=== PATIENT | male | born 1945 | race Caucasian/White ===

== ENCOUNTER 2016-10-04 20:13 | Inpatient (IN) | payer OTHER ==
[~2016-10-04] VITALS: Ht 180.3 cm; Wt 148.4 kg
[~2016-10-04 20:13] MED LIST: AMOX500C3 PO; ASPI325T39 PO; ATOR-24 PO; ATV/1 PO; CITA20TA9 PO; CLOP1TAB15 PO; LISI-729 PO; METO25TA3 PO; NVLGI7030 SC; PLMIN90 INH; ROPI1TAB PO; TORS20TA2 PO; VNTHFA/IN INH; [UNRECOGNIZED DRUG - CODE] PO
[2016-10-04] MEDS ORDERED: METOPROLOL TARTRATE 1 MG/ML VIAL IV STA (20:25)
[2016-10-04] MEDS ORDERED: METOPROLOL TARTRATE 1 MG/ML VIAL ONE (20:26)
[2016-10-04] MEDS ORDERED: FENTANYL CITRATE INJ 50 MCG/1 ML 2 ML VIAL ONE (20:29)
[2016-10-04] MEDS ORDERED: NiCARDipine HCL INJ 2.5 MG/ML 10 ML AMP ONE (20:29)
[2016-10-04] MEDS ORDERED: HEPARIN SOD (PORCINE) 1000 UNIT/ML 10 ML VIAL ONE (20:29)
[2016-10-04] MEDS ORDERED: MIDAZOLAM HCL 1 MG/ML 2ML VIAL ONE (20:30)
--- NOTE | 2016-10-04 20:31 | EMERGENCY ROOM VISIT NOTE ---
History Report prepared by Chema: Starr Blanton Under the Supervision of: Dr. Taimr Jacobo D.O. First contact with patient: 20:05 Chief Complaint: HEART ALERT Stated Complaint: Chest Pain, Heart Alert History of Present Illness The patient is a 71 year old male who presents to the Emergency Room with complaints of constant chest pain beginning 2 hours ago. The patient states that he has been having chest pain and tightness for the last 4 days and today his pain worsened to a 10/10 in severity. EMS state that he has had a heart attack in the past and this feels similar to his previous. They note that he took 325mg of Aspirin at lunch time and was on 6L of oxygen en route and received nitro. The patient states that he is feeling slightly better now and rates his pain as an 8/10 in severity. He notes that he has neck pain. Source of History: patient Onset: 2 hrs ago Position: chest Symptom Intensity: 8/10 Quality: other (tightness) Timing: constant Associated Symptoms: + neck pain Review of Systems See HPI for pertinent positives & negatives. A total of 10 systems reviewed and were otherwise negative. Past Medical & Surgical Medical Problems: (1) CHF exacerbation (2) Coronary artery disease (3) Diabetes (4) Diabetes mellitus (5) Kidney stones (6) Multiple rib fractures involving four or more ribs (7) Myocardial infarct Surgical Problems: (1) H/O cardiac catheterization (2) H/O percutaneous transluminal coronary angioplasty (3) Stented coronary artery Family History FH: HTN (hypertension) FH: cancer FH: diabetes mellitus FH: gallbladder disease FH: heart disease FH: kidney disease Social History Smoking Status: Never Smoker Alcohol Use: occasionally Drug Use: none Marital Status: Housing Status: lives with family Occupation Status: retired Current/Historical Medications Scheduled Aspirin (Aspirin Ec), 325 MG PO QPM Atorvastatin (Lipitor), 40 MG PO DAILY Citalopram Hydrobromide (Celexa), 20 MG PO QPM Clopidogrel (Plavix), 75 MG PO QAM Insulin Aspart 70/30 (Novolog Mix 70/30), 10-15 UNITS SC QAM Insulin Aspart 70/30 (Novolog Mix 70/30), 30 UNITS SC HS Lisinopril (Zestril), 5 MG PO DAILY Lorazepam (Ativan), 1 MG PO HS Metoprolol Succinate (Toprol Xl), 25 MG PO BID Torsemide (Demadex), 20 MG PO DAILY Scheduled PRN Albuterol Hfa (Ventolin Hfa), Unknown Dose INH Q4-6H PRN for Shortness of Breath Oxycodone Immediate Rel Tab (Roxicodone Ir), 1-2 TAB PO Q4H PRN for Pain Zolpidem Tartrate (Zolpidem), 10 MG PO HS PRN for Sleep Allergies Coded Allergies: No Known Allergies (Verified , `, 06/19/16) Physical Exam Vital Signs Date Time Temp Pulse Resp B/P Pulse Ox O2 Delivery O2 Flow Rate FiO2 10/04/16 21:11 81 20 163/91 97 Nasal Cannula 2.0 10/04/16 20:33 89 99 10/04/16 20:29 23 151/90 99 10/04/16 20:29 99 172/108 10/04/16 20:28 97 99 10/04/16 20:25 100 Nasal Cannula 2.0 10/04/16 20:21 172/108 10/04/16 20:20 100 Nasal Cannula 2.0 10/04/16 20:20 86 23 144/94 97 Nasal Cannula 2.0 10/04/16 20:14 98 Room Air 10/04/16 20:14 37.0 101 23 178/105 97 Nasal Cannula 2.0 Physical Exam GENERAL: Patient is awake, alert, and very anxious appearing. Appears to be uncomfortable. EYES: The conjunctivae are clear. The pupils are round and reactive. EARS, NOSE, MOUTH AND THROAT: The nose is without any evidence of any deformity. Mucous membranes are moist tongue is midline NECK: The neck is nontender and supple. RESPIRATORY: Lung sounds diminished at the right base, rales at the right base. Mild tachypnea appreciated. CARDIOVASCULAR: Tachycardic rate and regular rhythm noted there no definite murmur noted to auscultation. GASTROINTESTINAL: The abdomen is soft. Bowel sounds are present in all quadrants. Abdomen is nontender MUSCULOSKELETAL/EXTREMITIES: There is no evidence of gross deformity full range of motion is noted in the hips and shoulders SKIN: There is no obvious evidence of any rash. There are no petechiae, pallor or cyanosis noted. Pedal edema bilaterally. NEUROLOGIC: Patient is awake alert and oriented x3 Medical Decision & Procedures ER Provider Diagnostic Interpretation: X-ray results as stated below per interpretation by me and the radiologist. CHEST ONE VIEW PORTABLE FINDINGS: The left-sided PICC catheter has been removed. The heart remains enlarged. There is a persistent moderate right pleural effusion with associated right basilar atelectasis/consolidation. There is mild pulmonary venous congestion. IMPRESSION: 1. Cardiomegaly and radiographic evidence of mild pulmonary vascular congestion 2. Persistent moderate right pleural effusion with right lower lobe atelectasis/consolidation Electronically signed by: Chad Moulton M.D. 10/04/2016 8:36 PM Dictated Date/Time: 10/04/2016 8:34 PM Laboratory Results Test 10/04/16 20:24 10/04/16 20:26 10/04/16 21:00 Bedside Hemoglobin 15.6 g/dl (14.0-18.0) Bedside Hematocrit 46 % (42-52) Bedside Sodium 139 mEq/L (135-144) Bedside Potassium 4.1 mEq/L (3.3-5.0) Bedside Chloride 99 mEq/L (101-112) Bedside Total CO2 25 mEq/l (24-31) Bedside Blood Urea Nitrogen 15 mg/dl (7-18) Bedside Creatinine 1.0 mg/dl (0.6-1.3) Bedside Glucose (other) 239 mg/dl (70-99) Bedside Ionized Calcium (Sunny) 1.18 mmol/l (1.12-1.32) Total Bilirubin 0.7 mg/dl (0.2-1) Direct Bilirubin 0.2 mg/dl (0-0.2) Aspartate Amino Transf (AST/SGOT) 18 U/L (15-37) Alanine Aminotransferase (ALT/SGPT) 16 U/L (12-78) Alkaline Phosphatase 100 U/L (45-117) Pro-B-Type Natriuretic Peptide 1699 pg/ml (0-900) Total Protein 7.4 gm/dl (6.4-8.2) Albumin 3.4 gm/dl (3.4-5.0) Lipase 98 U/L (73-393) Bedside Troponin I 0.040 ng/ml (0-0.045) Urine Color YELLOW Urine Appearance CLEAR (CLEAR) Urine pH 5.0 (4.5-7.5) Urine Specific [place] 1.007 (1.000-1.030) Urine Protein 1+ (NEG) Urine Glucose (UA) NEG (NEG) Urine Ketones NEG (NEG) Urine Occult Blood NEG (NEG) Urine Nitrite NEG (NEG) Urine Bilirubin NEG (NEG) Urine Urobilinogen NEG (NEG) Urine Leukocyte Esterase NEG (NEG) Urine WBC (Auto) 0 /hpf (0-5) Urine RBC (Auto) 0-4 /hpf (0-4) Urine Hyaline Casts (Auto) 1-5 /lpf (0-5) Urine Epithelial Cells (Auto) 5-10 /lpf (0-5) Urine Bacteria (Auto) NEG (NEG) Laboratory results per my review. Medications Administered Medications (Trade) Dose Ordered Sig/Aditi Route Start Time Stop Time Status Last Admin Dose Admin Metoprolol Tartrate (Lopressor Iv) 15 mg NOW STAT IV 10/04/16 20:25 10/04/16 20:26 DC 10/04/16 20:29 5 MG Nitroglycerin 1 inch 1 inch STK-MED ONCE .ROUTE 10/04/16 20:44 10/04/16 20:46 DC 10/04/16 21:04 1 INCH Furosemide/ Albumin Human (Lasix Inj/ Albumin 25%) 54 ml @ 54 mls/hr NOW STAT IV 10/04/16 21:15 10/04/16 22:14 DC 10/04/16 21:58 54 MLS/HR Acetaminophen (Tylenol Tab) 650 mg Q4H PRN PO 10/04/16 21:45 11/03/16 21:44 10/05/16 04:34 650 MG Oxycodone HCl (Roxicodone Immediate Rel Tab) 5 mg Q4H PRN PO 10/04/16 21:45 10/18/16 21:44 10/05/16 10:12 5 MG Zolpidem Tartrate (Ambien Tab) 10 mg HS PRN PO 10/04/16 21:45 11/03/16 21:44 10/04/16 23:21 10 MG ECG Indication: chest pain Rate (beats per minute): 143 Rhythm: sinus tachycardia Findings: LBBB, other (widespread ST elevation noted) Comparison ECG Date: 06/13/16 Change: LBBB is unchanged from 06/13/16. EKG #[address] [facility]: Sinus Tachycardia, 116, no PVC, LBBB noted, improvement of previously noted ST segment abnormalities. ED Course 2004: The patient was evaluated in room B1. A complete history and physical examination were performed. 2009: Dr. Beckford came to evaluate the patient. 2011: I discussed the patient's case with Dr. Heredia. The patient will be evaluated for further management. 2024: Lopressor IV 15mg IV. 2029: Upon reevaluation, the patient is hemodynamically stable. I discussed results and treatment plan with the patient. He verbalizes agreement and understanding. I spoke with Dr. Heredia of the [facility]. The patient will be evaluated for further management and care. 2038: I reevaluated the patient. He is feeling better as the EKG is normalizing. Medical Decision Differential diagnosis: Etiologies such as cardiac ischemia, aortic dissection, pulmonary embolism, pneumonia, pneumothorax, musculoskeletal, infections, pericarditis, myocarditis , esophageal rupture, gastrointestinal, as well as others were entertained. Nursing notes reviewed. Additional history is obtained from the prehospital personnel. The patient is a 71-year-old male who presented to the emergency department for an evaluation of chest pain. The patient has a history of coronary artery disease. He's had cardiac catheterizations and stents in the past. He had an abnormal stress test last fall. The patient was made a heart alert after his prehospital EKGs revealed significant ST segment elevation which was widely diffuse as well as a left bundle branch block pattern. While the patient was on route we did review some of his past medical history and previous cardiac workups. It appears that he has had similar symptoms in the past. The patient was treated with nitroglycerin prior to arrival. He took aspirin prior to arrival. He was treated with beta blockers in the emergency department via IV. I discussed his case with the [employer]dl dedicated truck driver as well as the on- call [facility] hospitalist group. They evaluated the patient in the emergency department immediately after arrival. The patient was feeling much better on subsequent reevaluation. His pulse rate had improved and his ST segment abnormalities also improved. I discussed the patient's EKG findings with him. Consults Time Called: 2009 Consulting Physician: Dr. Heredia - [facility] Returned Call: 2011 I discussed the patient's case with Dr. Hereida. The patient will be evaluated for further management. Impression Primary Impression: Acute coronary syndrome Additional Impressions: Hypertensive urgency Pleural effusion, right Critical Care I have personally spent greater than 40 minutes of critical care time in the direct management of this patient. This includes bedside care, interpretation of diagnostic studies, and testing, discussion with consultants, patient, and family members, and other required patient management activities. This 40 minutes is in excess of all separately billable procedures. Scribe Attestation The scribe's documentation has been prepared under my direction and personally reviewed by me in its entirety. I confirm that the note above accurately reflects all work, treatment, procedures, and medical decision making performed by me. Departure Information Dispostion Being Evaluated By Hospitalist Referrals No Doctor, Assigned (PCP) Forms WORK / SCHOOL INSTRUCTIONS, HOME CARE DOCUMENTATION FORM, IMPORTANT VISIT INFORMATION Patient Instructions My [facility] Problem Qualifiers
[2016-10-04] MEDS ORDERED: NITROGLYCERIN/D5W 100MCG/ML 20ML SYR ONE (20:32)
[2016-10-04 20:37] LABS: BASO % 0.2 %; BASO ABS # 0.01 K/uL (0-0.2); COMPLETE YES; EOS % 1.8 %; HEMATOCRIT 45.3 % (42-52); LYMPH % 19.1 %; LYMPH ABS # 1.14 K/uL (1.2-3.4); MEAN CELL VOLUME 91.7 fL (80-100); MEAN CORPUSCULAR HEMOGLOBIN 31.4 pg (25-34); MEAN CORPUSCULAR HGB CONC 34.2 g/dl (32-36); MEAN PLATELET VOLUME 10.4 fL (7.4-10.4); NEUT % 71.9 %; PLATELET COUNT 164 K/uL (130-400); RED BLOOD COUNT 4.94 M/uL (4.7-6.1); WHITE BLOOD COUNT 5.98 K/uL (4.8-10.8)
--- NOTE | 2016-10-04 20:37 | DIAGNOSTIC IMAGING REPORT ---
CHEST ONE VIEW PORTABLE CLINICAL HISTORY: Chest pain. Possible myocardial infarction. COMPARISON STUDY: 06/17/2016 FINDINGS: The left-sided PICC catheter has been removed. The heart remains enlarged. There is a persistent moderate right pleural effusion with associated right basilar atelectasis/consolidation. There is mild pulmonary venous congestion.[ IMPRESSION: 1. Cardiomegaly and radiographic evidence of mild pulmonary vascular congestion 2. Persistent moderate right pleural effusion with right lower lobe atelectasis/consolidation Electronically signed by: Chad Moulton M.D. 10/04/2016 8:36 PM Dictated Date/Time: 10/04/2016 8:34 PM
[2016-10-04 20:40] LABS: ISTAT HEMOGLOBIN 15.6 g/dl (14.0-18.0); ISTAT IONIZED CALCIUM 1.18 mmol/l (1.12-1.32)
[2016-10-04] MEDS ORDERED: NITROGLYCERIN OINT 2% 1GM PACKET ONE (20:44)
[2016-10-04 20:51] LABS: PARTIAL THROMBOPLASTIN RATIO 1.1; PROTHROMBIN TIME (PATIENT) 10.7 SECONDS (9.0-12.0)
[2016-10-04 20:55] LABS: CREATININE 1.2 mg/dl (0.60-1.40)
[2016-10-04 20:56] LABS: BUN/CREATININE RATIO 12.1 (10-20); CALCIUM 9.2 mg/dl (8.5-10.1); MAGNESIUM 1.8 mg/dl (1.8-2.4); POTASSIUM 4.1 mmol/L (3.5-5.1)
[2016-10-04 20:59] LABS: CKMB/CK RATIO 2.3 (0-3.0)
[2016-10-04] MEDS ORDERED: ALBUMIN 25% 50 ML with FUROSEMIDE INJ 40 MG IV STA ×2 (21:15)
[2016-10-04 21:23] LABS: URINE APPEARANCE CLEAR (CLEAR); URINE BILIRUBIN NEG (NEG); URINE COLOR YELLOW; URINE NITRITE NEG (NEG); URINE SPECIFIC GRAVITY 1.007 (1.000-1.030); UROBILINOGEN NEG (NEG)
[2016-10-04 21:24] LABS: MANUAL MICROSCOPIC REQUIRED? NO; REVIEW REQ? NO
[2016-10-04] MEDS ORDERED: OXYC1TAB3 PO (21:24)
[2016-10-04] MEDS ORDERED: NITROGLYCERIN 0.4 MG SL PER TAB CHARGE SL PRN (21:45)
[2016-10-04] MEDS ORDERED: GLUCAGON FOR INJ 1 MG VIAL SQ PRN (21:45)
[2016-10-04] MEDS ORDERED: ACETAMINOPHEN 325 MG TAB PO PRN (21:45)
[2016-10-04] MEDS ORDERED: ZOLPIDEM TARTRATE 5 MG TAB PO PRN (21:45)
[2016-10-04] MEDS ORDERED: GLUCOSE 40% GEL 15 GM TUBE PO PRN (21:45)
[2016-10-04] MEDS ORDERED: GLUCOSE 10 TABS/TUBE PO PRN (21:45)
[2016-10-04] MEDS ORDERED: DEXTROSE 50% 50 ML SYR IV PRN (21:45)
[2016-10-04 22:52] VITALS: BP 165/96; PULSE 90; TEMP 36.7; O2SAT 94; Ht 180.3 cm; Wt 148.4 kg
[2016-10-04 23:17] VITALS: BP 157/97; PULSE 82; TEMP 36.6; O2SAT 94
[2016-10-04] MEDS: ZOLPIDEM TARTRATE 10 MG TAB PO PRN (23:21)
[2016-10-04] MEDS ORDERED: NURSING VERBAL MED ORDER ONE (23:45)
[2016-10-05] MEDS: LORAZEPAM 1 MG TAB PO PRN (00:42)
[2016-10-05] MEDS: ROPINIROLE HCL 1 MG TAB PO PRN (00:42)
--- NOTE | 2016-10-05 02:11 | CARDIOLOGY CONSULTATION ---
DATE OF CONSULTATION: 10/04/2016 REFERRING PHYSICIAN: Kvng Heredia MD PRIMARY PHYSICIAN: Ellis Mullen MD HISTORY OF PRESENT ILLNESS: The patient is a 71-year-old white male with a known history of coronary artery disease, status post 2.25 x 14 mm bare metal stent in the distal LAD on 12/03/2011. This was performed because of an acute coronary syndrome. He has diffuse 3-vessel coronary artery disease. Repeat cardiac catheterization on 06/14/2013 for a prolonged episode of chest pain and elevated cardiac enzymes showed patent stent site in his distal LAD. There was a subtotal occlusion of a codominant left circumflex coronary artery, diffuse [id number] disease of the LAD, 70% proximal LAD stenosis, and distal PDA stenosis. The stent site in the distal LAD was patent. In March of 2016, he sustained a non-ST elevation SD after being admitted for treatment of a left buttock abscess. He was seen at that time by Dr. Wayne Rodgers. The patient did not want to undergo cardiac catheterization procedure. Conservative management was performed. An echocardiogram was performed and revealed LV ejection fraction of 40% to 45%. Left ventricular dilatation. Moderate concentric LVH. Normal right ventricular systolic function. Moderate left atrial dilatation. Moderate mitral regurgitation. No significant tricuspid regurgitation noted. No significant aortic regurgitation noted. Severe hypokinesis of the inferior and posterior segments extending into the apex appeared a kinetic apex. Moderate hypokinesis of the anterolateral segments. Global hypokinesis of the other segments. Compared to a study of April 2015, the apex was akinetic. He thereafter underwent a nuclear pharmacologic stress test on 07/15/2016, this revealed an inferior infarction with [id number] wen-infarct ischemia. LV ejection fraction 37%. The patient states that until this evening at approximately 6:00 p.m. he had been at his baseline physical status. He normally develops a retrosternal chest pressure if he walks quickly, this is associated with dyspnea. He has chronic leg edema. This has been stable recently. He usually is able to sleep with 1 pillow. However, he does report episodes which are consistent with PND. He does not sleep of any supplemental oxygen. In the past, he states he was diagnosed with sleep apnea. He states that in the past he used CPAP. He no longer uses any CPAP. Occasional palpitations. No lightheadedness or syncope. This evening after eating dinner, he went to the bathroom to have a bowel movement. He began to develop chest pressure, this progressively worsened. He had associated diaphoresis and dyspnea. He states his heart rate is usually around 70. He has a pulse oximeter. He states his heart rate was over 100. Because of progressive worsening of his symptoms, he called 911. An electrocardiogram performed by EMS showed sinus tachycardia at a rate of 134 beats per minute. It revealed a nonspecific intraventricular conduction delay and left axis deviation. These are chronic conduction abnormalities on patient's electrocardiogram. Compared with 06/13/2016 ECG, the ventricular rate and atrial rate had increased. The anterior T waves were more prominent. The patient was given sublingual nitroglycerin by EMS. On arrival to the Emergency Department, he was still complaining of chest pressure and dyspnea. His initial blood pressure at 8:14 p.m. was 178/105. His pulse was 101. The patient was given 5 mg of intravenous metoprolol. This resulted in a decrease in his heart rate and blood pressure. His symptoms improved. His blood pressure and heart rate decreased. He was also given topical nitrates. With the decrease in his blood pressure and heart rate, his chest pressure and dyspnea resolved. Because of his symptoms and the electrocardiogram, a heart alert was called after patient had arrived in the Emergency Department. I evaluated patient in the Emergency Department. Dr. Tamir Jacobo and Dr. Kvng Heredia along with myself reviewed patient's electrocardiograms and his prior electrocardiograms. It was decided not to perform emergency cardiac catheterization. It was found that patient had 3-vessel coronary artery disease. It was felt that his symptoms were secondary to the elevated heart rate and blood pressure. As stated above with control of his blood pressure and heart rate, his anginal type symptoms resolved. His dyspnea also resolved. PAST MEDICAL HISTORY: 1. Coronary artery disease as above. 2. Hypertension. 3. Dyslipidemia. 4. Insulin-dependent diabetes mellitus. 5. Diabetic peripheral neuropathy. 6. Obstructive sleep apnea. 7. History of TIA and cerebrovascular disease. 8. Peripheral vascular disease. 9. History of depression. 10. Perirectal abscess requiring I\T\D on a 04/18/2016 [facility] admission. The patient still has a drainage tube in his left perirectal region. 11. Ischemic cardiomyopathy. 12. 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 13. Chronic combined systolic and diastolic heart failure. 14. Chronic right pleural effusion. 15. Proteinuria. 16. History of tubular adenoma of the colon. PAST SURGICAL HISTORY: 1. Status post cholecystectomy. 2. Status post tonsillectomy. 3. Status post ORIF of right humeral fracture. 4. Status post I\T\D of perirectal abscess. SOCIAL HISTORY: The patient is and lives with his . Former cigarette smoker. He stopped smoking cigarettes 54 years ago. Occasional use of alcohol. He is retired. ALLERGIES: No known drug allergies. MEDICATIONS: Based on all script records at the time of admission were torsemide 20 mg daily, lorazepam 0.5 mg b.i.d., losartan 50 mg daily, aspirin 325 mg daily, Senexon 8.6 mg 1 tablet daily, citalopram 20 mg daily, ropinirole 1 mg at bedtime, hydrocodone/acetaminophen 5/325 two tablets daily as needed for right hip pain, nitroglycerin spray as needed, atorvastatin 80 mg daily, Coenzyme Q10 200 mg daily, potassium 10 mEq daily, metoprolol succinate ER 100 mg daily, zolpidem 10 mg tablet 2 tablets p.r.n. at bedtime for sleep, magnesium oxide 400 mg daily, isosorbide mononitrate 60 mg daily, Xopenex 2 puffs q. 6 hours as needed, Advair Diskus 250/50, albuterol nebulizer as needed, ProAir 2 puffs q. 4-6 hours as needed, Nasonex 50 mcg actuation 1-2 sprays each nostril once daily, clopidogrel 75 mg daily, insulin as directed, NovoLog 70/30 20-25 units subQ q.a.m. and 30-35 units subQ q. evening, amlodipine 5 mg daily. IMMUNIZATIONS: Prevnar immunization given on 05/21/2015. Pneumovax on 05/21/2016. REVIEW OF SYSTEMS: 1. As above. 2. The patient states that for the past year he has had chronic and daily mid epigastric discomfort. He vaguely describes this. He states it is a dull pain. No change with meals. He denies any symptoms of GI bleeding. He complains of this discomfort this evening. 3. No recent focal motor weakness. 4. Poor dentition. He has 1 tooth on the bottom of his mouth. He has dentures which he does not wear. 5. No fevers or chills. 6. No cough. 7. He denies any urinary complaints. 8. Constipation. He does have a daily bowel movement with the use of medication. He denies any GI bleeding. 9. Chronic hip pain. 10. Chronic peripheral edema of his lower legs, ankles, and feet. 11. He claims that he is compliant with his medications and a low sodium diet. Medical records state that he has a history of significant noncompliance with his medications and low sodium diet. PHYSICAL EXAMINATION: GENERAL: When I first examined patient, it was early after his arrival to the Emergency Department. He still had minimal discomfort. He had mild dyspnea. VITAL SIGNS: Revealed pulse 99, blood pressure 172/105 and then 151/90, pulse oximetry 99% on 2 liters per nasal cannula oxygen. HEAD: Normal. EYES: Pupils equal and round. Anicteric. Conjunctivae normal. NECK: Thick neck. Unable to accurately assess jugular venous pressure. The jugular venous wave forms were not visible. Carotids 2/2 bilaterally. Normal upstroke. No bruits. LUNGS: Decreased breath sounds right base. No rales or wheezes. HEART: PMI not palpable. No lifts or heaves. Distant heart sounds. Regular rate and rhythm. No murmur, gallop, or rub heard. ABDOMEN: Obese. Soft. Nontender. No palpable masses or organomegaly. No bruits heard. EXTREMITIES: 1+ pretibial, ankle, and pedal edema. No cyanosis or clubbing. Pulses in the ankles and feet were not palpable. Radial pulses palpable. SKIN: Chronic venous stasis changes of the lower legs. NEUROLOGIC: Alert and oriented x3. He can move all extremities. Affect normal. DIAGNOSTIC DATA: Electrocardiogram reviewed by me. Sinus tachycardia, left axis deviation, nonspecific intraventricular conduction delay. Compared to prior electrocardiogram 06/13/2016, the atrial and ventricular rate increased. Anterior T waves more prominent. Chest x-ray reviewed by me. Right pleural effusion. Prominent pulmonary vasculature. His cardiac catheterization images from 2013 were reviewed by me this evening. Findings as reported above. LABORATORY DATA: WBC 5.98, hemoglobin 15.5, hematocrit 45.3, platelet count 164, INR 1.0, PTT 27.9. Sodium 140, potassium 4.1, chloride 102, carbon dioxide 28, BUN 15, creatinine 1.20, random glucose 235, magnesium 1.8. AST 18. ALT 16. CK total 56 with MB of 1.3. Point of care troponin I of 0.040. Serum albumin 3.4. ASSESSMENT: 1. I do not suspect an acute intracoronary process such as an acute coronary syndrome. His intraventricular conduction delay appears unchanged. The T waves are more prominent. However, the contour of ST segments is similar to previous electrocardiograms. The patient's chest pressure and dyspnea have resolved with control of his heart rate and blood pressure. Suspect that his anginal type symptoms were secondary to the elevated blood pressure and heart rate. 2. Suspect acute on chronic systolic and diastolic heart failure. This would increase his blood pressure and heart rate. With the increased blood pressure and heart rate, he would become more ischemic. This would further worsen and elevate his intracardiac pressures. 3. Evidence of congestive heart failure on chest x-ray. On exam, his left lung field x-ray was clear at the time of my exam. 4. Chronic right pleural effusion. 5. Chronic peripheral edema. 6. History of noncompliance with low sodium diet and medications. 7. No arrhythmias noted this evening. 8. Complaint of abdominal discomfort for the past year. The patient states that this has not as yet been evaluated. He states that he has not notified his primary care provider about this symptom. 9. Elevated blood pressure and heart rate at the time of admission. RECOMMENDATIONS AND PLAN: 1. Control of blood pressure with beta arlene, AVINASH inhibitor, diuretic, and topical nitrate. 2. Continue aspirin and clopidogrel. 3. DVT prophylaxis. 4. Check pro-BNP. 5. Serial cardiac enzymes. 6. Repeat echocardiogram. 7. Repeat ECG in a.m. 8. At this time, medical management of his coronary artery disease. I do not feel that patient is having an acute ST elevation myocardial infarction this evening. As stated above, his chest discomfort and dyspnea have resolved with control of his blood pressure and heart rate. 9. Evaluation of his abdominal discomfort by his primary care provider and hospital staff. ADDENDUM TO HISTORY: Family history is significant for his father having from myocardial infarction. Thank you for asking me to see this patient in cardiology consultation.
[2016-10-05 03:00] VITALS: BP 150/78; PULSE 84; TEMP 36.7; O2SAT 93
--- NOTE | 2016-10-05 04:02 | History and Physical ---
History & Physical Date & Time of Service: Oct 05, 2016 at 03:46 Chief Complaint: Chf Exacerbation Primary Care Physician: Ellis Mullen M.D. History of Present Illness Source: patient The patient is a 71-year-old male who presented to the emergency department complaint of chest pain and tightness over the past 4 days that worsened became more constant over the past 2 hours prior to arrival. He reports that this discomfort was similar to the times when he has had previous heart attack. In the emergency department, staff there were concerned about the possibility of an acute AK, and a Heart Alert was called. The patient was assessed by Dr. Beckford, from interventional cardiology, while in the emergency department, and he determined, after reviewing previous reports and assessing current information, that the patient's symptoms were more likely related to CHF, and recommended medical management. The patient was given Lopressor 5 mg IV in the emergency department, and with the addition of 1 inch of Nitropaste to the anterior chest wall, had and appropriate lowering of heart rate and blood pressure, and subsequent improvement but not normalization of symptoms. Past Medical/Surgical History Medical Problems: (1) Coronary artery disease Status: Chronic (2) Diabetes Status: Resolved (3) Diabetes mellitus Status: Chronic (4) Kidney stones Status: Resolved (5) Myocardial infarct Status: Resolved Surgical Problems: (1) H/O cardiac catheterization Status: Resolved (2) H/O percutaneous transluminal coronary angioplasty Status: Resolved (3) Stented coronary artery Status: Chronic Family History FH: HTN (hypertension) FH: cancer FH: diabetes mellitus FH: gallbladder disease FH: heart disease FH: kidney disease Social History Smoking Status: Never Smoker Smokeless Tobacco Use: No Alcohol Use: none Drug Use: none Marital Status: Housing status: lives with family Occupational Status: retired Immunizations History of Influenza Vaccine: No History of Tetanus Vaccine?: unknown History of Pneumococcal: No History of Hepatitis B Vaccine: No Multi-Drug Resistant Organisms History of MDRO: No Allergies Coded Allergies: No Known Allergies (Verified , `, 06/19/16) Home Medications Scheduled Aspirin (Aspirin Ec), 325 MG PO QPM Atorvastatin (Lipitor), 40 MG PO DAILY Citalopram Hydrobromide (Celexa), 20 MG PO QPM Clopidogrel (Plavix), 75 MG PO QAM Insulin Aspart 70/30 (Novolog Mix 70/30), 10-15 UNITS SC QAM Insulin Aspart 70/30 (Novolog Mix 70/30), 30 UNITS SC HS Lisinopril (Zestril), 5 MG PO DAILY Lorazepam (Ativan), 1 MG PO HS Metoprolol Succinate (Toprol Xl), 25 MG PO BID Torsemide (Demadex), 20 MG PO DAILY Scheduled PRN Albuterol Hfa (Ventolin Hfa), Unknown Dose INH Q4-6H PRN for Shortness of Breath Oxycodone Immediate Rel Tab (Roxicodone Ir), 1-2 TAB PO Q4H PRN for Pain Zolpidem Tartrate (Zolpidem), 10 MG PO HS PRN for Sleep Review of Systems The patient denies cough, vision change, hearing change, sore throat, fevers, chills, sweats, weight change, fatigue, nausea, vomiting, abdominal pain, pelvic pain, blood in urine or stool, dysuria, urinary frequency or urgency, lightheadedness, dizziness, headache, memory loss, rash, abnormal bruising or bleeding, imbalance, focal weakness, numbness or tingling in arms or legs, arthralgias or myalgias, back or neck pain, night sweats, or allergy symptoms. The review of systems is otherwise negative other than for that already noted above, and at least 10 systems have been reviewed. Physical Exam Vital Signs Date Time Temp Pulse Resp B/P Pulse Ox O2 Delivery O2 Flow Rate FiO2 10/05/16 00:02 Room Air 10/04/16 23:17 36.6 82 20 157/97 94 Room Air 10/04/16 22:52 36.7 90 20 165/96 94 Room Air 10/04/16 22:17 79 18 155/86 96 10/04/16 21:11 81 20 163/91 97 Nasal Cannula 2.0 10/04/16 20:33 89 99 10/04/16 20:29 23 151/90 99 10/04/16 20:29 99 172/108 10/04/16 20:28 97 99 10/04/16 20:25 100 Nasal Cannula 2.0 10/04/16 20:21 172/108 10/04/16 20:20 100 Nasal Cannula 2.0 10/04/16 20:20 86 23 144/94 97 Nasal Cannula 2.0 10/04/16 20:14 98 Room Air 10/04/16 20:14 37.0 101 23 178/105 97 Nasal Cannula 2.0 The patient is awake, well-developed and adequately nourished, alert and oriented 3, normocephalic and atraumatic, lying in bed and in moderate acute respiratory upon presentation to the emergency department. HEENT--PERRL, EOMI, mucous membranes moist, and oropharynx normal. Neck--supple, no JVD or bruits, thyroid normal, trachea midline, no adenopathy. Heart--tachycardic, periodic extra beats, no murmurs, rubs or gallops. Lungs--crackles at the bases to one third up bilaterally, initial presentation was moderate respiratory distress, no accessory muscle use. Abdomen--normal bowel sounds and soft, nontender and nondistended, no hernias or masses, no organomegaly and obese. Extremities--no cyanosis, clubbing. There is bilaterally 2+ pitting edema. There are good distal pulses b/l. Dermatologic--normal skin turgor, normal color, warm and dry, no abnormal lymph nodes, no rash. Neurologic--cranial nerves II through XII grossly intact, motor and sensory examination normal. Psychiatric--normal affect. Diagnostics Laboratory Results Results Past 24 Hours Test 10/04/16 20:24 10/04/16 20:26 10/04/16 21:00 Range/Units White Blood Count 5.98 4.8-10.8 K/uL Red Blood Count 4.94 4.7-6.1 M/uL Hemoglobin 15.5 14.0-18.0 g/dL Hematocrit 45.3 42-52 % Mean Corpuscular Volume 91.7 80-100 fL Mean Corpuscular Hemoglobin 31.4 25-34 pg Mean Corpuscular Hemoglobin Concent 34.2 32-36 g/dl Platelet Count 164 130-400 K/uL Mean Platelet Volume 10.4 7.4-10.4 fL Neutrophils (%) (Auto) 71.9 % Lymphocytes (%) (Auto) 19.1 % Monocytes (%) (Auto) 7.0 % Eosinophils (%) (Auto) 1.8 % Basophils (%) (Auto) 0.2 % Neutrophils # (Auto) 4.30 1.4-6.5 K/uL Lymphocytes # (Auto) 1.14 1.2-3.4 K/uL Monocytes # (Auto) 0.42 0.11-0.59 K/uL Eosinophils # (Auto) 0.11 0-0.5 K/uL Basophils # (Auto) 0.01 0-0.2 K/uL Bedside Hemoglobin 15.6 14.0-18.0 g/dl Bedside Hematocrit 46 42-52 % RDW Standard Deviation 46.1 36.4-46.3 fL RDW Coefficient of Variation 13.8 11.5-14.5 % Immature Granulocyte % (Auto) 0.0 % Immature Granulocyte # (Auto) 0.00 0.00-0.02 K/uL Prothrombin Time 10.7 9.0-12.0 SECONDS Prothromb Time International Ratio 1.0 0.9-1.1 Activated Partial Thromboplast Time 27.9 21.0-31.0 SECONDS Partial Thromboplastin Ratio 1.1 Bedside Sodium 139 135-144 mEq/L Sodium Level 140 136-145 mmol/L Bedside Potassium 4.1 3.3-5.0 mEq/L Potassium Level 4.1 3.5-5.1 mmol/L Bedside Chloride 99 101-112 mEq/L Chloride Level 102 98-107 mmol/L Carbon Dioxide Level 28 21-32 mmol/L Bedside Total CO2 25 24-31 mEq/l Anion Gap 20.0 16-25 mmol/L Bedside Blood Urea Nitrogen 15 7-18 mg/dl Blood Urea Nitrogen 15 7-18 mg/dl Creatinine 1.20 0.60-1.40 mg/dl Bedside Creatinine 1.0 0.6-1.3 mg/dl Est Creatinine Clear Calc Drug Dose 84.0 ml/min Estimated GFR () 69.6 Estimated GFR (Non- 60.1 BUN/Creatinine Ratio 12.1 10-20 Bedside Glucose (other) 239 70-99 mg/dl Random Glucose 235 70-99 mg/dl Calcium Level 9.2 8.5-10.1 mg/dl Bedside Ionized Calcium (Sunny) 1.18 1.12-1.32 mmol/l Magnesium Level 1.8 1.8-2.4 mg/dl Total Bilirubin 0.7 0.2-1 mg/dl Direct Bilirubin 0.2 0-0.2 mg/dl Aspartate Amino Transf (AST/SGOT) 18 15-37 U/L Alanine Aminotransferase (ALT/SGPT) 16 12-78 U/L Alkaline Phosphatase 100 45-117 U/L Total Creatine Kinase 56 39-308 U/L Creatine Kinase MB 1.3 0.5-3.6 ng/ml Creatine Kinase MB Ratio 2.3 0-3.0 Pro-B-Type Natriuretic Peptide 1699 0-900 pg/ml Total Protein 7.4 6.4-8.2 gm/dl Albumin 3.4 3.4-5.0 gm/dl Lipase 98 73-393 U/L Bedside Troponin I 0.040 0-0.045 ng/ml Urine Color YELLOW Urine Appearance CLEAR CLEAR Urine pH 5.0 4.5-7.5 Urine Specific [place] 1.007 1.000-1.030 Urine Protein 1+ NEG Urine Glucose (UA) NEG NEG Urine Ketones NEG NEG Urine Occult Blood NEG NEG Urine Nitrite NEG NEG Urine Bilirubin NEG NEG Urine Urobilinogen NEG NEG Urine Leukocyte Esterase NEG NEG Urine WBC (Auto) 0 0-5 /hpf Urine RBC (Auto) 0-4 0-4 /hpf Urine Hyaline Casts (Auto) 1-5 0-5 /lpf Urine Epithelial Cells (Auto) 5-10 0-5 /lpf Urine Bacteria (Auto) NEG NEG Diagnostic Radiology Patient Name: NUVIA YAP Unit Number: [id number] Dictated: 10/04/162033 Transcribed: 10/04/162033 ARG Printed Date/Time: [~ rep prt dt]/[~ rep prt tm] [~ rep ct labl] - [~ rep ct ivnm] [facility] Radiology [place] [address] Dictated: 10/04/162033 Transcribed: 10/04/162033 ARG Printed Date/Time: [~ rep prt dt]/[~ rep prt tm] [~ rep ct labl] - [~ rep ct ivnm] CHEST ONE VIEW PORTABLE CLINICAL HISTORY: Chest pain. Possible myocardial infarction. COMPARISON STUDY: 06/17/2016 FINDINGS: The left-sided PICC catheter has been removed. The heart remains enlarged. There is a persistent moderate right pleural effusion with associated right basilar atelectasis/consolidation. There is mild pulmonary venous congestion.[ IMPRESSION: 1. Cardiomegaly and radiographic evidence of mild pulmonary vascular congestion 2. Persistent moderate right pleural effusion with right lower lobe atelectasis/consolidation Electronically signed by: Chad Moulton M.D. 10/04/2016 8:36 PM Dictated Date/Time: 10/04/2016 8:34 PM The status of this report is Signed. Draft = Not yet reviewed or approved by Radiologist. Signed = Reviewed and approved by Radiologist. <AttendingPhy></AttendingPhy> <FamilyPhy>No Doctor, Assigned</FamilyPhy> < PrimaryPhy>No Doctor, Assigned</PrimaryPhy> <UnitNumber>[id number]</UnitNumber> <VisitNumber>[id number]</VisitNumber> <PatientName>MARELYNUVIA Nahun</ PatientName> <DateOfBirth>1945</DateOfBirth> <Location>[facility]</Location> < ServiceDate>10/04/16</ServiceDate> <MNE>ESINDI</MNE> <OrderingPhy>Tamir Jacobo D.O.</OrderingPhy> <OrderingPhyMNE>f rep ord dr cloud</OrderingPhyMNE> <DictatingPhyMNE>f rep dict dr cloud</DictatingPhyMNE> <CCListMNE>f rep ct pedro luis</ CCListMNE> <AdmittingPhyMNE>f pt admit dr cloud</AdmittingPhyMNE> <AttendingPhyMNE >f pt attend dr cloud</AttendingPhyMNE> <ConsultingPhyMNE>f pt consult dr cloud</ConsultingPhyMNE> <FamilyPhyMNE>f pt fam dr cloud</FamilyPhyMNE> <OtherPhyMNE>f pt other dr cloud</OtherPhyMNE> < PrimaryPhyMNE>f pt prim care dr cloud</PrimaryPhyMNE> <ReferringPhyMNE>f pt referring dr cloud</ReferringPhyMNE> EKG The patient had a number of EKGs performed in [facility], and while in the emergency department, along with rhythm strips will be monitored. The patient has normal sinus rhythm with varying degrees of left bundle branch block with varying conduction patterns, similar to noted at his previous hospitalization. Impression Assessment and Plan Acute CHF exacerbation/coronary artery disease/history of PTCA/stent to the coronary arteries/myocardial infarction history--the patient will be admitted to the telemetry unit for serial cardiac enzymes, cardiac rhythm monitoring, and work repeat 2-D echocardiogram with Dopplers. We'll continue with enteric aspirin 325 mg by mouth daily, clopidogrel 75 mg by mouth every morning, lisinopril 5 mg by mouth daily, and metoprolol succinate 25 mg by mouth daily. We will add Nitropaste 1 inch anterior chest wall every 6 hours. We will hold torsemide 20 mg by mouth daily. We'll place patient on albumin 25 g with Lasix 40 mg IV twice a day with first dose tonight. We'll follow serial chest x-ray. Dr. Beckford has already consulted on the patient, and will continue to follow the patient during hospital stay. We'll follow serial basic metabolic panel and magnesium levels. Diabetes mellitus--continue NovoLog mix 7030 at 50 units subcutaneous twice a day. We'll place patient on Accu-Cheks before meals and at bedtime with NovoLog coverage. Hypercholesterolemia--continue atorvastatin 40 mg by mouth daily. Restless leg syndrome--continue Requip 1 mg by mouth at bedtime. Anxiety--continue lorazepam 1 mg by mouth daily, and Celexa 20 mg by mouth every afternoon. COPD--continue Pulmicort Flexhaler 2 puffs twice a day. Level of Care Telemetry Advanced Directives Existing Advance Directive: No Existing Living Will: No Existing Power of Lead Generation Specialist: No Resuscitation Status FULL RESUSCITATION VTE Prophylaxis VTE Risk Assessment Done? Y/N: Yes Risk Level: Moderate Given or contraindicated: SCD's
[2016-10-05 06:09] LABS: BASO % 0.3 %; BASO ABS # 0.02 K/uL (0-0.2); COMPLETE YES; EOS % 1.8 %; HEMATOCRIT 41.2 % (42-52); IG% 0.3 %; LYMPH % 20.1 %; LYMPH ABS # 1.31 K/uL (1.2-3.4); MEAN CELL VOLUME 90.4 fL (80-100); MEAN CORPUSCULAR HGB CONC 33.3 g/dl (32-36); MEAN PLATELET VOLUME 10.6 fL (7.4-10.4); MONO % 9.1 %; NEUT % 68.4 %; PLATELET COUNT 174 K/uL (130-400); RED BLOOD COUNT 4.56 M/uL (4.7-6.1); WHITE BLOOD COUNT 6.51 K/uL (4.8-10.8)
[2016-10-05 06:15] LABS: PROTHROMBIN TIME (PATIENT) 10.8 SECONDS (9.0-12.0)
[2016-10-05] MEDS: OXYCODONE HCL IR 5 MG TAB (IMMEDIATE RELEASE) PO PRN ×2 (06:27→10:12)
[2016-10-05 06:38] LABS: BUN/CREATININE RATIO 13.4 (10-20); CREATININE 1.1 mg/dl (0.60-1.40); MAGNESIUM 1.8 mg/dl (1.8-2.4)
[2016-10-05 06:47] LABS: CKMB/CK RATIO 9.5 (0-3.0)
[2016-10-05] MEDS: CLOPIDOGREL BISULFATE 75 MG TAB PO SCH (07:40)
[2016-10-05] MEDS: ATORVASTATIN 20 MG TAB PO SCH (07:40)
[2016-10-05] MEDS: LISINOPRIL 5 MG TAB PO SCH (07:41)
[2016-10-05 07:52] VITALS: BP 142/78; PULSE 76; TEMP 36.7; O2SAT 92
[2016-10-05] MEDS: INSULIN 70% ASPART PROTAMINE/30% ASPART SC SCH ×2 (07:57→18:46)
[2016-10-05] MEDS: INSULIN ASPART 100 UNITS/ML 3 ML PEN SC SCH ×4 (07:57→21:11)
[2016-10-05] MEDS: HEPARIN 25,000 UNIT/500ML D5W 500 ML IV PRN ×2 (08:43→22:17)
[2016-10-05] MEDS ORDERED: METOPROLOL SUCC 25MG EXT REL TAB PO SCH (09:00)
[2016-10-05] MEDS ORDERED: PANTOprazole SOD 40 MG TAB PO ONE (09:20)
[2016-10-05] MEDS: ALBUMIN 25% 50 ML with FUROSEMIDE INJ 40 MG IV SCH ×4 (09:24→21:04)
[2016-10-05 11:32] VITALS: BP 157/91; PULSE 82; TEMP 36.5; O2SAT 94
--- NOTE | 2016-10-05 12:31 | CARDIOLOGY PROGRESS NOTE ---
DATE: 10/05/2016 SUBJECTIVE: The patient was seen by me this morning in the telemetry unit room. Since admission, he has had no further upper chest tightness. He denies any dyspnea this morning. His main complaint continues to be abdominal discomfort. He states that this is continuous. He states he has been present for almost past year. He states there is no change in the discomfort with meals or bowel movement. His appetite is decreased this morning. No fevers or chills. He denies any pulmonary complaints today. No leg pain. Chronic leg edema. No nausea or vomiting. No urinary complaints. No cerebrovascular complaints. No bleeding complaints. MEDICATIONS: This morning are aspirin 325 mg daily, citalopram 20 mg daily, pantoprazole 40 mg p.o. b.i.d., metoprolol succinate ER 25 mg b.i.d., NovoLog 70/30 insulin 30 units subQ daily with dinner, atorvastatin 40 mg daily, clopidogrel 75 mg daily, lisinopril 5 mg daily, furosemide with albumin 40 mg IV b.i.d., intravenous heparin by weight-based protocol, NovoLog sliding scale insulin, NovoLog 70/30 insulin 10 units daily with breakfast, lorazepam p.r.n., Requip 1 mg at bedtime, and several other p.r.n. medications. PHYSICAL EXAMINATION: GENERAL: This morning shows the patient to be lying in bed in no distress. VITAL SIGNS: Oral temperature is 36.7, pulse 76, blood pressure 142/78, and pulse oximetry on room air 92%. NECK: Difficult to evaluate the jugular venous pressure. There does not appear to be any significant jugular venous distention. LUNGS: Normal respiratory effort. Decreased breath sounds in the right base. No rales or wheezes. HEART: Distant heart sounds. Regular rate and rhythm. No murmur, gallop or rub. ABDOMEN: Obese. Soft. Diffuse tenderness. No palpable masses or organomegaly. EXTREMITIES: 1+ pretibial edema bilaterally. NEUROLOGIC: Alert and oriented x3. Motor grossly intact. PSYCHIATRIC: Affect is normal. DATA: Electrocardiogram this morning was sinus rhythm with first degree AV block. Left axis deviation, low voltage QRS, nonspecific IVCD, and possible lateral and inferior infarct. Compared to electrocardiogram from last night, QRS voltage has decreased. LABORATORY DATA: This morning with WBC 6.51, hemoglobin 13.7, hematocrit 41.2, and platelet count 174. Metabolic profile -- sodium 141, potassium 4.0, chloride 102, carbon dioxide 30, BUN 15, creatinine 1.10, and random glucose 131. CK total 286 with MB 27.2. Troponin I is 12.200. ASSESSMENT: 1. Status post non-ST elevation myocardial infarction. On admission, the patient had significant hypertension and tachycardia. It is difficult to determine whether the elevated heart rate and blood pressure preceded the myocardial injury or was the result of it. With this additional information and labs, cannot exclude that the patient did have an acute coronary process last evening. His anginal symptoms have resolved. He was hemodynamically stable. He is not having any arrhythmias. 2. Hypertension. Blood pressure mildly elevated today. 3. Mild first degree atrioventricular block. 4. Chronic intraventricular conduction delay. Electrocardiogram without any diagnostic changes of myocardial ischemia. 5. Improvement in dyspnea since last night. He is receiving intravenous diuretics. Intake and output today 250/1775. Yesterday's weight was 153.8 kg. Today's weight 147 kg. 6. His proBNP was mildly elevated at 1699. Suspect that he had acute on chronic systolic and diastolic heart failure yesterday. He has had significant diuresis since admission. His elevated blood pressure and heart rate may have been secondary to his congestive heart failure developing last evening. 7. Renal function and potassium normal this morning. RECOMMENDATIONS: 1. Increase metoprolol succinate ER to 50 mg b.i.d. Watch for additional prolongation of MA interval. 2. Continue intravenous heparin today. 3. Continue aspirin and clopidogrel. 4. Evaluation of abdominal discomfort. An abdominal ultrasound has been ordered. 5. Check echocardiogram to reassess ventricular function. 6. Conservative medical management of his underlying coronary artery disease at this time. The patient has diffuse CAD documented on prior cardiac catheterizations.
[2016-10-05 13:32] LABS: CKMB/CK RATIO 7.5 (0-3.0)
[2016-10-05 15:11] LABS: PARTIAL THROMBOPLASTIN RATIO 2.1
[2016-10-05 15:17] VITALS: BP 160/88; PULSE 76; TEMP 36.8; O2SAT 94
--- NOTE | 2016-10-05 16:34 | Progress Note ---
Subjective Date of Service: Oct 05, 2016. Subjective Pt evaluation today including: conversation w/ patient, physical exam, lab review, review of studies, conversation w/ clothing consultant, review of inpatient medication list Pain: epigastric pain, has been ongoing PO Intake: adequate Voiding: no voiding problems diuresed well over night, reports that breathing is much better, no chest pain or pressure today reports epigastric pain, is made worse with eating, about 30 minutes after has lost weight due to eating less and pain moving bowels well, no diarrhea, no vomiting reported Problem List Medical Problems: (1) Abscess, gluteal, left Status: Acute (2) Acute coronary syndrome Status: Acute (3) Fall Status: Acute (4) Fever Status: Acute (5) Hypertensive urgency Status: Acute (6) Multiple rib fractures Status: Acute (7) Perianal abscess Status: Acute (8) Pleural effusion Status: Acute (9) Pleural effusion Status: Acute (10) Pleural effusion, right Status: Acute (11) Pneumonia Status: Acute (12) Pulmonary edema Status: Acute (13) Shortness of breath Status: Acute Review of Systems Constitutional: + fatigue, + weakness, + weight loss Respiratory: + dyspnea on exertion Abdomen: + pain All Other Systems: Reviewed and Negative Medications Current Inpatient Medications Medications (Trade) Dose Ordered Sig/Aditi Route Start Time Stop Time Status Last Admin Dose Admin Acetaminophen (Tylenol Tab) 650 mg Q4H PRN PO 10/04/16 21:45 11/03/16 21:44 10/05/16 04:34 650 MG Nitroglycerin (Nitrostat Tab) 0.4 mg UD PRN SL 10/04/16 21:45 11/03/16 21:44 Aspirin (Ecotrin Tab) 325 mg QPM PO 10/05/16 21:00 11/04/16 20:59 Atorvastatin Calcium (Lipitor Tab) 40 mg DAILY PO 10/05/16 09:00 11/04/16 08:59 10/05/16 07:40 40 MG Citalopram Hydrobromide (celeXA TAB) 20 mg QPM PO 10/05/16 21:00 11/04/16 20:59 Clopidogrel Bisulfate (plAVix TAB) 75 mg QAM PO 10/05/16 09:00 11/04/16 08:59 10/05/16 07:40 75 MG Insulin Aspart Prota 70%/Aspart 30% (novoLOG MIX 70/ 30) 10 units QDB SC 10/05/16 07:30 11/04/16 07:59 10/05/16 07:57 10 UNITS Insulin Aspart Prota 70%/Aspart 30% (novoLOG MIX 70/ 30) 30 units QDD SC 10/05/16 16:45 11/04/16 16:44 Lisinopril (Zestril Tab) 5 mg DAILY PO 10/05/16 09:00 11/04/16 08:59 10/05/16 07:41 5 MG Oxycodone HCl (Roxicodone Immediate Rel Tab) 5 mg Q4H PRN PO 10/04/16 21:45 10/18/16 21:44 10/05/16 10:12 5 MG Zolpidem Tartrate (Ambien Tab) 10 mg HS PRN PO 10/04/16 21:45 11/03/16 21:44 10/04/16 23:21 10 MG Ondansetron HCl (Zofran Inj) 4 mg Q6H PRN IV 10/04/16 21:45 11/03/16 21:44 Insulin Aspart (novoLOG ASPART) SLIDING SCALE If C... ACHS SC 10/05/16 07:00 11/04/16 06:59 10/05/16 11:46 3 UNITS Glucose (Glucose 40% Gel) UD PRN PO 10/04/16 21:45 11/03/16 21:44 Glucose (Glucose Chew Tab) 1 tabs UD PRN PO 10/04/16 21:45 11/03/16 21:44 Dextrose (Dextrose 50% 50ML Syringe) 50 ml UD PRN IV 10/04/16 21:45 11/03/16 21:44 Glucagon 1 mg 1 mg UD PRN SQ 10/04/16 21:45 11/03/16 21:44 Furosemide/ Albumin Human (Lasix Inj/ Albumin 25%) 54 ml @ 54 mls/hr BID IV 10/05/16 09:00 10/07/16 08:59 10/05/16 09:24 54 MLS/HR Lorazepam (Ativan Tab) 1 mg HS PRN PO 10/04/16 23:45 11/03/16 23:44 10/05/16 00:42 1 MG Ropinirole HCl 1 mg 1 mg HS PRN PO 10/04/16 23:45 11/03/16 23:44 10/05/16 00:42 1 MG Heparin Sodium/ Dextrose (Heparin 25,000 Unit/500ml D5W) 500 ml @ 37 mls/hr [id number] PRN IV 10/05/16 08:15 11/04/16 08:14 10/05/16 08:43 37 MLS/HR Pantoprazole Sodium (Protonix Tab) 40 mg BID PO 10/05/16 21:00 11/04/16 20:59 Metoprolol Succinate (Toprol Xl Tab) 50 mg BID PO 10/05/16 21:00 11/04/16 20:59 Objective Vital Signs Date Time Temp Pulse Resp B/P Pulse Ox O2 Delivery O2 Flow Rate FiO2 10/05/16 15:17 36.8 76 18 160/88 94 Room Air 10/05/16 12:00 Room Air 10/05/16 11:32 36.5 82 18 157/91 94 Room Air 10/05/16 08:00 Room Air 10/05/16 07:52 36.7 76 19 142/78 92 Room Air 10/05/16 04:02 Room Air 10/05/16 03:00 36.7 84 17 150/78 93 Room Air 10/05/16 00:02 Room Air 10/04/16 23:17 36.6 82 20 157/97 94 Room Air 10/04/16 22:52 36.7 90 20 165/96 94 Room Air 10/04/16 22:17 79 18 155/86 96 10/04/16 21:11 81 20 163/91 97 Nasal Cannula 2.0 10/04/16 20:33 89 99 10/04/16 20:29 23 151/90 99 10/04/16 20:29 99 172/108 10/04/16 20:28 97 99 10/04/16 20:25 100 Nasal Cannula 2.0 10/04/16 20:21 172/108 10/04/16 20:20 100 Nasal Cannula 2.0 10/04/16 20:20 86 23 144/94 97 Nasal Cannula 2.0 10/04/16 20:14 98 Room Air 10/04/16 20:14 37.0 101 23 178/105 97 Nasal Cannula 2.0 Physical Exam General Appearance: no apparent distress, + obese Eyes: normal inspection, EOMI, sclerae normal ENT: normal ENT inspection, hearing grossly normal, pharynx normal Neck: supple, no adenopathy, no JVD, trachea midline Respiratory/Chest: chest non-tender, lungs clear, normal breath sounds, no respiratory distress, no accessory muscle use Cardiovascular: regular rate, rhythm, no edema, no gallop, no JVD, no murmur Abdomen: normal bowel sounds, non tender, soft, no organomegaly Extremities: normal range of motion, non-tender, normal inspection, no calf tenderness, pelvis stable, + pedal edema 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, no motor/sensory deficits, alert, normal mood/affect, oriented x 3 Laboratory Results Last 24 Hours Test 10/04/16 20:24 10/04/16 20:26 10/04/16 21:00 10/05/16 05:03 White Blood Count 5.98 K/uL 6.51 K/uL Red Blood Count 4.94 M/uL 4.56 M/uL Hemoglobin 15.5 g/dL 13.7 g/dL Hematocrit 45.3 % 41.2 % Mean Corpuscular Volume 91.7 fL 90.4 fL Mean Corpuscular Hemoglobin 31.4 pg 30.0 pg Mean Corpuscular Hemoglobin Concent 34.2 g/dl 33.3 g/dl Platelet Count 164 K/uL 174 K/uL Mean Platelet Volume 10.4 fL 10.6 fL Neutrophils (%) (Auto) 71.9 % 68.4 % Lymphocytes (%) (Auto) 19.1 % 20.1 % Monocytes (%) (Auto) 7.0 % 9.1 % Eosinophils (%) (Auto) 1.8 % 1.8 % Basophils (%) (Auto) 0.2 % 0.3 % Neutrophils # (Auto) 4.30 K/uL 4.45 K/uL Lymphocytes # (Auto) 1.14 K/uL 1.31 K/uL Monocytes # (Auto) 0.42 K/uL 0.59 K/uL Eosinophils # (Auto) 0.11 K/uL 0.12 K/uL Basophils # (Auto) 0.01 K/uL 0.02 K/uL Bedside Hemoglobin 15.6 g/dl Bedside Hematocrit 46 % RDW Standard Deviation 46.1 fL 45.2 fL RDW Coefficient of Variation 13.8 % 13.8 % Immature Granulocyte % (Auto) 0.0 % 0.3 % Immature Granulocyte # (Auto) 0.00 K/uL 0.02 K/uL Prothrombin Time 10.7 SECONDS 10.8 SECONDS Prothromb Time International Ratio 1.0 1.0 Activated Partial Thromboplast Time 27.9 SECONDS 26.7 SECONDS Partial Thromboplastin Ratio 1.1 1.0 Bedside Sodium 139 mEq/L Sodium Level 140 mmol/L 141 mmol/L Bedside Potassium 4.1 mEq/L Potassium Level 4.1 mmol/L 4.0 mmol/L Bedside Chloride 99 mEq/L Chloride Level 102 mmol/L 102 mmol/L Carbon Dioxide Level 28 mmol/L 30 mmol/L Bedside Total CO2 25 mEq/l Anion Gap 20.0 mmol/L 9.0 mmol/L Bedside Blood Urea Nitrogen 15 mg/dl Blood Urea Nitrogen 15 mg/dl 15 mg/dl Creatinine 1.20 mg/dl 1.10 mg/dl Bedside Creatinine 1.0 mg/dl Est Creatinine Clear Calc Drug Dose 84.0 ml/min 91.6 ml/min Estimated GFR () 69.6 77.3 Estimated GFR (Non- 60.1 66.7 BUN/Creatinine Ratio 12.1 13.4 Bedside Glucose (other) 239 mg/dl Random Glucose 235 mg/dl 131 mg/dl Calcium Level 9.2 mg/dl 9.0 mg/dl Bedside Ionized Calcium (Sunny) 1.18 mmol/l Magnesium Level 1.8 mg/dl 1.8 mg/dl Total Bilirubin 0.7 mg/dl Direct Bilirubin 0.2 mg/dl Aspartate Amino Transf (AST/SGOT) 18 U/L Alanine Aminotransferase (ALT/SGPT) 16 U/L Alkaline Phosphatase 100 U/L Total Creatine Kinase 56 U/L 286 U/L Creatine Kinase MB 1.3 ng/ml 27.2 ng/ml Creatine Kinase MB Ratio 2.3 9.5 Pro-B-Type Natriuretic Peptide 1699 pg/ml Total Protein 7.4 gm/dl Albumin 3.4 gm/dl Lipase 98 U/L Bedside Troponin I 0.040 ng/ml Urine Color YELLOW Urine Appearance CLEAR Urine pH 5.0 Urine Specific [place] 1.007 Urine Protein 1+ Urine Glucose (UA) NEG Urine Ketones NEG Urine Occult Blood NEG Urine Nitrite NEG Urine Bilirubin NEG Urine Urobilinogen NEG Urine Leukocyte Esterase NEG Urine WBC (Auto) 0 /hpf Urine RBC (Auto) 0-4 /hpf Urine Hyaline Casts (Auto) 1-5 /lpf Urine Epithelial Cells (Auto) 5-10 /lpf Urine Bacteria (Auto) NEG Troponin I 12.200 ng/ml Test 10/05/16 06:47 10/05/16 11:23 10/05/16 12:50 10/05/16 14:50 Bedside Glucose 134 mg/dl 173 mg/dl Total Creatine Kinase 219 U/L Creatine Kinase MB 16.5 ng/ml Creatine Kinase MB Ratio 7.5 Troponin I 8.590 ng/ml Activated Partial Thromboplast Time 54.0 SECONDS Partial Thromboplastin Ratio 2.1 Test 10/05/16 16:12 Bedside Glucose 151 mg/dl Assessment and Plan 71 yo male with history of triple vessel disease, stent to the LAD, has a history of non-compliance, presented with increased shortness of breath, uncontrolled hypertension, mild chest pain and epigastric pain. Heart alert called, no need for emergent catheterization. Troponin initially negative, repeat was 12 in the morning. - NSTEMI: no active CP, vitals stable, troponin trending down at 8 continue heparin gtt for 48-72 hours, Plavix, aspirin, lisinopril, Lipitor Toprol increased from 25mg to 50mg, watch for any bradycardia interventional cardiology following, no need for heart catheterization - Acute diastolic heart failure: resolving well with Lasix, continue BID, watch weight and I/O, check echo no dyspnea today, lungs clearing up - Epigastric pain and weight loss: will start on Protonix, check abdominal US no tenderness on exam, normal LFT and lipase on admission may want to consider GI consult as outpatient once recovered from NSTEMI Diabetes mellitus--continue NovoLog mix 7030 at 50 units subcutaneous twice a day. We'll place patient on Accu-Cheks before meals and at bedtime with NovoLog coverage. Hypercholesterolemia--continue atorvastatin 40 mg by mouth daily. Restless leg syndrome--continue Requip 1 mg by mouth at bedtime. Anxiety--continue lorazepam 1 mg by mouth daily, and Celexa 20 mg by mouth every afternoon. COPD--continue Pulmicort Flexhaler 2 puffs twice a day. Plan: remain on telemetry, repeat labs in AM, follow up on abdominal US results
[2016-10-05 19:07] VITALS: BP 129/66; PULSE 78; TEMP 37; O2SAT 94
[2016-10-05] MEDS: METOPROLOL SUCC 50MG EXT REL TAB PO SCH (21:06)
[2016-10-05] MEDS: ASPIRIN 325 MG ECTAB PO SCH (21:06)
[2016-10-05] MEDS: CITALOPRAM 20 MG TAB PO SCH (21:06)
[2016-10-05] MEDS: PANTOprazole SOD 40 MG TAB PO SCH (21:06)
--- NOTE | 2016-10-05 21:07 | DIAGNOSTIC IMAGING REPORT ---
ULTRASOUND ABDOMEN COMPLETE CLINICAL HISTORY: Epigastric abdominal pain. Weight loss. COMPARISON STUDY: Abdominal CT dated 12/05/2015. TECHNIQUE: Real-time, grayscale, and color flow sonography of the abdomen was performed. Images are reviewed in the transverse and longitudinal planes. The examination is degraded by large body habitus. FINDINGS: Liver: The liver is normal in size and echotexture. There is no intrahepatic biliary ductal dilatation. The main portal vein is patent. Gallbladder: The gallbladder is surgically absent. The common bile duct measures up to 0.4 cm in diameter. Pancreas: Not well visualized due to overlying bowel gas. Spleen: The spleen is normal in size and echotexture, measuring 12.0 cm in length. Kidneys: The kidneys demonstrate cortical atrophy. There is no hydronephrosis. The right kidney measures 10.3 cm in length and the left kidney measures 12.5 cm in length. No shadowing calculi are identified. Abdominal vasculature: Visualized portions of the abdominal aorta are normal in appearance. Ascites: None. Bladder: The bladder is decompressed and not well evaluated. Pleural spaces: There is a right pleural effusion. IMPRESSION: 1. No acute sonographic abnormality is identified. 2. Status post cholecystectomy. 3. Right pleural effusion. 4. The pancreas was not well visualized due to overlying bowel gas. Electronically signed by: Barrett Ovalle M.D. 10/05/2016 9:05 PM Dictated Date/Time: 10/05/2016 9:03 PM
[2016-10-05 23:42] VITALS: BP 113/74; PULSE 63; TEMP 36.8; O2SAT 94
[2016-10-06 00:47] LABS: CKMB/CK RATIO 5.1 (0-3.0)
[2016-10-06] MEDS: ZOLPIDEM TARTRATE 10 MG TAB PO PRN (00:50)
[2016-10-06] MEDS: LORAZEPAM 1 MG TAB PO PRN (00:50)
[2016-10-06] MEDS: ROPINIROLE HCL 1 MG TAB PO PRN (00:57)
[2016-10-06 03:53] VITALS: BP 108/70; PULSE 77; TEMP 36.8; O2SAT 93
[2016-10-06 05:21] LABS: BASO % 0.3 %; BASO ABS # 0.02 K/uL (0-0.2); COMPLETE YES; EOS % 1.4 %; HEMATOCRIT 42.2 % (42-52); IG% 0.1 %; LYMPH % 23.7 %; LYMPH ABS # 1.73 K/uL (1.2-3.4); MEAN CELL VOLUME 89.2 fL (80-100); MEAN CORPUSCULAR HEMOGLOBIN 29.8 pg (25-34); MEAN CORPUSCULAR HGB CONC 33.4 g/dl (32-36); MEAN PLATELET VOLUME 10.5 fL (7.4-10.4); MONO % 9.3 %; NEUT % 65.2 %; PLATELET COUNT 169 K/uL (130-400); RED BLOOD COUNT 4.73 M/uL (4.7-6.1)
[2016-10-06 05:41] LABS: INR 1.1 (0.9-1.1); PARTIAL THROMBOPLASTIN RATIO 3.3; PROTHROMBIN TIME (PATIENT) 12.2 SECONDS (9.0-12.0)
[2016-10-06 05:46] LABS: BUN/CREATININE RATIO 12.8 (10-20); CREATININE 1.2 mg/dl (0.60-1.40); MAGNESIUM 1.7 mg/dl (1.8-2.4); POTASSIUM 3.7 mmol/L (3.5-5.1)
[2016-10-06 08:00] VITALS: BP 130/78; PULSE 66; TEMP 37; O2SAT 94
[2016-10-06] MEDS: INSULIN ASPART 100 UNITS/ML 3 ML PEN SC SCH ×4 (08:04→21:00)
[2016-10-06] MEDS: ATORVASTATIN 20 MG TAB PO SCH (08:06)
[2016-10-06] MEDS: INSULIN 70% ASPART PROTAMINE/30% ASPART SC SCH ×2 (08:06→18:40)
[2016-10-06] MEDS: LISINOPRIL 5 MG TAB PO SCH (08:06)
[2016-10-06] MEDS: CLOPIDOGREL BISULFATE 75 MG TAB PO SCH (08:06)
[2016-10-06] MEDS: METOPROLOL SUCC 50MG EXT REL TAB PO SCH ×2 (08:06→20:14)
[2016-10-06] MEDS: PANTOprazole SOD 40 MG TAB PO SCH ×2 (08:06→20:14)
[2016-10-06] MEDS: OXYCODONE HCL IR 5 MG TAB (IMMEDIATE RELEASE) PO PRN ×2 (08:16→20:15)
[2016-10-06] MEDS: ALBUMIN 25% 50 ML with FUROSEMIDE INJ 40 MG IV SCH ×4 (09:28→20:19)
[2016-10-06] MEDS: ONDANSETRON INJ 2 MG/ML 2 ML VIAL IV PRN (09:28)
--- NOTE | 2016-10-06 09:55 | CARDIOLOGY PROGRESS NOTE ---
DATE: 10/06/2016 HISTORY OF PRESENT ILLNESS: Mr. Bobby is an obese 71-year-old white male with a history of multivessel CAD status post distal LAD stent on 12/03/2011, hypertension, dyslipidemia, insulin requiring type 2 diabetes mellitus, diabetic peripheral neuropathy, obstructive sleep apnea, cerebrovascular disease, peripheral arterial disease, depression, ischemic cardiomyopathy, chronic combined systolic and diastolic CHF, chronic right pleural effusion, and a perirectal abscess status post I&D with a surgical drain still in place, who was admitted on 10/04/2016 after sudden onset chest pressure with associated dyspnea and diaphoresis. At that time he was markedly hypertensive and tachycardic. His initial EKG performed by EMS showed a sinus tachycardia at a rate of 134 beats per minute with nonspecific IVCD, and anterior T waves were slightly more prominent, however, the ST contours were similar to prior tracings. His initial troponin I was elevated at 12.200 ng/mL, but has trended downward. The patient's symptoms completely resolved after his heart rate and blood pressure were lowered. The patient is currently being seen in the telemetry unit, and he complains of ongoing right-sided abdominal pain that is bothering him the most. He specifically denies any chest pain, heaviness, tightness, pressure or angina pectoris. He denies any neck, jaw, back, or arm pain. No shortness of breath, dyspnea on exertion, orthopnea or PND. No diaphoresis. No nausea or vomiting. He further denies any palpitations, syncope, or near syncope. PHYSICAL EXAMINATION: VITAL SIGNS: Temperature is 36.8 degrees Celsius, pulse is 58 and regular, respiratory rate is 14 and unlabored, blood pressure is 108/70, SpO2 is 93% on room air. GENERAL: The patient is in no acute distress. HEENT: Head is atraumatic, normocephalic. EOMs intact. Sclerae are anicteric. Facies symmetric. No perioral cyanosis. Mucous membranes moist. NECK: Without thyromegaly, adenopathy, or obvious JVD. Jugular venous pressure is difficult to assess due to his body habitus. CHEST AND LUNGS: With markedly diminished breath sounds in the right base, otherwise clear. No wheezes or rales. CARDIOVASCULAR: S1 and S2 are regular, distant, and bradycardic. No murmur, gallop or rub. PMI is nonpalpable. ABDOMEN: Bowel sounds present. No masses, organomegaly. Slightly tender to palpation along the right upper quadrant and right lower quadrant. No guarding, rigidity or rebound tenderness. EXTREMITIES: With trace to +1 pretibial edema bilaterally. Pigmentation changes are present bilaterally. Distal pulses including dorsalis pedis and posterior tibial are nonpalpable. Radial pulsations are +2 bilaterally. NEUROLOGIC: The patient is awake, alert and oriented. Pleasant and cooperative. Answers questions appropriately. Speech is clear. Normal movement in all 4 extremities. Gait pattern not assessed. LABORATORIES: White blood cell count is 7.30. Hemoglobin 14.1 g/dl, hematocrit 42.2%. Platelet count is 169,000. Activated partial thromboplastin time is 84.6 seconds. Sodium is 138 mmol/L, potassium 3.7 mmol/L. BUN is 15 mg per deciliter, creatinine 1.20 mg/dL. Random glucose 151 mg/dL. Magnesium level is slightly low at 1.7 mg/dL. Abdominal ultrasound shows no acute sonographic abnormalities, status post cholecystectomy, right pleural effusion, pancreas was not well visualized due to overlying bowel gas. EKG performed today shows normal sinus rhythm at a rate of 71 beats per minute with a marked first-degree AV block (MI interval 264 milliseconds), premature atrial contraction with aberrant conduction, IVCD, Q-waves present in leads 2 and aVF, T-wave inversions are present in leads 1 and aVL as well as V6. Corrected QT interval is 480 msec. ASSESSMENT: 1. Coronary artery disease, status post Non ST elevation myocardial infarction, likely secondary to hypertension and tachycardia. Symptoms resolved with lowering of blood pressure and heart rate. 2. Hypertension 3. First-degree AV block (MI interval 264 milliseconds). 4. Chronic IVCD. 5. Chronic right pleural effusion, asymptomatic. 6. Acute on chronic combined congestive heart failure, appears to be resolved. Body weight is down 8.6 kilograms since admission. 7. History of distal left anterior descending stent. 8. No angina pectoris at the present time. 9. No symptoms suggestive of dysrhythmia. 10. Ongoing abdominal pain, uncertain etiology. PLAN: 1. Continue long-term aspirin and Plavix therapy. 2. Continue Lipitor 40 mg daily. 3. Continue Toprol-XL 50 mg b.i.d. We will not titrate due to worsening first-degree AV block. 4. Continue Lisinopril 5 mg daily. 5. Continue IV furosemide 40 mg twice daily. 6. Continue to closely monitor daily I and O's, body weights. 7. Heparin drip continues. He will remain on this for another 24 hours. 8. Continue insulin coverage. 9. Thus far, his abdominal workup is unremarkable. Consider gastroenterology consultation as his vast majority of symptoms are abdominal / GI in nature. 10. We will continue to follow. Patient seen and examined in conjunction with Mr. Yanes. He is feeling much better after diuresis. No current C/O anginal pains or dyspnea. No evidence pulmonary vascular congestion on exam. Agree with above plan. Increase activity. Switch to oral diuretic. DC IV heparin tomorrow. No further cardiac work up at this time. continued medical management of his heart disease. Patricia Beckford MD. MILE
[2016-10-06 12:06] VITALS: BP 148/84; PULSE 68; TEMP 36.7; O2SAT 93
--- NOTE | 2016-10-06 12:17 | Hospitalist Progress Note ---
Hospitalist Progress Note Date of Service Oct 06, 2016. Subjective Pt evaluation today including: conversation w/ patient, physical exam, chart review, lab review, review of studies, review of inpatient medication list Pain: RUQ abdominal PO Intake: Minimal Voiding: no voiding problems Pt was seen and examined this morning. All his complaints today are GI related- he has RUQ abdominal pain, with associated nausea and vomiting, denies hematemesis, coffee ground emesis. He also reports abdominal pain postprandially , with the the sensation of need to have a bowel movement sometimes within 20 minutes after eating. Pt reports having some stool incontinence, and that he recently had a tube placed for a fistula in beginning of August. He denies rectal pain, BRBPR, hematochezia. He denies chest pain, shortness of breath, palpitations or flutter. Currently the heparin gtt is still running. CKMB and Trop I are trending downward. Echocardiogram is ordered for today. Cardiology is following along Constitutional: No chills, No fever, No sweats ENT: No nasal symptoms, No sore throat Respiratory: No cough, No dyspnea at rest, No shortness of breath Cardiovascular: No chest pain Abdomen: + see HPI Musculoskeletal: No calf pain, No joint pain, No muscle pain Male : No dysuria Neurologic: No numbness/tingling, No weakness Psychiatric: No anxiety Skin: No itch, No rash Objective Vital Signs Date Time Temp Pulse Resp B/P Pulse Ox O2 Delivery O2 Flow Rate FiO2 10/06/16 04:02 Room Air 10/06/16 03:53 36.8 77 15 108/70 93 Room Air 10/06/16 00:02 Room Air 10/05/16 23:42 36.8 63 17 113/74 94 Room Air 10/05/16 20:04 Room Air 10/05/16 19:07 37.0 78 19 129/66 94 Room Air 10/05/16 16:00 Room Air 10/05/16 15:17 36.8 76 18 160/88 94 Room Air 10/05/16 12:00 Room Air 10/05/16 11:32 36.5 82 18 157/91 94 Room Air Physical Exam General Appearance: WD/WN, + moderate distress, + obese Eyes: PERRL, EOMI ENT: hearing grossly normal, pharynx normal, + pertinent finding (poor dentition) Neck: no JVD Respiratory/Chest: lungs clear, normal breath sounds, no respiratory distress, no accessory muscle use Cardiovascular: regular rate, rhythm, + tachycardia Abdomen: normal bowel sounds, soft, + tenderness (more acute in the RUQ, mild tenderness generalized throughout. No rebound or guarding. Pt became nauseous after abdominal exam with dry heaves requiring zofran.) Extremities: no calf tenderness, + pedal edema (1+ pitting edema ) Neurologic/Psychiatric: alert, oriented x 3 Laboratory Results Last 24 Hours Test 10/05/16 11:23 10/05/16 12:50 10/05/16 14:50 10/05/16 16:12 Bedside Glucose 173 mg/dl 151 mg/dl Total Creatine Kinase 219 U/L Creatine Kinase MB 16.5 ng/ml Creatine Kinase MB Ratio 7.5 Troponin I 8.590 ng/ml Activated Partial Thromboplast Time 54.0 SECONDS Partial Thromboplastin Ratio 2.1 Test 10/05/16 18:10 10/05/16 19:57 10/06/16 00:13 10/06/16 04:58 Bedside Glucose 145 mg/dl 152 mg/dl Total Creatine Kinase 120 U/L Creatine Kinase MB 6.1 ng/ml Creatine Kinase MB Ratio 5.1 Troponin I 5.600 ng/ml White Blood Count 7.30 K/uL Red Blood Count 4.73 M/uL Hemoglobin 14.1 g/dL Hematocrit 42.2 % Mean Corpuscular Volume 89.2 fL Mean Corpuscular Hemoglobin 29.8 pg Mean Corpuscular Hemoglobin Concent 33.4 g/dl Platelet Count 169 K/uL Mean Platelet Volume 10.5 fL Neutrophils (%) (Auto) 65.2 % Lymphocytes (%) (Auto) 23.7 % Monocytes (%) (Auto) 9.3 % Eosinophils (%) (Auto) 1.4 % Basophils (%) (Auto) 0.3 % Neutrophils # (Auto) 4.76 K/uL Lymphocytes # (Auto) 1.73 K/uL Monocytes # (Auto) 0.68 K/uL Eosinophils # (Auto) 0.10 K/uL Basophils # (Auto) 0.02 K/uL RDW Standard Deviation 44.8 fL RDW Coefficient of Variation 13.7 % Immature Granulocyte % (Auto) 0.1 % Immature Granulocyte # (Auto) 0.01 K/uL Prothrombin Time 12.2 SECONDS Prothromb Time International Ratio 1.1 Activated Partial Thromboplast Time 84.6 SECONDS Partial Thromboplastin Ratio 3.3 Sodium Level 138 mmol/L Potassium Level 3.7 mmol/L Chloride Level 99 mmol/L Carbon Dioxide Level 30 mmol/L Anion Gap 9.0 mmol/L Blood Urea Nitrogen 15 mg/dl Creatinine 1.20 mg/dl Est Creatinine Clear Calc Drug Dose 81.8 ml/min Estimated GFR () 69.6 Estimated GFR (Non- 60.1 BUN/Creatinine Ratio 12.8 Random Glucose 167 mg/dl Calcium Level 9.0 mg/dl Magnesium Level 1.7 mg/dl Test 10/06/16 06:33 Bedside Glucose 151 mg/dl Assessment and Plan 71 yo male with history of triple vessel disease, stent to the LAD, has a history of non-compliance, presented with increased shortness of breath, uncontrolled hypertension, mild chest pain and epigastric pain. Heart alert called, no need for emergent catheterization. Troponin initially negative, repeat was 12 and now trending downward NSTEMI: - no active CP, vitals stable, troponin trending down from 12.2 to 8.59 to 5.6 - continue heparin gtt for 48-72 hours (day2) - Plavix, aspirin, lisinopril, Lipitor - Toprol increased from 25mg to 50mg, no bradycardia overnight- continue to watch - interventional cardiology following, no need for heart catheterization - appreciate recs Acute diastolic heart failure: - resolving well with Lasix BID, watch weight and I/O - Echo complete- await results - No dyspnea today, lungs clearing up Epigastric pain and weight loss: - will start on Protonix - Abdominal US without acute positives on exam - RUQ with some tenderness, mildly generalized tenderness, -causing nausea and pt then proceeded to dry heave. Zofran administered at bedside. Pt also reports 50 lbs weight loss in the past ~3 months which is unintentional. He reports poor appetite. Pt last colonoscopy was about 8 years ago, has never had an EGD to his knowledge. - normal LFT and lipase on admission - Will order GI consult as outpatient once recovered from NSTEMI Diabetes mellitus -continue NovoLog mix 7030 at 50 units subcutaneous twice a day. - Cont Accu-Cheks achs with NovoLog coverage. Hypercholesterolemia -continue atorvastatin 40 mg by mouth daily. Restless leg syndrome -continue Requip 1 mg by mouth at bedtime. Anxiety- -continue lorazepam 1 mg by mouth daily, and Celexa 20 mg by mouth every afternoon. COPD- -continue Pulmicort Flexhaler 2 puffs twice a day. Disposition: Continue on heparin gtt, remain on tele today, Abd US neg, will need follow up as outpatient in GI after discharge. CODE STATUS: FULL CODE
--- NOTE | 2016-10-06 12:17 | Progress Note ---
Progress Note pt seen and examed, d/w JAISON about eaton points of dignosis and care plan, agreed current management, for details please referral to PA's note Sitting up in chair, complaining of right lower abdominal pain, associated with nausea, and some heave Denied chest pain In physical exam shows decreased breathing sound lungs, no wheezing heart was regular rhythm S1-S2 Abdominal examination has no obvious tender, but right lower abdomen some diffuse mild tender whe I press hard, which is not new right upper quadrant ultrasounds was done yesterday was not remarkable For the acute non-STEMI we'll continue current care follow-up cardiology input For the right lower abdominal pain, I don't see any need for now for GI consultation because right upper quadrant ultrasound is not remarkable, and lipase upon admission was negative, I am ordering in abdominal CT, we'll continue Protonix and supportive care Patient requested more narcotic medications for the abdominal pain, discussed the risk and benefit, and add Colace for the prevention of constipation possible induced by narcotic
[2016-10-06 12:52] LABS: PARTIAL THROMBOPLASTIN RATIO 2.5
[2016-10-06] MEDS: HEPARIN 25,000 UNIT/500ML D5W 500 ML IV PRN (13:20)
[2016-10-06] MEDS ORDERED: OPTIRAY 320 IV PRN (14:45)
--- NOTE | 2016-10-06 15:29 | DIAGNOSTIC IMAGING REPORT ---
CT OF THE ABDOMEN AND PELVIS WITH CONTRAST CLINICAL HISTORY: Abdominal pain. Congestive heart failure exacerbation. COMPARISON STUDY: CT of the abdomen and pelvis December 05, 2015 and abdominal ultrasound October 05, 2016. TECHNIQUE: Following IV administration of 119 mL of Optiray-320, axial images of the abdomen and pelvis were obtained from the lung bases to the proximal femurs. Images were reviewed in the axial, sagittal, and coronal planes. IV contrast was administered without complication. Oral contrast was administered. Delayed imaging was also performed. CT DOSE: 3308.65 mGy.cm FINDINGS: A partially visualized right pleural effusion is likely moderate in size. This is similar to prior exam of December 05, 2015. Right middle lobe and right lower lobe opacity is present with volume loss. There is no pneumatosis, free air or portal venous gas. There is no biliary ductal dilatation status post cholecystectomy. The spleen, adrenal glands and pancreas are unremarkable. There is moderate renal cortical thinning. No hydronephrosis is present. Both nephrograms are symmetric. Healed right rib fractures are incidentally noted. The caliber and wall thickness of small and large bowel are normal. There is sigmoid diverticulosis without evidence for acute diverticulitis. A linear radiodensity is noted adjacent to the anus. This is partially imaged on this exam. This exam is compromised by the right aspect of the body wall contacting the gantry. The appendix is normal. There is no abscess. IMPRESSION: 1. No acute process within the abdomen or pelvis although evaluation is mildly compromised by the body wall contacting the gantry of the CT scanner. 2. No significant change in a partially visualized right pleural effusion that is likely moderate in size since CT of December 05, 2015. Associated right lower lobe and right middle lobe opacity favors atelectasis. Electronically signed by: Alvarado Hagan M.D. 10/06/2016 3:27 PM Dictated Date/Time: 10/06/2016 3:18 PM
--- NOTE | 2016-10-06 15:37 | ECHOCARDIOGRAM REPORT ---
*NOTICE TO RECEIVING REPUBLICAN AGENCY This information is strictly Confidential and protected under [place] law. [place] law prohibits you from making any further disclosure of this information unless further disclosure is expressly permitted by the written consent of the person to whom it pertains or is authorized by law. A general authorization for the release of medical or other information is not sufficient for this purpose. Hospital accepts no responsibility if the information is made available to any other person, INCLUDING THE PATIENT. Interpretation Summary * Name: NUVIA YAP Study Date: 10/05/2016 01:03 PM BP: 142/78 mmHg * Patient Location: C.2T\S\S230\S\1 HR: 82 * : 1945 (M/d/yyyy) Gender: Male Height: 71 in * Age: 71 yrs Ethnicity: [place] Weight: 324 lb * Ordering Physician: Kris Beckford * Referring Physician: Michele Alamo DO * Performed By: Kevin Qureshi RDCS * * Reason For Study: Ischemic cardiomyopathy * BSA: 2.6 m2 * -- Conclusions -- * 1. Severely dilated LV. Mild concentric LVH. * 2. Moderate global LV dysfunction. LVEF 35-40 %. Severe posterior wall hypokinesis. Grade 2 diastolic dysfunction. * 3. Normal RV size and function. * 4. Moderate mitral regurgitation * 5. Normal estimated RA pressure * 6. Compared with prior study on 04/19/2016: No significant change Procedure Details * A complete two-dimensional transthoracic echocardiogram was performed (2D, M-mode, Doppler and color flow Doppler). * The study was technically adequate. Left Ventricle * The left ventricle is severely dilated. * There is mild concentric left ventricular hypertrophy. * Ejection Fraction = 35-40%. * There is moderate global hypokinesis of the left ventricle. * There is severe posterior wall hypokinesis. Right Ventricle * The right ventricle is grossly normal size. * The right ventricular systolic function is normal as assessed by tricuspid annular plane systolic excursion (TAPSE) (normal >1.5 cm). Atria * Borderline left atrial enlargement. * Right atrial size is normal. * No ASD detected; PFO is not assessed. Mitral Valve * There is mild mitral annular calcification. * There is no mitral valve stenosis. * There is moderate mitral regurgitation. Tricuspid Valve * The tricuspid valve is not well visualized, but is grossly normal. * There is no tricuspid stenosis. * Significant tricuspid regurgitation is absent. Aortic Valve * The aortic valve opens well. * The aortic valve is trileaflet. * No hemodynamically significant valvular aortic stenosis. * There is no significant aortic regurgitation. Pulmonic Valve * The pulmonary valve is inadequately visualized, but the Doppler data is adequate for interpretation. * There is no pulmonic valvular stenosis. * Trace pulmonic valvular regurgitation. Great Vessels * The aortic root and proximal ascending aorta are normal sized. Pericardium/Pleural * There is no pericardial effusion. Great Vessels * Normal inferior vena cava size and collapsability with sniff indicates a normal right atrial pressure of 3 mmHg Left Ventricular Diastolic Function * Diastolic dysfunction, Grade II (pseudonormalization pattern). MMode 2D Measurements and Calculations IVSd 1.3 cm IVSs 1.5 cm LVIDd 7.5 cm LVIDs 6.4 cm LVPWd 1.2 cm LVPWs 1.3 cm IVS/LVPW 1.1 FS 15.0 % EDV(Teich) 302.4 ml ESV(Teich) 209.6 ml EF(Teich) 30.7 % EDV(cubed) 429.7 ml ESV(cubed) 263.9 ml EF(cubed) 38.6 % % IVS thick 14.3 % % LVPW thick 13.0 % LV mass(C)d 486.7 grams LV mass(C)dI 188.0 grams/m\S\2 LV mass(C)s 440.9 grams LV mass(C)sI 170.3 grams/m\S\2 SV(Teich) 92.9 ml SI(Teich) 35.9 ml/m\S\2 SV(cubed) 165.8 ml SI(cubed) 64.1 ml/m\S\2 EPSS 1.5 cm Ao root diam 3.6 cm Ao root area 9.9 cm\S\2 ACS 1.7 cm LA dimension 5.1 cm asc Aorta Diam 3.6 cm LA/Ao 1.4 LVOT diam 2.0 cm LVOT area 3.3 cm\S\2 LVAd ap4 47.4 cm\S\2 LVLd ap4 8.8 cm EDV(MOD-sp4) 208.0 ml LVAs ap4 35.1 cm\S\2 LVLs ap4 7.9 cm ESV(MOD-sp4) 129.0 ml EF(MOD-sp4) 38.0 % LVAd ap2 44.5 cm\S\2 LVLd ap2 8.3 cm EDV(MOD-sp2) 200.0 ml LVAs ap2 35.2 cm\S\2 LVLs ap2 8.2 cm ESV(MOD-sp2) 129.0 ml EF(MOD-sp2) 35.5 % SV(MOD-sp4) 79.0 ml SI(MOD-sp4) 30.5 ml/m\S\2 SV(MOD-sp2) 71.0 ml SI(MOD-sp2) 27.4 ml/m\S\2 Doppler Measurements and Calculations MV E max missy 104.1 cm/sec MV A max missy 84.5 cm/sec MV E/A 1.2 MV dec time 0.13 sec Ao V2 max 139.6 cm/sec Ao max PG 7.8 mmHg Ao max PG (full) 4.0 mmHg DANA(V,A) 2.3 cm\S\2 DANA(V,D) 2.3 cm\S\2 LV V1 max PG 3.8 mmHg LV V1 max 97.9 cm/sec PA V2 max 132.5 cm/sec PA max PG 7.0 mmHg
[2016-10-06 15:50] VITALS: BP 119/69; PULSE 89; TEMP 37.3; O2SAT 94
[2016-10-06 19:45] VITALS: BP 133/70; PULSE 69; TEMP 37.3; O2SAT 93
[2016-10-06] MEDS: MAGNESIUM OXIDE 400 MG TAB PO SCH (20:11)
[2016-10-06] MEDS: DOCUSATE SODIUM 100 MG CAP PO SCH (20:12)
[2016-10-06] MEDS: CITALOPRAM 20 MG TAB PO SCH (20:13)
[2016-10-06] MEDS: ASPIRIN 325 MG ECTAB PO SCH (20:13)
[2016-10-06 23:38] VITALS: BP 104/66; PULSE 61; TEMP 36.5; O2SAT 93
[2016-10-07] MEDS: ROPINIROLE HCL 1 MG TAB PO PRN (00:40)
[2016-10-07] MEDS: LORAZEPAM 1 MG TAB PO PRN (00:41)
[2016-10-07] MEDS: ZOLPIDEM TARTRATE 10 MG TAB PO PRN (00:41)
[2016-10-07 03:34] VITALS: BP 96/61; PULSE 66; TEMP 36.6; O2SAT 95
[2016-10-07 06:12] LABS: BASO % 0.3 %; BASO ABS # 0.02 K/uL (0-0.2); COMPLETE YES; EOS % 2.2 %; HEMATOCRIT 41.9 % (42-52); IG% 0.3 %; LYMPH % 23.4 %; LYMPH ABS # 1.68 K/uL (1.2-3.4); MEAN CELL VOLUME 91.5 fL (80-100); MEAN CORPUSCULAR HEMOGLOBIN 30.6 pg (25-34); MEAN CORPUSCULAR HGB CONC 33.4 g/dl (32-36); MEAN PLATELET VOLUME 10.5 fL (7.4-10.4); MONO % 9.6 %; NEUT % 64.2 %; PLATELET COUNT 167 K/uL (130-400); RED BLOOD COUNT 4.58 M/uL (4.7-6.1); WHITE BLOOD COUNT 7.18 K/uL (4.8-10.8)
[2016-10-07 06:31] LABS: INR 1.1 (0.9-1.1)
[2016-10-07 06:54] LABS: BUN/CREATININE RATIO 12.6 (10-20); CALCIUM 8.9 mg/dl (8.5-10.1); CREATININE 1.5 mg/dl (0.60-1.40); MAGNESIUM 1.6 mg/dl (1.8-2.4); POTASSIUM 3.6 mmol/L (3.5-5.1)
[2016-10-07 08:01] VITALS: BP 133/79; PULSE 61; TEMP 37; O2SAT 92
[2016-10-07] MEDS: MAGNESIUM OXIDE 400 MG TAB PO SCH ×2 (08:42→20:30)
[2016-10-07] MEDS: ATORVASTATIN 20 MG TAB PO SCH (08:42)
[2016-10-07] MEDS: PANTOprazole SOD 40 MG TAB PO SCH ×2 (08:42→20:29)
[2016-10-07] MEDS: METOPROLOL SUCC 50MG EXT REL TAB PO SCH ×2 (08:42→20:29)
[2016-10-07] MEDS: CLOPIDOGREL BISULFATE 75 MG TAB PO SCH (08:42)
[2016-10-07] MEDS: LISINOPRIL 5 MG TAB PO SCH (08:43)
[2016-10-07] MEDS: DOCUSATE SODIUM 100 MG CAP PO SCH ×2 (08:44→20:29)
[2016-10-07] MEDS: TORSEMIDE 20 MG TAB PO SCH (08:44)
[2016-10-07] MEDS: INSULIN ASPART 100 UNITS/ML 3 ML PEN SC SCH ×4 (08:51→20:33)
[2016-10-07] MEDS: ONDANSETRON INJ 2 MG/ML 2 ML VIAL IV PRN (08:54)
[2016-10-07] MEDS: OXYCODONE HCL IR 5 MG TAB (IMMEDIATE RELEASE) PO PRN ×2 (10:57→20:28)
[2016-10-07] MEDS ORDERED: MAGNESIUM SULFATE 1GM / D5W 1 GM in PREMIXED IN D5W 100 ML IV SCH (11:30)
[2016-10-07 11:42] VITALS: BP 127/75; PULSE 61; TEMP 36.8; O2SAT 94
[2016-10-07] MEDS: INSULIN 70% ASPART PROTAMINE/30% ASPART SC SCH ×2 (11:53→20:32)
--- NOTE | 2016-10-07 13:03 | Hospitalist Progress Note ---
Hospitalist Progress Note Date of Service Oct 07, 2016. Subjective Pt evaluation today including: conversation w/ patient, physical exam, chart review, lab review, review of studies, review of inpatient medication list Pain: Abdominal pain PO Intake: Poor Voiding: no voiding problems The patient was seen and examined this morning. Pt reports abdominal pain as his main complaint. He denies shortness of breath, chest pain, palpitations, flutter, or chest tightness. He denies headache but is complaining of some sinus congestion between his eyes. Pt becomes nauseous at bedside with dry heaves and was administered zofran. Constitutional: No chills, No fever, No sweats Eyes: No diplopia ENT: No nasal symptoms, No sore throat, No tinnitus Respiratory: No cough, No dyspnea on exertion, No shortness of breath, No sputum Cardiovascular: No chest pain, No orthopnea, No palpitations Abdomen: + problem reported (loose stools due to contrast for abd CT), + see HPI Musculoskeletal: No joint pain Male : No dysuria Objective Vital Signs Date Time Temp Pulse Resp B/P Pulse Ox O2 Delivery O2 Flow Rate FiO2 10/07/16 04:00 Room Air 10/07/16 03:34 36.6 66 17 96/61 95 Room Air 10/06/16 23:59 Room Air 10/06/16 23:38 36.5 61 17 104/66 93 Room Air 10/06/16 20:00 Room Air 10/06/16 19:45 37.3 69 20 133/70 93 Room Air 10/06/16 16:00 Room Air 10/06/16 15:50 37.3 89 18 119/69 94 Room Air 10/06/16 12:06 36.7 68 20 148/84 93 Room Air 10/06/16 12:00 Room Air 10/06/16 08:00 Room Air 10/06/16 08:00 37.0 66 20 130/78 94 Room Air Physical Exam General Appearance: WD/WN, + mild distress, + obese Eyes: PERRL, EOMI ENT: hearing grossly normal, pharynx normal, + pertinent finding (poor dentition) Respiratory/Chest: lungs clear, no respiratory distress, no accessory muscle use, + pertinent finding (breath sounds are diminished at bases.) Cardiovascular: regular rate, rhythm, no murmur Abdomen: normal bowel sounds, non tender, soft Extremities: non-tender, no pedal edema, no calf tenderness Neurologic/Psychiatric: alert, oriented x 3 Skin: normal color, warm/dry Laboratory Results Last 24 Hours Test 10/06/16 11:34 10/06/16 12:08 10/06/16 16:33 10/06/16 20:31 Bedside Glucose 168 mg/dl 190 mg/dl 171 mg/dl Activated Partial Thromboplast Time 64.9 SECONDS Partial Thromboplastin Ratio 2.5 Test 10/07/16 05:10 White Blood Count 7.18 K/uL Red Blood Count 4.58 M/uL Hemoglobin 14.0 g/dL Hematocrit 41.9 % Mean Corpuscular Volume 91.5 fL Mean Corpuscular Hemoglobin 30.6 pg Mean Corpuscular Hemoglobin Concent 33.4 g/dl Platelet Count 167 K/uL Mean Platelet Volume 10.5 fL Neutrophils (%) (Auto) 64.2 % Lymphocytes (%) (Auto) 23.4 % Monocytes (%) (Auto) 9.6 % Eosinophils (%) (Auto) 2.2 % Basophils (%) (Auto) 0.3 % Neutrophils # (Auto) 4.61 K/uL Lymphocytes # (Auto) 1.68 K/uL Monocytes # (Auto) 0.69 K/uL Eosinophils # (Auto) 0.16 K/uL Basophils # (Auto) 0.02 K/uL RDW Standard Deviation 47.0 fL RDW Coefficient of Variation 14.0 % Immature Granulocyte % (Auto) 0.3 % Immature Granulocyte # (Auto) 0.02 K/uL Prothrombin Time 12.0 SECONDS Prothromb Time International Ratio 1.1 Activated Partial Thromboplast Time 105.2 SECONDS Partial Thromboplastin Ratio 4.0 Sodium Level 138 mmol/L Potassium Level 3.6 mmol/L Chloride Level 97 mmol/L Carbon Dioxide Level 30 mmol/L Anion Gap 11.0 mmol/L Blood Urea Nitrogen 19 mg/dl Creatinine 1.50 mg/dl Est Creatinine Clear Calc Drug Dose 65.0 ml/min Estimated GFR () 53.1 Estimated GFR (Non- 45.9 BUN/Creatinine Ratio 12.6 Random Glucose 119 mg/dl Calcium Level 8.9 mg/dl Magnesium Level 1.6 mg/dl Assessment and Plan 71 yo male with history of triple vessel disease, stent to the LAD, has a history of non-compliance, presented with increased shortness of breath, uncontrolled hypertension, mild chest pain and epigastric pain. Heart alert called, no need for emergent catheterization. Troponin initially negative, repeat was 12 and now trending downward NSTEMI: - no active CP, vitals stable, troponin trending down from 12.2 to 8.59 to 5.6 - heparin gtt turned off last night - Plavix, aspirin, lisinopril, Lipitor - Toprol increased from 25mg to 50mg, tolerating this dose well, will continue upon discharge - interventional cardiology following, no need for heart catheterization - appreciate recs Acute diastolic heart failure: - resolving well with Lasix BID, watch weight and I/O - Echo complete 1. Severely dilated LV. Mild concentric LVH. 2. Moderate global LV dysfunction. LVEF 35-40 %. Severe posterior wall hypokinesis. Grade 2 diastolic dysfunction. 3. Normal RV size and function. Moderate mitral regurgitation Normal estimated RA pressure Compared with prior study on 04/19/2016: No significant change - No dyspnea today, lungs clearing up Epigastric pain and weight loss: - will start on Protonix - Abdominal US without acute positives on exam - RUQ with some tenderness, mildly generalized tenderness, -causing nausea and pt then proceeded to dry heave. Zofran administered at bedside. Pt also reports 50 lbs weight loss in the past ~3 months which is unintentional. He reports poor appetite. Pt last colonoscopy was about 8 years ago, has never had an EGD to his knowledge. - normal LFT and lipase on admission - Will order GI consult as outpatient once recovered from NSTEMI - CT abdomen completed IMPRESSION: 1. No acute process within the abdomen or pelvis although evaluation is mildly compromised by the body wall contacting the gantry of the CT scanner. 2. No significant change in a partially visualized right pleural effusion that is likely moderate in size since CT of December 05, 2015. Associated right lower lobe and right middle lobe opacity favors atelectasis. - Pain relieved with oxycodone 5 mg once last evening. Pt was able to sleep throughout the night. Diabetes mellitus -continue NovoLog mix 7030 at 50 units subcutaneous with lunch and evening meals. - Cont Accu-Cheks achs with NovoLog coverage. Hypercholesterolemia -continue atorvastatin 40 mg by mouth daily. Restless leg syndrome -continue Requip 1 mg by mouth at bedtime. Anxiety- -continue lorazepam 1 mg by mouth daily, and Celexa 20 mg by mouth every afternoon. COPD- -continue Pulmicort Flexhaler 2 puffs twice a day. Disposition: Off heparin gtt, OOB, scds, will need follow up as outpatient in GI after discharge. CODE STATUS: FULL CODE
[2016-10-07 15:05] VITALS: BP 118/67; PULSE 54; TEMP 36.9; O2SAT 94
[2016-10-07] MEDS ORDERED: SENNA 8.6 MG TAB PO ONE (17:00)
[2016-10-07 18:52] VITALS: BP 118/66; PULSE 59; TEMP 36.7; O2SAT 91
[2016-10-07] MEDS: CITALOPRAM 20 MG TAB PO SCH (20:29)
[2016-10-07] MEDS: ASPIRIN 325 MG ECTAB PO SCH (20:29)
[2016-10-07] MEDS ORDERED: MAGNESIUM OXIDE 400 MG TAB PO SCH (21:00)
--- NOTE | 2016-10-07 22:22 | PROGRESS NOTE ---
DATE: 10/07/2016 HISTORY OF PRESENT ILLNESS: The patient was seen by me in his room today in the telemetry unit. He is feeling much better compared to admission. He states he has walked in the [place] a few times today. No chest pain or other anginal type pains. He denies any dyspnea walking in the [place]. No dyspnea sitting or lying in bed. No orthopnea or PND. Mild postural lightheadedness when he first arises. No palpitations. His abdominal discomfort has decreased today. His appetite is good. His peripheral edema has decreased since admission. CURRENT MEDICATIONS: NovoLog 70/30, 10 units subQ daily with lunch; senna 17.2 mg daily a.m.; torsemide 20 mg daily; magnesium oxide 400 mg p.o. b.i.d.; docusate sodium 100 mg b.i.d.; aspirin 325 mg daily; citalopram 20 mg daily; pantoprazole 40 mg b.i.d.; metoprolol succinate ER 50 mg b.i.d.; NovoLog 70/30 units subQ daily at dinner; atorvastatin 40 mg daily; clopidogrel 75 mg daily; lisinopril 5 mg daily; NovoLog sliding scale insulin; ropinirole 1 mg p.o. at bedtime and several p.r.n. medications. PHYSICAL EXAMINATION: VITAL SIGNS: Today with oral temperature is 36.7, pulse 59, blood pressure 118/65, pulse oximetry on room air today 91-94%. Weight today is 145.6 kg. The admission weight was 153.8 kg. NECK: No obvious jugular venous distention. LUNGS: Decreased breath sounds, right base. No rales or wheezes. HEART: Distant heart sounds. Regular rate and rhythm. No murmur, gallop or rub. ABDOMEN: Obese. Soft. Nontender this evening. No palpable masses or organomegaly. EXTREMITIES: Trace pretibial edema. NEUROLOGIC: Alert and oriented x3. Motor grossly intact. PSYCHIATRIC: Affect is normal. DATA: Echocardiogram revealed LV ejection fraction 35-40%, global hypokinesis of the left ventricle with severe posterior wall hypokinesis. Borderline left atrial enlargement. Moderate mitral regurgitation, no significant tricuspid regurgitation, trace pulmonic regurgitation, normal appearance of the inferior vena cava. Type II LV diastolic dysfunction. Normal estimated central venous pressure. Compared to the study of 04/19/2016, there is no significant interval change. LABORATORY DATA: Today with hemoglobin 14.0, hematocrit 41.9, WBC 7.18, platelet count 167. PTT this morning was 105.2. Intravenous heparin has since been discontinued. Metabolic profile today was; sodium 138, potassium 3.6, chloride 97, carbon dioxide 30, BUN 19, creatinine 1.50 and magnesium 1.6. ASSESSMENT: 1. Status post non-ST elevation myocardial infarction. No further chest pain since admission. He is hemodynamically stable. He has had no arrhythmias. 2. Ischemic cardiomyopathy. No significant change in left ventricular systolic function and wall motion compared to prior echo. His dyspnea has improved since admission. He had a good diuresis with IV diuretics. Adequate room air oxygen saturation today. 3. Blood pressure is well controlled today. At the time of admission, he was hypertensive. 4. Normal potassium. Creatinine has increased with diuresis. He has been switched to oral diuretics from the IV diuretics. 5. Hypomagnesemia. This was supplemented this morning with 1 gram of IV magnesium. RECOMMENDATIONS: 1. Continue medical management of his coronary artery disease and left ventricular dysfunction. 2. Continue oral diuretics. 3. Continue dual antiplatelet therapy. 4. If he has recurrent anginal type symptoms, we will consider the use of long-acting nitrate therapy. Also, could consider use of ranolazine if necessary in the future if he continues to have anginal symptoms. 5. Increase activity. I will be away until 10/14/2016. If the patient remains stable throughout tonight and tomorrow morning, would recommend discharge home from a cardiac standpoint. If there are any cardiology questions or problems, please ask one of the covering [facility] cardiac nurse practitioner.
[2016-10-08 00:06] VITALS: BP 98/60; PULSE 58; TEMP 36.6; O2SAT 92
[2016-10-08] MEDS: ROPINIROLE HCL 1 MG TAB PO PRN (00:37)
[2016-10-08] MEDS: ZOLPIDEM TARTRATE 10 MG TAB PO PRN (00:37)
[2016-10-08] MEDS: LORAZEPAM 1 MG TAB PO PRN (00:37)
[2016-10-08 03:37] VITALS: BP 91/50; PULSE 54; TEMP 36.5; O2SAT 91
[2016-10-08] MEDS: OXYCODONE HCL IR 5 MG TAB (IMMEDIATE RELEASE) PO PRN ×4 (06:36→23:39)
[2016-10-08] MEDS: INSULIN ASPART 100 UNITS/ML 3 ML PEN SC SCH ×4 (07:00→20:32)
[2016-10-08 07:12] LABS: BUN/CREATININE RATIO 17.3 (10-20); CALCIUM 8.9 mg/dl (8.5-10.1); CREATININE 1.7 mg/dl (0.60-1.40); POTASSIUM 3.7 mmol/L (3.5-5.1)
[2016-10-08 07:32] VITALS: BP 93/56; PULSE 57; TEMP 36.6; O2SAT 88
[2016-10-08] MEDS: DOCUSATE SODIUM 100 MG CAP PO SCH ×2 (09:00→20:33)
[2016-10-08] MEDS: SODIUM CHLORIDE 0.9% 1000ML 1,000 ML IV SCH (09:20)
[2016-10-08] MEDS: MAGNESIUM OXIDE 400 MG TAB PO SCH ×2 (09:22→20:32)
[2016-10-08] MEDS: CLOPIDOGREL BISULFATE 75 MG TAB PO SCH (09:22)
[2016-10-08] MEDS: ATORVASTATIN 20 MG TAB PO SCH (09:22)
[2016-10-08] MEDS: LISINOPRIL 5 MG TAB PO SCH (09:22)
[2016-10-08] MEDS: PANTOprazole SOD 40 MG TAB PO SCH ×2 (09:23→20:32)
[2016-10-08] MEDS: SENNA 8.6 MG TAB PO SCH (09:23)
[2016-10-08] MEDS: METOPROLOL SUCC 25MG EXT REL TAB PO SCH ×2 (09:28→20:31)
[2016-10-08] MEDS: ONDANSETRON INJ 2 MG/ML 2 ML VIAL IV PRN (09:31)
--- NOTE | 2016-10-08 11:09 | Hospitalist Progress Note ---
Hospitalist Progress Note Date of Service Oct 08, 2016. Subjective Pt evaluation today including: conversation w/ patient, physical exam, chart review, lab review, review of studies, review of inpatient medication list Pain: Abdominal pain PO Intake: Poor Voiding: no voiding problems The patient was seen and examined this morning. Pt reports still having abdominal pain. He denies nausea, vomiting, diarrhea or constipation overnight. He was able to tolerate all 3 meals yesterday. Today he has not eaten breakfast due to mild nausea. Pt has been using oxycodone for abd pain with relief. Pt denies lightheadedness, dizziness, headache, chest pain or sob. Overnight the pt became hypotensive with SBP in the low 90s, he was also bradycardic with HR= 54-58 on three separate checks. Constitutional: No chills, No fever, No sweats Eyes: No diplopia ENT: No nasal symptoms, No sore throat, No tinnitus Respiratory: No cough, No dyspnea at rest, No shortness of breath, No wheezing Cardiovascular: No chest pain, No palpitations Abdomen: + see HPI Musculoskeletal: No joint pain, No muscle pain, No swelling Male : No dysuria Skin: No itch, No rash Objective Vital Signs Date Time Temp Pulse Resp B/P Pulse Ox O2 Delivery O2 Flow Rate FiO2 10/08/16 09:15 Room Air 10/08/16 07:32 36.6 57 16 93/56 88 Room Air 10/08/16 04:00 Room Air 10/08/16 03:37 36.5 54 15 91/50 91 Room Air 10/08/16 00:06 36.6 58 17 98/60 92 Room Air 10/08/16 00:00 Room Air 10/07/16 21:00 Room Air 10/07/16 18:52 36.7 59 18 118/66 91 Room Air 10/07/16 16:00 Room Air 10/07/16 15:05 36.9 54 18 118/67 94 Room Air 10/07/16 12:00 Room Air 10/07/16 11:42 36.8 61 20 127/75 94 Room Air Physical Exam General Appearance: WD/WN, + obese, + pertinent finding (appears to have depressed mood today.) Eyes: PERRL, EOMI ENT: hearing grossly normal, pharynx normal Neck: no JVD Respiratory/Chest: lungs clear, normal breath sounds, no respiratory distress, no accessory muscle use Cardiovascular: regular rate, rhythm, no murmur Abdomen: normal bowel sounds, soft, + pertinent finding (+Obese, tender to palpation in the midepigastric, LLQ and RUQ. Pt report nausea with palpation. No rebound tenderness or guarding. ) Extremities: non-tender, no pedal edema, no calf tenderness Neurologic/Psychiatric: alert, oriented x 3 Skin: normal color, warm/dry Laboratory Results Last 24 Hours Test 10/07/16 20:31 10/07/16 22:28 10/08/16 00:47 10/08/16 05:44 Bedside Glucose 129 mg/dl 129 mg/dl 168 mg/dl Sodium Level 136 mmol/L Potassium Level 3.7 mmol/L Chloride Level 97 mmol/L Carbon Dioxide Level 30 mmol/L Anion Gap 9.0 mmol/L Blood Urea Nitrogen 29 mg/dl Creatinine 1.70 mg/dl Est Creatinine Clear Calc Drug Dose 57.6 ml/min Estimated GFR () 45.7 Estimated GFR (Non- 39.4 BUN/Creatinine Ratio 17.3 Random Glucose 138 mg/dl Calcium Level 8.9 mg/dl Magnesium Level 2.0 mg/dl Test 10/08/16 07:42 Bedside Glucose 154 mg/dl Assessment and Plan 71 yo male with history of triple vessel disease, stent to the LAD, has a history of non-compliance, presented with increased shortness of breath, uncontrolled hypertension, mild chest pain and epigastric pain. Heart alert called, no need for emergent catheterization. Troponin initially negative, repeat was 12 and now trending downward NSTEMI: - no active CP, vitals stable, troponin trending down from 12.2 to 8.59 to 5.6 - heparin gtt turned off last night - Plavix, aspirin, lisinopril, Lipitor - Toprol increased from 25mg to 50mg, ---overnight the pt became hypotensive with BPs 90s/50s and bradycardic with HR from 54-58. I have reduced the dose of metoprolol back to 25 mg BID for now. - Will add on maintenance fluids at 50 mL/hr due to poor EF. - interventional cardiology following, no need for heart catheterization - appreciate recs Acute diastolic heart failure: - resolved with torsemide BID, watch weight and I/O - Echo complete 1. Severely dilated LV. Mild concentric LVH. 2. Moderate global LV dysfunction. LVEF 35-40 %. Severe posterior wall hypokinesis. Grade 2 diastolic dysfunction. 3. Normal RV size and function. Moderate mitral regurgitation Normal estimated RA pressure Compared with prior study on 04/19/2016: No significant change - No dyspnea today, lungs clearing up DAPHNE - Cr. increase to 1.7 today, baseline ~1.1-1.2 - Will hold lisinopril with hypotension and daphne - Slow maintenance fluids added this morning - Monitor strict I/Os - Hold torsemide today - monitor ability to restart diuretic willy. Epigastric pain and weight loss: - will start on Protonix - Abdominal US without acute positives on exam - RUQ with some tenderness, mildly generalized tenderness, -causing nausea and pt then proceeded to dry heave. Zofran administered at bedside. Pt also reports 50 lbs weight loss in the past ~3 months which is unintentional. He reports poor appetite. Pt last colonoscopy was about 8 years ago, has never had an EGD to his knowledge. - normal LFT and lipase on admission - Will order GI consult as outpatient once recovered from NSTEMI - CT abdomen completed IMPRESSION: 1. No acute process within the abdomen or pelvis although evaluation is mildly compromised by the body wall contacting the gantry of the CT scanner. 2. No significant change in a partially visualized right pleural effusion that is likely moderate in size since CT of December 05, 2015. Associated right lower lobe and right middle lobe opacity favors atelectasis. - Pain relieved with oxycodone 5 mg once last evening. Pt was able to sleep throughout the night. Diabetes mellitus -continue NovoLog mix 7030 at 50 units subcutaneous with lunch and evening meals. - Cont Accu-Cheks achs with NovoLog coverage. Hypercholesterolemia -continue atorvastatin 40 mg by mouth daily. Restless leg syndrome -continue Requip 1 mg by mouth at bedtime. Anxiety- -continue lorazepam 1 mg by mouth daily, and Celexa 20 mg by mouth every afternoon. COPD- -continue Pulmicort Flexhaler 2 puffs twice a day. Disposition: Off heparin gtt, OOB, scds, dc likely in 1-2 days CODE STATUS: FULL CODE
[2016-10-08 11:25] VITALS: BP 136/70; PULSE 63; TEMP 36.5; O2SAT 92
[2016-10-08] MEDS: INSULIN 70% ASPART PROTAMINE/30% ASPART SC SCH ×2 (12:04→16:51)
[2016-10-08 15:20] VITALS: BP 139/77; PULSE 60; TEMP 36.6; O2SAT 95
--- NOTE | 2016-10-08 15:37 | Gastrointestinal Consultation ---
Gastrointestinal Consultation Date of Consultation: Oct 08, 2016 Attending Physician: Dr. Holman Consulting Physician: Dr. Landeros/MICHELLE Haskins Reason for Consultation: Epigastric pain History of Present Illness Patient is a 71 year old male with a history of COPD, CAD, diabetes, and CHF admitted with chest pain and shortness of breath with acute CHF exacerbation as well as elevated troponin consistent with NSTEMI. His chest pain has resolved but he has been reporting symptoms of significant epigastric abdominal pain that has been ongoing chronically since the summer of 2015. Patient reports that symptoms were initially intermittent in nature but now have become very constant. Pain is rated as 7/10 in intensity and can radiate into his bilateral lower quadrants. The associated symptoms are of nausea without vomiting and decreased appetite which has resulted in a 50 pound unintentional weight loss since the summer. He denies any bowel habit irregularities, melena or hematochezia. Patient consumes 1 cup of coffee per day but denies any NSAIDs, alcohol or tobacco. He does take a daily aspirin. No specific exacerbating factors but pain is reduced with opioid analgesics. He did undergo a CT a/p and abdominal ultrasound which were unremarkable. He remains hemodynamically stable. Patient was started on Protonix 40 mg po BID. He has never undergone a prior EGD. Last colonoscopy was in 2009. He did have 2 polyps removed and was recommended for consideration of 5 year follow up colonoscopy pending medical comorbidities. Past Medical/Surgical History Medical Problems: (1) Abscess, gluteal, left Status: Acute (2) Acute coronary syndrome Status: Acute (3) Fall Status: Acute (4) Fever Status: Acute (5) Hypertensive urgency Status: Acute (6) Multiple rib fractures Status: Acute (7) Perianal abscess Status: Acute (8) Pleural effusion Status: Acute (9) Pleural effusion Status: Acute (10) Pleural effusion, right Status: Acute (11) Pneumonia Status: Acute (12) Pulmonary edema Status: Acute (13) Shortness of breath Status: Acute Past Surgical History: 1. Cholecystectomy 2. Tonsillectomy 3. ORIF right humeral fracture 4. I&D perirectal abscess Family History FH: HTN (hypertension) FH: cancer FH: diabetes mellitus FH: gallbladder disease FH: heart disease FH: kidney disease Negative for GI malignancy and IBD Social History Smoking Status: Former Smoker Alcohol Use: none Drug Use: none Marital Status: Housing Status: lives with family Occupation Status: retired Allergies Coded Allergies: No Known Allergies (Verified , `, 06/19/16) Current Medications Home Meds and Scripts Medications Dose Route/Sig Max Daily Dose Days Date Category Dose Instructions Roxicodone Ir (Oxycodone HCl) 5 Mg Tab 1-2 Tab PO Q4H PRN 10/04/16 Reported Ventolin Hfa (Albuterol) Unknown Strength Aers Unknown Dose INH Q4-6H PRN 06/13/16 Reported 2 PUFFS EVERY 4-6 HOURS NEEDED Zestril (Lisinopril) 5 Mg Tab 5 Mg PO DAILY 06/13/16 Reported Toprol Xl (Metoprolol Succinate) 25 Mg Tabcr 25 Mg PO BID 06/13/16 Reported Ativan (Lorazepam) 1 Mg Tab 1 Mg PO HS 06/13/16 Reported Lipitor (Atorvastatin Calcium) 40 Mg Tab 40 Mg PO DAILY 06/13/16 Reported Demadex (Torsemide) 20 Mg Tab 20 Mg PO DAILY 11/24/15 Reported Novolog Mix 70/30 (Insulin Aspart Prota 70%/Aspart 30%) Susp 30 Units SC HS 09/02/15 Reported Plavix (Clopidogrel Bisulfate) 75 Mg Tab 75 Mg PO QAM 06/22/13 Reported Celexa (Citalopram Hydrobromide) 20 Mg Tab 20 Mg PO QPM 06/22/13 Reported Novolog Mix 70/30 (Insulin Aspart Prota 70%/Aspart 30%) Susp 10-15 Units SC QAM 06/13/13 Reported Aspirin Ec (Aspirin) 325 Mg Tab 325 Mg PO QPM 06/13/13 Reported Zolpidem (Zolpidem Tartrate) 10 Mg Tab 10 Mg PO HS PRN 01/02/10 Reported SLEEP Review of Systems Constitutional: + fatigue, No chills, No fever Eyes: No problem reported ENT: No problem reported Respiratory: + see HPI Cardiac: + see HPI Abdomen: + see HPI Musculoskeletal: + swelling Male : No problem reported Neuro: No problem reported Psych: No problem reported Skin: No problem reported Physical Exam Date Time Temp Pulse Resp B/P Pulse Ox O2 Delivery O2 Flow Rate FiO2 10/08/16 12:00 Room Air 10/08/16 11:25 36.5 63 16 136/70 92 Room Air 10/08/16 09:15 Room Air 10/08/16 08:00 Room Air 10/08/16 07:32 36.6 57 16 93/56 88 Room Air 10/08/16 04:00 Room Air 10/08/16 03:37 36.5 54 15 91/50 91 Room Air 10/08/16 00:06 36.6 58 17 98/60 92 Room Air 10/08/16 00:00 Room Air 10/07/16 21:00 Room Air 10/07/16 18:52 36.7 59 18 118/66 91 Room Air 10/07/16 16:00 Room Air General Appearance: no apparent distress Eyes: normal inspection ENT: hearing grossly normal Neck: supple Respiratory/Chest: lungs clear, normal breath sounds, no respiratory distress Cardiovascular: regular rate, rhythm, no gallop, no murmur Abdomen: normal bowel sounds, soft, no organomegaly, + tenderness (moderate epigastric) Extremities: + swelling Neurologic/Psych: alert, normal mood/affect, oriented x 3 Skin: warm/dry Laboratory Results Last 24 Hours Test 10/07/16 20:31 10/07/16 22:28 10/08/16 00:47 10/08/16 05:44 Bedside Glucose 129 mg/dl 129 mg/dl 168 mg/dl Sodium Level 136 mmol/L Potassium Level 3.7 mmol/L Chloride Level 97 mmol/L Carbon Dioxide Level 30 mmol/L Anion Gap 9.0 mmol/L Blood Urea Nitrogen 29 mg/dl Creatinine 1.70 mg/dl Est Creatinine Clear Calc Drug Dose 57.6 ml/min Estimated GFR () 45.7 Estimated GFR (Non- 39.4 BUN/Creatinine Ratio 17.3 Random Glucose 138 mg/dl Calcium Level 8.9 mg/dl Magnesium Level 2.0 mg/dl Test 10/08/16 07:42 10/08/16 11:15 Bedside Glucose 154 mg/dl 146 mg/dl Impression Patient is a 71 year old male with a history of CHF admitted with exacerbation as well as NSTEMI with chronic epigastric pain, nausea, anorexia and unintentional weight loss. Diff dx: PUD vs ischemia vs gastritis vs GERD vs malignancy vs other. Plan 1. Continue Protonix 40 mg po BID. 2. Add Carafate 1 g ACHS. 3. Diabetic, AHA diet as tolerated. 4. No plan for urgent endoscopy. Recommend outpatient GI work up once acute cardiac issues are resolved with both EGD/colonoscopy. Thank you for allowing us to participate in the care of this patient. If you have any questions or concerns, please do not hesitate to contact us. Agree with MICHELLE Haskins as above Abd: Soft, tender B/L UQ, ND, +BS Continue Protonix and Carafate today No plans for endoscopic workup at this time due to underlying medical conditions.
[2016-10-08] MEDS ORDERED: SUCRALFATE 1 GM/10 ML UDC PO SCH (17:00)
[2016-10-08 18:44] VITALS: BP 130/80; PULSE 66; TEMP 36.3; O2SAT 91
[2016-10-08] MEDS: SUCRALFATE 1 GM TAB PO SCH (20:31)
[2016-10-08] MEDS: CITALOPRAM 20 MG TAB PO SCH (20:33)
[2016-10-08] MEDS: ASPIRIN 325 MG ECTAB PO SCH (20:33)
[2016-10-09 00:14] VITALS: BP 132/74; PULSE 60; TEMP 37.4; O2SAT 92
[2016-10-09] MEDS: ROPINIROLE HCL 1 MG TAB PO PRN (01:06)
[2016-10-09] MEDS: LORAZEPAM 1 MG TAB PO PRN (01:06)
[2016-10-09] MEDS: ZOLPIDEM TARTRATE 10 MG TAB PO PRN (01:06)
[2016-10-09] MEDS: SODIUM CHLORIDE 0.9% 1000ML 1,000 ML IV SCH (04:17)
[2016-10-09 04:22] VITALS: BP 123/73; PULSE 58; TEMP 37.2; O2SAT 91
[2016-10-09 07:38] VITALS: BP 143/77; PULSE 62; TEMP 36.6; O2SAT 91
[2016-10-09 07:42] LABS: HEMATOCRIT 39.2 % (42-52); MEAN CORPUSCULAR HEMOGLOBIN 30.9 pg (25-34); MEAN CORPUSCULAR HGB CONC 33.9 g/dl (32-36); MEAN PLATELET VOLUME 10.7 fL (7.4-10.4); PLATELET COUNT 146 K/uL (130-400); RED BLOOD COUNT 4.31 M/uL (4.7-6.1); WHITE BLOOD COUNT 6.34 K/uL (4.8-10.8)
[2016-10-09] MEDS: SENNA 8.6 MG TAB PO SCH (07:51)
[2016-10-09] MEDS: PANTOprazole SOD 40 MG TAB PO SCH (07:52)
[2016-10-09] MEDS: MAGNESIUM OXIDE 400 MG TAB PO SCH (07:52)
[2016-10-09] MEDS: DOCUSATE SODIUM 100 MG CAP PO SCH (07:53)
[2016-10-09] MEDS: CLOPIDOGREL BISULFATE 75 MG TAB PO SCH (07:53)
[2016-10-09] MEDS: METOPROLOL SUCC 25MG EXT REL TAB PO SCH (07:54)
[2016-10-09] MEDS: ATORVASTATIN 20 MG TAB PO SCH (07:54)
[2016-10-09] MEDS: SUCRALFATE 1 GM TAB PO SCH (07:55)
[2016-10-09] MEDS: INSULIN ASPART 100 UNITS/ML 3 ML PEN SC SCH ×2 (07:59→12:00)
[2016-10-09 08:42] LABS: CALCIUM 8.8 mg/dl (8.5-10.1); CREATININE 1.3 mg/dl (0.60-1.40); POTASSIUM 3.9 mmol/L (3.5-5.1)
[2016-10-09] MEDS ORDERED: POLYETHYLENE (MIRALAX) 17 GM PACK PO SCH (09:00)
--- NOTE | 2016-10-09 09:46 | Gastroenterology Progress Note ---
Progress Note Date of Service: Oct 09, 2016 Subjective Pt evaluation today including: conversation w/ patient, physical exam, lab review, review of inpatient medication list Patient reports improved abdominal pain from yesterday. Currently, he is rating his pain as a 4/10 in intensity. No nausea or vomiting. He is tolerating his diet. Continues Protonix 40 mg BID and Carafate 1 g ACHS. Patient remains hemodynamically stable. Review of Systems Constitutional: No chills, No fever Respiratory: No problem reported Cardiac: No problem reported Abdomen: + see HPI Medications Current Inpatient Medications Medications (Trade) Dose Ordered Sig/Aditi Route Start Time Stop Time Status Last Admin Dose Admin Acetaminophen (Tylenol Tab) 650 mg Q4H PRN PO 10/04/16 21:45 11/03/16 21:44 10/05/16 04:34 650 MG Nitroglycerin (Nitrostat Tab) 0.4 mg UD PRN SL 10/04/16 21:45 11/03/16 21:44 Aspirin (Ecotrin Tab) 325 mg QPM PO 10/05/16 21:00 11/04/16 20:59 10/08/16 20:33 325 MG Atorvastatin Calcium (Lipitor Tab) 40 mg DAILY PO 10/05/16 09:00 11/04/16 08:59 10/09/16 07:54 40 MG Citalopram Hydrobromide (celeXA TAB) 20 mg QPM PO 10/05/16 21:00 11/04/16 20:59 10/08/16 20:33 20 MG Clopidogrel Bisulfate (plAVix TAB) 75 mg QAM PO 10/05/16 09:00 11/04/16 08:59 10/09/16 07:53 75 MG Insulin Aspart Prota 70%/Aspart 30% (novoLOG MIX 70/ 30) 30 units QDD SC 10/05/16 16:45 11/04/16 16:44 10/08/16 16:51 30 UNITS Lisinopril (Zestril Tab) 5 mg DAILY PO 10/05/16 09:00 11/04/16 08:59 Future Hold 10/08/16 09:22 5 MG Oxycodone HCl (Roxicodone Immediate Rel Tab) 5 mg Q4H PRN PO 10/04/16 21:45 10/18/16 21:44 10/08/16 23:39 5 MG Zolpidem Tartrate (Ambien Tab) 10 mg HS PRN PO 10/04/16 21:45 11/03/16 21:44 10/09/16 01:06 10 MG Ondansetron HCl (Zofran Inj) 4 mg Q6H PRN IV 10/04/16 21:45 11/03/16 21:44 10/08/16 09:31 4 MG Insulin Aspart (novoLOG ASPART) SLIDING SCALE If C... ACHS SC 10/05/16 07:00 11/04/16 06:59 10/09/16 07:59 5 UNITS Glucose (Glucose 40% Gel) UD PRN PO 10/04/16 21:45 11/03/16 21:44 Glucose (Glucose Chew Tab) 1 tabs UD PRN PO 10/04/16 21:45 11/03/16 21:44 Dextrose (Dextrose 50% 50ML Syringe) 50 ml UD PRN IV 10/04/16 21:45 11/03/16 21:44 Glucagon (Glucagon Inj) 1 mg UD PRN SQ 10/04/16 21:45 11/03/16 21:44 Lorazepam (Ativan Tab) 1 mg HS PRN PO 10/04/16 23:45 11/03/16 23:44 10/09/16 01:06 1 MG Ropinirole HCl (Requip Tab) 1 mg HS PRN PO 10/04/16 23:45 11/03/16 23:44 10/09/16 01:06 1 MG Pantoprazole Sodium (Protonix Tab) 40 mg BID PO 10/05/16 21:00 11/04/16 20:59 10/09/16 07:52 40 MG Magnesium Oxide (Mag-Ox Tab) 400 mg BID PO 10/06/16 21:00 11/05/16 20:59 10/09/16 07:52 400 MG Docusate Sodium (coLACE CAP) 100 mg BID PO 10/06/16 21:00 11/05/16 20:59 10/09/16 07:53 100 MG Ioversol (Optiray 320) 125 ml UD PRN IV 10/06/16 14:45 10/10/16 14:44 Torsemide (Demadex Tab) 20 mg DAILY PO 10/07/16 09:00 2/16/17 08:59 Future hold 10/07/16 08:44 20 MG Insulin Aspart Prota 70%/Aspart 30% (novoLOG MIX 70/ 30) 10 units QDL SC 10/08/16 11:30 11/04/16 07:29 10/08/16 12:04 10 UNITS Senna (Senokot Tab) 17.2 mg QAM PO 10/08/16 09:00 11/07/16 08:59 10/09/16 07:51 17.2 MG Metoprolol Succinate (Toprol Xl Tab) 25 mg Q12 PO 10/08/16 09:00 11/07/16 08:59 10/09/16 07:54 25 MG Sucralfate (Carafate Tab) 1 gm QID PO 10/08/16 21:00 11/07/16 20:59 10/09/16 07:55 1 GM Polyethylene (Miralax Powder Packet) 17 gm BID PO 10/09/16 09:00 11/08/16 08:59 Objective Vital Signs Date Time Temp Pulse Resp B/P Pulse Ox O2 Delivery O2 Flow Rate FiO2 10/09/16 08:00 Room Air 10/09/16 07:38 36.6 62 18 143/77 91 Room Air 10/09/16 04:22 37.2 58 18 123/73 91 Room Air 10/09/16 04:17 Room Air 10/09/16 00:14 37.4 60 18 132/74 92 Room Air 10/09/16 00:00 Room Air 10/08/16 20:00 Room Air 10/08/16 18:44 36.3 66 22 130/80 91 Room Air 10/08/16 16:00 Room Air 10/08/16 15:20 36.6 60 18 139/77 95 Room Air 10/08/16 12:00 Room Air 10/08/16 11:25 36.5 63 16 136/70 92 Room Air Physical Exam General Appearance: no apparent distress Eyes: EOMI Respiratory/Chest: lungs clear, normal breath sounds, no respiratory distress Cardiovascular: regular rate, rhythm, no gallop, no murmur Abdomen: normal bowel sounds, non tender, soft Neurologic/Psych: alert, normal mood/affect, oriented x 3 Skin: warm/dry Laboratory Results Last 24 Hours Test 10/08/16 11:15 1/19/17 07:10 Bedside Glucose 146 mg/dl White Blood Count 6.34 K/uL Red Blood Count 4.31 M/uL Hemoglobin 13.3 g/dL Hematocrit 39.2 % Mean Corpuscular Volume 91.0 fL Mean Corpuscular Hemoglobin 30.9 pg Mean Corpuscular Hemoglobin Concent 33.9 g/dl RDW Standard Deviation 46.7 fL RDW Coefficient of Variation 13.9 % Platelet Count 146 K/uL Mean Platelet Volume 10.7 fL Sodium Level 137 mmol/L Potassium Level 3.9 mmol/L Chloride Level 99 mmol/L Carbon Dioxide Level 28 mmol/L Anion Gap 10.0 mmol/L Blood Urea Nitrogen 29 mg/dl Creatinine 1.30 mg/dl Est Creatinine Clear Calc Drug Dose 75.9 ml/min Estimated GFR () 63.2 Estimated GFR (Non- 54.5 BUN/Creatinine Ratio 22.0 Random Glucose 104 mg/dl Calcium Level 8.8 mg/dl Assessment and Plan Patient is a 71 year old male with a history of CHF admitted with exacerbation as well as NSTEMI with chronic epigastric pain, nausea, anorexia and unintentional weight loss. Abdominal pain has improved with addition of Protonix and Carafate. 1. Continue Protonix 40 mg po BID. 2. Continue Carafate 1 g ACHS. 3. Diabetic, AHA diet as tolerated. 4. Outpatient GI work up once overall medical status improves. Will sign off at this time. If you have any questions or concerns, please do not hesitate to contact us. Agree with MICHELLE Haskins as above Abdominal pain much improved today Abd: Soft, NT, ND, +BS Continue current therapy Patient told to contact our office for further workup.
[2016-10-09] MEDS: TORSEMIDE 20 MG TAB PO SCH (09:51)
[2016-10-09] MEDS ORDERED: MRLP17 PO (09:58)
[2016-10-09] MEDS ORDERED: SUCR1TAB PO (09:58)
[2016-10-09] MEDS ORDERED: PRT40 PO (09:58)
[2016-10-09] MEDS ORDERED: SNK PO (09:58)
--- NOTE | 2016-10-09 10:08 | Discharge Instructions ---
Discharge Instructions Admission Reason for Admission: Chf Exacerbation Discharge Discharge Diagnosis / Problem: NSTEMI Discharge Goals Goal(s): Decrease discomfort, Improve function Activity Recommendations Activity Limitations: resume your previous activity Lifting Limitations: gradually increase as tolerated Exercise/Sports Limitations: gradually increase as tolerated Shower/Bathe: no limitations . Instructions / Follow-Up Instructions / Follow-Up You were admitted to [facility] with chest pain and weakness and diagnosed with NSTEMI (heart attack). During your stay here you were treated with intravenous diuretics, blood pressure medications, aspirin, and rate controlling medications. Your cardiac enzymes trended downward while you were here. You were seen by cardiology and will need to follow with them as an outpatient. An appointment has been requested for you. Imaging studies which were completed include: Echocardiogram; this showed an ejection fraction of 25-30 %. CT abdomen/pelvis: normal Abdominal Ultrasound: normal During your stay here you were seen by GI for worsening abdominal pain. Your CT above was considered negative, and so was the abdominal ultrasound. You tolerated a diet, and were having bowel movements. Oxycodone was used for analgesia and you were placed on a bowel regimen prophylactically. You have been scheduled to see an corporate strategy intern as an outpatient for scopes. Follow up with your Primary Care Provider within 1 week. Follow up with Cardiology within 1-2 week. Follow up with GI within 1-2 weeks for outpatient endoscopy and colonoscopy. Current Hospital Diet Patient's current hospital diet: AHA Diet (Heart Healthy), Diabetes Type 2 Diet Discharge Diet Recommended Diet: AHA Diet (Heart Healthy), Diabetes Type 2 Diet Procedures Procedures Performed: Echocardiogram Abdominal Ultrasound CT abdomen and pelvis Pending Studies Studies pending at discharge: no Laboratory Results Last Resulted 10/09/16 07:10 Last Resulted 10/09/16 07:10 Last Resulted 10/09/16 07:10 Medical Emergencies . Who to Call and When: Medical Emergencies: If at any time you feel your situation is an emergency, please call 911 immediately. . Non-Emergent Contact Non-Emergency issues call your: Primary Care Provider Call Non-Emergent contact if: you have a fever, temperature is above 100.5, your pain is not controlled, your pain is worsening, your pain is unusual for you, your pain is concerning you . . "Provider Documentation" section prepared by Dolores Huerta. VTE Core Measure Inpt VTE Proph given/why not?: SCD's
[2016-10-09] MEDS: OXYCODONE HCL IR 5 MG TAB (IMMEDIATE RELEASE) PO PRN (11:36)
[2016-10-09] MEDS: INSULIN 70% ASPART PROTAMINE/30% ASPART SC SCH (12:00)
[2016-10-09 12:04] VITALS: BP 107/69; PULSE 62; TEMP 36.4; O2SAT 91
[2016-10-09 12:39] VITALS: BP 107/69; PULSE 62; TEMP 36.4; O2SAT 91
--- NOTE | 2016-10-09 12:42 | Discharge Summary ---
Discharge Summary Admission Date: Oct 04, 2016 at 21:48 Discharge Date: Oct 09, 2016 Discharge Disposition: Home Principal Diagnosis: NSTEMI Problems/Secondary Diagnoses: Diastolic congestive heart failure, abdominal pain, DM II, DAPHNE now resolved, Hyperlipidemia, restless leg syndrome Immunizations: Have You Had Influenza Vaccine: No History of Tetanus Vaccine?: unknown History of Pneumococcal: No History of Hepatitis B Vaccine: No Procedures: None Consultations: ECHO 10/08/18 Interpretation Summary * Name: NUVIA YAP Study Date: 10/05/2016 01:03 PM BP: 142/78 mmHg * Patient Location: C.2T\S\S230\S\1 HR: 82 * : 1945 (M/d/yyyy) Gender: Male Height: 71 in * Age: 71 yrs Ethnicity: [place] Weight: 324 lb * Ordering Physician: Kris Beckford * Referring Physician: Michele Alamo DO * Performed By: Kevin Qureshi RDCS * * Reason For Study: Ischemic cardiomyopathy * BSA: 2.6 m2 * -- Conclusions -- * 1. Severely dilated LV. Mild concentric LVH. * 2. Moderate global LV dysfunction. LVEF 35-40 %. Severe posterior wall hypokinesis. Grade 2 diastolic dysfunction. * 3. Normal RV size and function. * 4. Moderate mitral regurgitation * 5. Normal estimated RA pressure * 6. Compared with prior study on 04/19/2016: No significant changeCHEST ONE VIEW PORTABLE CXR CLINICAL HISTORY: Chest pain. Possible myocardial infarction. COMPARISON STUDY: 06/17/2016 FINDINGS: The left-sided PICC catheter has been removed. The heart remains enlarged. There is a persistent moderate right pleural effusion with associated right basilar atelectasis/consolidation. There is mild pulmonary venous congestion.[ IMPRESSION: 1. Cardiomegaly and radiographic evidence of mild pulmonary vascular congestion 2. Persistent moderate right pleural effusion with right lower lobe atelectasis/consolidation Electronically signed by: Chad Moulton M.D. 10/04/2016 8:36 PM Dictated Date/Time: 10/04/2016 8:34 PM ULTRASOUND ABDOMEN COMPLETE CLINICAL HISTORY: Epigastric abdominal pain. Weight loss. COMPARISON STUDY: Abdominal CT dated 12/05/2015. TECHNIQUE: Real-time, grayscale, and color flow sonography of the abdomen was performed. Images are reviewed in the transverse and longitudinal planes. The examination is degraded by large body habitus. FINDINGS: Liver: The liver is normal in size and echotexture. There is no intrahepatic biliary ductal dilatation. The main portal vein is patent. Gallbladder: The gallbladder is surgically absent. The common bile duct measures up to 0.4 cm in diameter. Pancreas: Not well visualized due to overlying bowel gas. Spleen: The spleen is normal in size and echotexture, measuring 12.0 cm in length. Kidneys: The kidneys demonstrate cortical atrophy. There is no hydronephrosis. The right kidney measures 10.3 cm in length and the left kidney measures 12.5 cm in length. No shadowing calculi are identified. Abdominal vasculature: Visualized portions of the abdominal aorta are normal in appearance. Ascites: None. Bladder: The bladder is decompressed and not well evaluated. Pleural spaces: There is a right pleural effusion. IMPRESSION: 1. No acute sonographic abnormality is identified. 2. Status post cholecystectomy. 3. Right pleural effusion. 4. The pancreas was not well visualized due to overlying bowel gas. Electronically signed by: Barrett Ovalle M.D. 10/05/2016 9:[address] OF THE ABDOMEN AND PELVIS WITH CONTRAST CLINICAL HISTORY: Abdominal pain. Congestive heart failure exacerbation. COMPARISON STUDY: CT of the abdomen and pelvis December 05, 2015 and abdominal ultrasound October 05, 2016. TECHNIQUE: Following IV administration of 119 mL of Optiray-320, axial images of the abdomen and pelvis were obtained from the lung bases to the proximal femurs. Images were reviewed in the axial, sagittal, and coronal planes. IV contrast was administered without complication. Oral contrast was administered. Delayed imaging was also performed. CT DOSE: 3308.65 mGy.cm FINDINGS: A partially visualized right pleural effusion is likely moderate in size. This is similar to prior exam of December 05, 2015. Right middle lobe and right lower lobe opacity is present with volume loss. There is no pneumatosis, free air or portal venous gas. There is no biliary ductal dilatation status post cholecystectomy. The spleen, adrenal glands and pancreas are unremarkable. There is moderate renal cortical thinning. No hydronephrosis is present. Both nephrograms are symmetric. Healed right rib fractures are incidentally noted. The caliber and wall thickness of small and large bowel are normal. There is sigmoid diverticulosis without evidence for acute diverticulitis. A linear radiodensity is noted adjacent to the anus. This is partially imaged on this exam. This exam is compromised by the right aspect of the body wall contacting the gantry. The appendix is normal. There is no abscess. IMPRESSION: 1. No acute process within the abdomen or pelvis although evaluation is mildly compromised by the body wall contacting the gantry of the CT scanner. 2. No significant change in a partially visualized right pleural effusion that is likely moderate in size since CT of December 05, 2015. Associated right lower lobe and right middle lobe opacity favors atelectasis. Electronically signed by: Alvarado Hagan M.D. 10/06/2016 3:27 PM Dictated Date/Time: 10/06/2016 3:18 PM Medication Reconciliation New Medications: Pantoprazole (Pantoprazole Sodium) 40 Mg Tab 40 MG PO BID for 30 Days, #60 TAB Polyethylene (Miralax) 17 Gm Pow 17 GM PO BID for 30 Days, #60 PKT Senna (Senna Lax) 8.6 Mg Tab 8.6 MG PO QAM for 30 Days, #30 TAB Sucralfate (Sucralfate) 1 Gm Tab 1 GM PO QID for 30 Days, #120 TAB Continued Medications: Albuterol Hfa (Ventolin Hfa) Unknown Strength Aers Unknown Dose INH Q4-6H PRN for Shortness of Breath 2 PUFFS EVERY 4-6 HOURS NEEDED Aspirin (Aspirin Ec) 325 Mg Tab 325 MG PO QPM Atorvastatin (Lipitor) 40 Mg Tab 40 MG PO DAILY Citalopram Hydrobromide (Celexa) 20 Mg Tab 20 MG PO QPM, TAB Clopidogrel (Plavix) 75 Mg Tab 75 MG PO QAM, TAB Insulin Aspart 70/30 (Novolog Mix 70/30) Susp 10-15 UNITS SC QAM Insulin Aspart 70/30 (Novolog Mix 70/30) Susp 30 UNITS SC HS, BTL Lisinopril (Zestril) 5 Mg Tab 5 MG PO DAILY Lorazepam (Ativan) 1 Mg Tab 1 MG PO HS Metoprolol Succinate (Toprol Xl) 25 Mg Tabcr 25 MG PO BID Oxycodone Immediate Rel Tab (Roxicodone Ir) 5 Mg Tab 1-2 TAB PO Q4H PRN for Pain, #24 TAB Torsemide (Demadex) 20 Mg Tab 20 MG PO DAILY, TAB Zolpidem Tartrate (Zolpidem) 10 Mg Tab 10 MG PO HS PRN for Sleep SLEEP Referrals At Discharge Follow up Referrals: Drop Tester Referral - Within 1-2 Weeks with Kris Beckford M.D. [facility] Referral - Within 1-2 Weeks with Radhika Escoto C.R.N.P. Physician Referral - Within 1 Week with Ellis Mullen M.D. Discharge Exam The patient was seen and examined this morning. Pt reports improvement overall today. Abdominal pain is controlled today and he is tolerating a diet and fluids. Bowel movements have been soft and regular, last BM was 2 days ago and he is requesting mirilax. Pt has seen GI who is recommending an outpt colonoscopy and EGD. He denies chest pain, sob, headache, flutter and palpitations. Review of Systems: Constitutional: No chills, No fever, No sweats Eyes: No diplopia ENT: No nasal symptoms, No sore throat Respiratory: No dyspnea on exertion, No shortness of breath, No sputum, No wheezing Cardiovascular: No chest pain, No palpitations Abdomen: + pain (improved, RUQ and minimal. ), No GI bleeding, No constipation, No diarrhea, No nausea, No vomiting Musculoskeletal: No joint pain, No swelling Genitourinary - Male: No dysuria Neurologic: No balance problems, No numbness/tingling Physical Exam: General Appearance: WD/WN, no apparent distress, + obese Eyes: PERRL, EOMI ENT: hearing grossly normal, pharynx normal Neck: supple, no JVD Respiratory/Chest: lungs clear, normal breath sounds, no respiratory distress, no accessory muscle use Cardiovascular: regular rate, rhythm, no murmur, normal peripheral pulses Abdomen / GI: normal bowel sounds, non tender, soft Extremities: no calf tenderness, + pedal edema (1+ pitting) Neurologic/Psychiatric: normal mood/affect, oriented x 3 Skin: normal color, warm/dry Hospital Course H&P per Dr. Gould Source: patient The patient is a 71-year-old male who presented to the emergency department complaint of chest pain and tightness over the past 4 days that worsened became more constant over the past 2 hours prior to arrival. He reports that this discomfort was similar to the times when he has had previous heart attack. In the emergency department, staff there were concerned about the possibility of an acute AR, and a Heart Alert was called. The patient was assessed by Dr. Beckford, from interventional cardiology, while in the emergency department, and he determined, after reviewing previous reports and assessing current information, that the patient's symptoms were more likely related to CHF, and recommended medical management. The patient was given Lopressor 5 mg IV in the emergency department, and with the addition of 1 inch of Nitropaste to the anterior chest wall, had and appropriate lowering of heart rate and blood pressure, and subsequent improvement but not normalization of symptoms. 71 yo male with history of triple vessel disease, stent to the LAD, has a history of non-compliance, presented with increased shortness of breath, uncontrolled hypertension, mild chest pain and epigastric pain. Heart alert called, no need for emergent catheterization. Troponin initially negative, repeat was 12 and now trending downward PE: Date Time Temp Pulse Resp B/P Pulse Ox O2 Delivery O2 Flow Rate FiO2 10/05/16 00:02 Room Air 10/04/16 23:17 36.6 82 20 157/97 94 Room Air 10/04/16 22:52 36.7 90 20 165/96 94 Room Air 10/04/16 22:17 79 18 155/86 96 10/04/16 21:11 81 20 163/91 97 Nasal Cannula 2.0 10/04/16 20:33 89 99 10/04/16 20:29 23 151/90 99 10/04/16 20:29 99 172/108 10/04/16 20:28 97 99 10/04/16 20:25 100 Nasal Cannula 2.0 10/04/16 20:21 172/108 10/04/16 20:20 100 Nasal Cannula 2.0 10/04/16 20:20 86 23 144/94 97 Nasal Cannula 2.0 10/04/16 20:14 98 Room Air 10/04/16 20:14 37.0 101 23 178/105 97 Nasal Cannula 2.0 The patient is awake, well-developed and adequately nourished, alert and oriented 3, normocephalic and atraumatic, lying in bed and in moderate acute respiratory upon presentation to the emergency department. HEENT--PERRL, EOMI, mucous membranes moist, and oropharynx normal. Neck--supple, no JVD or bruits, thyroid normal, trachea midline, no adenopathy. Heart--tachycardic, periodic extra beats, no murmurs, rubs or gallops. Lungs--crackles at the bases to one third up bilaterally, initial presentation was moderate respiratory distress, no accessory muscle use. Abdomen--normal bowel sounds and soft, nontender and nondistended, no hernias or masses, no organomegaly and obese. Extremities--no cyanosis, clubbing. There is bilaterally 2+ pitting edema. There are good distal pulses b/l. Dermatologic--normal skin turgor, normal color, warm and dry, no abnormal lymph nodes, no rash. Neurologic--cranial nerves II through XII grossly intact, motor and sensory examination normal. Psychiatric--normal affect. Hospital Course: NSTEMI: - no active CP, vitals stable, troponin trending down from 12.2 to 8.59 to 5.6 - heparin gtt turned off 10/07 - Plavix, aspirin, lisinopril, Lipitor - Toprol increased from 25mg to 50mg, ---overnight on 10/07 the pt became hypotensive with BPs 90s/50s and bradycardic with HR from 54-58. I reduced the dose of metoprolol back to 25 mg BID yesterday which he seems to be working well. BP has remained stable in the 120s and HR in the 60s. Will continue on this dosing - Will add on maintenance fluids at 50 mL/hr due to poor EF - interventional cardiology following, no need for heart catheterization - appreciate recs Acute diastolic heart failure: - Will restart torsemide tomorrow upon discharge - daily weight and I/O - Echo complete 1. Severely dilated LV. Mild concentric LVH. 2. Moderate global LV dysfunction. LVEF 35-40 %. Severe posterior wall hypokinesis. Grade 2 diastolic dysfunction. 3. Normal RV size and function. Moderate mitral regurgitation Normal estimated RA pressure Compared with prior study on 04/19/2016: No significant change - No dyspnea today, lungs clearing up DAPHNE - Cr. increased to 1.7 today, now resolved with Cr. =1.3, baseline ~1.1-1.3 - Will restart lisinopril tomorrow - D/c fluids with improved PO intake - Monitor strict I/Os - Hold torsemide today, restart tomorrow- Epigastric pain and weight loss: - GI consulted due to worsening abdominal pain and symptoms including nausea/ vomiting although has negative imaging studies. - Pt reports 50 lbs weight loss in the past ~3 months which is unintentional. He reports poor appetite. Pt last colonoscopy was about 8 years ago, has never had an EGD to his knowledge. - Plan for GI to see the pt outpatient for EGD and colonoscopy - cont Protonix - Analgesia with oxycodone - Bowel regimen in place - Abdominal US without acute positives - normal LFT and lipase on admission - CT abdomen completed IMPRESSION: 1. No acute process within the abdomen or pelvis although evaluation is mildly compromised by the body wall contacting the gantry of the CT scanner. 2. No significant change in a partially visualized right pleural effusion that is likely moderate in size since CT of December 05, 2015. Associated right lower lobe and right middle lobe opacity favors atelectasis. Diabetes mellitus -continue NovoLog mix 7030 at 50 units subcutaneous with lunch and evening meals. - Cont Accu-Checks achs with NovoLog coverage. Hypercholesterolemia -continue atorvastatin 40 mg by mouth daily. Restless leg syndrome -continue Requip 1 mg by mouth at bedtime. Anxiety- -continue lorazepam 1 mg by mouth daily, and Celexa 20 mg by mouth every afternoon. COPD- -continue Pulmicort Flexhaler 2 puffs twice a day. Disposition: Off heparin gtt, OOB, scds, dc to home today. CODE STATUS: FULL CODE Total Time Spent: Greater than 30 minutes This includes examination of the patient, discharge planning, medication reconciliation, and communication with other providers. Discharge Instructions Please refer to the electronic Patient Visit Report (Discharge Instructions) for additional information. Follow-Up Follow up with your Primary Care Provider within 1 week. Follow up with your GI within 1-2 week. Follow up with your Cardiology within 1-2 week. Additional Copies To Ellis Mullen M.D.
--- NOTE | 2016-10-09 13:55 | Medical Student: [facility] ---
Med Student Progress Note Date of Service Oct 09, 2016. Subjective Pt evaluation today including: conversation w/ patient, physical exam, chart review, lab review, review of studies 71 yo male with history of triple vessel disease and stent to the LAD who presented with increased shortness of breath, uncontrolled hypertension, mild chest pain and epigastric pain. His chest pain and dyspnea have continued to improve. He has been ambulatory without worsening symptoms. He has been eating well with no nausea or vomiting. He has had continued epigastric pain, but improved compared to yesterday. Review of Systems Constitutional: No fever Respiratory: + see HPI Cardiac: + see HPI Abdomen: + see HPI Male : No dysuria All Other Systems: Reviewed and Negative Objective Vital Signs Date Time Temp Pulse Resp B/P Pulse Ox O2 Delivery O2 Flow Rate FiO2 10/09/16 07:38 36.6 62 18 143/77 91 Room Air 10/09/16 04:22 37.2 58 18 123/73 91 Room Air 10/09/16 04:17 Room Air 10/09/16 00:14 37.4 60 18 132/74 92 Room Air 10/09/16 00:00 Room Air 10/08/16 20:00 Room Air 10/08/16 18:44 36.3 66 22 130/80 91 Room Air 10/08/16 16:00 Room Air 10/08/16 15:20 36.6 60 18 139/77 95 Room Air 10/08/16 12:00 Room Air 10/08/16 11:25 36.5 63 16 136/70 92 Room Air Physical Exam General Appearance: WD/WN, no apparent distress, + obese, + pertinent finding ( Pt lying comfortably in bed. ) Eyes: bilateral eyes EOMI, bilateral eyes normal inspection ENT: hearing grossly normal, pharynx normal Neck: supple, no carotid bruits, trachea midline Respiratory/Chest: chest non-tender, lungs clear, normal breath sounds, no respiratory distress, no accessory muscle use Cardiovascular: regular rate, rhythm, no edema, no gallop, no JVD, no murmur, + pertinent finding (Distant heart sounds. ) Abdomen: normal bowel sounds, soft, + pertinent finding (Tenderness to palpation in the epigastrium, RUQ, and RLQ, worst in the epigastrium. ) Extremities: no pedal edema Neurologic/Psychiatric: ribbon hand II-XII nml as tested, no motor/sensory deficits, alert, normal mood/affect, oriented x 3 Skin: warm/dry Laboratory Results Last 24 Hours Test 10/08/16 11:15 10/09/16 07:10 Bedside Glucose 146 mg/dl White Blood Count 6.34 K/uL Red Blood Count 4.31 M/uL Hemoglobin 13.3 g/dL Hematocrit 39.2 % Mean Corpuscular Volume 91.0 fL Mean Corpuscular Hemoglobin 30.9 pg Mean Corpuscular Hemoglobin Concent 33.9 g/dl RDW Standard Deviation 46.7 fL RDW Coefficient of Variation 13.9 % Platelet Count 146 K/uL Mean Platelet Volume 10.7 fL Sodium Level 137 mmol/L Potassium Level 3.9 mmol/L Chloride Level 99 mmol/L Carbon Dioxide Level 28 mmol/L Anion Gap 10.0 mmol/L Blood Urea Nitrogen 29 mg/dl Creatinine 1.30 mg/dl Est Creatinine Clear Calc Drug Dose 75.9 ml/min Estimated GFR () 63.2 Estimated GFR (Non- 54.5 BUN/Creatinine Ratio 22.0 Random Glucose 104 mg/dl Calcium Level 8.8 mg/dl Medications Medications Administered Medications (Trade) Dose Ordered Sig/Aditi Route Start Time Stop Time Status Last Admin Dose Admin Metoprolol Tartrate (Lopressor Iv) 15 mg NOW STAT IV 10/04/16 20:25 10/04/16 20:26 DC 10/04/16 20:29 5 MG Nitroglycerin 1 inch 1 inch STK-MED ONCE .ROUTE 10/04/16 20:44 10/04/16 20:46 DC 10/04/16 21:04 1 INCH Furosemide/ Albumin Human (Lasix Inj/ Albumin 25%) 54 ml @ 54 mls/hr NOW STAT IV 10/04/16 21:15 10/04/16 22:14 DC 10/04/16 21:58 54 MLS/HR Acetaminophen (Tylenol Tab) 650 mg Q4H PRN PO 10/04/16 21:45 11/03/16 21:44 10/05/16 04:34 650 MG Aspirin (Ecotrin Tab) 325 mg QPM PO 10/05/16 21:00 11/04/16 20:59 10/08/16 20:33 325 MG Atorvastatin Calcium (Lipitor Tab) 40 mg DAILY PO 10/05/16 09:00 11/04/16 08:59 10/09/16 07:54 40 MG Citalopram Hydrobromide (celeXA TAB) 20 mg QPM PO 10/05/16 21:00 11/04/16 20:59 10/08/16 20:33 20 MG Clopidogrel Bisulfate (plAVix TAB) 75 mg QAM PO 10/05/16 09:00 11/04/16 08:59 10/09/16 07:53 75 MG Insulin Aspart Prota 70%/Aspart 30% (novoLOG MIX 70/ 30) 10 units QDB SC 10/05/16 07:30 10/07/16 13:25 DC 10/07/16 11:53 10 UNITS Insulin Aspart Prota 70%/Aspart 30% (novoLOG MIX 70/ 30) 30 units QDD SC 10/05/16 16:45 11/04/16 16:44 10/08/16 16:51 30 UNITS Lisinopril (Zestril Tab) 5 mg DAILY PO 10/05/16 09:00 11/04/16 08:59 Future Hold 10/08/16 09:22 5 MG Metoprolol Succinate (Toprol Xl Tab) 25 mg BID PO 10/05/16 09:00 10/05/16 10:56 DC 10/05/16 07:40 25 MG Oxycodone HCl (Roxicodone Immediate Rel Tab) 5 mg Q4H PRN PO 10/04/16 21:45 10/18/16 21:44 10/08/16 23:39 5 MG Zolpidem Tartrate (Ambien Tab) 10 mg HS PRN PO 10/04/16 21:45 11/03/16 21:44 10/09/16 01:06 10 MG Ondansetron HCl (Zofran Inj) 4 mg Q6H PRN IV 10/04/16 21:45 11/03/16 21:44 10/08/16 09:31 4 MG Insulin Aspart SLIDING SCALE If C... ACHS SC 10/05/16 07:00 11/04/16 06:59 10/09/16 07:59 5 UNITS Furosemide/ Albumin Human (Lasix Inj/ Albumin 25%) 54 ml @ 54 mls/hr BID IV 10/05/16 09:00 10/07/16 07:20 DC 10/06/16 20:19 54 MLS/HR Lorazepam (Ativan Tab) 1 mg HS PRN PO 10/04/16 23:45 11/03/16 23:44 10/09/16 01:06 1 MG Ropinirole HCl (Requip Tab) 1 mg HS PRN PO 10/04/16 23:45 11/03/16 23:44 10/09/16 01:06 1 MG Heparin Sodium/ Dextrose 1 ea 1 ea Q30M N/A 10/05/16 07:38 10/05/16 08:09 DC 10/05/16 07:38 1 EA Heparin Sodium/ Dextrose (Heparin 25,000 Unit/500ml D5W) 500 ml @ 29 mls/hr [id number] PRN IV 10/05/16 08:15 10/07/16 07:14 DC 10/06/16 13:20 33 MLS/HR Pantoprazole Sodium (Protonix Tab) 40 mg BID PO 10/05/16 21:00 11/04/16 20:59 10/09/16 07:52 40 MG Pantoprazole Sodium (Protonix Tab) 40 mg 0920 ONCE PO 10/05/16 09:20 10/05/16 09:38 DC 10/05/16 10:07 40 MG Metoprolol Succinate (Toprol Xl Tab) 50 mg BID PO 10/05/16 21:00 10/08/16 08:50 DC 10/07/16 20:29 50 MG Magnesium Oxide (Mag-Ox Tab) 400 mg BID PO 10/06/16 21:00 11/05/16 20:59 10/09/16 07:52 400 MG Docusate Sodium (coLACE CAP) 100 mg BID PO 10/06/16 21:00 11/05/16 20:59 10/09/16 07:53 100 MG Miscellaneous (Stop Order) 1 ea ONE ONCE N/A 10/07/16 07:30 10/07/16 07:31 DC 10/07/16 07:30 1 EA Torsemide 20 mg 20 mg DAILY PO 10/07/16 09:00 11/06/16 08:59 Future hold 10/07/16 08:44 20 MG Magnesium Sulfate/ Prmx (Magnesium Sulfate/Premixed D5W) 100 ml @ 100 mls/hr TODAY@1130 IV 10/07/16 11:30 10/07/16 12:29 DC 10/07/16 12:11 100 MLS/HR Insulin Aspart Prota 70%/Aspart 30% (novoLOG MIX 70/ 30) 10 units QDL SC 10/08/16 11:30 11/04/16 07:29 10/08/16 12:04 10 UNITS Senna (Senokot Tab) 17.2 mg QAM PO 10/08/16 09:00 11/07/16 08:59 10/09/16 07:51 17.2 MG Senna (Senokot Tab) 17.2 mg TODAY@1700 ONCE PO 10/07/16 17:00 10/07/16 17:01 DC 10/07/16 17:00 17.2 MG Metoprolol Succinate 25 mg 25 mg Q12 PO 10/08/16 09:00 11/07/16 08:59 10/09/16 07:54 25 MG Sodium Chloride (Nss 1000ml) 1,000 ml @ 50 mls/hr Q20H IV 10/08/16 08:47 10/09/16 07:43 DC 10/09/16 04:17 50 MLS/HR Sucralfate (Carafate Susp) 1 gm QID PO 10/08/16 17:00 10/08/16 17:33 DC 10/08/16 16:48 1 GM Sucralfate (Carafate Tab) 1 gm QID PO 10/08/16 21:00 11/07/16 20:59 10/09/16 07:55 1 GM Assessment and Plan Assessment and Plan: 71 yo male with history of triple vessel disease and stent to the LAD admitted for NSTEMI and CHF exacerbation. No need for emergent catheterization. Troponin initially negative, repeat was 12 and now trending downward NSTEMI: Pt has had no further chest pain. VS have been stable - no active CP, vitals stable, troponin trending down from 12.2 to 8.59 to 5.6 - heparin discontinued 10/07 - Continue Plavix, aspirin, Lipitor. Will hold lisinopril at this time due to increased creatinine as well as previous hypotension (as below). - Continue Toprol 25 mg BID. BP has remained stable in the 120s-150s/70s and HR in the 60s. - Will discontinue IV fluids and encourage PO fluids. - interventional cardiology following, no need for heart catheterization - appreciate recs Acute diastolic heart failure: Pt has diuresed well with a net fluid balance of -2500 mL since admission, including -405 mL yesterday. - resolved with torsemide BID. Continue on his home dose of 20 mg daily. - Echo complete 1. Severely dilated LV. Mild concentric LVH. 2. Moderate global LV dysfunction. LVEF 35-40 %. Severe posterior wall hypokinesis. Grade 2 diastolic dysfunction. 3. Normal RV size and function. Moderate mitral regurgitation Normal estimated RA pressure Compared with prior study on 04/19/2016: No significant change - No dyspnea today, lungs clear on exam. DAPHNE - Creatinine improved to 1.3 today, baseline ~1.1-1.2 - Will hold lisinopril with hypotension and daphne - Monitor strict I/Os today as well as upon d/c. - Continue home dose of torsemide. Epigastric pain and weight loss: - GI was consulted and per recommendations: -Continue Protonix 40 mg po BID. - Add Carafate 1 g ACHS. - Diabetic, AHA diet as tolerated. - No plan for urgent endoscopy. Recommend outpatient GI work up once acute cardiac issues are resolved with both EGD/colonoscopy. - Analgesia with oxycodone - Bowel regimen in place - Abdominal US without acute positives - normal LFT and lipase on admission - CT abdomen completed IMPRESSION: 1. No acute process within the abdomen or pelvis although evaluation is mildly compromised by the body wall contacting the gantry of the CT scanner. 2. No significant change in a partially visualized right pleural effusion that is likely moderate in size since CT of December 05, 2015. Associated right lower lobe and right middle lobe opacity favors atelectasis. Continue Protonix 40 mg po BID. 2. Add Carafate 1 g ACHS. 3. Diabetic, AHA diet as tolerated. 4. No plan for urgent endoscopy. Recommend outpatient GI work up once acute cardiac issues are resolved with both EGD/colonoscopy. Diabetes mellitus -continue NovoLog mix 7030 at 50 units subcutaneous with lunch and evening meals. - Cont Accu-Checks achs with NovoLog coverage. Hypercholesterolemia -continue atorvastatin 40 mg by mouth daily. Restless leg syndrome -continue Requip 1 mg by mouth at bedtime. Anxiety- -continue lorazepam 1 mg by mouth daily, and Celexa 20 mg by mouth every afternoon. COPD- -continue Pulmicort Flexhaler 2 puffs twice a day. Pt is stable for discharge today. Plan for outpatient GI f/u as well as cardiology f/u.
[2017-03-13] MEDS ORDERED: METO1TAB69 PO (14:11)
== END 2016-10-09 16:31 | disposition home or self-care (01) | DRG 280 ==
LOC: ENRESERVDT → ENRESERVTM → C.EDB 20:13 → C.2T 21:48 → EDBEDREQ 22:01
PROVIDERS: ADMIT Hospitalist; ATTEND Hospitalist
DX: I21.4 Non-ST elevation (NSTEMI) myocardial infarction (principal); I50.33 Acute on chronic diastolic (congestive) heart failure; I50.22 Chronic systolic (congestive) heart failure; Z68.42 Body mass index [BMI] 45.0-49.9, adult; R10.13 Epigastric pain; R63.4 Abnormal weight loss; R10.11 Right upper quadrant pain; E83.42 Hypomagnesemia; I11.0 Hypertensive heart disease with heart failure; I25.2 Old myocardial infarction; I25.10 Atherosclerotic heart disease of native coronary artery without angina pectoris; I25.5 Ischemic cardiomyopathy; E78.5 Hyperlipidemia, unspecified; E11.42 Type 2 diabetes mellitus with diabetic polyneuropathy; E11.59 Type 2 diabetes mellitus with other circulatory complications; I73.9 Peripheral vascular disease, unspecified; F32.9 Major depressive disorder, single episode, unspecified; F41.9 Anxiety disorder, unspecified; J44.9 Chronic obstructive pulmonary disease, unspecified; E66.9 Obesity, unspecified; G25.81 Restless legs syndrome; E78.00 Pure hypercholesterolemia, unspecified; Z91.11 Patient's noncompliance with dietary regimen; Z79.899 Other long term (current) drug therapy; Z79.82 Long term (current) use of aspirin; Z79.4 Long term (current) use of insulin; Z79.02 Long term (current) use of antithrombotics/antiplatelets; Z95.5 Presence of coronary angioplasty implant and graft; Z87.19 Personal history of other diseases of the digestive system; Z86.73 Personal history of transient ischemic attack (TIA), and cerebral infarction without residual deficits; Z82.49 Family history of ischemic heart disease and other diseases of the circulatory system; Z83.3 Family history of diabetes mellitus

== ENCOUNTER 2016-10-20 14:30 | Emergency (ER) | payer OTHER ==
[~2016-10-20] VITALS: Ht 177.8 cm; Wt 143.0 kg
[~2016-10-20 14:30] MED LIST changes: -AMOX500C3 PO; +MRLP17 PO; +OXYC1TAB3 PO; -PLMIN90 INH; +PRT40 PO; -ROPI1TAB PO; +SNK PO; +SUCR1TAB PO
[2016-10-20 14:35] VITALS: TEMP 36.4; Ht 177.8 cm; Wt 143.0 kg
[2016-10-20] MEDS ORDERED: ONDANSETRON INJ 2 MG/ML 2 ML VIAL IV STA (16:49)
[2016-10-20] MEDS ORDERED: SODIUM CHLORIDE 0.9% 250ML 250 ML IV STA (16:49)
[2016-10-20] MEDS ORDERED: ZOLP10TA PO (16:53)
[2016-10-20 17:19] LABS: BASO % 0.3 %; BASO ABS # 0.02 K/uL (0-0.2); COMPLETE YES; EOS % 1.2 %; HEMATOCRIT 45.5 % (42-52); IG% 0.3 %; LYMPH % 11.5 %; LYMPH ABS # 0.89 K/uL (1.2-3.4); MEAN CELL VOLUME 91.5 fL (80-100); MEAN CORPUSCULAR HEMOGLOBIN 30.4 pg (25-34); MEAN CORPUSCULAR HGB CONC 33.2 g/dl (32-36); MEAN PLATELET VOLUME 10.2 fL (7.4-10.4); MONO % 7.4 %; NEUT % 79.3 %; PLATELET COUNT 191 K/uL (130-400); RED BLOOD COUNT 4.97 M/uL (4.7-6.1); WHITE BLOOD COUNT 7.75 K/uL (4.8-10.8)
[2016-10-20 17:41] LABS: BUN/CREATININE RATIO 14.8 (10-20); CREATININE 1.4 mg/dl (0.60-1.40); POTASSIUM 3.7 mmol/L (3.5-5.1)
--- NOTE | 2016-10-20 18:03 | DIAGNOSTIC IMAGING REPORT ---
ABDOMEN 2VIEW W/PA CHEST RTN CLINICAL HISTORY: Abdominal pain and weight loss. Possible bowel obstruction. COMPARISON STUDY: CT scan dated 10/06/2016 FINDINGS: The erect chest reveals cardiac enlargement. There is a moderate right pleural effusion. There is right hilar enlargement. There are right basilar airspace opacities likely atelectatic. Erect and supine views the abdomen reveal surgical clips the right upper quadrant consistent with a prior cholecystectomy. No free air is visualized. There are no transition zones indicate bowel obstruction. IMPRESSION: 1. No evidence of bowel obstruction. No evidence of free air 2. Cardiomegaly, right pleural effusion, and right hilar prominence. There are associated right basilar airspace opacities. Electronically signed by: Chad Moulton M.D. 10/20/2016 6:02 PM Dictated Date/Time: 10/20/2016 6:01 PM
[2016-10-20 19:04] VITALS: BP 126/63; PULSE 77; O2SAT 93
--- NOTE | 2016-10-20 21:42 | EMERGENCY ROOM VISIT NOTE ---
History Report prepared by Chema: Naya Zelaya Under the Supervision of: Dr. Jasmeet Perez M.D. First contact with patient: 16:34 Chief Complaint: ILLNESS Stated Complaint: NOT EATING/LOOSING WEIGHT, ABD. PAIN, DARK URINE History of Present Illness The patient is a 71 year old male who presents to the Emergency Room with complaints of constant, right sided and epigastric abdominal pain that began last summer. Per patient's family, the patient has a lump in the area he is experiencing pain on the right side. He has some relief with Oxycodone which he takes on occasion. He notes that he does not have an appetite. His pain occasionally worsens after eating, but he does not notice it increasing after certain types of foods. The patient also complains of hot flashes, nausea, and dark urine. He has not been urinating as much as usual. The patient was admitted to the hospital on October 04 for a non-STEMI and congestive heart failure. While he was hospitalized, he complained of abdominal pain and had an abdomen/pelvis CT scan on the which showed no acute process. The plan was for an outpatient EGD and colonoscopy, but he has not been scheduled yet. Since his hospital admission, he has lost about 20 pounds unintentionally. He notes that he has been trying to drink a lot of water. Denies chest pain, shortness of breath, vomiting, or other complaints. The patient takes aspirin and Plavix. The patient had 2 bowel movements today. He does have his appendix but does not have his gallbladder. The patient is on Lasix but has not taken it today. The patient had an appointment with Dr. Mullen today but he called regarding his symptoms and was referred to the ER instead for possible dehydration. Source of History: patient, family Onset: last summer Position: abdomen (right side and epigastrium) Timing: constant Modifying Factors (Worsening): eating (on occasion) Modifying Factors (Relieving): narcotics Associated Symptoms: + nausea, + urinary symptoms (dark urine, decreased output), No SOB, No chest pain, No vomiting Note: Other symptoms: hot flashes, decreased appetite Review of Systems See HPI for pertinent positives & negatives. A total of 10 systems reviewed and were otherwise negative. Past Medical & Surgical Medical Problems: (1) CHF exacerbation (2) Coronary artery disease (3) Diabetes (4) Diabetes mellitus (5) Kidney stones (6) Multiple rib fractures involving four or more ribs (7) Myocardial infarct Surgical Problems: (1) H/O cardiac catheterization (2) H/O percutaneous transluminal coronary angioplasty (3) Stented coronary artery Family History FH: HTN (hypertension) FH: cancer FH: diabetes mellitus FH: gallbladder disease FH: heart disease FH: kidney disease Social History Smoking Status: Never Smoker Alcohol Use: none Drug Use: none Marital Status: Housing Status: lives with family Occupation Status: retired Current/Historical Medications Scheduled Aspirin (Aspirin Ec), 325 MG PO QPM Atorvastatin (Lipitor), 40 MG PO DAILY Citalopram Hydrobromide (Celexa), 20 MG PO QPM Clopidogrel (Plavix), 75 MG PO QAM Insulin Aspart 70/30 (Novolog Mix 70/30), 10-15 UNITS SC QAM Insulin Aspart 70/30 (Novolog Mix 70/30), 30 UNITS SC HS Lisinopril (Zestril), 5 MG PO DAILY Lorazepam (Ativan), 1 MG PO HS Metoprolol Succinate (Toprol Xl), 25 MG PO BID Pantoprazole (Pantoprazole Sodium), 40 MG PO BID Polyethylene (Miralax), 17 GM PO BID Senna (Senna Lax), 8.6 MG PO QAM Sucralfate (Sucralfate), 1 GM PO QID Torsemide (Demadex), 20 MG PO DAILY Zolpidem Tartrate (Ambien), 10 MG PO HS Scheduled PRN Albuterol Hfa (Ventolin Hfa), Unknown Dose INH Q4-6H PRN for Shortness of Breath Allergies Coded Allergies: No Known Allergies (Verified , `, 06/19/16) Physical Exam Vital Signs Date Time Temp Pulse Resp B/P Pulse Ox O2 Delivery O2 Flow Rate FiO2 10/20/16 19:04 77 18 126/63 93 10/20/16 18:55 77 18 126/63 93 Room Air 10/20/16 17:08 65 16 158/86 93 Room Air 10/20/16 14:35 36.4 73 18 155/85 95 Room Air Physical Exam Constitutional: Vital signs reviewed. Eyes: Pupils are equal round reactive to light. Conjunctiva are noninjected. ENT: Pharynx is clear without erythema or exudate. Mucous membranes are moist. Neck supple without meningeal signs. Respiratory: Clear to auscultation bilaterally. Breath sounds are equal bilaterally. Cardiovascular: Regular rate and rhythm. No rubs or gallops. GI: Soft, nondistended and nontender. Bowel sounds are present. Musculoskeletal: Mild pedal edema. No lower extremity tenderness. No CVA tenderness. Integumentary: No cyanosis. Neurological: The patient is awake and alert. No focal deficits. Psychiatric: Normal affect. Medical Decision & Procedures ER Provider Diagnostic Interpretation: X-ray results as stated below per interpretation by me and the radiologist: ABDOMEN 2VIEW W/PA CHEST RTN CLINICAL HISTORY: Abdominal pain and weight loss. Possible bowel obstruction. COMPARISON STUDY: CT scan dated 10/06/2016 FINDINGS: The erect chest reveals cardiac enlargement. There is a moderate right pleural effusion. There is right hilar enlargement. There are right basilar airspace opacities likely atelectatic. Erect and supine views the abdomen reveal surgical clips the right upper quadrant consistent with a prior cholecystectomy. No free air is visualized. There are no transition zones indicate bowel obstruction. IMPRESSION: 1. No evidence of bowel obstruction. No evidence of free air 2. Cardiomegaly, right pleural effusion, and right hilar prominence. There are associated right basilar airspace opacities. Electronically signed by: Chad Moulton M.D. 10/20/2016 6:02 PM Dictated Date/Time: 10/20/2016 6:01 PM Laboratory Results 10/20/16 17:10 Red Blood Count 4.97, Mean Corpuscular Volume 91.5, Mean Corpuscular Hemoglobin 30.4, Mean Corpuscular Hemoglobin Concent 33.2, Mean Platelet Volume 10.2, Neutrophils (%) (Auto) 79.3, Lymphocytes (%) (Auto) 11.5, Monocytes (%) (Auto) 7.4, Eosinophils (%) (Auto) 1.2, Basophils (%) (Auto) 0.3, Neutrophils # (Auto) 6.16, Lymphocytes # (Auto) 0.89, Monocytes # (Auto) 0.57, Eosinophils # (Auto) 0.09, Basophils # (Auto) 0.02 10/20/16 17:10 Test 10/20/16 17:10 White Blood Count 7.75 K/uL (4.8-10.8) Red Blood Count 4.97 M/uL (4.7-6.1) Hemoglobin 15.1 g/dL (14.0-18.0) Hematocrit 45.5 % (42-52) Mean Corpuscular Volume 91.5 fL (80-100) Mean Corpuscular Hemoglobin 30.4 pg (25-34) Mean Corpuscular Hemoglobin Concent 33.2 g/dl (32-36) Platelet Count 191 K/uL (130-400) Mean Platelet Volume 10.2 fL (7.4-10.4) Neutrophils (%) (Auto) 79.3 % Lymphocytes (%) (Auto) 11.5 % Monocytes (%) (Auto) 7.4 % Eosinophils (%) (Auto) 1.2 % Basophils (%) (Auto) 0.3 % Neutrophils # (Auto) 6.16 K/uL (1.4-6.5) Lymphocytes # (Auto) 0.89 K/uL (1.2-3.4) Monocytes # (Auto) 0.57 K/uL (0.11-0.59) Eosinophils # (Auto) 0.09 K/uL (0-0.5) Basophils # (Auto) 0.02 K/uL (0-0.2) RDW Standard Deviation 46.1 fL (36.4-46.3) RDW Coefficient of Variation 13.9 % (11.5-14.5) Immature Granulocyte % (Auto) 0.3 % Immature Granulocyte # (Auto) 0.02 K/uL (0.00-0.02) Anion Gap 11.0 mmol/L (3-11) Est Creatinine Clear Calc Drug Dose 68.1 ml/min Estimated GFR () 57.8 Estimated GFR (Non- 49.8 BUN/Creatinine Ratio 14.8 (10-20) Calcium Level 9.0 mg/dl (8.5-10.1) Total Bilirubin 0.6 mg/dl (0.2-1) Direct Bilirubin 0.2 mg/dl (0-0.2) Aspartate Amino Transf (AST/SGOT) 16 U/L (15-37) Alanine Aminotransferase (ALT/SGPT) 17 U/L (12-78) Alkaline Phosphatase 94 U/L (45-117) Troponin I 0.017 ng/ml (0-0.045) Total Protein 7.6 gm/dl (6.4-8.2) Albumin 3.5 gm/dl (3.4-5.0) Lipase 122 U/L (73-393) Laboratory results as reviewed by me. Medications Administered Medications (Trade) Dose Ordered Sig/Aditi Route Start Time Stop Time Status Last Admin Dose Admin Ondansetron HCl 4 mg 4 mg NOW STAT IV 10/20/16 16:49 10/20/16 16:51 DC 10/20/16 17:06 4 MG Sodium Chloride (Nss 250ml) 250 ml @ 999 mls/hr Q16M STAT IV 10/20/16 16:49 10/20/16 17:04 DC 10/20/16 17:06 999 MLS/HR ECG Indication: abdominal pain Rate (beats per minute): 62 Rhythm: sinus rhythm Findings: 1st degree AV block, LBBB, Q waves (Inferior) Comparison ECG Date: 10/06/16 Change: no significant change ED Course 1638: The patient was evaluated in room A3. A complete history and physical exam was performed. 164: Ordered NSS 250 ml @ 999 mls/hr IV, Zofran Inj 4 mg IV. 185: I reassessed the patient and talked to him about test results. He will follow up with GI. The patient will be discharged home. Medical Decision This is a 71-year-old male who presents with abdominal pain. Differential diagnosis includes food intolerance, irritable bowel syndrome, pancreatitis, mass, peptic ulcer disease. I did perform a limited focused review of portions of the patient's old chart on the electronic medical record. He was admitted October 04 for a non-STEMI. Also has congestive heart failure. He had abdominal pain during his hospitalization and had an abdomen/pelvis CT scan on the which showed no acute process. The plan was for an outpatient EGD and colonoscopy. I did evaluate the patient as noted above. The patient is presenting with abdominal pain which is predominantly on the right side since last summer. He had the pain when he was admitted to the hospital recently and was evaluated by gastroenterology. He had a CT scan of his abdomen and pelvis which was unremarkable. The plan was for outpatient EGD and colonoscopy. He is here today because he was referred by his doctor's office as he was concerned he may have dehydration. IV access was established. The patient was given normal saline IV. I did give him a judicious amount fluids as the patient has a history of CHF. I did order and personally review the patient's 12-lead EKG and abdominal/chest x-ray as described above. I did order and review the patient's blood work as noted in the electronic medical record. His white blood cell count is not elevated. His LFTs and electrolytes are unremarkable. I did discuss the test results with the patient. At this time the cause of his symptoms is unclear. I did not feel a second CT scan was indicated as he just recently had one. He was in agreement with this. I did recommend he follow closely with his doctors as well as gastroenterology for further evaluation. Impression Primary Impression: Right sided abdominal pain Additional Impression: Mild dehydration Scribe Attestation The scribe's documentation has been prepared under my direct and personally reviewed by me in its entirety. I confirm that the note above accurately reflects all work, treatment, procedures, and medical decision making performed by me. Departure Information Dispostion Home / Self-Care Referrals Ellis Mullen M.D. (PCP) Patient Instructions ED Abd Pain Unkn Cause Male, My [facility] Additional Instructions You have been examined and treated today on an emergency basis only. This is not a substitute for, or an effort to provide, complete comprehensive medical care. It is impossible to recognize and treat all injuries or illnesses in a single emergency department visit. It is therefore important that you follow up closely with your physician and law enforcement director. Call as soon as possible for an appointment. Return for worsening symptoms or if you develop fever, vomiting, or any other concerning symptoms. Problem Qualifiers
[2017-03-13] MEDS ORDERED: METO1TAB69 PO (14:11)
[2017-05-23] MEDS ORDERED: NPR250 PO (11:34)
[2017-05-23] MEDS ORDERED: NYSTCRE11 EXT (11:34)
== END 2016-10-20 19:04 | disposition home or self-care (01) ==
LOC: C.EDB 14:32 → C.EDA 19:04
DX: E86.0 Dehydration (principal); R10.13 Epigastric pain; I44.0 Atrioventricular block, first degree; I44.7 Left bundle-branch block, unspecified; I50.9 Heart failure, unspecified; I25.10 Atherosclerotic heart disease of native coronary artery without angina pectoris; E11.9 Type 2 diabetes mellitus without complications; I25.2 Old myocardial infarction; Z87.81 Personal history of (healed) traumatic fracture; Z87.442 Personal history of urinary calculi; Z98.61 Coronary angioplasty status; Z79.82 Long term (current) use of aspirin; Z79.4 Long term (current) use of insulin; Z79.899 Other long term (current) drug therapy; Z82.49 Family history of ischemic heart disease and other diseases of the circulatory system; Z80.9 Family history of malignant neoplasm, unspecified; Z83.3 Family history of diabetes mellitus; Z83.79 Family history of other diseases of the digestive system; Z84.1 Family history of disorders of kidney and ureter

== ENCOUNTER → 2016-11-11 | Outpatient (CLI) | payer OTHER ==
[~2016-11-11] MED LIST changes: +ASPI81TA28 PO; +ATOR-26 PO; +CITA20TA4 PO; +CYCL10TA6 PO; +HYDR-5688 PO; +IMDSR60 PO; +ISOS30TA3 PO; +LEVA45AE INH; +LOSA50TA6 PO; +LPT40 PO; +LSN5 PO; +LSX40 PO; +MAGN400T6 PO; +METO-217 PO; +METO1TAB69 PO; +NPR250 PO; +NYSTCRE11 EXT; -OXYC1TAB3 PO; +PLV75 PO; +POTA10CA28 PO; +ROPI1TAB PO; +SENN-61 PO; +TRAM-10 PO; +ZOLP10TA PO; -[UNRECOGNIZED DRUG - CODE] PO
[2016-11-11 18:03] LABS: THYROID STIMULATING HORMONE 1.27 uIu/ml (0.300-4.500)
[2016-11-14 22:34] LABS: ALBUMIN 3.4 G/DL (3.8-4.8); GAMMA GLOBULIN 0.9 G/DL (0.8-1.7); GLIADIN DEAMIDATED IgA AB 9 UNITS (<20); GLIADIN DEAMIDATED IgG AB 11 UNITS (<20); RETICULIN IgA AB Negative (Negative); TOTAL PROTEIN 6.4 G/DL (6.2-8.3)
== END | disposition home or self-care (01) ==
LOC: C.LABBFT 11:49
PROVIDERS: ATTEND Internal Medicine
DX: R63.4 Abnormal weight loss (principal); R10.9 Unspecified abdominal pain

== ENCOUNTER → 2016-12-30 | Outpatient (CLI) | payer OTHER ==
[~2016-12-30] MED LIST changes: +METO100T44 PO; -METO1TAB69 PO
[2017-01-01 10:10] LABS: ALBUMIN % 70.92 %; CREATININE UR 289 MG/DL (20-370); GAMMA GLOBULIN % 7.59 %
== END | disposition home or self-care (01) ==
LOC: C.LABSPEC 12:40
PROVIDERS: ATTEND Internal Medicine
DX: R63.4 Abnormal weight loss (principal)

== ENCOUNTER 2017-03-13 10:52 | Inpatient (IN) | payer OTHER ==
[~2017-03-13] VITALS: Ht 180.3 cm; Wt 134.8 kg
[~2017-03-13 10:52] MED LIST changes: -ASPI81TA28 PO; -ATOR-26 PO; -CITA20TA4 PO; -CYCL10TA6 PO; -HYDR-5688 PO; -IMDSR60 PO; -ISOS30TA3 PO; -LEVA45AE INH; -LOSA50TA6 PO; -LPT40 PO; -LSN5 PO; -LSX40 PO; -MAGN400T6 PO; -METO-217 PO; -METO100T44 PO; -NPR250 PO; -NYSTCRE11 EXT; -PLV75 PO; -POTA10CA28 PO; -ROPI1TAB PO; -SENN-61 PO; -TRAM-10 PO
--- NOTE | 2017-03-13 11:19 | EMERGENCY ROOM VISIT NOTE ---
History Report prepared by Chema: Starr Blanton Under the Supervision of: Dr. Zan Miller M.D. First contact with patient: 11:07 Chief Complaint: CHEST PAIN Stated Complaint: HEART TROUBLE,PRESSURE IN CHEST History of Present Illness The patient is a 71 year old male who presents to the Emergency Room with complaints of constant chest pressure beginning 1 week ago. The patient states that he had a fistula in his right buttock and has a small drain tube. He reports that he has had blood infections and recently had a heart attack. He notes that he did not get a catheterization due to the stress of the test on his heart. He complains of dizziness and shortness of breath. He denies any new leg swelling, cough, and fever. The patient reports that when he moves around his chest pain is worse. He notes that he has a history of kidney stones about 45 years ago. Source of History: patient, family Onset: 1 week ago Position: chest Quality: pressure Timing: constant Modifying Factors (Worsening): movement Associated Symptoms: + SOB, No fevers, No cough Note: He complains of intermittent dizziness. He denies any new leg swelling. Review of Systems See HPI for pertinent positives & negatives. A total of 10 systems reviewed and were otherwise negative. Past Medical & Surgical Medical Problems: (1) CHF exacerbation (2) Coronary artery disease (3) Diabetes (4) Diabetes mellitus (5) Kidney stones (6) Multiple rib fractures involving four or more ribs (7) Myocardial infarct Surgical Problems: (1) H/O cardiac catheterization (2) H/O percutaneous transluminal coronary angioplasty (3) Stented coronary artery Old medical records were reviewed. Nurse's notes were reviewed and I agree with. Family History FH: HTN (hypertension) FH: cancer FH: diabetes mellitus FH: gallbladder disease FH: heart disease FH: kidney disease Social History Smoking Status: Former Smoker Alcohol Use: none Drug Use: none Marital Status: Housing Status: lives with family Occupation Status: retired Current/Historical Medications Scheduled Aspirin (Aspirin Ec), 325 MG PO QPM Insulin Aspart 70/30 (Novolog Mix 70/30), 10-15 UNITS SC ACHS Isosorbide Mononitrate (Isosorbide Mononitrate ER), 1 TAB PO DAILY Lorazepam (Ativan), 1 MG PO HS Metoprolol Succ (Toprol Xl) (Toprol-Xl ), 100 MG PO DAILY Potassium Chloride (Micro-K Ext Rel), 10 MEQ PO DAILY Ropinirole (Requip), 1 MG PO HS Torsemide (Demadex), 20 MG PO DAILY Zolpidem Tartrate (Ambien), 2 TAB PO HS Scheduled PRN Albuterol Hfa (Ventolin Hfa), Unknown Dose INH Q4-6H PRN for Shortness of Breath Hydrocodone/Acetaminophen 5MG/325MG (Ball 5MG/325MG), 1-2 TABLET PO Q6H PRN for Pain Allergies Coded Allergies: No Known Allergies (Verified , `, 03/13/17) Physical Exam Vital Signs Date Time Temp Pulse Resp B/P (MAP) Pulse Ox O2 Delivery O2 Flow Rate FiO2 03/13/17 13:08 89 18 158/116 98 Nasal Cannula 2.0 03/13/17 12:09 84 03/13/17 11:57 99 Nasal Cannula 2.0 03/13/17 11:54 87 18 144/85 98 Nasal Cannula 2.0 03/13/17 11:45 82 18 98 Nasal Cannula 2.0 03/13/17 11:30 78 18 89 Room Air 03/13/17 11:01 36.6 90 18 165/95 93 Room Air Physical Exam General: Well developed well nourished in no acute distress, breathing comfortably on room air. Normal speech. Non-ill appearing older male HEENT: Normal cephalic atraumatic. Pupils are equal round and reactive to light. Sclerae anicteric. Extraocular movements are intact. Oropharynx is pink with moist mucous membranes. No swelling of the mouth lips or tongue. Neck: Supple with a midline trachea. No meningeal signs or stiffness, no JVD or bruits. No Stridor. Chest: Clear to auscultation bilaterally. No wheezes or rhonchi. No increased work of breathing. Heart: regular rate and rhythm. Abdomen: Soft nontender, nondistended without rebound guarding or rigidity. Extremities: No cyanosis clubbing. No calf tenderness or assymetry. Trace pedal edema. Spine/Back. Non tender to palpation. No CVA tenderness Skin: Good turgor without rashes. Neurologic exam: Cranial nerves two through 12 are intact. Motor and sensation are intact and symmetrical throughout. Medical Decision & Procedures ER Provider Diagnostic Interpretation: X-ray results as stated below per interpretation by me and the radiologist: MRI LUMBAR SPINE W/O CONTRAST OBSERVATIONS: The vertebral bodies and posterior elements appear intact. There is no abnormal bony signal present to suggest a marrow replacement process. L1-2: No disc protrusions or extrusions. No evidence of spinal canal or neural foraminal compromise. L2-3: No disc protrusions or extrusions. No evidence of spinal canal or neural foraminal compromise. L3-4: There is a mild circumferential disc bulge. There is minimal spinal canal narrowing. L4-5: There is a small left foraminal disc protrusion. There is mild triangular spinal stenosis. There is mild left-sided foraminal narrowing. L5-S1: There is a moderate left-sided disc protrusion. Disc material extends into the left lateral recess. There is deformity of thecal sac. There is probable impingement on the left S1 nerve root. The conus medullaris and cauda equina appear normal. IMPRESSION: 1. Moderate left-sided disc protrusion at the L5-S1 level. Disc material extends to the left lateral recess. There is mild secondary thecal sac deformity and probable impingement of the left S1 nerve root 2. Small left foraminal disc protrusion at the L4-5 level with mild triangular spinal stenosis. There is secondary mild left-sided foraminal narrowing. Electronically signed by: Chad Moulton M.D. 03/13/2017 12:15 PM Dictated Date/Time: 03/13/2017 12:10 PM Laboratory Results 03/13/17 11:12 Red Blood Count 4.64, Mean Corpuscular Volume 97.4, Mean Corpuscular Hemoglobin 32.5, Mean Corpuscular Hemoglobin Concent 33.4, Mean Platelet Volume 10.8, Neutrophils (%) (Auto) 76.9, Lymphocytes (%) (Auto) 13.2, Monocytes (%) (Auto) 6.8, Eosinophils (%) (Auto) 2.5, Basophils (%) (Auto) 0.3, Neutrophils # (Auto) 5.47, Lymphocytes # (Auto) 0.94, Monocytes # (Auto) 0.48, Eosinophils # (Auto) 0.18, Basophils # (Auto) 0.02 03/13/17 11:12 03/13/17 11:45 Test 03/13/17 11:12 03/13/17 11:29 03/13/17 11:45 White Blood Count 7.11 K/uL (4.8-10.8) Red Blood Count 4.64 M/uL (4.7-6.1) Hemoglobin 15.1 g/dL (14.0-18.0) Hematocrit 45.2 % (42-52) Mean Corpuscular Volume 97.4 fL (80-100) Mean Corpuscular Hemoglobin 32.5 pg (25-34) Mean Corpuscular Hemoglobin Concent 33.4 g/dl (32-36) Platelet Count 185 K/uL (130-400) Mean Platelet Volume 10.8 fL (7.4-10.4) Neutrophils (%) (Auto) 76.9 % Lymphocytes (%) (Auto) 13.2 % Monocytes (%) (Auto) 6.8 % Eosinophils (%) (Auto) 2.5 % Basophils (%) (Auto) 0.3 % Neutrophils # (Auto) 5.47 K/uL (1.4-6.5) Lymphocytes # (Auto) 0.94 K/uL (1.2-3.4) Monocytes # (Auto) 0.48 K/uL (0.11-0.59) Eosinophils # (Auto) 0.18 K/uL (0-0.5) Basophils # (Auto) 0.02 K/uL (0-0.2) RDW Standard Deviation 49.9 fL (36.4-46.3) RDW Coefficient of Variation 14.0 % (11.5-14.5) Immature Granulocyte % (Auto) 0.3 % Immature Granulocyte # (Auto) 0.02 K/uL (0.00-0.02) Anion Gap 11.0 mmol/L (3-11) Est Creatinine Clear Calc Drug Dose 76.5 ml/min Estimated GFR () 77.3 Estimated GFR (Non- 66.7 BUN/Creatinine Ratio 11.6 (10-20) Calcium Level 9.2 mg/dl (8.5-10.1) Total Bilirubin 0.9 mg/dl (0.2-1) Alanine Aminotransferase (ALT/SGPT) 18 U/L (12-78) Alkaline Phosphatase 88 U/L (45-117) Creatine Kinase MB 0.8 ng/ml (0.5-3.6) Creatine Kinase MB Ratio (0-3.0) Total Protein 7.6 gm/dl (6.4-8.2) Albumin 3.5 gm/dl (3.4-5.0) Lipase 50 U/L (73-393) Thyroid Stimulating Hormone (TSH) 1.400 uIu/ml (0.300-4.500) Bedside Troponin I 0.240 ng/ml (0-0.045) XT-Bon-G-Type Natriuretic Peptide 1643 pg/ml (0-900) Prothrombin Time 11.4 SECONDS (9.0-12.0) Prothromb Time International Ratio 1.1 (0.9-1.1) Activated Partial Thromboplast Time 30.5 SECONDS (21.0-31.0) Partial Thromboplastin Ratio 1.2 Direct Bilirubin 0.2 mg/dl (0-0.2) Aspartate Amino Transf (AST/SGOT) 17 U/L (15-37) Total Creatine Kinase 49 U/L (39-308) Laboratory studies as stated above per my review. Medications Administered Medications (Trade) Dose Ordered Sig/Aditi Route Start Time Stop Time Status Last Admin Dose Admin Furosemide (Lasix Inj) 40 mg NOW STAT IV 03/13/17 13:03 03/13/17 13:05 DC 03/13/17 13:14 40 MG ECG Indication: chest pain Rate (beats per minute): 97 Rhythm: normal sinus Findings: 1st degree AV block, other (nonspecific intraventricular conduction delay) ED Course 1109: Past medical records reviewed. The patient was evaluated in room C11B, and a complete history and physical examination were performed. 1303: Lasix Inj 40mg IV. 1312: I spoke to Dr. Leger. He will evaluate the patient for further management. 1322: Upon reevaluation, the patient is doing well. I discussed the results and treatment plan with the patient. He verbalized agreement of the treatment plan. The patient will be evaluated for further management. Medical Decision Differential diagnosis includes CHF, acute coronary syndrome, arrhythmia, electrolyte or metabolic abnormality. Blood pressure Screening: Patient was found to have an elevated blood pressure and was referred to their primary doctor for recheck and further treatment. This will be addressed inpatient. Medication Reconciliation: I attest that I have personally reviewed the patient' s current medication list. This patient comes in as described above. He has shortness of breath and some chest discomfort. He looks well on exam is mildly hypoxemic with O2 sat of 89% was placed on oxygen. He was placed on a cardiac monitor technician. IV access established and multiple blood tests was obtained. EKG shows a baseline left bundle-branch block but no definite ischemic changes. Both his bnp and troponin were both elevated which goes along with congestive heart failure changes seen on his chest x-ray. He was given Lasix IV. He has no significant electrolyte or metabolic abnormalities. He needs to be admitted for diuresis and rule out further cardiac disease. I did consult the [facility] hospitalist and the patient will be admitted for these measures. Consults Time Called: 1311 Consulting Physician: Dr. Leger Returned Call: [address] Leger. He will evaluate the patient for further management. Impression Primary Impression: CHF (congestive heart failure) Additional Impressions: Elevated troponin Precordial chest pain Scribe Attestation The scribe's documentation has been prepared under my direction and personally reviewed by me in its entirety. I confirm that the note above accurately reflects all work, treatment, procedures, and medical decision making performed by me. Departure Information Dispostion Being Evaluated By Hospitalist Referrals Ellis Mullen M.D. (PCP) Patient Instructions My [facility] Problem Qualifiers
[2017-03-13 11:27] LABS: BASO % 0.3 %; BASO ABS # 0.02 K/uL (0-0.2); COMPLETE YES; EOS % 2.5 %; HEMATOCRIT 45.2 % (42-52); IG% 0.3 %; LYMPH % 13.2 %; LYMPH ABS # 0.94 K/uL (1.2-3.4); MEAN CELL VOLUME 97.4 fL (80-100); MEAN CORPUSCULAR HEMOGLOBIN 32.5 pg (25-34); MEAN CORPUSCULAR HGB CONC 33.4 g/dl (32-36); MEAN PLATELET VOLUME 10.8 fL (7.4-10.4); MONO % 6.8 %; NEUT % 76.9 %; PLATELET COUNT 185 K/uL (130-400); RED BLOOD COUNT 4.64 M/uL (4.7-6.1); WHITE BLOOD COUNT 7.11 K/uL (4.8-10.8)
[2017-03-13 11:47] LABS: POINT OF CARE TROPONIN I 0.24 ng/ml (0-0.045)
[2017-03-13 11:49] LABS: ALT/SGPT 18 U/L (12-78); BLOOD UREA NITROGEN 13 mg/dl (7-18); BUN/CREATININE RATIO 11.6 (10-20); CALCIUM 9.2 mg/dl (8.5-10.1); CARBON DIOXIDE 23 mmol/L (21-32); CHLORIDE 105 mmol/L (98-107); GLUCOSE 133 mg/dl (70-99); SODIUM 139 mmol/L (136-145)
--- NOTE | 2017-03-13 11:52 | DIAGNOSTIC IMAGING REPORT ---
SINGLE VIEW CHEST CLINICAL HISTORY: Atypical chest pain. FINDINGS: An AP, portable, upright chest radiograph is compared to study dated 10/20/2016. Correlation is made with chest CT dated 09/02/2015. The examination is degraded by portable technique and patient rotation. The heart is enlarged and there is atherosclerotic calcification of the thoracic aorta. There is pulmonary vascular congestion. There are moderate right and small left pleural effusions with bibasilar consolidation. No pneumothorax is seen. The skeletal structures are osteopenic. There are healed right-sided rib fractures. IMPRESSION: 1. Cardiomegaly with evidence of congestive failure. 2. Moderate right and small left pleural effusions with bibasilar consolidation. This likely represents atelectasis. Clinical correlation will be required. Electronically signed by: Barrett Ovalle M.D. 03/13/2017 11:51 AM Dictated Date/Time: 03/13/2017 11:49 AM
[2017-03-13 11:54] LABS: ALKALINE PHOSPHATASE 88 U/L (45-117)
[2017-03-13 12:08] LABS: INR 1.1 (0.9-1.1); PARTIAL THROMBOPLASTIN RATIO 1.2; PROTHROMBIN TIME (PATIENT) 11.4 SECONDS (9.0-12.0)
[2017-03-13 12:10] LABS: POTASSIUM 4.3 mmol/L (3.5-5.1)
[2017-03-13] MEDS ORDERED: FUROSEMIDE 40 MG/4 ML VIAL IV STA (13:03)
[2017-03-13] MEDS ORDERED: ROPI1TAB PO (14:11)
[2017-03-13] MEDS ORDERED: IMDSR60 PO (14:11)
[2017-03-13] MEDS ORDERED: HYDR-5688 PO (14:11)
[2017-03-13] MEDS ORDERED: POTA10CA28 PO (14:11)
[2017-03-13] MEDS ORDERED: METO100T44 PO (14:11)
[2017-03-13] MEDS ORDERED: ALUMINUM/MAGNESIUM/SIMETH (MAALOX MAX) 30 ML UDC PO PRN (14:15)
[2017-03-13] MEDS ORDERED: MAGNESIUM HYDROXIDE SUSP 30 ML UDC PO PRN (14:15)
[2017-03-13] MEDS ORDERED: NITROGLYCERIN 0.4 MG SL PER TAB CHARGE SL PRN (14:15)
[2017-03-13] MEDS ORDERED: MoRPHine SULFATE 2 MG/ML CARP IV PRN (14:15)
[2017-03-13] MEDS ORDERED: ACETAMINOPHEN 325 MG TAB PO PRN (14:15)
[2017-03-13] MEDS ORDERED: POLYETHYLENE (MIRALAX) 17 GM PACK PO PRN (14:15)
[2017-03-13] MEDS ORDERED: ONDANSETRON INJ 2 MG/ML 2 ML VIAL IV PRN (14:15)
[2017-03-13] MEDS ORDERED: PHARMACY GLYCEMIC MGMT CONSULT PRN (14:37)
--- NOTE | 2017-03-13 14:55 | Pharmacy Progress Note ---
Glycemic Control Intl Consult Date of Service Mar 13, 2017. Scope Glycemic Pharmacist consulted by Dr Kearney on 03/13/17 for glycemic control and to write orders per [facility] inpatient glycemic control protocol Objective Weight (Kilograms): 110.000 Accuchecks BSG (last 24hrs): Test 03/13/17 11:12 Random Glucose 133 mg/dl (70-99) Laboratory Data (last 24hrs) HbA1c 7% on 05/19/16 Updated A1c pending Recent Pertinent Medications Outpatient Anti-diabetic Regimen: * NovoLog 70/30 premixed insulin 10-15 units in AM with breakfast & 30 units in PM with dinner Assessment & Plan ASSESSMENT: * 71yo T2DM male with unknown degree of outpatient control. Updated A1c pending. Previous A1c is at goal but outdated. * Outpatient regimen is premixed basal/prandial insulin of NovoLog 70/30 mix insulin. * Pre-mixed insulin is difficult to titrate since it is already in a fixed distribution of basal:prandial insulin. Continuing pre-mixed insulin for admission typically lead to hypoglycemia d/t changing PO status but rapid acting insulin is unable to be held. * Home regimen will be held for admission per pharmacy consult. Will utilize recommended regimen of SQ basal bolus insulin regimen with Lantus + NovoLog (CF+ CR) * Will utilize dosing based on outpatient dosing of 40-45units/day but distribute regimen 50:50% between basal:prandial insulin to prevent hypo when PO intake changes * ADA & AACE recommend a goal blood sugar range 140-180 mg/dl for the majority of critically ill & non-critically ill patients. However, more stringent targets may be selected in individual cases. Will utilize more stringent goal of 110-140mg/dl based on patient age & comorbidities. PLAN FOR INPATIENT GLYCEMIC CONTROL: * Hold outpatient premixed insulin regimen * Basal insulin * Lantus 10 units SQ BID * Bolus insulin * NovoLog per scale ACHS or Q6hrs while NPO * Goal Range: Low 110 mg/dL - High 140 mg/dL * Correction Factor: 30 mg/dL/unit * Nutritional / Prandial insulin per carb ratio of 1 unit per 10 grams CHO consumed * Add A1c to discharge instructions to be communicated to PCP for outpatient antidiabetic regimen adjustments * Please note that the plan above was derived based on current level of insulin resistance and hospital stress. These recommendations are appropriate for inpatient admission only. Plan of care upon discharge will need to be reassessed to avoid potential outpatient hypo/hyperglycemia. Thank you.
[2017-03-13] MEDS ORDERED: DEXTROSE 50% 50 ML SYR IV PRN (15:00)
[2017-03-13] MEDS ORDERED: GLUCAGON FOR INJ 1 MG VIAL SQ PRN (15:00)
[2017-03-13] MEDS ORDERED: GLUCOSE 40% GEL 15 GM TUBE PO PRN (15:00)
[2017-03-13] MEDS ORDERED: GLUCOSE 10 TABS/TUBE PO PRN (15:00)
--- NOTE | 2017-03-13 15:03 | History and Physical ---
History & Physical Date & Time of Service: Mar 13, 2017 at 14:20 Chief Complaint: Heart Trouble,Pressure In Chest Primary Care Physician: Ellis Mullen M.D. History of Present Illness Source: patient 71M with a PMHx of CAD, NE in Sep 2016, rectal fistula w drain, DM2 on insulin p /w a several week history of chest tightness and dyspnea on exertion. Pt had an NE in September, it was in 4th or 5th NE. She states that his chest tightness is distinctly different than his symptoms in September and with his previous MIs. Pt is mostly sedentary and when he gets up he gets dyspneic. He tried to ride it out but his convinced him to go to the hospital. When the pt had his NE he said he felt like he swallowed an apple and it was stuck in his esophagus - he does not feel like that today. Pt states he feels much better after getting Lasix several hours ago. Pt takes his medications which includes a water pill (Torsemide). Pt has DM2 and reports his blood sugars are usually under 200. Echo in Sep 2016 showed several dilated LV and an LVEF of 35-40% and severe posterior wall hypokinesis. Update: Pt told Dr. Leger he doesn't take his water pill and was diagnosed with Sleep Apnea but doesn't use his CPAP machine. ROS: +headache, +dizziness, no nausea, no vomiting, no diarrhea, no chest pain, no cough, no wheezing, no dysuria, no fevers, no chills. Meds: As documented, med rec does not contain cyclobenzaprine, also the Zolpidem and Ativan should be PRN at night, not scheduled. Pt is also on Toprol 100mg XL not 25mg XL. SHx: Lives w who recently had shoulder surgery, stays in bed most of the day, slight smoking history 50+ years ago. Past Medical/Surgical History Medical Problems: (1) Coronary artery disease Status: Chronic (2) Diabetes Status: Resolved (3) Diabetes mellitus Status: Chronic (4) Kidney stones Status: Resolved (5) Myocardial infarct Status: Resolved Surgical Problems: (1) H/O cardiac catheterization Status: Resolved (2) H/O percutaneous transluminal coronary angioplasty Status: Resolved (3) Stented coronary artery Status: Chronic Family History FH: HTN (hypertension) FH: cancer FH: diabetes mellitus FH: gallbladder disease FH: heart disease FH: kidney disease Social History Smoking Status: Former Smoker Drug Use: none Marital Status: Housing status: lives with family Occupational Status: retired Immunizations History of Influenza Vaccine: No History of Tetanus Vaccine?: unknown History of Pneumococcal: No History of Hepatitis B Vaccine: No Multi-Drug Resistant Organisms History of MDRO: No Allergies Coded Allergies: No Known Allergies (Verified , `, 03/13/17) Home Medications Scheduled Aspirin (Aspirin Ec), 325 MG PO QPM Insulin Aspart 70/30 (Novolog Mix 70/30), 10-15 UNITS SC ACHS Isosorbide Mononitrate (Isosorbide Mononitrate ER), 1 TAB PO DAILY Lorazepam (Ativan), 1 MG PO HS Metoprolol Succ (Toprol Xl) (Toprol-Xl ), 100 MG PO DAILY Potassium Chloride (Micro-K Ext Rel), 10 MEQ PO DAILY Ropinirole (Requip), 1 MG PO HS Torsemide (Demadex), 20 MG PO DAILY Zolpidem Tartrate (Ambien), 2 TAB PO HS Scheduled PRN Albuterol Hfa (Ventolin Hfa), Unknown Dose INH Q4-6H PRN for Shortness of Breath Hydrocodone/Acetaminophen 5MG/325MG ([place] 5MG/325MG), 1-2 TABLET PO Q6H PRN for Pain Physical Exam Vital Signs Date Time Temp Pulse Resp B/P (MAP) Pulse Ox O2 Delivery O2 Flow Rate FiO2 03/13/17 13:08 89 18 158/116 98 Nasal Cannula 2.0 03/13/17 12:09 84 03/13/17 11:57 99 Nasal Cannula 2.0 03/13/17 11:54 87 18 144/85 98 Nasal Cannula 2.0 03/13/17 11:45 82 18 98 Nasal Cannula 2.0 03/13/17 11:30 78 18 89 Room Air 03/13/17 11:01 36.6 90 18 165/95 93 Room Air General Appearance: WD/WN, + obese Eyes: PERRL, EOMI Neck: no JVD Respiratory/Chest: chest non-tender, lungs clear, normal breath sounds, no respiratory distress, no accessory muscle use, + pertinent finding (could not appreciate crackles on exam) Cardiovascular: no gallop, no JVD, no murmur, normal peripheral pulses Abdomen/GI: soft, no organomegaly, no pulsatile mass, + pertinent finding (pt has a rectal drain for ab abscess) Extremities/Musculoskelatal: + pertinent finding (2+ pitting edema in the LE bilaterally.) 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, no motor/sensory deficits, alert, normal mood/affect, normal reflexes, oriented x 3 Skin: + pertinent finding (statis dermatitis on the anterior shins bilaterally , hyperpigmentation on both LE) Diagnostics Laboratory Results Results Past 24 Hours Test 03/13/17 11:12 03/13/17 11:29 03/13/17 11:45 Range/Units White Blood Count 7.11 4.8-10.8 K/uL Red Blood Count 4.64 4.7-6.1 M/uL Hemoglobin 15.1 14.0-18.0 g/dL Hematocrit 45.2 42-52 % Mean Corpuscular Volume 97.4 80-100 fL Mean Corpuscular Hemoglobin 32.5 25-34 pg Mean Corpuscular Hemoglobin Concent 33.4 32-36 g/dl Platelet Count 185 130-400 K/uL Mean Platelet Volume 10.8 7.4-10.4 fL Neutrophils (%) (Auto) 76.9 % Lymphocytes (%) (Auto) 13.2 % Monocytes (%) (Auto) 6.8 % Eosinophils (%) (Auto) 2.5 % Basophils (%) (Auto) 0.3 % Neutrophils # (Auto) 5.47 1.4-6.5 K/uL Lymphocytes # (Auto) 0.94 1.2-3.4 K/uL Monocytes # (Auto) 0.48 0.11-0.59 K/uL Eosinophils # (Auto) 0.18 0-0.5 K/uL Basophils # (Auto) 0.02 0-0.2 K/uL RDW Standard Deviation 49.9 36.4-46.3 fL RDW Coefficient of Variation 14.0 11.5-14.5 % Immature Granulocyte % (Auto) 0.3 % Immature Granulocyte # (Auto) 0.02 0.00-0.02 K/uL Sodium Level 139 136-145 mmol/L Potassium Level 4.3 3.5-5.1 mmol/L Chloride Level 105 98-107 mmol/L Carbon Dioxide Level 23 21-32 mmol/L Anion Gap 11.0 3-11 mmol/L Blood Urea Nitrogen 13 7-18 mg/dl Creatinine 1.10 0.60-1.40 mg/dl Est Creatinine Clear Calc Drug Dose 76.5 ml/min Estimated GFR () 77.3 Estimated GFR (Non- 66.7 BUN/Creatinine Ratio 11.6 10-20 Random Glucose 133 70-99 mg/dl Calcium Level 9.2 8.5-10.1 mg/dl Total Bilirubin 0.9 0.2-1 mg/dl Direct Bilirubin 0.2 0-0.2 mg/dl Aspartate Amino Transf (AST/SGOT) 17 15-37 U/L Alanine Aminotransferase (ALT/SGPT) 18 12-78 U/L Alkaline Phosphatase 88 45-117 U/L Total Creatine Kinase 49 39-308 U/L Creatine Kinase MB 0.8 0.5-3.6 ng/ml Creatine Kinase MB Ratio 0-3.0 Total Protein 7.6 6.4-8.2 gm/dl Albumin 3.5 3.4-5.0 gm/dl Lipase 50 73-393 U/L Thyroid Stimulating Hormone (TSH) 1.400 0.300-4.500 uIu/ml Bedside Troponin I 0.240 0-0.045 ng/ml [id number] Natriuretic Peptide 1643 0-900 pg/ml Prothrombin Time 11.4 9.0-12.0 SECONDS Prothromb Time International Ratio 1.1 0.9-1.1 Activated Partial Thromboplast Time 30.5 21.0-31.0 SECONDS Partial Thromboplastin Ratio 1.2 Diagnostic Radiology SINGLE VIEW CHEST CLINICAL HISTORY: Atypical chest pain. FINDINGS: An AP, portable, upright chest radiograph is compared to study dated 10/20/2016. Correlation is made with chest CT dated 09/02/2015. The examination is degraded by portable technique and patient rotation. The heart is enlarged and there is atherosclerotic calcification of the thoracic aorta. There is pulmonary vascular congestion. There are moderate right and small left pleural effusions with bibasilar consolidation. No pneumothorax is seen. The skeletal structures are osteopenic. There are healed right-sided rib fractures. IMPRESSION: 1. Cardiomegaly with evidence of congestive failure. 2. Moderate right and small left pleural effusions with bibasilar consolidation. This likely represents atelectasis. Clinical correlation will be required. EKG Wide QRS rhythm Left axis deviation Non-specific intra-ventricular conduction block Inferior infarct , age undetermined Abnormal ECG When compared with ECG of 20-OCT-2016 17:25, Wide QRS rhythm has replaced Sinus rhythm Vent. rate has increased BY 35 BPM Impression Assessment and Plan 71M with a PMHx of CAD, NE in Sep 2016, rectal fistula w drain, DM2 on insulin p /w a several week history of chest tightness and dyspnea on exertion. Pt received 40mg IV of Lasix in the ER and reported to be feeling much better. Trops were slightly elevated at 0.24 and BNP was >1600. Pt was admitted to tele , cards consulted, echo ordered, will trend trops and give 20mg Lasix IV BID. ECHO Oct 06, 2016 * 1. Severely dilated LV. Mild concentric LVH. * 2. Moderate global LV dysfunction. LVEF 35-40 %. Severe posterior wall hypokinesis. Grade 2 diastolic dysfunction. * 3. Normal RV size and function. * 4. Moderate mitral regurgitation * 5. Normal estimated RA pressure * 6. Compared with prior study on 04/19/2016: No significant change Acute on Chronic CHF - Echo in Sep showed several dilated LV and an LVEF of 35-40% and severe posterior wall hypokinesis. - Lasix 20mg IV BID +20meq KCL tomorrow AM. - Monitor Is and Os. - c/w Metoprolol 100mg XL daily (taken from Cardiology notes from [facility], last DC summer in Sep has pt on 25mg XL daily) - Echo ordered - Will trend trops. - Cardiology consulted. - X-ray schedule tomorrow at 6am. DM2 - Glycemic Control Consult - f/u HBA1C CAD s/p Stent - c/w Atorvastatin 40mg daily - c/w Aspirin 325mg daily. - c/w Plavix 75mg QAM - c/w Isosorbide mononitrate 60mg QAM. HTN - c/w Lisinopril 5mg daily Muscle Aches - c/w Cyclobenzaprine 10mg TID (taken from [employer]) Sleep - c/w Ativan 0.5mg PRN QHS for sleep/anxiety, (taken from [employer], med rec has this scheduled which is incorrect) c/w Zolpidem 10mg PRN QHS (taken from [employer], med rec has this scheduled which is incorrect) - c/w Ropiranole 1mg QHS GERD - c/w Pantoprazole 40mg qam Mood - c/w Celexa 20mg daily Sleep Apnea - CPAP set up. Dispo: Tele, Admit, DM2 diet w sodium restriction, NPO after midnight, Cardiac Rehab consult place, PT & OT DVT Proph: HepSQ BID Code: Full I personally and independently interviewed and examined the patient I reviewed labs and imaging I agree with above mentioned physical exam, History and ROS I discussed and formulated the assessment and plan with Mrs. Dobbins 71 / M with a PMHx of CAD / NE / DM2 on insulin p/w CP and SIMPSON PE obese, in mild distress chest, decrease air entry B/L, basal rales, heart S1/S2 normal abd soft non tender ext B/L no edema assessment: Acute on chronic systolic CHF Chest pain SOFIA non compliant with BIPAP HTN slightly positive troponin, possible demand ischemia Plan: consult wide area network administrator serial enz gentle diuresis start home meds , Statin, ASA, plavix Martha Leger [facility] [place] Hospitalist VTE Prophylaxis VTE Risk Assessment Done? Y/N: Yes Risk Level: Moderate Resident Involvement: Resident Care Provided Care Provided: Adult Hospital Medicine
[2017-03-13 15:50] VITALS: BP 151/94; PULSE 93; TEMP 37.1; O2SAT 94; Ht 180.3 cm; Wt 134.8 kg
[2017-03-13] MEDS: FUROSEMIDE INJ 20 MG in SYRINGE 0 ML IV SCH (18:12)
[2017-03-13] MEDS: NITROGLYCERIN OINT 2% 1GM PACKET EXT SCH (18:13)
[2017-03-13] MEDS: INSULIN ASPART 100 UNITS/ML 3 ML PEN SC SCH ×2 (18:18→21:00)
[2017-03-13] MEDS: METOPROLOL SUCC 50MG EXT REL TAB PO SCH (18:20)
[2017-03-13] MEDS: ISOSORBIDE MONONITRATE 60 MG TABCR PO SCH (18:20)
[2017-03-13 19:36] VITALS: BP 148/79; PULSE 80; TEMP 37; O2SAT 88
[2017-03-13 20:02] VITALS: O2SAT 88
[2017-03-13] MEDS ORDERED: LORAZEPAM 1 MG TAB PO SCH (21:00)
[2017-03-13] MEDS: CYCLOBENZAPRINE HCL 10 MG TAB PO SCH (21:00)
[2017-03-13] MEDS: CITALOPRAM 20 MG TAB PO SCH (21:00)
[2017-03-13] MEDS ORDERED: LORAZEPAM 0.5 MG TAB PO PRN (21:00)
[2017-03-13] MEDS ORDERED: ZOLPIDEM TARTRATE 10 MG TAB PO SCH (21:00)
[2017-03-13] MEDS ORDERED: ZOLPIDEM TARTRATE 10 MG TAB PO PRN (21:00)
[2017-03-13] MEDS: ASPIRIN 325 MG ECTAB PO SCH (21:04)
[2017-03-13 21:16] LABS: CKMB/CK RATIO 1.9 (0-3.0)
[2017-03-13] MEDS: INSULIN GLARGINE SOLOSTAR 100 UNITS/ML 3 ML PEN SC SCH (21:18)
[2017-03-13] MEDS: HEPARIN SOD 5000 UNIT/0.5 ML CARP SQ SCH (21:19)
[2017-03-13 23:29] VITALS: BP 116/75; PULSE 70; TEMP 36.9; O2SAT 94
[2017-03-14] VITALS (8 sets, daily range): BP systolic 110–148; BP diastolic 65–72; PULSE 58–70; TEMP 36.5–37; O2SAT 88–97
[2017-03-14] MEDS: ROPINIROLE HCL 1 MG TAB PO SCH ×2 (00:15→20:20)
[2017-03-14] MEDS: ZOLPIDEM TARTRATE 10 MG TAB PO PRN (00:15)
[2017-03-14] MEDS: NITROGLYCERIN OINT 2% 1GM PACKET EXT SCH ×4 (00:16→18:23)
[2017-03-14] MEDS: HYDROCODONE/ACETAMOPHEN 5/325MG TAB PO PRN ×3 (00:18→20:21)
[2017-03-14 05:13] LABS: BUN/CREATININE RATIO 12.8 (10-20); CREATININE 1.1 mg/dl (0.60-1.40); MAGNESIUM 1.7 mg/dl (1.8-2.4); POTASSIUM 3.8 mmol/L (3.5-5.1)
[2017-03-14 05:24] LABS: ALB/GLOB RATIO 0.9 (0.9-2); BASO % 0.5 %; BASO ABS # 0.03 K/uL (0-0.2); CKMB/CK RATIO 2.6 (0-3.0); COMPLETE YES; EOS % 2.7 %; HEMATOCRIT 36.9 % (42-52); IG% 0.2 %; LYMPH % 22.9 %; LYMPH ABS # 1.36 K/uL (1.2-3.4); MEAN CELL VOLUME 96.9 fL (80-100); MEAN CORPUSCULAR HEMOGLOBIN 31.2 pg (25-34); MEAN CORPUSCULAR HGB CONC 32.2 g/dl (32-36); MEAN PLATELET VOLUME 10.2 fL (7.4-10.4); MONO % 10.3 %; NEUT % 63.4 %; PLATELET COUNT 168 K/uL (130-400); RED BLOOD COUNT 3.81 M/uL (4.7-6.1); WHITE BLOOD COUNT 5.93 K/uL (4.8-10.8)
[2017-03-14 05:43] LABS: CALCIUM 8.6 mg/dl (8.5-10.1)
[2017-03-14 06:16] LABS: ESTIMATED AVERAGE GLUCOSE 148 mg/dl; HA1C FLAG Normal (Normal)
--- NOTE | 2017-03-14 06:58 | DIAGNOSTIC IMAGING REPORT ---
SINGLE VIEW CHEST CLINICAL HISTORY: CHF. FINDINGS: An AP, portable, upright chest radiograph is compared to study dated 03/13/2017. Correlation is made with chest CT dated 09/02/2015. The examination is degraded by portable technique and patient rotation. The heart is enlarged and there is atherosclerotic calcification of the thoracic aorta. Pulmonary vascular congestion persists. There are moderate right and small left pleural effusions with bibasilar consolidation. No pneumothorax is seen. The skeletal structures are osteopenic. There are healed right-sided rib fractures. IMPRESSION: 1. Cardiomegaly with evidence of congestive failure. This is unchanged from yesterday. 2. Moderate right and small left pleural effusions with bibasilar consolidation. This likely represents atelectasis. Clinical correlation will be required. Electronically signed by: Barrett Ovalle M.D. 03/14/2017 6:56 AM Dictated Date/Time: 03/14/2017 6:55 AM
--- NOTE | 2017-03-14 07:29 | Family Medicine Progress Note ---
Progress Note Date of Service Mar 14, 2017. Subjective Pt evaluation today including: conversation w/ patient The patient was seen and examined at bedside. States his chest tightness is getting better. Pt is wearing oxygen. Didn't want to wear the CPAP machine at night. Tele shows sinus w PVC's, rate dropped into the 40s. Patient is resting comfortably in bed. Eating and urinating well. Plan of care was described to the patient and all questions were answered. Constitutional: No fever, No chills, No sweats, No weight loss Respiratory: No cough, No sputum, No wheezing, No shortness of breath Musculoskeletal: No joint pain Neurologic: No memory loss Objective Laboratory Results General Appearance: WD/WN, + obese Eyes: PERRL, EOMI Neck: no JVD Respiratory/Chest: chest non-tender, lungs clear, normal breath sounds, no respiratory distress, no accessory muscle use, + pertinent finding (could not appreciate crackles on exam) Cardiovascular: no gallop, no JVD, no murmur, normal peripheral pulses Abdomen/GI: soft, no organomegaly, no pulsatile mass, + pertinent finding (pt has a rectal drain for ab abscess) Extremities/Musculoskelatal: + pertinent finding (2+ pitting edema in the LE bilaterally - slight improvement from previous day) 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 Pt received 40mg IV of Lasix in the ER and reported to be feeling much better. Trops were slightly elevated at 0.24 and BNP was >1600. Pt was admitted to tele , cards consulted, echo ordered, will trend trops and give 20mg Lasix IV BID. Pt reports to be clinically improving. Echo showed no significant change to echo in September. Trops are downtrending. Will continue diuresis. Acute on Chronic CHF - Echo in Sep showed several dilated LV and an LVEF of 35-40% and severe posterior wall hypokinesis. Today's echo unchanged. - Lasix 20mg IV BID +20meq KCL qAM. - Monitor Is and Os - pt is diuresing well, continue to monitor. - c/w Metoprolol 100mg XL daily (taken from Card[facility] notes from [facility], last DC summery in Sep has pt on 25mg XL daily) - Cardiology consulted, no cath indicated at this time, since echo is unchanged and trops are downtrending, likely outpatient stress test indicated. DM2 - Glycemic Control Consult - HBA1C = 6.8% CAD s/p Stent - c/w Atorvastatin 40mg daily - c/w Aspirin 325mg daily. - c/w Plavix 75mg QAM - c/w Isosorbide mononitrate 60mg QAM. HTN - c/w Lisinopril 5mg daily Muscle Aches - c/[facility] Sleep - c/w Ativan 0.5mg PRN QHS for sleep/anxiety, [facility] med rec has this scheduled which is incorrect) c/w Zolpidem 10mg PRN QHS ([facility] med rec has this scheduled which is incorrect) - c/w Ropiranole 1mg QHS GERD - c/w Pantoprazole 40mg qam Mood - c/w Celexa 20mg daily Sleep Apnea - CPAP set up. Pt doesn't like using it. Dispo: Tele, Admit, DM2 diet w sodium restriction, NPO after midnight, Cardiac Rehab consult place, PT & OT DVT Proph: HepSQ BID Code: Full Resident Physician Supervision Note: I was present with Dr. Kearney during the history and exam. I discussed the case with the resident and agree with the findings and plan as documented in the note. Any exceptions or clarifications are listed here: None Documented By: Luis Davis Resident Involvement: Resident Care Provided Care Provided: Adult Hospital Medicine
--- NOTE | 2017-03-14 08:34 | Cardiology Consultation ---
Cardiology Consultation Date of Consultation: Mar 14, 2017. Requesting Physician: Dr. Salas Reason for Consultation: Chest pain, shortness of breath Pt evaluation today including: conversation w/ patient, physical exam, lab review, review of studies, review of inpatient medication list History of Present Illness This is a 71-year-old male with a history of intervention to the LAD on 2011, repeat catheterization 06/14/2013 showed this site to be patent but subtotal circumflex stenosis and additional disease in the LAD. He then had a non-ST elevation myocardial infarctions March 2016 but did not want to undergo catheterization therefore he was treated medically. Echocardiography showed an ejection fraction of 40%. He did have a nuclear stress test on 07/15/2016 showing no significant ischemia and ejection fraction of 37%. He presented in September 2016 with chest discomfort, he was hypertensive and tachycardic and his troponin trended downward after an initial elevation. He was therefore treated medically. Echocardiography 10/06/2016 showed a dilated left ventricle with mild left ventricular hypertrophy and an ejection fraction of 35-40% with wall motion abnormalities. He also has chronic left bundle branch block pattern. He presents now with one week of constant chest discomfort and dyspnea on exertion. He denies orthopnea or PND, he has chronic peripheral edema which he feels is if anything better. His initial troponin in the evening of 03/13/2017 was slightly elevated at 0.349, however increased on the next measurement this morning to 0.665. This is significant lower than on prior admissions. He also has pulmonary vascular congestion on chest x-ray as well as an elevated troponin. He is also still suffering with a buttock abscess which has been present since September 2016. He is also complaining of right-sided abdominal pain, which apparently has been extensively evaluated in the past and is not different. Past Medical/Surgical History (1) Coronary artery disease (2) Diabetes mellitus (3) Systolic heart failure (4) Myocardial infarct (5) Kidney stones (6) H/O cardiac catheterization (7) H/O percutaneous transluminal coronary angioplasty (8) Abscess, gluteal, left (9) Multiple rib fractures (10) Pneumonia Family History FH: HTN (hypertension) FH: cancer FH: diabetes mellitus FH: gallbladder disease FH: heart disease FH: kidney disease Social History Smoking Status: Former Smoker History of Alcohol Use: No Review of Systems Constitutional: No fever, No weight loss, No weakness Respiratory: + see HPI, + shortness of breath, + dyspnea on exertion, No cough Cardiac: + chest pain, No orthopnea, No PND, No edema, No palpitations Abdomen: + pain, No nausea, No vomiting, No diarrhea, No GI bleeding Male : No urinary frequency, No nocturia more than once/night, No slowing stream, No sexual dysfunction Neurologic: No paralysis, No weakness, No numbness/tingling, No balance problems Heme: No abnormal bleeding/bruising, No clotting problems Endo: No fatigue Skin: No problem reported All Other Systems: Reviewed and Negative Allergies Coded Allergies: No Known Allergies (Verified , `, 03/13/17) Medications Current Inpatient Medications Medications (Trade) Dose Ordered Sig/Aditi Route Start Time Stop Time Status Last Admin Dose Admin Heparin Sodium (Porcine) (Heparin Sq 5000 Unit/0.5ml) 5,000 unit Q12 SQ 03/13/17 21:00 04/12/17 20:59 03/13/17 21:19 5,000 UNIT Acetaminophen (Tylenol Tab) 650 mg Q4H PRN PO 03/13/17 14:15 04/12/17 14:14 Al Hydrox/Mg Hydrox/Simethicone (Maalox Max Susp) 15 ml Q4H PRN PO 03/13/17 14:15 04/12/17 14:14 Magnesium Hydroxide (Milk Of Magnesia Susp) 30 ml Q12H PRN PO 03/13/17 14:15 04/12/17 14:14 Ondansetron HCl (Zofran Inj) 4 mg Q6H PRN IV 03/13/17 14:15 04/12/17 14:14 Nitroglycerin (Nitrostat Tab) 0.4 mg UD PRN SL 03/13/17 14:15 04/12/17 14:14 Nitroglycerin (Nitroglycerin 2% Oint) 1 inch Q6 EXT 03/13/17 18:00 04/12/17 17:59 03/14/17 05:57 1 INCH Morphine Sulfate (MoRPHine SULFATE INJ) 2 mg Q30M PRN IV 03/13/17 14:15 03/27/17 14:14 Polyethylene (Miralax Powder Packet) 17 gm DAILY PRN PO 03/13/17 14:15 7/23/17 14:14 03/13/17 20:59 17 GM Potassium Chloride (Klor-Con Tab) 20 meq QAM PO 03/14/17 09:00 04/13/17 08:59 Furosemide 20 mg/ Syringe 2 ml @ 4 mls/min BID17 IV 03/13/17 17:00 04/12/17 16:59 03/13/17 18:12 4 MLS/MIN Aspirin (Ecotrin Tab) 325 mg QPM PO 03/13/17 21:00 04/12/17 20:59 03/13/17 21:04 325 MG Acetaminophen/ Hydrocodone Bitart ([place] 5/325 Tab) 1 tab Q6H PRN PO 03/13/17 14:30 03/27/17 14:29 03/14/17 00:18 1 TAB Isosorbide Mononitrate (Imdur Ext Rel Tab) 60 mg DAILY PO 03/14/17 09:00 04/13/17 08:59 03/13/17 18:20 60 MG Metoprolol Succinate (Toprol Xl Tab) 100 mg DAILY PO 03/14/17 09:00 04/13/17 08:59 03/13/17 18:20 100 MG Ropinirole HCl (Requip Tab) 1 mg HS PO 03/13/17 21:00 04/12/17 20:59 03/14/17 00:15 1 MG Miscellaneous Information (Consult Glycemic Management Pharmacy) 1 ea UD PRN N/A 03/13/17 14:37 04/12/17 14:36 Pantoprazole Sodium (Protonix Tab) 40 mg QAM PO 03/14/17 09:00 04/13/17 08:59 Insulin Aspart (novoLOG ASPART) SLIDING SCALE ACHS SC 03/13/17 16:00 04/12/17 15:59 03/13/17 18:18 4 UNITS Glucose (Glucose 40% Gel) 15-30 GRAMS 15 GRAMS... UD PRN PO 03/13/17 15:00 04/12/17 14:59 Glucose (Glucose Chew Tab) 4-8 Tablets 4 Tabl... UD PRN PO 03/13/17 15:00 04/12/17 14:59 Dextrose (Dextrose 50% 50ML Syringe) 25-50ML OF 50% DW IV FOR... UD PRN IV 03/13/17 15:00 04/12/17 14:59 Glucagon (Glucagon Inj) 1 mg UD PRN SQ 03/13/17 15:00 04/12/17 14:59 Insulin Glargine (Lantus Solostar Pen) 10 unit BID SC 03/13/17 21:00 04/12/17 20:59 03/13/17 21:18 10 UNIT Atorvastatin Calcium (Lipitor Tab) 40 mg QAM PO 03/14/17 09:00 04/13/17 08:59 Clopidogrel Bisulfate (plAVix TAB) 75 mg QAM PO 03/14/17 09:00 04/13/17 08:59 Citalopram Hydrobromide (celeXA TAB) 20 mg QPM PO 03/13/17 21:00 04/12/17 20:59 Polyethylene (Miralax Powder Packet) 17 gm DAILY PO 03/14/17 09:00 04/13/17 08:59 Lisinopril (Zestril Tab) 5 mg QAM PO 03/14/17 09:00 04/13/17 08:59 Lorazepam (Ativan Tab) 0.5 mg BID PRN PO 03/13/17 21:00 04/12/17 20:59 03/14/17 00:15 0.5 MG Zolpidem Tartrate (Ambien Tab) 10 mg HS PRN PO 03/13/17 21:00 04/12/17 20:59 03/14/17 00:15 10 MG Cyclobenzaprine HCl (Flexeril Tab) 10 mg TID PO 03/13/17 21:00 04/12/17 20:59 Physical Exam Vital Signs Past 12 Hours Date Time Temp Pulse Resp B/P (MAP) Pulse Ox O2 Delivery O2 Flow Rate FiO2 03/14/17 04:40 88 Room Air 03/14/17 03:56 36.8 58 16 118/65 (82) 97 Nasal Cannula 2.0 03/14/17 00:57 88 Room Air 03/13/17 23:29 36.9 70 20 116/75 (89) 94 Nasal Cannula 2.0 03/13/17 20:02 88 Room Air Constitutional: General Apperance: heathly-appearing Level of Distress: NAD Psychiatric: Mental Status: active & alert Head: normocephalic Eyes: EOM: EOMI ENMT: normal ENT inspection, hearing grossly normal Neck: supple, no masses Lungs: Respiratory effort: no dyspnea, good air movement Auscultation: breath sounds normal, no wheezing Cardiovascular: Heart Auscultation: RRR, no murmurs, no rubs, no gallops Peripheral Pulses: Bruits: none appreciated Abdomen: Bowel Sounds: normal Inspection & Palpation: soft, no tenderness, guarding & rebound, no masses Musculoskeletal: normal strength (5/5 throughout) Extremities: edema (+2 bilateral) Neurologic: Cranial Nerves: grossly intact Sensation: grossly intact Data Laboratory Results: Last 24 Hours Test 03/13/17 11:12 03/13/17 11:29 03/13/17 11:45 03/13/17 16:15 White Blood Count 7.11 K/uL Red Blood Count 4.64 M/uL Hemoglobin 15.1 g/dL Hematocrit 45.2 % Mean Corpuscular Volume 97.4 fL Mean Corpuscular Hemoglobin 32.5 pg Mean Corpuscular Hemoglobin Concent 33.4 g/dl Platelet Count 185 K/uL Mean Platelet Volume 10.8 fL Neutrophils (%) (Auto) 76.9 % Lymphocytes (%) (Auto) 13.2 % Monocytes (%) (Auto) 6.8 % Eosinophils (%) (Auto) 2.5 % Basophils (%) (Auto) 0.3 % Neutrophils # (Auto) 5.47 K/uL Lymphocytes # (Auto) 0.94 K/uL Monocytes # (Auto) 0.48 K/uL Eosinophils # (Auto) 0.18 K/uL Basophils # (Auto) 0.02 K/uL RDW Standard Deviation 49.9 fL RDW Coefficient of Variation 14.0 % Immature Granulocyte % (Auto) 0.3 % Immature Granulocyte # (Auto) 0.02 K/uL Sodium Level 139 mmol/L Potassium Level mmol/L 4.3 mmol/L Chloride Level 105 mmol/L Carbon Dioxide Level 23 mmol/L Anion Gap 11.0 mmol/L Blood Urea Nitrogen 13 mg/dl Creatinine 1.10 mg/dl Est Creatinine Clear Calc Drug Dose 76.5 ml/min Estimated GFR () 77.3 Estimated GFR (Non- 66.7 BUN/Creatinine Ratio 11.6 Random Glucose 133 mg/dl Calcium Level 9.2 mg/dl Total Bilirubin 0.9 mg/dl Direct Bilirubin mg/dl 0.2 mg/dl Aspartate Amino Transf (AST/SGOT) U/L 17 U/L Alanine Aminotransferase (ALT/SGPT) 18 U/L Alkaline Phosphatase 88 U/L Total Creatine Kinase U/L 49 U/L Creatine Kinase MB 0.8 ng/ml Creatine Kinase MB Ratio Total Protein 7.6 gm/dl Albumin 3.5 gm/dl Lipase 50 U/L Thyroid Stimulating Hormone (TSH) 1.400 uIu/ml Bedside Troponin I 0.240 ng/ml [id number] Natriuretic Peptide 1643 pg/ml Prothrombin Time 11.4 SECONDS Prothromb Time International Ratio 1.1 Activated Partial Thromboplast Time 30.5 SECONDS Partial Thromboplastin Ratio 1.2 Bedside Glucose 195 mg/dl Test 03/13/17 20:08 03/13/17 20:15 03/14/17 04:37 03/14/17 06:59 Bedside Glucose 165 mg/dl 112 mg/dl Estimated Average Glucose 148 mg/dl Hemoglobin A1c 6.8 % Total Creatine Kinase 53 U/L 43 U/L Creatine Kinase MB 1.0 ng/ml 1.1 ng/ml Creatine Kinase MB Ratio 1.9 2.6 Troponin I 0.349 ng/ml 0.665 ng/ml White Blood Count 5.93 K/uL Red Blood Count 3.81 M/uL Hemoglobin 11.9 g/dL Hematocrit 36.9 % Mean Corpuscular Volume 96.9 fL Mean Corpuscular Hemoglobin 31.2 pg Mean Corpuscular Hemoglobin Concent 32.2 g/dl Platelet Count 168 K/uL Mean Platelet Volume 10.2 fL Neutrophils (%) (Auto) 63.4 % Lymphocytes (%) (Auto) 22.9 % Monocytes (%) (Auto) 10.3 % Eosinophils (%) (Auto) 2.7 % Basophils (%) (Auto) 0.5 % Neutrophils # (Auto) 3.76 K/uL Lymphocytes # (Auto) 1.36 K/uL Monocytes # (Auto) 0.61 K/uL Eosinophils # (Auto) 0.16 K/uL Basophils # (Auto) 0.03 K/uL RDW Standard Deviation 49.1 fL RDW Coefficient of Variation 13.8 % Immature Granulocyte % (Auto) 0.2 % Immature Granulocyte # (Auto) 0.01 K/uL Sodium Level 141 mmol/L Potassium Level 3.8 mmol/L Chloride Level 104 mmol/L Carbon Dioxide Level 31 mmol/L Anion Gap 6.0 mmol/L Blood Urea Nitrogen 14 mg/dl Creatinine 1.10 mg/dl Est Creatinine Clear Calc Drug Dose 85.9 ml/min Estimated GFR () 77.3 Estimated GFR (Non- 66.7 BUN/Creatinine Ratio 12.8 Random Glucose 125 mg/dl Calcium Level 8.6 mg/dl Phosphorus Level 3.0 mg/dl Magnesium Level 1.7 mg/dl Total Bilirubin 0.8 mg/dl Aspartate Amino Transf (AST/SGOT) 14 U/L Alanine Aminotransferase (ALT/SGPT) 13 U/L Alkaline Phosphatase 68 U/L Total Protein 5.6 gm/dl Albumin 2.7 gm/dl Globulin 2.9 gm/dl Albumin/Globulin Ratio 0.9 Imaging: Chest x-ray shows at least mild congestive heart failure EKG: Sinus rhythm with left bundle branch block pattern, similar to prior Telemetry reviewed: Sinus rhythm, no significant arrhythmia Assessment & Plan #1. Positive cardiac enzymes: He does have low-grade positive cardiac enzymes, however he has chest discomfort lasting for about one week and it is not consistent with an acute infarction. I suspected his demand ischemia, the pattern is little bit unusual but not terribly worrisome. We can't evaluate his electrocardiogram to the left bundle branch block. At this point I would not pursue invasive evaluation, depending on how the trend continues or his symptoms continue. #2. Congestive heart failure: He presented with what appears to relatively new onset congestive heart failure, I suspect this is part of his positive cardiac enzymes as well. He feels that he has lost weight, he tells me he has chronic edema and he has not been drinking excessive fluid. The cause is therefore uncertain. He does have a history of left ventricular dysfunction and he has a very wide complex and may have dyssynchrony. We will need to evaluate his ejection fraction to see whether it has worsened, if so he may be a candidate for biventricular pacing. If not it evidently is just due to fluid overload. I doubt ischemia as a cause of his heart failure. #3. Left bundle-branch block: He has had this for some time, it may be at least a partial cause for his left ventricular dysfunction. If his ejection fraction has not changed and he is probably not a biventricular pacing candidate, if his ejection fraction is 35% or less it may be worthwhile to consider resynchronization therapy. #4. Left ventricular dysfunction: He has had left ventricular dysfunction (an ischemic cardiomyopathy), however his ejection fraction has not been in the range where we normally consider ICD implantation for primary prevention. If it has fallen to 35% or less we should consider this. He is on metoprolol succinate and lisinopril, although we may want to increase the doses in the future or consider changing to carvedilol or Entresto if his left ventricular ejection fraction has fallen. I would not do that at this moment. #5. Chest discomfort: He describes a chest discomfort lasting about a week, it is not exertional and does not come and go. This is different than his prior angina and suggest that this is not cardiac in etiology. Perhaps it is part of his congestive heart failure, I would treat his heart failure and see if this resolves as well as trending his enzymes. Thank you for allowing me to participate in his care.
[2017-03-14] MEDS ORDERED: ATORVASTATIN 20 MG TAB PO SCH (09:00)
[2017-03-14] MEDS: CYCLOBENZAPRINE HCL 10 MG TAB PO SCH ×4 (09:00→21:00)
[2017-03-14] MEDS: FUROSEMIDE INJ 20 MG in SYRINGE 0 ML IV SCH ×2 (09:01→17:33)
[2017-03-14] MEDS: POTASSIUM CHLORIDE 20 MEQ TABCR PO SCH (09:02)
[2017-03-14] MEDS: ATORVASTATIN 40 MG TAB PO SCH (09:02)
[2017-03-14] MEDS: PANTOprazole SOD 40 MG TAB PO SCH (09:02)
[2017-03-14] MEDS: LISINOPRIL 5 MG TAB PO SCH (09:02)
[2017-03-14] MEDS: CLOPIDOGREL BISULFATE 75 MG TAB PO SCH (09:03)
[2017-03-14] MEDS: INSULIN ASPART 100 UNITS/ML 3 ML PEN SC SCH ×3 (09:07→17:32)
[2017-03-14] MEDS: HEPARIN SOD 5000 UNIT/0.5 ML CARP SQ SCH ×2 (09:08→20:23)
[2017-03-14] MEDS: INSULIN GLARGINE SOLOSTAR 100 UNITS/ML 3 ML PEN SC SCH ×2 (09:08→20:23)
[2017-03-14] MEDS: METOPROLOL SUCC 50MG EXT REL TAB PO SCH (10:17)
[2017-03-14] MEDS: ISOSORBIDE MONONITRATE 60 MG TABCR PO SCH (10:17)
[2017-03-14] MEDS: POLYETHYLENE (MIRALAX) 17 GM PACK PO SCH (10:17)
--- NOTE | 2017-03-14 10:49 | Pharmacy Progress Note ---
Glycemic Control Progress Note Date of Service Mar 14, 2017. Scope Glycemic Pharmacist consulted for glycemic control to write orders per [facility] inpatient glycemic control protocol. Objective Accuchecks BSG (last 24hrs): Test 03/13/17 11:12 03/13/17 16:15 03/13/17 20:08 03/14/17 04:37 Random Glucose 133 mg/dl (70-99) 125 mg/dl (70-99) Bedside Glucose 195 mg/dl (70-99) 165 mg/dl (70-99) Test 03/14/17 06:59 Bedside Glucose 112 mg/dl (70-99) HbA1c: Test 03/13/17 20:15 Hemoglobin A1c 6.8 % (4.5-5.6) H Recent Pertinent Medications Outpatient Anti-diabetic Regimen: * NovoLog 70/30 premixed insulin 10-15 units in AM with breakfast & 30 units in PM with dinner Outpatient Anti-Diabetic Meds Basal Insulin & Bolus Insulin --> PREMIXED INSULIN Assessment & Plan ASSESSMENT: * 71yo T2DM male with well controlled diabetes per A1c 6.8% on 03/13/17 * Outpatient regimen is premixed basal/prandial insulin of NovoLog 70/30 mix insulin. * Pre-mixed insulin is difficult to titrate since it is already in a fixed distribution of basal:prandial insulin. Continuing pre-mixed insulin for admission typically lead to hypoglycemia d/t changing PO status but rapid acting insulin is unable to be held. * Home regimen will be held for admission per pharmacy consult. Will utilize recommended regimen of SQ basal bolus insulin regimen with Lantus + NovoLog (CF+ CR) * Will utilize dosing based on outpatient dosing of 40-45units/day but distribute regimen 50:50% between basal:prandial insulin to prevent hypo when PO intake changes * Patient is currently receiving ~27 units of insulin per day * 20 units of basal insulin * 7 units of prandial/correctional insulin * BSGs ranging 112 - 195 over the past 24hrs * Changes needed to insulin regimen : * AM Fasting BSG = 112mg/dl. This is in range. No changes needed. May need to lower basal insulin dosing if this trends downwards over the next few days * Post-prandial BSGs are in range, no change needed to CF/CR. However, pt is refusing HS coverage of NovoLog, will D/C HS check and only cont AC coverage PLAN FOR INPATIENT GLYCEMIC CONTROL: * Hold outpatient premixed insulin regimen * Basal insulin * Lantus 10 units SQ BID * Bolus insulin * NovoLog per scale AC only or Q6hrs while NPO * Goal Range: Low 110 mg/dL - High 140 mg/dL * Correction Factor: 30 mg/dL/unit * Nutritional / Prandial insulin per carb ratio of 1 unit per 10 grams CHO consumed * Added A1c to discharge instructions to be communicated to PCP for outpatient antidiabetic regimen adjustments * Please note that the plan above was derived based on current level of insulin resistance and hospital stress. These recommendations are appropriate for inpatient admission only. Plan of care upon discharge will need to be reassessed to avoid potential outpatient hypo/hyperglycemia. Thank you.
--- NOTE | 2017-03-14 14:06 | ECHOCARDIOGRAM REPORT ---
*NOTICE TO RECEIVING [employer] This information is strictly Confidential and protected under [place] law. [place] law prohibits you from making any further disclosure of this information unless further disclosure is expressly permitted by the written consent of the person to whom it pertains or is authorized by law. A general authorization for the release of medical or other information is not sufficient for this purpose. Hospital accepts no responsibility if the information is made available to any other person, INCLUDING THE PATIENT. Interpretation Summary * Name: NUVIA YAP Study Date: 03/14/2017 09:11 AM BP: 148/72 mmHg * Patient Location: C.2T\S\S241\S\2 HR: 73 * : 1945 (M/d/yyyy) Gender: Male Height: 71 in * Age: 71 yrs Ethnicity: [place] Weight: 242 lb * Ordering Physician: Asad Kearney * Referring Physician: Self, Referred * Performed By: Diya Douglas [facility] * * Reason For Study: CHF * BSA: 2.3 m2 * -- Conclusions -- * 1. Severely dilated LV, mild concentric LVH. * 2. LVEF 40-45%. Mild global LV dysfunction with akinetic posterior wall. * 3. Midly dilated RV with normal RV function. * 4. Moderate eccentric MR. * 5. Severe pulmonary hypertension. Est PASP 65-70 mmHg. Est RA pressure 8 mmHg. * 6. Compared with prior study on 10/05/2016: No significant change. Procedure Details * A complete two-dimensional transthoracic echocardiogram was performed (2D, M-mode, Doppler and color flow Doppler). Left Ventricle * The left ventricle is severely dilated. * There is mild concentric left ventricular hypertrophy. * There is severe posterior wall hypokinesis. * There is mild global hypokinesis of the left ventricle. Right Ventricle * The right ventricle is mildly dilated. * The right ventricular systolic function is normal as assessed by tricuspid annular plane systolic excursion (TAPSE) (normal >1.5 cm). Atria * The left atrium is severely dilated. * The right atrium is mildly dilated. * No ASD detected; PFO is not assessed. Mitral Valve * The mitral valve is grossly normal. * There is no mitral valve stenosis. * There is moderate mitral regurgitation. * The mitral regurgitant jet is eccentrically directed. * Tethered posterior leaflet with posterior directed MR. Tricuspid Valve * The tricuspid valve is not well visualized, but is grossly normal. * There is no tricuspid stenosis. * There is trace tricuspid regurgitation. * Right ventricular systolic pressure is elevated at >60mmHg. Aortic Valve * The aortic valve opens well. * No hemodynamically significant valvular aortic stenosis. * Trace aortic regurgitation. Pulmonic Valve * The pulmonary valve is inadequately visualized, but the Doppler data is adequate for interpretation. * Pulmonic stenosis is absent. * Trace pulmonic valvular regurgitation. Great Vessels * The aortic root and proximal ascending aorta are normal sized. Pericardium/Pleural * There is no pericardial effusion. * Pleural effusion Great Vessels * IVC < 2.1, < 50% change with respiration. Est RA 8 mmHg Left Ventricular Diastolic Function * Diastolic dysfunction, Grade II (pseudonormalization pattern). MMode 2D Measurements and Calculations IVSd 1.6 cm IVSs 2.4 cm LVIDd 7.2 cm LVIDs 5.9 cm LVPWd 1.5 cm LVPWs 1.3 cm IVS/LVPW 1.1 FS 18.2 % EDV(Teich) 271.2 ml ESV(Teich) 172.1 ml EF(Teich) 36.6 % EDV(cubed) 371.5 ml ESV(cubed) 203.6 ml EF(cubed) 45.2 % % IVS thick 46.2 % % LVPW thick -10.59 % LV mass(C)d 599.9 grams LV mass(C)dI 262.3 grams/m\S\2 LV mass(C)s 562.4 grams LV mass(C)sI 245.9 grams/m\S\2 SV(Teich) 99.1 ml SI(Teich) 43.4 ml/m\S\2 SV(cubed) 167.9 ml SI(cubed) 73.4 ml/m\S\2 Ao root diam 2.8 cm Ao root area 6.3 cm\S\2 ACS 2.0 cm LA dimension 5.7 cm LA/Ao 2.0 LVOT diam 2.0 cm LVOT area 3.3 cm\S\2 LVAd ap4 43.2 cm\S\2 LVLd ap4 7.8 cm EDV(MOD-sp4) 193.2 ml EDV(sp4-el) 203.1 ml LVAs ap4 29.5 cm\S\2 LVLs ap4 6.9 cm ESV(MOD-sp4) 111.9 ml ESV(sp4-el) 107.6 ml EF(MOD-sp4) 42.1 % EF(sp4-el) 47.0 % LVAd ap2 49.2 cm\S\2 LVLd ap2 8.8 cm EDV(MOD-sp2) 228.9 ml EDV(sp2-el) 234.5 ml LVAs ap2 34.3 cm\S\2 LVLs ap2 7.4 cm ESV(MOD-sp2) 130.6 ml ESV(sp2-el) 134.3 ml EF(MOD-sp2) 43.0 % EF(sp2-el) 42.7 % LVLd %diff 10.9 % EDV(MOD-bp) 215.7 ml LVLs %diff 7.4 % ESV(MOD-bp) 124.7 ml EF(MOD-bp) 42.2 % SV(MOD-sp4) 81.3 ml SI(MOD-sp4) 35.6 ml/m\S\2 SV(MOD-sp2) 98.3 ml SI(MOD-sp2) 43.0 ml/m\S\2 SV(MOD-bp) 91.0 ml SI(MOD-bp) 39.8 ml/m\S\2 SV(sp4-el) 95.5 ml SI(sp4-el) 41.8 ml/m\S\2 SV(sp2-el) 100.2 ml SI(sp2-el) 43.8 ml/m\S\2 Doppler Measurements and Calculations MV E max missy 143.4 cm/sec MV A max missy 87.4 cm/sec MV E/A 1.6 MV P1/2t max missy 125.9 cm/sec MV P1/2t 80.1 msec MVA(P1/2t) 2.7 cm\S\2 MV dec slope 460.3 cm/sec\S\2 MV dec time 0.20 sec Ao V2 max 157.4 cm/sec Ao max PG 9.9 mmHg Ao max PG (full) 6.8 mmHg DANA(V,A) 1.8 cm\S\2 DANA(V,D) 1.8 cm\S\2 AI max missy 326.1 cm/sec AI max PG 42.6 mmHg AI dec slope 164.2 cm/sec\S\2 AI P1/2t 581.8 msec LV V1 max PG 3.1 mmHg LV V1 max 87.5 cm/sec MR max missy 522.8 cm/sec MR max PG 109.4 mmHg PA V2 max 107.1 cm/sec PA max PG 4.6 mmHg TR max missy 364.1 cm/sec
[2017-03-14] MEDS: ASPIRIN 325 MG ECTAB PO SCH (20:20)
[2017-03-14] MEDS: CITALOPRAM 20 MG TAB PO SCH ×2 (20:20→21:00)
[2017-03-14] MEDS ORDERED: LORAZEPAM 1 MG TAB PO PRN (21:00)
[2017-03-15] MEDS: ZOLPIDEM TARTRATE 10 MG TAB PO PRN (00:59)
[2017-03-15] MEDS: NITROGLYCERIN OINT 2% 1GM PACKET EXT SCH ×4 (00:59→16:10)
[2017-03-15] MEDS: ROPINIROLE HCL 1 MG TAB PO SCH (00:59)
[2017-03-15 04:15] VITALS: BP 111/70; PULSE 55; TEMP 36.8; O2SAT 100
[2017-03-15 07:05] LABS: HEMATOCRIT 39.9 % (42-52); MEAN CELL VOLUME 97.6 fL (80-100); MEAN CORPUSCULAR HEMOGLOBIN 31.1 pg (25-34); MEAN CORPUSCULAR HGB CONC 31.8 g/dl (32-36); MEAN PLATELET VOLUME 10.5 fL (7.4-10.4); PLATELET COUNT 169 K/uL (130-400); RED BLOOD COUNT 4.09 M/uL (4.7-6.1)
[2017-03-15 07:37] LABS: BUN/CREATININE RATIO 12.8 (10-20); CREATININE 1.1 mg/dl (0.60-1.40); POTASSIUM 3.5 mmol/L (3.5-5.1)
[2017-03-15 07:53] LABS: CALCIUM 8.7 mg/dl (8.5-10.1)
--- NOTE | 2017-03-15 07:59 | Family Medicine Progress Note ---
Progress Note Date of Service Mar 15, 2017. Subjective Pt evaluation today including: conversation w/ patient The patient was seen and examined at bedside. No acute overnight events. Diuresed approx 1.5L yesterday. Telemetry reviewed: Sinus rhythm with PVCs, wide-complex remains. Pt states he is doing better. Pt would like discharge to home. Patient is resting comfortably in bed. Denies having any pain. Eating and urinating well. Plan of care was described to the patient and all questions were answered. Constitutional: No fever, No chills, No sweats, No weight loss Respiratory: No cough, No sputum, No wheezing, No shortness of breath Abdomen: No pain, No nausea, No vomiting, No diarrhea Male : No dysuria Objective Physical Exam General Appearance: WD/WN, no apparent distress, + obese Respiratory/Chest: chest non-tender, lungs clear, normal breath sounds, no respiratory distress, no accessory muscle use Cardiovascular: regular rate, rhythm, no edema, no gallop, no JVD, no murmur Abdomen: normal bowel sounds, non tender, soft Extremities: normal range of motion, non-tender, normal inspection, + pertinent finding (1+ pitting edema in LE bilaterally. ) Neurologic/Psychiatric: alert, normal mood/affect, oriented x 3 Skin: + pertinent finding (Pt has rectal drain for abscess. ) Assessment and Plan 71M with a PMHx of [place] in Sep 2016, rectal fistula w drain, DM2 on insulin p /w a several week history of chest tightness and dyspnea on exertion. Pt received 40mg IV of Lasix in the ER and reported to be feeling much better. Trops were slightly elevated at 0.24 and BNP was >1600. Pt was admitted to [facility] , cards consulted, echo ordered, will trend trops and give 20mg Lasix IV BID. Pt reports to be clinically improving. Echo showed severe left ventricular dilatation with an ejection fraction of 40-45%, with an akinetic posterior wall. The right ventricle is mildly dilated with normal function and he has severe pulmonary hypertension.. Trops are downtrending. Lasix was transitioned to PO Lasix. Will two step the pt to see if he is stable for discharge. Acute on Chronic CHF - Echo in Sep 2016 showed several dilated LV and an LVEF of 35-40% and severe posterior wall hypokinesis. Echo this admission as above. - Lasix 40mg PO BID. - Monitor Is and Os - pt is diuresing well, continue to monitor. - c/w Metoprolol 100mg XL daily (taken from Cardiology notes from [facility], last DC summery in Sep has pt on 25mg XL daily) - Cardiology consulted, no cath indicated at this time, since echo is unchanged and trops are downtrending, likely outpatient stress test indicated. DM2 - Glycemic Control Consult - HBA1C = 6.8% CAD s/p Stent - c/w Atorvastatin 40mg daily - c/w Aspirin 325mg daily. - c/w Plavix 75mg QAM - c/w Isosorbide mononitrate 60mg QAM. HTN - c/w Lisinopril 5mg daily Muscle Aches - c/w [facility] Sleep - c/w Ativan 1mg PRN QHS for sleep/anxiety. c/w Zolpidem 10mg PRN QHS (taken from [facility], med rec has this scheduled which is incorrect) - c/w Ropiranole 1mg QHS GERD - c/w Pantoprazole 40mg qam Mood - c/w Celexa 20mg daily Sleep Apnea - CPAP set up. Pt doesn't like using it. Dispo: Tele, Admit, DM2 diet w sodium restriction, NPO after midnight, Cardiac Rehab consult place, PT & OT DVT Proph: HepSQ BID Code: Full Resident Physician Supervision Note: I was present with the resident physician during the history and exam. I discussed the case with the resident and agree with the findings and plan as documented in the note. Any exceptions or clarifications are listed here: Please see discharge summary the same date for additional documentation. Documented By: Luis Davis Resident Involvement: Resident Care Provided Care Provided: Adult Hospital Medicine
[2017-03-15 08:00] VITALS: BP 95/59; PULSE 62; TEMP 36.4; O2SAT 93
[2017-03-15] MEDS: PANTOprazole SOD 40 MG TAB PO SCH (08:02)
[2017-03-15] MEDS: CYCLOBENZAPRINE HCL 10 MG TAB PO SCH ×2 (08:02→13:42)
[2017-03-15] MEDS: FUROSEMIDE 40 MG TAB PO SCH ×2 (08:02→16:09)
[2017-03-15] MEDS: ATORVASTATIN 40 MG TAB PO SCH (08:03)
[2017-03-15] MEDS: POTASSIUM CHLORIDE 20 MEQ TABCR PO SCH (08:03)
[2017-03-15] MEDS: METOPROLOL SUCC 50MG EXT REL TAB PO SCH (08:04)
[2017-03-15] MEDS: LISINOPRIL 5 MG TAB PO SCH (08:06)
[2017-03-15] MEDS: ISOSORBIDE MONONITRATE 60 MG TABCR PO SCH (08:07)
[2017-03-15] MEDS: CLOPIDOGREL BISULFATE 75 MG TAB PO SCH (08:08)
[2017-03-15] MEDS: INSULIN ASPART 100 UNITS/ML 3 ML PEN SC SCH ×3 (08:12→17:12)
[2017-03-15] MEDS: HEPARIN SOD 5000 UNIT/0.5 ML CARP SQ SCH (08:13)
[2017-03-15 08:17] VITALS: BP 129/69
[2017-03-15] MEDS: POLYETHYLENE (MIRALAX) 17 GM PACK PO SCH (08:31)
[2017-03-15] MEDS: INSULIN GLARGINE SOLOSTAR 100 UNITS/ML 3 ML PEN SC SCH (08:56)
[2017-03-15] MEDS ORDERED: INSULIN GLARGINE SOLOSTAR 100 UNITS/ML 3 ML PEN SC SCH ×3 (09:00→21:00)
--- NOTE | 2017-03-15 09:40 | Cardiology Follow-Up ---
Subjective Date of Service: Mar 15, 2017. Pt evaluation today including: conversation w/ patient, physical exam, lab review, review of studies, review of inpatient medication list History of Present Illness This is a 71-year-old male with a history of intervention to the LAD on 2011, repeat catheterization 06/14/2013 showed this site to be patent but subtotal circumflex stenosis and additional disease in the LAD. He then had a non-ST elevation myocardial infarctions March 2016 but did not want to undergo catheterization therefore he was treated medically. Echocardiography showed an ejection fraction of 40%. He did have a nuclear stress test on 07/15/2016 showing no significant ischemia and ejection fraction of 37%. He presented in September 2016 with chest discomfort, he was hypertensive and tachycardic and his troponin trended downward after an initial elevation. He was therefore treated medically. Echocardiography 10/06/2016 showed a dilated left ventricle with mild left ventricular hypertrophy and an ejection fraction of 35-40% with wall motion abnormalities. He also has chronic left bundle branch block pattern. He presents now with one week of constant chest discomfort and dyspnea on exertion. He denies orthopnea or PND, he has chronic peripheral edema which he feels is if anything better. His initial troponin in the evening of 03/13/2017 was slightly elevated at 0.349, however increased on the next measurement this morning to 0.665. This is significant lower than on prior admissions. He also has pulmonary vascular congestion on chest x-ray as well as an elevated troponin. He is also still suffering with a buttock abscess which has been present since September 2016. He is also complaining of right-sided abdominal pain, which apparently has been extensively evaluated in the past and is not different. He feels better today, he has no significant shortness of breath and has been ambulating in the hallway. He does continue to have some abdominal discomfort but that is chronic. Social History Smoking Status: Former Smoker History of Alcohol Use: No Review of Systems Respiratory: No cough, No sputum, No wheezing, No shortness of breath Cardiac: No chest pain, No orthopnea, No PND, No edema, No palpitations Medications Cardiovascular: Item Value Date Time Furosemide 40 mg 03/15/17 0900 (Lasix Tab) BID17/PO 03/15/17 0802 Potassium Chloride 20 meq 03/14/17 0900 (Klor-Con Tab) QAM/PO 03/15/17 0803 Isosorbide 60 mg 03/14/17 0900 Mononitrate DAILY/PO 03/15/17 0807 (Imdur Ext Rel Tab) Metoprolol 100 mg 03/14/17 0900 Succinate DAILY/PO 03/15/17 0804 (Toprol Xl Tab) Atorvastatin 40 mg 03/14/17 0900 Calcium QAM/PO (Lipitor Tab) Clopidogrel 75 mg 03/14/17 0900 Bisulfate QAM/PO (plAVix TAB) Lisinopril 5 mg 03/14/17 0900 (Zestril Tab) QAM/PO 03/15/17 0806 Heparin Sodium 5,000 unit 03/13/17 2100 (Porcine) Q12/SQ 03/15/17 0813 (Heparin Sq 5000 Unit/0.5ml) Aspirin 325 mg 03/13/17 2100 (Ecotrin Tab) QPM/PO 03/14/17 2020 Objective Vital Signs Past 12 Hours Date Time Temp Pulse Resp B/P (MAP) Pulse Ox O2 Delivery O2 Flow Rate FiO2 03/15/17 08:17 129/69 (89) 03/15/17 08:00 36.4 62 16 95/59 (71) 93 Room Air 03/15/17 04:15 36.8 55 20 111/70 (84) 100 Room Air 03/15/17 04:15 Room Air 03/15/17 00:00 Nasal Cannula 2.0 03/14/17 23:38 36.6 64 18 110/67 (81) 96 Nasal Cannula 2.0 Last Recorded Weight-Kilograms: 134.800 Physical Exam Constitutional: General Apperance: heathly-appearing Level of Distress: NAD Lungs: Respiratory effort: no dyspnea, good air movement Auscultation: breath sounds normal, no wheezing Cardiovascular: Heart Auscultation: RRR, no murmurs, no rubs, no gallops Peripheral Pulses: Bruits: none appreciated Extremities: edema (+2 bilateral) Data Laboratory Results: Last 24 Hours Test 03/14/17 11:15 03/14/17 13:15 03/14/17 16:11 03/14/17 20:12 Bedside Glucose 132 mg/dl 123 mg/dl Troponin I 0.455 ng/ml 0.425 ng/ml Test 03/14/17 20:20 03/15/17 06:23 03/15/17 06:55 Bedside Glucose 114 mg/dl 92 mg/dl White Blood Count 5.50 K/uL Red Blood Count 4.09 M/uL Hemoglobin 12.7 g/dL Hematocrit 39.9 % Mean Corpuscular Volume 97.6 fL Mean Corpuscular Hemoglobin 31.1 pg Mean Corpuscular Hemoglobin Concent 31.8 g/dl RDW Standard Deviation 49.5 fL RDW Coefficient of Variation 13.9 % Platelet Count 169 K/uL Mean Platelet Volume 10.5 fL Sodium Level 141 mmol/L Potassium Level 3.5 mmol/L Chloride Level 103 mmol/L Carbon Dioxide Level 30 mmol/L Anion Gap 8.0 mmol/L Blood Urea Nitrogen 14 mg/dl Creatinine 1.10 mg/dl Est Creatinine Clear Calc Drug Dose 85.1 ml/min Estimated GFR () 77.3 Estimated GFR (Non- 66.7 BUN/Creatinine Ratio 12.8 Random Glucose 96 mg/dl Calcium Level 8.7 mg/dl Imaging: echo: Echocardiography shows severe left ventricular dilatation with an ejection fraction of 40-45%, with an akinetic posterior wall. The right ventricle is mildly dilated with normal function and he has severe pulmonary hypertension. Telemetry reviewed: Sinus rhythm with PVCs, wide-complex remains Assessment and Plan #1. Positive cardiac enzymes: He does have low-grade positive cardiac enzymes, however he has chest discomfort lasting for about one week and it is not consistent with an acute infarction. I suspected this is demand ischemia, the pattern is little bit unusual but not terribly worrisome. We can't evaluate his electrocardiogram due to the left bundle branch block. At this point I would not pursue invasive evaluation. #2. Congestive heart failure: He presented with what appears to relatively new onset congestive heart failure, I suspect this is part of the cause of his positive cardiac enzymes as well. He feels that he has lost weight, he tells me he has chronic edema and he has not been drinking excessive fluid. The cause is therefore uncertain. He does have a history of left ventricular dysfunction but his ejection fraction is not worse now. His CHF is evidently due to fluid overload. I doubt ischemia as a cause of his heart failure. His pulmonary hypertension may be contributory, although his right ventricular function is normal. #3. Left bundle-branch block: He has had this for some time, it may be at least a partial cause for his left ventricular dysfunction. His ejection fraction has not changed and he is not a biventricular pacing candidate. #4. Left ventricular dysfunction: He has had left ventricular dysfunction (an ischemic cardiomyopathy), however his ejection fraction has not been in the range where we normally consider ICD implantation for primary prevention and it has not changed. He is on metoprolol succinate and lisinopril, although we may want to increase the doses in the future or consider changing to carvedilol or Entresto. Since his ejection fraction has not worsened it is not essential, however it may be worthwhile to optimize his medical therapy for the future. #5. Chest discomfort: He describes a chest discomfort lasting about a week, it is not exertional and does not come and go. This is different than his prior angina and suggest that this is not cardiac in etiology. Perhaps it is part of his congestive heart failure, I would not evaluate further as it has resolved with correction of his congestive heart failure. Thank you for allowing me to participate in his care.
--- NOTE | 2017-03-15 09:56 | Pharmacy Progress Note ---
Glycemic Control Progress Note Date of Service Mar 15, 2017. Scope Glycemic Pharmacist consulted for glycemic control to write orders per [facility] inpatient glycemic control protocol. Objective Accuchecks BSG (last 24hrs): Test 03/14/17 11:15 03/14/17 16:11 03/14/17 20:20 03/15/17 06:23 Bedside Glucose 132 mg/dl (70-99) 123 mg/dl (70-99) 114 mg/dl (70-99) Random Glucose 96 mg/dl (70-99) Test 03/15/17 06:55 Bedside Glucose 92 mg/dl (70-99) HbA1c: Test 03/13/17 20:15 Hemoglobin A1c 6.8 % (4.5-5.6) H Recent Pertinent Medications Outpatient Anti-diabetic Regimen: * NovoLog 70/30 premixed insulin 10-15 units in AM with breakfast & 30 units in PM with dinner Assessment & Plan ASSESSMENT: * 71yo T2DM male with well controlled diabetes per A1c 6.8% on 03/13/17 * Outpatient regimen is premixed basal/prandial insulin of NovoLog 70/30 mix insulin. * Pre-mixed insulin is difficult to titrate since it is already in a fixed distribution of basal:prandial insulin. Continuing pre-mixed insulin for admission typically lead to hypoglycemia d/t changing PO status but rapid acting insulin is unable to be held. * Home regimen will be held for admission per pharmacy consult. Will utilize recommended regimen of SQ basal bolus insulin regimen with Lantus + NovoLog (CF+ CR) * 03/13-03/14: Initiated dosing based on outpatient dosing of 40-45units/day but distribute regimen 50:50% between basal:prandial insulin to prevent hypo when PO intake changes 03/15: * Patient is currently receiving ~29 units of insulin per day * 20 units of basal insulin * 9 units of prandial/correctional insulin * BSGs ranging 92 - 132 over the past 24hrs * Changes needed to insulin regimen : * AM Fasting BSG = 92mg/dl. This is slightly below goal range based on inpatient targets. AM fasting BSG trending downwards 112 --> 92mg/dl. Will lower basal insulin slightly. * Post-prandial BSGs are in range, no change needed to CF/CR. However, pt is refusing HS coverage of NovoLog, will D/C HS check and only cont AC coverage PLAN FOR INPATIENT GLYCEMIC CONTROL: * Hold outpatient premixed insulin regimen * Basal insulin: decrease dosing * Lantus 8 units SQ BID * This dosing will start 6/25 PM as pt was already given 10 units this AM * Bolus insulin: no changes * NovoLog per scale AC only or Q6hrs while NPO * Goal Range: Low 110 mg/dL - High 140 mg/dL * Correction Factor: 30 mg/dL/unit * Nutritional / Prandial insulin per carb ratio of 1 unit per 10 grams CHO consumed * Added A1c to discharge instructions to be communicated to PCP for outpatient antidiabetic regimen adjustments * Please note that the plan above was derived based on current level of insulin resistance and hospital stress. These recommendations are appropriate for inpatient admission only. Plan of care upon discharge will need to be reassessed to avoid potential outpatient hypo/hyperglycemia. Thank you.
[2017-03-15] MEDS: HYDROCODONE/ACETAMOPHEN 5/325MG TAB PO PRN (11:45)
[2017-03-15 12:00] VITALS: BP 122/74; PULSE 66; TEMP 37; O2SAT 92
[2017-03-15 15:30] VITALS: BP 124/74; PULSE 63; TEMP 36.9; O2SAT 95
[2017-03-15] MEDS ORDERED: ASPI81TA28 PO (15:39)
[2017-03-15] MEDS ORDERED: PLV75 PO (15:39)
[2017-03-15] MEDS ORDERED: LSN5 PO (15:39)
[2017-03-15] MEDS ORDERED: LSX40 PO (15:39)
[2017-03-15] MEDS ORDERED: LPT40 PO (15:39)
--- NOTE | 2017-03-15 15:49 | Discharge Instructions ---
Discharge Instructions Date of Service Mar 15, 2017. Admission Reason for Admission: Chf (Congestive Heart Failure) Discharge Discharge Diagnosis / Problem: Acute CHF / Chest Pain Rule Out Discharge Goals Goal(s): Decrease discomfort Activity Recommendations Activity Limitations: resume your previous activity . Instructions / Follow-Up Instructions / Follow-Up You have been prescribed a new water pill, Lasix, to take to keep water out of your lungs and lower extremities. You are to take 1pill of 40mg of Lasix twice a day. While you take Lasix it is important to periodically check your potassium levels. Your primary care doctor can do this for you. Also, if possible, eat foods high in potassium including bananas. We have also changed your 325mg Aspirin to 81mg of Aspirin. This dose of Aspirin poses less of a risk to your stomach while maintaining the anti platelet benefits of Aspirin. We have also given you a renewal of your Plavix medication. You are to take one 75mg tab every morning. We have also given you a new renewal for a cholesterol medication Atorvastatin. You are to take one pill of 40mg of Atorvastatin every day. We have also given you a medication to protect your kidneys. This medication is called Lisinopril and you are to take this medication once a day. Please continue taking your Metoprolol as scheduled. Current Hospital Diet Patient's current hospital diet: Diabetes Type 2 Diet, AHA Diet (Heart Healthy) Discharge Diet Recommended Diet: AHA Diet (Heart Healthy), Diabetes Type 2 Diet Pending Studies Studies pending at discharge: no Laboratory Results Hemoglobin A1c Test 03/13/17 20:15 Range/Units Estimated Average Glucose 148 mg/dl Hemoglobin A1c 6.8 H 4.5-5.6 % Medical Emergencies . Who to Call and When: Medical Emergencies: If at any time you feel your situation is an emergency, please call 911 immediately. . Non-Emergent Contact Non-Emergency issues call your: Primary Care Provider, Paragliding Instructor . . "Provider Documentation" section prepared by Asad Kearney. . VTE Core Measure Inpt VTE Proph given/why not?: Unfractionated heparin SQ Resident Involvement: Resident Care Provided Care Provided: Adult Hospital Medicine
--- NOTE | 2017-03-15 15:53 | Discharge Summary ---
Discharge Summary Date of Service Mar 15, 2017. (Asad Kearney M.D.) Discharge Summary Admission Date: Mar 13, 2017 at 14:17 Discharge Date: Mar 15, 2017 Discharge Disposition: Home Principal Diagnosis: Acute CHF and chest pain rule out Problems/Secondary Diagnoses: (1) Abscess, gluteal, left Status: Chronic (2) Multiple rib fractures Status: Chronic (3) Pneumonia Status: Chronic Immunizations: Have You Had Influenza Vaccine: No History of Tetanus Vaccine?: unknown History of Pneumococcal: No History of Hepatitis B Vaccine: No (Asad Kearney M.D.) Medication Reconciliation New Medications: Aspirin (Aspirin Ec) 81 Mg Tab 81 MG PO DAILY for 30 Days, #30 TAB Atorvastatin (Atorvastatin Calcium) 40 Mg Tab 40 MG PO QAM for 30 Days, #30 TAB Clopidogrel Bisulfate (Clopidogrel) 75 Mg Tab 75 MG PO QAM for 30 Days, #30 TAB Furosemide (Furosemide) 40 Mg Tab 40 MG PO BID17 for 30 Days, #60 TAB Lisinopril (Lisinopril) 5 Mg Tab 5 MG PO QAM for 30 Days, #30 TAB Continued Medications: Albuterol Hfa (Ventolin Hfa) Unknown Strength Aers Unknown Dose INH Q4-6H PRN for Shortness of Breath 2 PUFFS EVERY 4-6 HOURS NEEDED Hydrocodone/Acetaminophen 5MG/325MG (Loda 5MG/325MG) Tab 1-2 TABLET PO Q6H PRN for Pain, TAB PRN PAIN Insulin Aspart 70/30 (Novolog Mix 70/30) Susp 10-15 UNITS SC ACHS Isosorbide Mononitrate (Isosorbide Mononitrate ER) 60 Mg Tab 1 TAB PO DAILY Lorazepam (Ativan) 1 Mg Tab 1 MG PO HS 0200 Metoprolol Succ (Toprol Xl) (Toprol-Xl ) 100 Mg Tabcr 100 MG PO DAILY, TAB Potassium Chloride (Micro-K Ext Rel) 10 Meq Capcr 10 MEQ PO DAILY, CAP Ropinirole (Requip) 1 Mg Tab 1 MG PO HS, TAB 0200 Zolpidem Tartrate (Ambien) 10 Mg Tab 2 TAB PO HS, TAB 0200 Discontinued Medications: Aspirin (Aspirin Ec) 325 Mg Tab 325 MG PO QPM Torsemide (Demadex) 20 Mg Tab 20 MG PO DAILY, TAB Discharge Exam The patient was seen and examined at bedside. No acute overnight events. Diuresed approx 1.5L yesterday. Telemetry reviewed: Sinus rhythm with PVCs, wide-complex remains. Pt states he is doing better. Pt would like discharge to home. Patient is resting comfortably in bed. Denies having any pain. Eating and urinating well. Plan of care was described to the patient and all questions were answered. Constitutional: No fever, No chills, No sweats, No weight loss Respiratory: No cough, No sputum, No wheezing, No shortness of breath Cardiac: Pt denies chest pain Abdomen: No pain, No nausea, No vomiting, No diarrhea Male : No dysuria Physical Exam General Appearance: WD/WN, no apparent distress, + obese Respiratory/Chest: chest non-tender, lungs clear, normal breath sounds, no respiratory distress, no accessory muscle use Cardiovascular: regular rate, rhythm, no edema, no gallop, no JVD, no murmur Abdomen: normal bowel sounds, non tender, soft Extremities: normal range of motion, non-tender, normal inspection, + pertinent finding (1+ pitting edema in LE bilaterally. ) Neurologic/Psychiatric: alert, normal mood/affect, oriented x 3 Skin: + pertinent finding (Pt has rectal drain for abscess. ) (Asad Kearney M.D.) Hospital Course 71M with a PMHx of CAD, CT in Sep 2016, rectal fistula w drain, DM2 on insulin p /w a several week history of chest tightness and dyspnea on exertion. Pt received 40mg IV of Lasix in the ER and reported to be feeling much better. Trops were slightly elevated at 0.24 and BNP was >1600. Pt was admitted to [facility] , cards consulted, echo ordered, will trend trops and give 20mg Lasix IV BID. Pt reports to be clinically improving. Echo showed severe left ventricular dilatation with an ejection fraction of 40-45%, with an akinetic posterior wall. The right ventricle is mildly dilated with normal function and he has severe pulmonary hypertension. Trops are downtrending. Lasix was transitioned to PO Lasix. Will two step the pt to see if he is stable for discharge. Our cardiology department recommended an outpatient stress test. No cath indicated at this time. Pt discharged on 40mg Lasix BID (he said he just filled his Rx for his Torsemide ), pt advised to use one diuretic or the other and not to do both at the same time. Pt also discharged on 5mg Lisinopril, 40mg Lipitor, 75mg Plavix and 81mg Aspirin (pt was taking 325mg daily at home). Total Time Spent: Greater than 30 minutes This includes examination of the patient, discharge planning, medication reconciliation, and communication with other providers. (Asad Kearney M.D.) Resident Physician Supervision Note: I was present with the resident physician during the history and exam. I discussed the case with the resident and agree with the findings and plan as documented in the note. Documented By: Luis Davis Total Time Spent: Less than 30 minutes (Luis Davis,D.O.) Discharge Instructions Please refer to the electronic Patient Visit Report (Discharge Instructions) for additional information. (Asad Kearney M.D.) Follow-Up Follow up with Dr. Mullen in the next 7 days. Pt states he has an appointment on ThursdayMarch 20. Our MANUSCRIPTS CURATOR will confirm this appointment on Thursday. We will also see if we can arrange some home services that can be provided to the patient once he goes home. (Asad Kearney M.D.) Additional Copies To Ellis Mullen M.D. Resident Involvement: Resident Care Provided Care Provided: Adult [facility] (Asad Kearney M.D.)
[2017-03-15 16:31] VITALS: BP 124/74; PULSE 63; TEMP 36.9; O2SAT 95
[2017-05-23] MEDS ORDERED: NYSTCRE11 EXT (11:34)
[2017-05-23] MEDS ORDERED: NPR250 PO (11:34)
== END 2017-03-15 17:50 | disposition home or self-care (01) | DRG 292 ==
LOC: C.EDB 10:54 → C.2T 14:17 → ENRESERV 15:07
PROVIDERS: ADMIT Internal Medicine; ATTEND Family Medicine
DX: I11.0 Hypertensive heart disease with heart failure (principal); L02.31 Cutaneous abscess of buttock; Z68.41 Body mass index [BMI] 40.0-44.9, adult; I24.8 Other forms of acute ischemic heart disease; I50.23 Acute on chronic systolic (congestive) heart failure; I44.7 Left bundle-branch block, unspecified; I25.5 Ischemic cardiomyopathy; I27.2 Other secondary pulmonary hypertension; R07.9 Chest pain, unspecified; G89.29 Other chronic pain; R10.9 Unspecified abdominal pain; I25.10 Atherosclerotic heart disease of native coronary artery without angina pectoris; E11.9 Type 2 diabetes mellitus without complications; F39 Unspecified mood [affective] disorder; K21.9 Gastro-esophageal reflux disease without esophagitis; M79.1 Myalgia; G47.33 Obstructive sleep apnea (adult) (pediatric); E66.9 Obesity, unspecified; F41.9 Anxiety disorder, unspecified; I25.2 Old myocardial infarction; Z91.19 Patient's noncompliance with other medical treatment and regimen; Z95.5 Presence of coronary angioplasty implant and graft; Z87.891 Personal history of nicotine dependence; Z79.82 Long term (current) use of aspirin; Z79.4 Long term (current) use of insulin; Z79.891 Long term (current) use of opiate analgesic; Z79.899 Other long term (current) drug therapy

== ENCOUNTER 2017-05-18 14:00 | Inpatient (IN) | payer OTHER ==
[~2017-05-18] VITALS: Ht 180.3 cm; Wt 126.2 kg
[~2017-05-18 14:00] MED LIST changes: -ASPI325T39 PO; -ATOR-24 PO; -CITA20TA9 PO; -CLOP1TAB15 PO; +HYDR-5688 PO; +IMDSR60 PO; -LISI-729 PO; +LPT40 PO; +LSN5 PO; +LSX40 PO; +METO1TAB69 PO; -METO25TA3 PO; -MRLP17 PO; +PLV75 PO; +POTA10CA28 PO; -PRT40 PO; +ROPI1TAB PO; -SNK PO; -SUCR1TAB PO; -TORS20TA2 PO
[2017-05-18] MEDS ORDERED: NITROGLYCERIN OINT 2% 1GM PACKET EXT STA (14:24)
--- NOTE | 2017-05-18 14:36 | EMERGENCY ROOM VISIT NOTE ---
History Report prepared by Chema: Janusz Kimbrough Under the Supervision of: Dr. Barrett Bowser M.D. First contact with patient: 14:17 Chief Complaint: CARDIAC ASSESSMENT Stated Complaint: RT LEG PAIN/CELLULITIS, CHEST PRESSURE Nursing Triage Summary: pt c/o bilat lower leg swollen and seeping feels so bad. had heart attack #4 in february. pt reports chest pain started a couple days ago feels sob. History of Present Illness The patient is a 71 year old male who presents to the Emergency Room with complaints of worsening intermittent chest pain and pressure for the past few days. He rates his discomfort as a 7-8/10 in severity. The patient additionally states that he was having some shoulder pain yesterday and he has had leg swelling and pain for the past week. He states that he is having some fevers, chills, shortness of breath which is worsened with walking around, and chronic abdominal pain. The patient states that he is coughing up phlegm. The patient states that he has had leg swelling before, though never this bad, and he denies any recent traumas. The patient states that he has had 4 heart attacks in the past, and he does not have a history of blood clots. The patient states that he is not on any oxygen at home. He additionally states that he has a history of fluid on his lungs, and he states that he feels like he might have some fluid on his lungs right now. Source of History: patient Onset: few days ago Position: chest Symptom Intensity: 7-8/10 Quality: pressure Timing: intermittent, worsening Associated Symptoms: + fevers, + chills, + SOB, + abdominal pain Note: Associated symptoms: leg swelling and shoulder pain. Review of Systems See HPI for pertinent positives & negatives. A total of 10 systems reviewed and were otherwise negative. Past Medical & Surgical Medical Problems: (1) Abscess, gluteal, left (2) CHF exacerbation (3) Coronary artery disease (4) Diabetes (5) Diabetes mellitus (6) Kidney stones (7) Multiple rib fractures (8) Multiple rib fractures involving four or more ribs (9) Myocardial infarct (10) NSTEMI, initial episode of care (11) Pneumonia (12) Systolic heart failure Surgical Problems: (1) H/O cardiac catheterization (2) H/O percutaneous transluminal coronary angioplasty (3) Stented coronary artery Family History FH: HTN (hypertension) FH: cancer FH: diabetes mellitus FH: gallbladder disease FH: heart disease FH: kidney disease Social History Smoking Status: Never Smoker Alcohol Use: none Drug Use: none Marital Status: Housing Status: lives with family Occupation Status: retired Current/Historical Medications Scheduled Aspirin (Aspirin Ec), 325 MG PO DAILY Atorvastatin (Lipitor), 80 MG PO DAILY Citalopram Hydrobromide (Citalopram Hydrobromide), 20 MG PO DAILY Clopidogrel Bisulfate (Clopidogrel), 75 MG PO QAM Cyclobenzaprine Hcl (Flexeril), 10 MG PO TID Insulin Aspart 70/30 (Novolog Mix 70/30), 20 UNITS SC QAM Insulin Aspart Protamine & Asp (Novolog Mix 70/30), 30-35 UNITS SC QPM Isosorbide Mononitrate Ext Rel (Imdur Ext Rel), 30 MG PO QAM Lorazepam (Ativan), 1 MG PO BID Losartan Potassium (Cozaar), 50 MG PO DAILY Magnesium Oxide (Mag-Ox), 400 MG PO DAILY Metoprolol Succinate (Toprol Xl), 75 MG PO DAILY Potassium Chloride (Micro-K Ext Rel), 10 MEQ PO DAILY Ropinirole (Requip), 1 MG PO HS Senna (Senokot), 1 TAB PO DIRECTED Zolpidem Tartrate (Ambien), 2 TAB PO HS Scheduled PRN Hydrocodone/Acetaminophen 5MG/325MG (Como 5MG/325MG), 1-2 TABLET PO Q6H PRN for Pain Levalbuterol Tartrate (Levalbuterol Tartrate Hfa), 2 PUFF INH Q6H PRN for Shortness of Breath Torsemide (Demadex), 20 MG PO DAILY PRN for FLUID Tramadol (Ultram), 50 MG PO Q6H PRN for Pain Allergies Coded Allergies: Morphine (Unverified Adverse Reaction, Intermediate, "DOESN'T WORK & MAKES ME FEEL BLAH", 05/18/17) Physical Exam Vital Signs Date Time Temp Pulse Resp B/P (MAP) Pulse Ox O2 Delivery O2 Flow Rate FiO2 05/18/17 15:46 91 22 147/91 97 Nasal Cannula 3.0 05/18/17 15:44 97 Nasal Cannula 3.0 05/18/17 15:44 97 Nasal Cannula 3.0 05/18/17 14:54 87 Room Air 05/18/17 14:33 91 05/18/17 14:20 92 Room Air 05/18/17 14:09 37.3 97 18 158/91 93 Room Air Physical Exam GENERAL: Patient is in no acute distress. HEENT: No acute trauma, normocephalic atraumatic, mucous membranes moist, no nasal congestion, no scleral icterus. NECK: No stridor, no adenopathy, no meningismus, trachea is midline. LUNGS: Diminished breath sounds bilaterally but equal. No wheezing or rhonchi. HEART: Somewhat irregular and mildly tachycardic. No murmurs. CHEST: Mild tenderness to the lower sternum. ABDOMEN: Soft, nontender, bowel sounds positive, no hernias, no peritonitis. EXTREMITIES: Right more so than left lower extremity edema with some mild erythema to the right anterior, distal leg. Some warmth present in the right distal leg. No cyanosis, full range of motion of all the joints without pain or difficulty, no signs for acute trauma. NEUROLOGIC: Oriented x 3, no acute motor or sensory deficits, no focal weakness. SKIN: No rash, no jaundice, no diaphoresis. Medical Decision & Procedures ER Provider Diagnostic Interpretation: Radiology results as stated below per my review and radiologist interpretation: CHEST ONE VIEW PORTABLE CLINICAL HISTORY: Atypical chest pain COMPARISON STUDY: 03/14/2017 FINDINGS: The heart remains enlarged. There is radiographic evidence of pulmonary vascular congestion. There is a persistent moderate right pleural effusion with associated right basilar atelectasis/consolidation. Left basal airspace opacities, likely represent a combination of atelectasis and focal edema. A small subhepatic left pleural effusion is suspected.[ IMPRESSION: Persistent cardiomegaly and radiographic evidence of congestive failure with bilateral pleural effusions right greater than left. There are associated bibasal airspace opacities Electronically signed by: Chad Moulton M.D. 05/18/2017 2:51 PM Dictated Date/Time: 05/18/2017 2:50 PM Laboratory Results 05/18/17 14:30 Red Blood Count 4.25, Mean Corpuscular Volume 95.5, Mean Corpuscular Hemoglobin 32.2, Mean Corpuscular Hemoglobin Concent 33.7, Mean Platelet Volume 10.4, Neutrophils (%) (Auto) 77.3, Lymphocytes (%) (Auto) 13.6, Monocytes (%) (Auto) 7.0, Eosinophils (%) (Auto) 1.4, Basophils (%) (Auto) 0.3, Neutrophils # (Auto) 6.15, Lymphocytes # (Auto) 1.08, Monocytes # (Auto) 0.56, Eosinophils # (Auto) 0.11, Basophils # (Auto) 0.02 05/18/17 14:30 Test 05/18/17 14:30 05/18/17 14:40 White Blood Count 7.95 K/uL (4.8-10.8) Red Blood Count 4.25 M/uL (4.7-6.1) Hemoglobin 13.7 g/dL (14.0-18.0) Hematocrit 40.6 % (42-52) Mean Corpuscular Volume 95.5 fL (80-100) Mean Corpuscular Hemoglobin 32.2 pg (25-34) Mean Corpuscular Hemoglobin Concent 33.7 g/dl (32-36) Platelet Count 215 K/uL (130-400) Mean Platelet Volume 10.4 fL (7.4-10.4) Neutrophils (%) (Auto) 77.3 % Lymphocytes (%) (Auto) 13.6 % Monocytes (%) (Auto) 7.0 % Eosinophils (%) (Auto) 1.4 % Basophils (%) (Auto) 0.3 % Neutrophils # (Auto) 6.15 K/uL (1.4-6.5) Lymphocytes # (Auto) 1.08 K/uL (1.2-3.4) Monocytes # (Auto) 0.56 K/uL (0.11-0.59) Eosinophils # (Auto) 0.11 K/uL (0-0.5) Basophils # (Auto) 0.02 K/uL (0-0.2) RDW Standard Deviation 47.0 fL (36.4-46.3) RDW Coefficient of Variation 13.5 % (11.5-14.5) Immature Granulocyte % (Auto) 0.4 % Immature Granulocyte # (Auto) 0.03 K/uL (0.00-0.02) Prothrombin Time 10.8 SECONDS (9.0-12.0) Prothromb Time International Ratio 1.0 (0.9-1.1) Activated Partial Thromboplast Time 29.4 SECONDS (21.0-31.0) Partial Thromboplastin Ratio 1.1 Anion Gap 6.0 mmol/L (3-11) Est Creatinine Clear Calc Drug Dose 82.4 ml/min Estimated GFR () 77.3 Estimated GFR (Non- 66.7 BUN/Creatinine Ratio 14.8 (10-20) Lactic Acid Level 1.7 mmol/L (0.4-2.0) Calcium Level 9.0 mg/dl (8.5-10.1) Magnesium Level 2.0 mg/dl (1.8-2.4) Total Bilirubin 1.1 mg/dl (0.2-1) Aspartate Amino Transf (AST/SGOT) 18 U/L (15-37) Alanine Aminotransferase (ALT/SGPT) 19 U/L (12-78) Alkaline Phosphatase 129 U/L (45-117) Pro-B-Type Natriuretic Peptide 3413 pg/ml (0-900) Total Protein 7.3 gm/dl (6.4-8.2) Albumin 2.9 gm/dl (3.4-5.0) Globulin 4.4 gm/dl (2.5-4.0) Albumin/Globulin Ratio 0.7 (0.9-2) Lipase 71 U/L (73-393) Bedside Troponin I 0.190 ng/ml (0-0.045) Laboratory results reviewed by me. Medications Administered Medications (Trade) Dose Ordered Sig/Aditi Route Start Time Stop Time Status Last Admin Dose Admin Nitroglycerin (Nitroglycerin 2% Oint) 1 inch NOW STAT EXT 05/18/17 14:24 05/18/17 14:31 DC 05/18/17 15:46 1 INCH Furosemide (Lasix Inj) 40 mg NOW STAT IV 05/18/17 14:56 05/18/17 14:57 DC 05/18/17 15:46 40 MG ECG Indication: chest pain Rate (beats per minute): 101 Rhythm: sinus tachycardia Findings: LBBB, PAC, no acute ischemic change Comparison ECG Date: 03/13/17 Change: no significant change ED Course 1417: The patient was evaluated in room A11. A complete history and physical exam was performed. 1424: Nitroglycerin 2% Oint 1 inch EXT 1456: Lasix Inj 40mg IV 1537: I reevaluated the patient, and I discussed the treatment plan, and he was agreeable. 1539: Discussed the patient's case with Dr. Heredia. The patient will be evaluated for further management. Medical Decision Differential Diagnoses include: CHF, musculoskeletal pain, pneumonia, PE, DC, angina, anemia, DVT, cellulitis. There is leukocytosis or concerning anemia. No significant electrolyte abnormality, kidney failure or hepatitis. There is no coagulopathy. Blood cultures are pending. Chest film shows CHF. BNP is elevated consistent with fluid overload. EKG shows a sinus tachycardia with some chronic change. Cardiac enzyme testing times one is slightly elevated-of note, he has had mild troponin elevations with past hospitalizations. Right lower extremity ultrasound does not show DVT. The patient presents with chest pain and dyspnea. He had some hypoxia here and was placed on supplemental O2. The patient appears to be in heart failure by workup. The patient is given nitro paste, IV Lasix. A spoke to the patient and the caseworker intake. The on-call hospitalist was consulted. Medication Reconcilliation Current Medication List: was personally reviewed by me Blood Pressure Screening Patient's blood pressure: Elevated blood pressure Blood pressure disposition: Elevated BP felt to be situational Consults Time Called: 153 Consulting Physician: Dr. Heredia Returned Call: [phone] Discussed the patient's case with Dr. Heredia. The patient will be evaluated for further management. Impression Primary Impression: Precordial chest pain Additional Impressions: Elevated troponin CHF (congestive heart failure) Scribe Attestation The scribe's documentation has been prepared under my direction and personally reviewed by me in its entirety. I confirm that the note above accurately reflects all work, treatment, procedures, and medical decision making performed by me. Departure Information Dispostion Being Evaluated By Hospitalist Referrals Ellis Mullen M.D. (PCP) Patient Instructions My [facility] Problem Qualifiers
[2017-05-18] MEDS ORDERED: ISOS30TA3 PO (14:45)
[2017-05-18] MEDS ORDERED: CITA20TA4 PO (14:45)
[2017-05-18] MEDS ORDERED: TORS20TA2 PO (14:45)
[2017-05-18] MEDS ORDERED: METO-217 PO (14:45)
[2017-05-18] MEDS ORDERED: ATOR-26 PO (14:45)
[2017-05-18] MEDS ORDERED: ASPI325T39 PO (14:45)
[2017-05-18] MEDS ORDERED: NVLGI7030 SC (14:45)
[2017-05-18] MEDS ORDERED: CYCL10TA6 PO (14:45)
[2017-05-18] MEDS ORDERED: TRAM-10 PO (14:45)
[2017-05-18] MEDS ORDERED: MAGN400T6 PO (14:45)
[2017-05-18] MEDS ORDERED: LOSA50TA6 PO (14:45)
[2017-05-18] MEDS ORDERED: LEVA45AE INH (14:45)
[2017-05-18] MEDS ORDERED: SENN-61 PO (14:45)
--- NOTE | 2017-05-18 14:52 | DIAGNOSTIC IMAGING REPORT ---
CHEST ONE VIEW PORTABLE CLINICAL HISTORY: Atypical chest pain COMPARISON STUDY: 03/14/2017 FINDINGS: The heart remains enlarged. There is radiographic evidence of pulmonary vascular congestion. There is a persistent moderate right pleural effusion with associated right basilar atelectasis/consolidation. Left basal airspace opacities, likely represent a combination of atelectasis and focal edema. A small subhepatic left pleural effusion is suspected.[ IMPRESSION: Persistent cardiomegaly and radiographic evidence of congestive failure with bilateral pleural effusions right greater than left. There are associated bibasal airspace opacities Electronically signed by: Chad Moulton M.D. 05/18/2017 2:51 PM Dictated Date/Time: 05/18/2017 2:50 PM
[2017-05-18 14:54] LABS: BASO % 0.3 %; BASO ABS # 0.02 K/uL (0-0.2); COMPLETE YES; EOS % 1.4 %; HEMATOCRIT 40.6 % (42-52); IG% 0.4 %; LYMPH % 13.6 %; LYMPH ABS # 1.08 K/uL (1.2-3.4); MEAN CELL VOLUME 95.5 fL (80-100); MEAN CORPUSCULAR HEMOGLOBIN 32.2 pg (25-34); MEAN CORPUSCULAR HGB CONC 33.7 g/dl (32-36); MEAN PLATELET VOLUME 10.4 fL (7.4-10.4); NEUT % 77.3 %; PLATELET COUNT 215 K/uL (130-400); RED BLOOD COUNT 4.25 M/uL (4.7-6.1); WHITE BLOOD COUNT 7.95 K/uL (4.8-10.8)
[2017-05-18] MEDS ORDERED: FUROSEMIDE 40 MG/4 ML VIAL IV STA (14:56)
[2017-05-18 15:04] LABS: PARTIAL THROMBOPLASTIN RATIO 1.1; PROTHROMBIN TIME (PATIENT) 10.8 SECONDS (9.0-12.0)
[2017-05-18 15:13] LABS: BUN/CREATININE RATIO 14.8 (10-20); CREATININE 1.1 mg/dl (0.60-1.40); POTASSIUM 3.5 mmol/L (3.5-5.1)
[2017-05-18 15:33] LABS: ALB/GLOB RATIO 0.7 (0.9-2)
[2017-05-18] MEDS ORDERED: LEValbuterol HFA 15GM INHALER INH PRN (16:15)
[2017-05-18] MEDS ORDERED: GLUCOSE 40% GEL 15 GM TUBE PO PRN (16:15)
[2017-05-18] MEDS ORDERED: DEXTROSE 50% 50 ML SYR IV PRN (16:15)
[2017-05-18] MEDS ORDERED: NITROGLYCERIN 0.4 MG SL PER TAB CHARGE SL PRN (16:15)
[2017-05-18] MEDS ORDERED: ONDANSETRON INJ 2 MG/ML 2 ML VIAL IV PRN (16:15)
[2017-05-18] MEDS ORDERED: TRAMADOL HCL 50 MG TAB PO PRN (16:15)
[2017-05-18] MEDS ORDERED: GLUCAGON FOR INJ 1 MG VIAL SQ PRN (16:15)
[2017-05-18] MEDS ORDERED: GLUCOSE 10 TABS/TUBE PO PRN (16:15)
[2017-05-18] MEDS ORDERED: HYDROCODONE/ACETAMOPHEN 5/325MG TAB PO PRN (16:15)
[2017-05-18] MEDS ORDERED: ACETAMINOPHEN 325 MG TAB PO PRN (16:15)
[2017-05-18 16:57] VITALS: O2SAT 97; BMI 41.2
[2017-05-18 17:13] LABS: CKMB/CK RATIO 1.8 (0-3.0)
--- NOTE | 2017-05-18 17:30 | DIAGNOSTIC IMAGING REPORT ---
BILATERAL LOWER EXTREMITY VENOUS DOPPLER HISTORY: SWELLING, PAIN Right COMPARISON STUDY: None. FINDINGS: There is normal compressibility, flow, and augmentation within the right lower extremity deep venous system. The calf veins are not well seen. IMPRESSION: No sonographic evidence of deep venous thrombosis within the right lower extremity. Electronically signed by: Dario Florian M.D. 05/18/2017 5:28 PM Dictated Date/Time: 05/18/2017 5:27 PM
[2017-05-18 17:55] VITALS: BP 159/81; PULSE 81; TEMP 36.6; O2SAT 98
[2017-05-18] MEDS: FUROSEMIDE INJ 40 MG in SYRINGE 0 ML IV SCH (19:34)
[2017-05-18 19:37] VITALS: BP 145/82; PULSE 73; TEMP 37.1; O2SAT 96
[2017-05-18 20:00] VITALS: O2SAT 93
--- NOTE | 2017-05-18 20:18 | History and Physical ---
History & Physical Date & Time of Service: May 18, 2017 at 20:02 Chief Complaint: Nstemi, Initial Episode Of Care, Systolic Heart Primary Care Physician: Ellis Mullen M.D. History of Present Illness Source: patient, spouse The patient is a 71-year-old male who presents emergency department with worsening chest discomfort and shortness of breath over the past week. He stopped taking his furosemide four days ago because of having to run to the bathroom too much. He's had worsening lower extremity edema. Has also been coughing up phlegm but does not look to see what color it is. He also complains of right lower tibial and foot pain. He's had some intermittent fevers and chills as well. Past Medical/Surgical History Medical Problems: (1) Abscess, gluteal, left Status: Chronic (2) Coronary artery disease Status: Chronic (3) Diabetes Status: Resolved (4) Diabetes mellitus Status: Chronic (5) Kidney stones Status: Resolved (6) Multiple rib fractures Status: Chronic (7) Myocardial infarct Status: Resolved (8) Pneumonia Status: Chronic (9) Systolic heart failure Status: Chronic Surgical Problems: (1) H/O cardiac catheterization Status: Resolved (2) H/O percutaneous transluminal coronary angioplasty Status: Resolved (3) Stented coronary artery Status: Chronic Family History FH: HTN (hypertension) FH: cancer FH: diabetes mellitus FH: gallbladder disease FH: heart disease FH: kidney disease Social History Smoking Status: Former Smoker Smokeless Tobacco Use: No Alcohol Use: none Drug Use: none Marital Status: Housing status: lives with family Occupational Status: retired Immunizations History of Influenza Vaccine: No History of Tetanus Vaccine?: unknown History of Pneumococcal: No History of Hepatitis B Vaccine: No Multi-Drug Resistant Organisms History of MDRO: No Allergies Coded Allergies: Morphine (Unverified Adverse Reaction, Intermediate, "DOESN'T WORK & MAKES ME FEEL BLAH", 05/18/17) Home Medications Scheduled Aspirin (Aspirin Ec), 325 MG PO DAILY Atorvastatin (Lipitor), 80 MG PO DAILY Citalopram Hydrobromide (Citalopram Hydrobromide), 20 MG PO DAILY Clopidogrel Bisulfate (Clopidogrel), 75 MG PO QAM Cyclobenzaprine Hcl (Flexeril), 10 MG PO TID Insulin Aspart 70/30 (Novolog Mix 70/30), 20 UNITS SC QAM Insulin Aspart Protamine & Asp (Novolog Mix 70/30), 30-35 UNITS SC QPM Isosorbide Mononitrate Ext Rel (Imdur Ext Rel), 30 MG PO QAM Lorazepam (Ativan), 1 MG PO BID Losartan Potassium (Cozaar), 50 MG PO DAILY Magnesium Oxide (Mag-Ox), 400 MG PO DAILY Metoprolol Succinate (Toprol Xl), 75 MG PO DAILY Potassium Chloride (Micro-K Ext Rel), 10 MEQ PO DAILY Ropinirole (Requip), 1 MG PO HS Senna (Senokot), 1 TAB PO DIRECTED Zolpidem Tartrate (Ambien), 2 TAB PO HS Scheduled PRN Hydrocodone/Acetaminophen 5MG/325MG ([place] 5MG/325MG), 1-2 TABLET PO Q6H PRN for Pain Levalbuterol Tartrate (Levalbuterol Tartrate Hfa), 2 PUFF INH Q6H PRN for Shortness of Breath Torsemide (Demadex), 20 MG PO DAILY PRN for FLUID Tramadol (Ultram), 50 MG PO Q6H PRN for Pain Review of Systems The patient denies vision change, hearing change, sore throat, vomiting, diarrhea or constipation, abdominal pain, pelvic pain, blood in urine or stool, dysuria, urinary frequency or urgency, lightheadedness, dizziness, headache, memory loss, rash, abnormal bruising or bleeding, imbalance, focal or generalized weakness, numbness or tingling in arms or legs, generalized arthralgias or myalgias, back or neck pain, night sweats, or allergy symptoms. The review of systems is otherwise negative other than for that already noted above, and at least 10 systems have been reviewed. Physical Exam Vital Signs Date Time Temp Pulse Resp B/P (MAP) Pulse Ox O2 Delivery O2 Flow Rate FiO2 05/18/17 19:37 37.1 73 20 145/82 (103) 96 Nasal Cannula 2.0 05/18/17 17:55 36.6 81 16 159/81 (107) 98 Nasal Cannula 3.0 05/18/17 16:57 97 Nasal Cannula 3.0 05/18/17 15:46 91 22 147/91 97 Nasal Cannula 3.0 05/18/17 15:44 97 Nasal Cannula 3.0 05/18/17 15:44 97 Nasal Cannula 3.0 05/18/17 14:54 87 Room Air 05/18/17 14:33 91 05/18/17 14:20 92 Room Air 05/18/17 14:09 37.3 97 18 158/91 93 Room Air The patient is awake, well-developed and adequately nourished, alert and oriented 3, normocephalic and atraumatic, lying in bed and in no acute distress. HEENT--PERRL, EOMI, mucous membranes and oropharynx dry. Neck--supple, no JVD or bruits, thyroid normal, trachea midline, no adenopathy. Heart--normal S1 and S2, no extra beats, no murmurs, rubs or gallops. Lungs-- crackles at the bases bilaterally , no respiratory distress, no accessory muscle use. Abdomen--normal bowel sounds and soft, nontender and nondistended, no hernias or masses, no organomegaly. Extremities--no cyanosis, clubbing. There is bilaterally pretibial 1+ pitting edema. There are good distal pulses b/l. Dermatologic--chronic venous stasis changes bilaterally Neurologic--cranial nerves II through XII grossly intact, motor and sensory examination normal. Rheumatologic--normal range of motion, nontender, muscles and joints. Psychiatric--normal affect. Diagnostics Laboratory Results Results Past 24 Hours Test 05/18/17 14:30 05/18/17 14:40 05/18/17 16:36 05/18/17 18:09 Range/Units White Blood Count 7.95 4.8-10.8 K/uL Red Blood Count 4.25 4.7-6.1 M/uL Hemoglobin 13.7 14.0-18.0 g/dL Hematocrit 40.6 42-52 % Mean Corpuscular Volume 95.5 80-100 fL Mean Corpuscular Hemoglobin 32.2 25-34 pg Mean Corpuscular Hemoglobin Concent 33.7 32-36 g/dl Platelet Count 215 130-400 K/uL Mean Platelet Volume 10.4 7.4-10.4 fL Neutrophils (%) (Auto) 77.3 % Lymphocytes (%) (Auto) 13.6 % Monocytes (%) (Auto) 7.0 % Eosinophils (%) (Auto) 1.4 % Basophils (%) (Auto) 0.3 % Neutrophils # (Auto) 6.15 1.4-6.5 K/uL Lymphocytes # (Auto) 1.08 1.2-3.4 K/uL Monocytes # (Auto) 0.56 0.11-0.59 K/uL Eosinophils # (Auto) 0.11 0-0.5 K/uL Basophils # (Auto) 0.02 0-0.2 K/uL RDW Standard Deviation 47.0 36.4-46.3 fL RDW Coefficient of Variation 13.5 11.5-14.5 % Immature Granulocyte % (Auto) 0.4 % Immature Granulocyte # (Auto) 0.03 0.00-0.02 K/uL Prothrombin Time 10.8 9.0-12.0 SECONDS Prothromb Time International Ratio 1.0 0.9-1.1 Activated Partial Thromboplast Time 29.4 21.0-31.0 SECONDS Partial Thromboplastin Ratio 1.1 Sodium Level 137 136-145 mmol/L Potassium Level 3.5 3.5-5.1 mmol/L Chloride Level 103 98-107 mmol/L Carbon Dioxide Level 28 21-32 mmol/L Anion Gap 6.0 3-11 mmol/L Blood Urea Nitrogen 16 7-18 mg/dl Creatinine 1.10 0.60-1.40 mg/dl Est Creatinine Clear Calc Drug Dose 82.4 ml/min Estimated GFR () 77.3 Estimated GFR (Non- 66.7 BUN/Creatinine Ratio 14.8 10-20 Random Glucose 183 70-99 mg/dl Lactic Acid Level 1.7 0.4-2.0 mmol/L Calcium Level 9.0 8.5-10.1 mg/dl Magnesium Level 2.0 1.8-2.4 mg/dl Total Bilirubin 1.1 0.2-1 mg/dl Aspartate Amino Transf (AST/SGOT) 18 15-37 U/L Alanine Aminotransferase (ALT/SGPT) 19 12-78 U/L Alkaline Phosphatase 129 45-117 U/L Total Creatine Kinase 35 33 39-308 U/L Creatine Kinase MB 0.7 0.6 0.5-3.6 ng/ml Creatine Kinase MB Ratio 2.0 1.8 0-3.0 Troponin I 0.192 0.199 0-0.045 ng/ml Pro-B-Type Natriuretic Peptide 3413 0-900 pg/ml Total Protein 7.3 6.4-8.2 gm/dl Albumin 2.9 3.4-5.0 gm/dl Globulin 4.4 2.5-4.0 gm/dl Albumin/Globulin Ratio 0.7 0.9-2 Lipase 71 73-393 U/L Bedside Troponin I 0.190 0-0.045 ng/ml Uric Acid 5.8 2.6-7.2 mg/dl Bedside Glucose 153 70-99 mg/dl Microbiology Results 05/18/17 Blood Culture, Received Pending 05/18/17 Blood Culture, Received Pending Diagnostic Radiology Patient Name: NUVIA YAP Unit Number: [id number] Dictated: 05/18/171726 Transcribed: 05/18/171726 JRB Printed Date/Time: [~ rep prt dt]/[~ rep prt tm] [~ rep ct labl] - [~ rep ct ivnm] [facility] Radiology Department [place] [id number] Dictated: 05/18/171726 Transcribed: 05/18/171726 JRB Printed Date/Time: [~ rep prt dt]/[~ rep prt tm] [~ rep ct labl] - [~ rep ct ivnm] [~ rep ct add3]] BILATERAL LOWER EXTREMITY VENOUS DOPPLER HISTORY: SWELLING, PAIN Right COMPARISON STUDY: None. FINDINGS: There is normal compressibility, flow, and augmentation within the right lower extremity deep venous system. The calf veins are not well seen. IMPRESSION: No sonographic evidence of deep venous thrombosis within the right lower extremity. Electronically signed by: Dario Florian M.D. 05/18/2017 5:28 PM Dictated Date/Time: 05/18/2017 5:27 PM The status of this report is Signed. Draft = Not yet reviewed or approved by Radiologist. Signed = Reviewed and approved by Radiologist. <AttendingPhy></AttendingPhy> <FamilyPhy>Ellis Mullen M.D.</FamilyPhy > <PrimaryPhy>Ellis Mullen M.D.</PrimaryPhy> <UnitNumber>[id number]</ UnitNumber> <VisitNumber>[id number]</VisitNumber> <PatientName>NUVIA YAP</PatientName> <DateOfBirth>1945</DateOfBirth> <Location>[facility]</Location > <ServiceDate>05/18/17</ServiceDate> <MNE>ESINDI</MNE> <OrderingPhy>Barrett Bowser M.D.</OrderingPhy> <OrderingPhyMNE>f rep ord dr cloud</OrderingPhyMNE> < DictatingPhyMNE>f rep dict dr cloud</DictatingPhyMNE> <CCListMNE>f rep ct mne</ CCListMNE> <AdmittingPhyMNE>f pt admit dr cloud</AdmittingPhyMNE> <AttendingPhyMNE >f pt attend dr cloud</AttendingPhyMNE> <ConsultingPhyMNE>f pt consult dr cloud</ConsultingPhyMNE> <FamilyPhyMNE>f pt fam dr cloud</FamilyPhyMNE> <OtherPhyMNE>f pt other dr cloud</OtherPhyMNE> < PrimaryPhyMNE>f pt prim care dr cloud</PrimaryPhyMNE> <ReferringPhyMNE>f pt referring dr cloud</ReferringPhyMNE> Patient Name: NUVIA YAP Unit Number: [id number] Dictated: 05/18/[id number] Transcribed: 05/18/171449 ARG Printed Date/Time: [~ rep prt dt]/[~ rep prt tm] [~ rep ct labl] - [~ rep ct ivnm] [facility] Radiology Department [place], [place] [id number] Dictated: 05/18/[id number] Transcribed: 05/18/171449 ARG Printed Date/Time: [~ rep prt dt]/[~ rep prt tm] [~ rep ct labl] - [~ rep ct ivnm] CHEST ONE VIEW PORTABLE CLINICAL HISTORY: Atypical chest pain COMPARISON STUDY: 03/14/2017 FINDINGS: The heart remains enlarged. There is radiographic evidence of pulmonary vascular congestion. There is a persistent moderate right pleural effusion with associated right basilar atelectasis/consolidation. Left basal airspace opacities, likely represent a combination of atelectasis and focal edema. A small subhepatic left pleural effusion is suspected.[ IMPRESSION: Persistent cardiomegaly and radiographic evidence of congestive failure with bilateral pleural effusions right greater than left. There are associated bibasal airspace opacities Electronically signed by: Chad Moulton M.D. 05/18/2017 2:51 PM Dictated Date/Time: 05/18/2017 2:50 PM The status of this report is Signed. Draft = Not yet reviewed or approved by Radiologist. Signed = Reviewed and approved by Radiologist. <AttendingPhy></AttendingPhy> <FamilyPhy>Ellis Mullen M.D.</FamilyPhy > <PrimaryPhy>Ellis Mullen M.D.</PrimaryPhy> <UnitNumber>[id number]</ UnitNumber> <VisitNumber>[id number]</VisitNumber> <PatientName>MARELYNUVIA Cr Nahun</PatientName> <DateOfBirth>1945</DateOfBirth> <Location>[facility]</Location > <ServiceDate>05/18/17</ServiceDate> <MNE>ESINDI</MNE> <OrderingPhy>Barrett Bowser M.D.</OrderingPhy> <OrderingPhyMNE>f rep ord dr cloud</OrderingPhyMNE> < DictatingPhyMNE>f rep dict dr cloud</DictatingPhyMNE> <CCListMNE>f rep ct pedro luis</ CCListMNE> <AdmittingPhyMNE>f pt admit dr cloud</AdmittingPhyMNE> <AttendingPhyMNE >f pt attend dr cloud</AttendingPhyMNE> <ConsultingPhyMNE>f pt consult dr cloud</ConsultingPhyMNE> <FamilyPhyMNE>f pt fam dr cloud</FamilyPhyMNE> <OtherPhyMNE>f pt other dr cloud</OtherPhyMNE> < PrimaryPhyMNE>f pt prim care dr cloud</PrimaryPhyMNE> <ReferringPhyMNE>f pt referring dr cloud</ReferringPhyMNE> EKG EKG shows sinus tachycardia at 101 bpm, PACs, left axis deviation, left bundle branch block Impression Assessment and Plan Precordial chest pain/acute CHF--The patient will be admitted to telemetry for serial cardiac enzymes, cardiac rhythm monitoring and a 2-D echocardiogram with Dopplers. Place on Lasix 40 mg IV twice a day and potassium chloride 40 mEq by mouth twice a day. Continue clopidogrel 75 mg by mouth every morning Continue isosorbide mononitrate ER daily Continue lisinopril 5 mg by mouth every morning Continue metoprolol succinate 100 mg by mouth daily. Diabetes mellitus--continue NovoLog Mix 70/30, 20 units subcutaneous every morning and 30 minutes subcutaneous every evening. Place on Accu-Cheks before meals and at bedtime with NovoLog coverage per scale Restless leg syndrome--continue ropinirole 1 mg by mouth at bedtime. Insomnia--lorazepam 1 mg by mouth at bedtime and zolpidem tartrate 2 tablets by mouth at bedtime Hyperlipidemia--continue atorvastatin 40 mg by mouth every morning. Level of Care Telemetry Advanced Directives Existing Advance Directive: No Existing Living Will: No Existing Power of Machine Ceramic Coater: No Resuscitation Status FULL RESUSCITATION VTE Prophylaxis VTE Risk Assessment Done? Y/N: Yes Risk Level: Moderate Given or contraindicated: SCD's
[2017-05-18] MEDS ORDERED: INSULIN 70% ASPART PROTAMINE/30% ASPART SC SCH (21:00)
[2017-05-18] MEDS ORDERED: ZOLPIDEM TARTRATE 10 MG TAB PO ONE (21:30)
[2017-05-18] MEDS: INSULIN ASPART 100 UNITS/ML 3 ML PEN SC SCH (22:16)
[2017-05-18] MEDS: POTASSIUM CHLORIDE 20 MEQ TABCR PO SCH (22:17)
[2017-05-18] MEDS: NITROGLYCERIN OINT 2% 1GM PACKET EXT SCH (22:17)
[2017-05-18 23:59] VITALS: O2SAT 93
[2017-05-19] VITALS (16 sets, daily range): BP systolic 103–148; BP diastolic 60–91; PULSE 63–127; TEMP 36.3–37.3; O2SAT 90–98; Ht 180.3 cm; Wt 126.2 kg
[2017-05-19] MEDS: ROPINIROLE HCL 1 MG TAB PO SCH ×2 (00:11→20:33)
[2017-05-19] MEDS: CYCLOBENZAPRINE HCL 10 MG TAB PO SCH ×4 (00:11→20:33)
[2017-05-19] MEDS: LORAZEPAM 1 MG TAB PO SCH ×3 (00:11→23:36)
[2017-05-19] MEDS ORDERED: ZOLPIDEM TARTRATE 10 MG TAB PO ONE (00:15)
[2017-05-19 01:15] LABS: CKMB/CK RATIO 2.1 (0-3.0)
[2017-05-19] MEDS: NITROGLYCERIN OINT 2% 1GM PACKET EXT SCH ×4 (05:47→23:35)
[2017-05-19 06:20] LABS: BASO % 0.3 %; BASO ABS # 0.02 K/uL (0-0.2); COMPLETE YES; EOS % 2.7 %; HEMATOCRIT 36.9 % (42-52); IG% 0.2 %; LYMPH % 21.6 %; LYMPH ABS # 1.36 K/uL (1.2-3.4); MEAN CELL VOLUME 95.3 fL (80-100); MEAN CORPUSCULAR HGB CONC 31.4 g/dl (32-36); MEAN PLATELET VOLUME 10.1 fL (7.4-10.4); MONO % 9.5 %; NEUT % 65.7 %; PLATELET COUNT 194 K/uL (130-400); RED BLOOD COUNT 3.87 M/uL (4.7-6.1)
[2017-05-19 06:43] LABS: BUN/CREATININE RATIO 17.2 (10-20); CALCIUM 8.9 mg/dl (8.5-10.1); CREATININE 0.95 mg/dl (0.60-1.40); MAGNESIUM 1.5 mg/dl (1.8-2.4); POTASSIUM 3.7 mmol/L (3.5-5.1)
[2017-05-19] MEDS ORDERED: INSULIN 70% ASPART PROTAMINE/30% ASPART SC SCH (07:30)
[2017-05-19] MEDS: INSULIN ASPART 100 UNITS/ML 3 ML PEN SC SCH ×4 (08:18→20:20)
[2017-05-19] MEDS: METOPROLOL SUCC 25MG EXT REL TAB PO SCH (08:20)
[2017-05-19] MEDS: POTASSIUM CHLORIDE 20 MEQ TABCR PO SCH ×2 (08:20→17:22)
[2017-05-19] MEDS: LOSARTAN POTASSIUM 50 MG TAB PO SCH (08:21)
[2017-05-19] MEDS: SENNA 8.6 MG TAB PO SCH (08:21)
[2017-05-19] MEDS: MAGNESIUM OXIDE 400 MG TAB PO SCH (08:21)
[2017-05-19] MEDS: CLOPIDOGREL BISULFATE 75 MG TAB PO SCH (08:22)
[2017-05-19] MEDS: CITALOPRAM 20 MG TAB PO SCH (08:22)
[2017-05-19] MEDS: ASPIRIN 325 MG ECTAB PO SCH (08:22)
[2017-05-19] MEDS: ATORVASTATIN 40 MG TAB PO SCH (08:22)
[2017-05-19] MEDS: ISOSORBIDE MONONITRATE 30 MG TABCR PO SCH (08:23)
[2017-05-19] MEDS: FUROSEMIDE INJ 40 MG in SYRINGE 0 ML IV SCH ×2 (08:23→17:22)
[2017-05-19 08:49] LABS: CKMB/CK RATIO 1.8 (0-3.0)
[2017-05-19] MEDS ORDERED: POTASSIUM CHLORIDE 10 MEQ TABCR PO SCH (09:00)
[2017-05-19] MEDS ORDERED: NURSING VERBAL MED ORDER ONE (09:15)
[2017-05-19] MEDS ORDERED: PHARMACY GLYCEMIC MGMT CONSULT PRN (09:45)
--- NOTE | 2017-05-19 10:14 | Pharmacy Progress Note ---
Glycemic Control Intl Consult Date of Service May 19, 2017. Scope Glycemic Pharmacist consulted by Dr Holman on 05/19/17 for glycemic control and to write orders per [facility] inpatient glycemic control protocol Objective Weight (Kilograms): 131.700 Accuchecks BSG (last 24hrs): Test 05/18/17 14:30 05/18/17 18:09 05/18/17 20:17 05/19/17 05:49 Random Glucose 183 mg/dl (70-99) 109 mg/dl (70-99) Bedside Glucose 153 mg/dl (70-99) 176 mg/dl (70-99) Test 05/19/17 06:26 Bedside Glucose 114 mg/dl (70-99) Laboratory Data (last 24hrs) Test 05/18/17 14:30 05/19/17 05:49 Anion Gap 6.0 mmol/L 7.0 mmol/L BUN/Creatinine Ratio 14.8 17.2 Blood Urea Nitrogen 16 mg/dl 16 mg/dl Creatinine 1.10 mg/dl 0.95 mg/dl Potassium Level 3.5 mmol/L 3.7 mmol/L Sodium Level 137 mmol/L 139 mmol/L White Blood Count 7.95 K/uL 6.30 K/uL Red Blood Count 4.25 M/uL 3.87 M/uL Hemoglobin 13.7 g/dL 11.6 g/dL Hematocrit 40.6 % 36.9 % Mean Corpuscular Volume 95.5 fL 95.3 fL Mean Corpuscular Hemoglobin 32.2 pg 30.0 pg Mean Corpuscular Hemoglobin Concent 33.7 g/dl 31.4 g/dl Platelet Count 215 K/uL 194 K/uL Mean Platelet Volume 10.4 fL 10.1 fL Neutrophils (%) (Auto) 77.3 % 65.7 % Lymphocytes (%) (Auto) 13.6 % 21.6 % Monocytes (%) (Auto) 7.0 % 9.5 % Eosinophils (%) (Auto) 1.4 % 2.7 % Basophils (%) (Auto) 0.3 % 0.3 % Neutrophils # (Auto) 6.15 K/uL 4.14 K/uL Lymphocytes # (Auto) 1.08 K/uL 1.36 K/uL Monocytes # (Auto) 0.56 K/uL 0.60 K/uL Eosinophils # (Auto) 0.11 K/uL 0.17 K/uL Basophils # (Auto) 0.02 K/uL 0.02 K/uL Recent Pertinent Medications Outpatient Anti-diabetic Regimen: * Novolog 70/30 20 units qAM, 30-35 units qPM * A1c = 6.8 % 03/13/17 The patient is currently receiving: * Basal insulin: None - 70/30 has been ordered * Correctional Insulin: Novolog Correction per scale ACHS Goal Range: Low 100 mg/dL - High 150 mg/dL Correction Factor: 30 mg/dL/unit * Prandial insulin: Per carb ratio of 1 unit per 10 grams CHO consumed Risk Factors for Insulin Resistance: * Stress Assessment & Plan ASSESSMENT: * 71 y/o male admitted last evening with chest pain/acute CHF * Patient is well known to the pharmacy glycemic service from previous admissions * Outpatient regimen is premixed basal/prandial insulin of Novolog 70/30 mix insulin. * Pre-mixed insulin is difficult to titrate since it is already in a fixed distribution of basal:prandial insulin. Continuing pre-mixed insulin for admission typically lead to hypoglycemia d/t changing PO status but rapid acting insulin is unable to be held. * Home regimen will be held for admission per pharmacy consult. Will utilize recommended regimen of SQ basal bolus insulin regimen with Lantus + NovoLog (CF+ CR). From previous admission, patient was only on Lantus 10 units BID and BSGs were on the lower side so will start a slightly reduced regimen this admission, especially because BSGs are currently on the lower side. * ADA & AACE recommend a goal blood sugar range 140-180 mg/dl for the majority of critically ill & non-critically ill patients. However, more stringent targets may be selected in individual cases. Will utilize more stringent goal of 100-150 mg/dl based on patient age & comorbidities. PLAN FOR INPATIENT GLYCEMIC CONTROL: * D/C 70/30 mixed insulin * Start Lantus 9 units BID * Continue correction factor of 30 mg/dl/unit * Continue carb ratio of 1 unit per 10 grams CHO consumed * Continue goal range of Low 100 mg/dL - High 150 mg/dL DISCHARGE RECOMMENDATIONS: * Most recent A1c indicates excellent outpatient control * May resume outpatient regimen upon discharge - inpatient Lantus being dosed BID so this will provide an easy transition to outpatient 70/30 insulin Thank you.
[2017-05-19] MEDS: INSULIN GLARGINE SOLOSTAR 100 UNITS/ML 3 ML PEN SC SCH ×2 (11:53→20:37)
--- NOTE | 2017-05-19 12:54 | Clinical Documentation Query ---
CLINICAL DOCUMENTATION QUERY QUERY 1 OF 3 71-year-old male who presents emergency department with worsening chest discomfort and shortness of breath over the past week. In your clinical opinion is this patient being managed for: (x ) NSTEMI type II ( ) ischemic myocardial necrosis ( ) Not Agree ( ) Other explanation of clinical findings (Please Explain) ( ) Unable to determine (Please Define) ( ) Need to Discuss The medical record reflects the following clinical findings, treatment, and risk factors. Clinical Indicators: Elevated troponins, ECG changes, SOB, chest pain, CHF Treatment:O2, telemetry, plavix, lasix, nitro ointment, serial cardiac levels, echo, serial ECGs Risk Factors:Previous MIs, age, chronic CHF QUERY 2 OF 3 In your clinical opinion is this patient being managed for: (x ) Acute systolic CHF, ( ) Not Agree ( ) Other explanation of clinical findings (Please Explain) ( ) Unable to determine (Please Define) ( ) Need to Discuss The medical record reflects the following clinical findings, treatment, and risk factors. Clinical Indicators: Echo 03/14/17, Chest XR, lower leg edema SOB Treatment: Lasix, O2, I&O, Echo, serial labs Risk Factors:Age, Hx NM, Systolic/Diastolic CHF, HTN, QUERY 3 OF 3 In your clinical opinion is this patient being managed for: ( x) Morbid obesity BMI 40.5, ( ) Not Agree ( ) Other explanation of clinical findings (Please Explain) ( ) Unable to determine (Please Define) ( ) Need to Discuss The medical record reflects the following clinical findings, treatment, and risk factors. Clinical Indicators:As above Treatment:Diabetic diet, journeyman electrician consult Risk Factors: Caloric intake > caloric expenditure Please clarify and document your clinical opinion in the progress notes and discharge summary. Terms such as "probable", "suspected", "likely", "questionable", "possible", or "still to be ruled out" are acceptable. IF IN AGREEMENT, YOU MUST DOCUMENT ABOVE DIAGNOSTIC STATEMENT IN DAILY PROGRESS NOTES AND DISCHARGE SUMMARY. This document is not part of the patient's record. Thank You, Serena Conteh RN [phone]
[2017-05-19] MEDS ORDERED: MAGNESIUM SULFATE 1GM / D5W 1 GM in PREMIXED IN D5W 100 ML IV STA (13:26)
[2017-05-19] MEDS ORDERED: PERFLUTREN LIPID MICROSPHERE (DEFINITY) IV ONE (14:31)
[2017-05-19] MEDS: HEPARIN 25,000 UNIT/500ML D5W 500 ML IV PRN ×2 (14:50→19:12)
[2017-05-19 14:51] LABS: INR 1.1 (0.9-1.1); PARTIAL THROMBOPLASTIN RATIO 1.1; PROTHROMBIN TIME (PATIENT) 11.6 SECONDS (9.0-12.0)
[2017-05-19 15:01] LABS: C-REACTIVE PROTEIN 5.95 mg/dl (0-0.29); PHOSPHORUS 3.7 mg/dl (2.5-4.9); URIC ACID 6.7 mg/dl (2.6-7.2)
[2017-05-19] MEDS ORDERED: OPTIRAY 320 IV PRN (16:15)
--- NOTE | 2017-05-19 16:36 | ECHOCARDIOGRAM REPORT ---
*NOTICE TO RECEIVING CONSTITUTION PARTY AGENCY This information is strictly Confidential and protected under [place] law. [place] law prohibits you from making any further disclosure of this information unless further disclosure is expressly permitted by the written consent of the person to whom it pertains or is authorized by law. A general authorization for the release of medical or other information is not sufficient for this purpose. Hospital accepts no responsibility if the information is made available to any other person, INCLUDING THE PATIENT. Interpretation Summary * Name: NUVIA YAP Study Date: 05/19/2017 01:53 PM BP: 127/89 mmHg * Patient Location: 221 HR: 74 * : 1945 (M/d/yyyy) Gender: Male Height: 70 in * Age: 71 yrs Ethnicity: CA Weight: 279 lb * Ordering Physician: Kvng Heredia * Referring Physician: Self, Referred * Performed By: Stacey Clemente RDCS * * Reason For Study: NSTEMI * BSA: 2.4 m2 * Moderate left ventricular systolic dysfunction. * Severe left ventricular dilatation. * Type II left ventricular diastolic dysfunction. * Moderate left atrial dilatation. * Moderate mitral regurgitation. * Trace tricuspid regurgitation. * Estimated right ventricular systolic pressure is normal. * Compared to an echo of 03/14/17, there is no significant change in the LV function. The TR velocity has decreased. * -- Conclusions -- * Aortic valve sclerosis mild, without significant aortic valvular stenosis. Procedure Details * A contrast injection of Definity was performed to improve assessment of LV function. * Contrast was injected into an intravenous site in the left arm. * One vial of Definity ultrasound contrast was diluted in normal saline to a total volume of 10 ml. A total of '2' ml of solution was administered during imaging. * Lot # [id number] of Definity utilized for procedure. * Expiration date JUL 08. * The attending nurse who injected the contrast agent was DELORIS TEJEDA RN. Left Ventricle * The left ventricle is severely dilated. * There is no thrombus. * There is normal left ventricular wall thickness. * Ejection Fraction = 40-45%. * Left ventricular systolic function is moderately reduced. * A full diastolic examination was done with clinical findings of Class II diastolic dysfunction. * Posterior severe hypokinesis to akinesis,severe inferior hypokinesis, hypokinesis in other LV segments. * Septal motion is consistent with conduction abnormality. Right Ventricle * The right ventricle is normal size. * The right ventricular systolic function is normal as assessed by tricuspid annular plane systolic excursion (TAPSE) (normal >1.5 cm). Atria * The left atrium is moderately dilated. * Right atrial size is normal. * No ASD detected; PFO is not assessed. Mitral Valve * There is moderate mitral annular calcification. * There is no mitral valve stenosis. * There is moderate mitral regurgitation. Tricuspid Valve * The tricuspid valve is not well visualized, but is grossly normal. * There is no tricuspid stenosis. * There is trace tricuspid regurgitation. * Right ventricular systolic pressure is normal. Aortic Valve * The aortic valve is trileaflet. * The aortic valve opens well. * Aortic valve sclerosis mild, without significant aortic valvular stenosis. * Aortic stenosis is absent. * No aortic regurgitation is present. Pulmonic Valve * The pulmonic valve is not well visualized. * The pulmonary valve is inadequately visualized, but the Doppler data is adequate for interpretation. * There is no pulmonic valvular stenosis. * There is no pulmonic valvular regurgitation. Great Vessels * The aortic root is normal size. Pericardium/Pleural * There is no pericardial effusion. Great Vessels * Normal inferior vena cava diameter and respiratory variation suggests normal central venous pressure. MMode 2D Measurements and Calculations IVSd 1.1 cm LVIDd 7.3 cm LVIDs 6.2 cm LVPWd 1.1 cm IVS/LVPW 0.98 FS 14.7 % EDV(Teich) 281.7 ml ESV(Teich) 196.5 ml EF(Teich) 30.2 % EDV(cubed) 390.8 ml ESV(cubed) 242.5 ml EF(cubed) 38.0 % LV mass(C)d 384.0 grams LV mass(C)dI 159.7 grams/m\S\2 SV(Teich) 85.1 ml SI(Teich) 35.4 ml/m\S\2 SV(cubed) 148.3 ml SI(cubed) 61.7 ml/m\S\2 Ao root diam 3.1 cm Ao root area 7.4 cm\S\2 LA dimension 5.1 cm LA/Ao 1.7 LVAd ap4 57.2 cm\S\2 LVLd ap4 9.7 cm EDV(MOD-sp4) 273.0 ml LVAs ap4 41.8 cm\S\2 LVLs ap4 9.5 cm ESV(MOD-sp4) 151.0 ml EF(MOD-sp4) 44.7 % LVAd ap2 57.0 cm\S\2 LVLd ap2 10.0 cm EDV(MOD-sp2) 275.0 ml LVAs ap2 40.8 cm\S\2 LVLs ap2 9.2 cm ESV(MOD-sp2) 153.0 ml EF(MOD-sp2) 44.4 % SV(MOD-sp4) 122.0 ml SI(MOD-sp4) 50.7 ml/m\S\2 SV(MOD-sp2) 122.0 ml SI(MOD-sp2) 50.7 ml/m\S\2 Doppler Measurements and Calculations MV E max missy 77.5 cm/sec MV A max missy 61.2 cm/sec MV E/A 1.3 MV dec time 0.23 sec Ao V2 max 154.2 cm/sec Ao max PG 9.5 mmHg Ao max PG (full) 6.6 mmHg Ao V2 mean 104.3 cm/sec Ao mean PG 4.9 mmHg Ao mean PG (full) 3.4 mmHg Ao V2 VTI 28.3 cm LV V1 max PG 2.9 mmHg LV V1 mean PG 1.4 mmHg LV V1 max 85.4 cm/sec LV V1 mean 55.4 cm/sec LV V1 VTI 16.4 cm MR max missy 504.5 cm/sec MR max PG 101.8 mmHg MR mean missy 338.9 cm/sec MR mean PG 53.3 mmHg MR VTI 164.7 cm SV(Ao) 208.7 ml SI(Ao) 86.8 ml/m\S\2 TR max missy 170.5 cm/sec
--- NOTE | 2017-05-19 16:40 | Cardiology Consultation ---
Cardiology Consultation Date of Consultation: May 19, 2017. Requesting Physician: Manda Reason for Consultation: Chest Pain History of Present Illness Patient is a 71-year-old gentleman with a history of extensive cardiac disease to include coronary artery disease and congestive heart failure who has been experiencing progressive dyspnea. This has occurred over the past several days and become markedly worse over the past 24 hours. This was associated with some lower extremity edema worsening in the right leg as well as a sense of chest pressure. Patient states the chest pressure feels as if he swallowed an apple and was stuck in his chest. This been present now for several days. He also admits to poor compliance with his diuretic dosing. He has reduced his diuretic dosing over this period of time. He does tend to monitor his weights but has not weighed himself in the past weekend. He denies any dietary indiscretion. He has not had worsening orthopnea but generally sleeps on 1-2 pillows. He has some discomfort in the right lower extremity. He denies any recent palpitations. He has not experienced any new lightheadedness but does have some symptoms when arising from bed or chair quickly. He has not experienced any syncopal episodes. In general the patient is fairly sedentary. He states that he does little activity due to lassitude and lack of interest. He does not generally have dyspnea and is not limited by dyspnea. He has not had any recent exertional chest discomfort. He denies any pain in his lower extremities prior to his recent admission. Past Medical/Surgical History Acute coronary syndrome November 2011 resulting in stenting of the distal LAD. Repeat catheterization 2012 demonstrated subtotal occlusion of a codominant left circumflex. Seventy ascend proximal LAD and distal PDA stenosis. Nuclear stress test performed in 06/2016 revealed completed inferior infarction without wen-infarct ischemia. Non ST-elevation myocardial infarction 09/2016. Ischemic cardiomyopathy with last ejection fraction estimated at 40-45 percent Left bundle branch block Diabetes mellitus Hyperlipidemia Perirectal abscess and fistula Hypertension Past surgical history I and D of perirectal abscess Tonsillectomy Upper repair of leg fracture Family History FH: HTN (hypertension) FH: cancer FH: diabetes mellitus FH: gallbladder disease FH: heart disease FH: kidney disease Noncontributory Social History Smoking Status: Former Smoker History of Alcohol Use: No Currently lives with his locally Review of Systems Constitutional: + see HPI Respiratory: + see HPI Cardiac: + see HPI Abdomen: + see HPI Male : + see HPI Neurologic: + see HPI Heme: + see HPI Endo: + see HPI Skin: + see HPI He states that he has reduced his overall food intake. He has affected a significant weight loss over the past year. All Other Systems: Reviewed and Negative Allergies Coded Allergies: Morphine (Unverified Adverse Reaction, Intermediate, "DOESN'T WORK & MAKES ME FEEL BLAH", 05/18/17) Medications Current Inpatient Medications Medications (Trade) Dose Ordered Sig/Aditi Route Start Time Stop Time Status Last Admin Dose Admin Acetaminophen (Tylenol Tab) 650 mg Q4H PRN PO 05/18/17 16:15 06/17/17 16:14 Nitroglycerin (Nitrostat Tab) 0.4 mg UD PRN SL 05/18/17 16:15 06/17/17 16:14 Aspirin (Ecotrin Tab) 325 mg DAILY PO 05/19/17 09:00 06/18/17 08:59 05/19/17 08:22 325 MG Atorvastatin Calcium (Lipitor Tab) 80 mg DAILY PO 05/19/17 09:00 06/18/17 08:59 05/19/17 08:22 80 MG Citalopram Hydrobromide (celeXA TAB) 20 mg DAILY PO 05/19/17 09:00 06/18/17 08:59 05/19/17 08:22 20 MG Clopidogrel Bisulfate (plAVix TAB) 75 mg QAM PO 05/19/17 09:00 06/18/17 08:59 05/19/17 08:22 75 MG Cyclobenzaprine HCl (Flexeril Tab) 10 mg TID PO 05/18/17 21:00 06/17/17 20:59 05/19/17 14:48 10 MG Acetaminophen/ Hydrocodone Bitart ([place] 5/325 Tab) 1 tab Q6H PRN PO 05/18/17 16:15 06/01/17 16:14 05/19/17 10:39 1 TAB Isosorbide Mononitrate (Imdur Ext Rel Tab) 30 mg QAM PO 05/19/17 09:00 06/18/17 08:59 05/19/17 08:23 30 MG Levalbuterol (Xopenex Hfa Inhaler) 2 puffs Q6H PRN INH 05/18/17 16:15 06/17/17 16:14 Losartan Potassium (coZAAR TAB) 50 mg DAILY PO 05/19/17 09:00 06/18/17 08:59 05/19/17 08:21 50 MG Magnesium Oxide (Mag-Ox Tab) 400 mg DAILY PO 05/19/17 09:00 06/18/17 08:59 05/19/17 08:21 400 MG Metoprolol Succinate (Toprol Xl Tab) 75 mg DAILY PO 05/19/17 09:00 06/18/17 08:59 05/19/17 08:20 75 MG Ropinirole HCl (Requip Tab) 1 mg HS PO 05/18/17 21:00 06/17/17 20:59 05/19/17 00:11 1 MG Senna (Senokot Tab) 8.6 mg DAILY PO 05/19/17 09:00 06/18/17 08:59 05/19/17 08:21 8.6 MG Tramadol HCl (Ultram Tab) 50 mg Q6H PRN PO 05/18/17 16:15 06/17/17 16:14 05/18/17 22:24 50 MG Zolpidem Tartrate (Ambien Tab) 10 mg HS PRN PO 05/18/17 21:00 06/17/17 20:59 Ondansetron HCl (Zofran Inj) 4 mg Q6H PRN IV 05/18/17 16:15 06/17/17 16:14 Insulin Aspart (novoLOG ASPART) SLIDING SCALE If C... ACHS SC 05/18/17 21:30 06/17/17 21:29 05/19/17 11:53 2 UNITS Glucose (Glucose 40% Gel) UD PRN PO 05/18/17 16:15 06/17/17 16:14 Glucose (Glucose Chew Tab) 1 tabs UD PRN PO 05/18/17 16:15 06/17/17 16:14 Dextrose (Dextrose 50% 50ML Syringe) 50 ml UD PRN IV 05/18/17 16:15 06/17/17 16:14 Glucagon (Glucagon Inj) 1 mg UD PRN SQ 05/18/17 16:15 06/17/17 16:14 Nitroglycerin (Nitroglycerin 2% Oint) 1 inch Q6 EXT 05/18/17 22:00 06/17/17 21:59 05/19/17 11:55 1 INCH Furosemide 40 mg/ Syringe 4 ml @ 4 mls/min BID17 IV 05/18/17 21:00 06/17/17 20:59 05/19/17 08:23 4 MLS/MIN Potassium Chloride (Klor-Con Tab) 40 meq BID17 PO 05/18/17 21:30 06/17/17 21:29 05/19/17 08:20 40 MEQ Lorazepam (Ativan Tab) 1 mg PM PO 05/19/17 21:00 06/18/17 20:59 Miscellaneous Information (Consult Glycemic Management Pharmacy) 1 ea UD PRN N/A 05/19/17 09:45 06/18/17 09:44 Insulin Glargine (Lantus Solostar Pen) 9 units BID SC 05/19/17 11:00 06/18/17 10:59 05/19/17 11:53 9 UNITS Heparin Sodium/ Dextrose 500 ml @ 35 mls/hr [id number] PRN IV 05/19/17 14:00 06/18/17 13:59 05/19/17 14:50 35 MLS/HR Ioversol (Optiray 320) 111 ml UD PRN IV 05/19/17 16:15 05/23/17 16:14 Physical Exam Vital Signs Past 12 Hours Date Time Temp Pulse Resp B/P (MAP) Pulse Ox O2 Delivery O2 Flow Rate FiO2 05/19/17 15:18 37.1 69 18 110/67 (81) 92 Room Air 05/19/17 14:34 125 16 127/89 (102) 90 05/19/17 14:21 90 16 127/89 (102) 94 05/19/17 14:04 127 20 132/83 (99) 96 05/19/17 13:49 124 16 148/91 (110) 96 05/19/17 13:31 86 16 92 05/19/17 13:21 82 16 132/82 (99) 96 05/19/17 12:00 Room Air 05/19/17 11:50 36.8 86 18 132/69 (90) 97 05/19/17 08:00 Nasal Cannula 2.0 05/19/17 07:44 36.8 79 18 126/63 (84) 95 05/19/17 06:44 123/70 (87) 05/19/17 05:46 67 123/70 (87) The patient is alert and oriented. Mood and affect appeared normal. He answered all questions appropriately. HEENT: Pupils are equal and reactive to light and accommodation. Extraocular movements are intact. The sclerae are anicteric. Neuro: Cranial nerves intact Neck: Patient's neck is supple. He has palpable carotid pulses bilaterally without bruits on auscultation. There is no evidence of jugular venous distention. The thyroid is not enlarged. Lungs: Bibasilar rales. He has good air movement without use of accessory muscles. No wheezes or rhonchi. Cardiac: Heart demonstrates a regular rate and rhythm. Normal S1 and S2. No murmurs on examination. Pulses: The patient has palpable radial pulses bilaterally that are equal in intensity Extremities: There was no evidence of hypoperfusion. There is no cyanosis or clubbing. There is mild peripheral edema on the left lower extremity with moderate peripheral edema noted on the right lower extremity. There is also a brawny erythematous rash noted on the right lower extremity.. Skin: I did not appreciate any other rashes on examination today. Data Laboratory Results: Last 24 Hours Test 05/18/17 16:36 05/18/17 18:09 05/18/17 20:17 05/19/17 00:13 Uric Acid 5.8 mg/dl Total Creatine Kinase 33 U/L 38 U/L Creatine Kinase MB 0.6 ng/ml 0.8 ng/ml Creatine Kinase MB Ratio 1.8 2.1 Troponin I 0.199 ng/ml 0.228 ng/ml Bedside Glucose 153 mg/dl 176 mg/dl Test 05/19/17 05:49 05/19/17 06:26 05/19/17 08:07 05/19/17 11:14 White Blood Count 6.30 K/uL Red Blood Count 3.87 M/uL Hemoglobin 11.6 g/dL Hematocrit 36.9 % Mean Corpuscular Volume 95.3 fL Mean Corpuscular Hemoglobin 30.0 pg Mean Corpuscular Hemoglobin Concent 31.4 g/dl Platelet Count 194 K/uL Mean Platelet Volume 10.1 fL Neutrophils (%) (Auto) 65.7 % Lymphocytes (%) (Auto) 21.6 % Monocytes (%) (Auto) 9.5 % Eosinophils (%) (Auto) 2.7 % Basophils (%) (Auto) 0.3 % Neutrophils # (Auto) 4.14 K/uL Lymphocytes # (Auto) 1.36 K/uL Monocytes # (Auto) 0.60 K/uL Eosinophils # (Auto) 0.17 K/uL Basophils # (Auto) 0.02 K/uL RDW Standard Deviation 45.9 fL RDW Coefficient of Variation 13.1 % Immature Granulocyte % (Auto) 0.2 % Immature Granulocyte # (Auto) 0.01 K/uL Sodium Level 139 mmol/L Potassium Level 3.7 mmol/L Chloride Level 101 mmol/L Carbon Dioxide Level 31 mmol/L Anion Gap 7.0 mmol/L Blood Urea Nitrogen 16 mg/dl Creatinine 0.95 mg/dl Est Creatinine Clear Calc Drug Dose 97.3 ml/min Estimated GFR () 92.3 Estimated GFR (Non- 79.7 BUN/Creatinine Ratio 17.2 Random Glucose 109 mg/dl Calcium Level 8.9 mg/dl Magnesium Level 1.5 mg/dl Bedside Glucose 114 mg/dl 129 mg/dl Total Creatine Kinase 34 U/L Creatine Kinase MB 0.6 ng/ml Creatine Kinase MB Ratio 1.8 Troponin I 0.223 ng/ml Test 05/19/17 14:34 05/19/17 16:06 Erythrocyte Sedimentation Rate 39 mm/hr Prothrombin Time 11.6 SECONDS Prothromb Time International Ratio 1.1 Activated Partial Thromboplast Time 28.7 SECONDS Partial Thromboplastin Ratio 1.1 D-Dimer 2080 ug/L FEU Uric Acid 6.7 mg/dl Phosphorus Level 3.7 mg/dl C-Reactive Protein 5.95 mg/dl Bedside Glucose 153 mg/dl Imaging: Chest x-ray demonstrated an element of pulmonary vascular congestion Lower extremity venous duplex study did not demonstrate DVT in the right lower extremity EKG: Left bundle branch block Telemetry reviewed: No significant arrhythmia Assessment & Plan 1. Chest pain: Patient's chest pain is likely related to his pulmonary vascular congestion. He does have significant coronary artery disease and would be likely to have angina under some circumstances, but the prolonged nature of his discomfort as well as the associated weight gain and pulmonary vascular congestion unlikely the etiology. While his cardiac biomarkers are elevated the trajectory is relatively flattened actually they are lower than troponins measured several months ago during a prior hospitalization. At this point I do not think is necessary to treat him for an acute coronary syndrome. Hopefully with effective diuresis he will have some resolution in his discomfort. 2. Acute decompensated systolic heart failure: Patient does have an element of pulmonary vascular congestion is noted to have reduced LV systolic function. He has been noncompliant with his diuretic therapy and likely has both pulmonary and peripheral edema as result. Reinstitution of diuretic therapy should resolve his symptoms and pulmonary vascular congestion. This artery been initiated by the primary service. Patient is on a good medical regimen to consist of an AVINASH-inhibitor and beta-arlene as well as diuretic as an outpatient. 3. Coronary artery disease: The patient is known to have severe coronary artery disease that in the past was not felt to be ideal for percutaneous intervention. He has several chronic occlusions and did not have any ischemia on perfusion imaging performed recently. I do not feel that his current chest pain is anginal in nature. He generally does not appear to be limited by angina or chest pain. Given his known anatomy and the absence of worsening symptoms would seem reasonable to continue with conservative therapy. 4. Ischemic cardiomyopathy: Patient does have reduced LV systolic function appears to be stable based on echocardiogram obtained today. It is possible that with successful revascularization he would have improvement in his LV function and reduce risk of recurrent heart failure. However, adequate revascularization may be difficult to percutaneously and at this point repeat evaluation has been deferred. He will be continued on his current beta-arlene and AVINASH-inhibitor. The degree of LV dysfunction is not severe enough to warrant prophylactic ICD. 5. Left bundle-branch block: Chronic.
--- NOTE | 2017-05-19 16:49 | DIAGNOSTIC IMAGING REPORT ---
CT ANGIOGRAM OF THE CHEST CLINICAL HISTORY: Atypical chest pain. Elevated d-dimer. COMPARISON STUDY: 09/02/2015 , chest x-ray dated 05/18/2017 TECHNIQUE: Following the IV administration of 111 mL of Optiray-320, CT angiogram of the thorax was performed from the thoracic inlet to the lung bases utilizing the pulmonary embolus protocol. Images are reviewed in the axial, sagittal, and coronal planes. IV contrast was administered without complication. MIP imaging was performed. A dose lowering technique was utilized adhering to the principles of ALARA. CT DOSE: 555.28 mGycm FINDINGS: No pathologically enlarged axillary mediastinal or hilar lymph nodes were visualized. There was no evidence of thoracic aortic dilatation. There are no pulmonary artery filling defects on the left. There is diminished enhancement within the right lower lobe pulmonary artery centrally. This likely represents flow artifact. This finding was reviewed with a fellow radiologist to concurs. Correlation with serial leg ultrasonography could be obtained in follow-up if there is a strong clinical suspicion over the presence of acute pulmonary embolism. There is a moderate to large right pleural effusion, and small left pleural effusion. Right lower lobe airspace opacities, likely represent round atelectasis. Compressive atelectatic changes are also present within the right middle lobe. There is ankylosis the dorsal spine. IMPRESSION: 1. Moderate to large right pleural effusion and small left pleural effusion 2. Right lung airspace opacities likely atelectatic 3. Diminished enhancement within the right lower lobe pulmonary artery centrally. This likely represents flow artifact. Correlation with serial leg ultrasonography could be obtained in follow-up. Electronically signed by: Chad Moulton M.D. 05/19/2017 4:47 PM Dictated Date/Time: 05/19/2017 4:40 PM
--- NOTE | 2017-05-19 17:32 | Progress Note ---
Subjective Date of Service: May 19, 2017. Subjective Pt evaluation today including: conversation w/ patient, conversation w/ family , physical exam, chart review, lab review, review of studies, conversation w/ store consultant, review of inpatient medication list Feeling tired, however no chest pain, no shortness of breath, lower ankle areas has some pain and mild swollen Problem List Medical Problems: (1) Abscess, gluteal, left Status: Chronic (2) Acute coronary syndrome Status: Acute (3) CHF (congestive heart failure) Status: Acute (4) CHF (congestive heart failure) Status: Acute (5) Elevated troponin Status: Acute (6) Elevated troponin Status: Acute (7) Fall Status: Acute (8) Fever Status: Acute (9) Hypertensive urgency Status: Acute (10) Multiple rib fractures Status: Chronic (11) Perianal abscess Status: Acute (12) Pleural effusion Status: Acute (13) Pleural effusion Status: Acute (14) Pleural effusion, right Status: Acute (15) Pneumonia Status: Chronic (16) Precordial chest pain Status: Acute (17) Precordial chest pain Status: Acute (18) Pulmonary edema Status: Acute (19) Shortness of breath Status: Acute Review of Systems Constitutional: + weakness, + fatigue, No fever, No chills, No sweats, No weight loss, No problem reported Eyes: No worsening of vision, No eye pain, No redness, No discharge, No diplopia ENT: No hearing loss, No unusual epistaxis, No nasal symptoms, No sore throat, No tinnitus, No dental problems, No trouble swallowing Respiratory: No cough, No sputum, No wheezing, No shortness of breath, No dyspnea on exertion, No dyspnea at rest, No hemoptysis Cardiac: No chest pain, No orthopnea, No PND, No edema, No claudication, No palpitations Abdomen: No pain, No nausea, No vomiting, No diarrhea, No constipation Musculoskeletal: + joint pain, + swelling, No muscle pain, No calf pain Male : No dysuria, No urinary frequency, No incontinence, No nocturia more than once/night, No slowing stream, No hematuria Neurologic: No memory loss, No paralysis, No weakness, No numbness/tingling, No vertigo, No balance problems Psychiatric: No depression symptoms, No anhedonism, No anxiety, No insomnia, No substance abuse Heme: No abnormal bleeding/bruising, No clotting problems, No swollen lymph nodes, No night sweats Endo: No fatigue, No excessive thirst, No excessive urination Skin: No rash, No itch, No new/changing skin lesions, No color change, No bleeding Objective Vital Signs Date Time Temp Pulse Resp B/P (MAP) Pulse Ox O2 Delivery O2 Flow Rate FiO2 05/19/17 16:00 Room Air 05/19/17 15:18 37.1 69 18 110/67 (81) 92 Room Air 05/19/17 14:34 125 16 127/89 (102) 90 05/19/17 14:21 90 16 127/89 (102) 94 05/19/17 14:04 127 20 132/83 (99) 96 05/19/17 13:49 124 16 148/91 (110) 96 05/19/17 13:31 86 16 92 05/19/17 13:21 82 16 132/82 (99) 96 05/19/17 12:00 Room Air 05/19/17 11:50 36.8 86 18 132/69 (90) 97 05/19/17 08:00 Nasal Cannula 2.0 05/19/17 07:44 36.8 79 18 126/63 (84) 95 05/19/17 06:44 123/70 (87) 05/19/17 05:46 67 123/70 (87) 05/19/17 04:00 98 Nasal Cannula 3.0 05/19/17 03:26 36.4 70 22 116/60 (78) 98 Nasal Cannula 3.0 05/19/17 00:00 37.3 73 20 148/82 (104) 98 Nasal Cannula 3.0 05/18/17 23:59 93 Room Air 05/18/17 20:00 93 Room Air 05/18/17 19:37 37.1 73 20 145/82 (103) 96 Nasal Cannula 2.0 05/18/17 17:55 36.6 81 16 159/81 (107) 98 Nasal Cannula 3.0 Physical Exam General Appearance: WD/WN, no apparent distress, + obese Eyes: normal inspection, PERRL, EOMI, sclerae normal ENT: normal ENT inspection, hearing grossly normal, pharynx normal Neck: supple, no adenopathy, thyroid normal, no JVD, no carotid bruits, trachea midline Respiratory/Chest: chest non-tender, normal breath sounds, no respiratory distress, no accessory muscle use, + decreased breath sounds Cardiovascular: regular rate, rhythm, no edema, no gallop, no JVD, no murmur Abdomen: normal bowel sounds, non tender, soft, no organomegaly, no pulsatile mass Extremities: normal range of motion, non-tender, normal inspection, no pedal edema, no calf tenderness, normal capillary refill, pelvis stable Neurologic/Psychiatric: mobile product manager II-XII nml as tested, no motor/sensory deficits, alert, normal mood/affect, oriented x 3 Skin: normal color, warm/dry, + pertinent finding (right ankle area, minimal red mild swollen) Lymphatic: no adenopathy Laboratory Results Last 24 Hours Test 05/18/17 18:09 05/18/17 20:17 05/19/17 00:13 05/19/17 05:49 Bedside Glucose 153 mg/dl 176 mg/dl Total Creatine Kinase 38 U/L Creatine Kinase MB 0.8 ng/ml Creatine Kinase MB Ratio 2.1 Troponin I 0.228 ng/ml White Blood Count 6.30 K/uL Red Blood Count 3.87 M/uL Hemoglobin 11.6 g/dL Hematocrit 36.9 % Mean Corpuscular Volume 95.3 fL Mean Corpuscular Hemoglobin 30.0 pg Mean Corpuscular Hemoglobin Concent 31.4 g/dl Platelet Count 194 K/uL Mean Platelet Volume 10.1 fL Neutrophils (%) (Auto) 65.7 % Lymphocytes (%) (Auto) 21.6 % Monocytes (%) (Auto) 9.5 % Eosinophils (%) (Auto) 2.7 % Basophils (%) (Auto) 0.3 % Neutrophils # (Auto) 4.14 K/uL Lymphocytes # (Auto) 1.36 K/uL Monocytes # (Auto) 0.60 K/uL Eosinophils # (Auto) 0.17 K/uL Basophils # (Auto) 0.02 K/uL RDW Standard Deviation 45.9 fL RDW Coefficient of Variation 13.1 % Immature Granulocyte % (Auto) 0.2 % Immature Granulocyte # (Auto) 0.01 K/uL Sodium Level 139 mmol/L Potassium Level 3.7 mmol/L Chloride Level 101 mmol/L Carbon Dioxide Level 31 mmol/L Anion Gap 7.0 mmol/L Blood Urea Nitrogen 16 mg/dl Creatinine 0.95 mg/dl Est Creatinine Clear Calc Drug Dose 97.3 ml/min Estimated GFR () 92.3 Estimated GFR (Non- 79.7 BUN/Creatinine Ratio 17.2 Random Glucose 109 mg/dl Calcium Level 8.9 mg/dl Magnesium Level 1.5 mg/dl Test 05/19/17 06:26 05/19/17 08:07 05/19/17 11:14 05/19/17 14:34 Bedside Glucose 114 mg/dl 129 mg/dl Total Creatine Kinase 34 U/L Creatine Kinase MB 0.6 ng/ml Creatine Kinase MB Ratio 1.8 Troponin I 0.223 ng/ml Erythrocyte Sedimentation Rate 39 mm/hr Prothrombin Time 11.6 SECONDS Prothromb Time International Ratio 1.1 Activated Partial Thromboplast Time 28.7 SECONDS Partial Thromboplastin Ratio 1.1 D-Dimer 2080 ug/L FEU Uric Acid 6.7 mg/dl Phosphorus Level 3.7 mg/dl C-Reactive Protein 5.95 mg/dl Test 05/19/17 16:06 Bedside Glucose 153 mg/dl Assessment and Plan 71-year-old was admitted on 05/18/2017 cause of Precordial chest pain/and difficult breathing with acute CHF , was phoned has an elevated troponin and pleural effusion Chest pain was difficult breathing, and elevated troponin and pleural effusion Was found in the right d-dimer as well more than 2000 Differential diagnosis include acute PE, chest CT and right lower extremity ultrasound was done, no us no obvious DVT or PE However chest CT with contrast seems not straightforward, with the pleural effusion Because of elevated troponin, with normal renal function, with history of acute [place] and chest pain I start heparin drip, request cardiology consult, I will request optometry teacher consulted as well because of unsure about PE are not, and pleural effusion Continue telemetry Chest CT with contrast was done, report in below: 1. Moderate to large right pleural effusion and small left pleural effusion 2. Right lung airspace opacities likely atelectatic 3. Diminished enhancement within the right lower lobe pulmonary artery centrally. This likely represents flow artifact. Correlation with serial leg ultrasonography could be obtained in follow-up. 2-D echocardiogram with Dopplers. was done: reported in below: tolic dysfunction. * Severe left ventricular dilatation. * Type II left ventricular diastolic dysfunction. * Moderate left atrial dilatation. * Moderate mitral regurgitation. * Trace tricuspid regurgitation. * Estimated right ventricular systolic pressure is normal. * Compared to an echo of 03/14/17, there is no significant change in the LV function. The TR velocity has decreased. Continue mg IV twice a day and potassium chloride 40 mEq by mouth twice a day. Continue clopidogrel 75 mg by mouth every morning Continue isosorbide mononitrate ER daily Continue lisinopril 5 mg by mouth every morning Continue metoprolol succinate 100 mg by mouth daily. Diabetes mellitus--continue NovoLog Mix 70/30, 20 units subcutaneous every morning and 30 minutes subcutaneous every evening. Place on Accu-Cheks before meals and at bedtime with NovoLog coverage per scale Right ankle pain and swollen, mild, uric acid was normal will watch, and Tylenol as needed Restless leg syndrome--continue ropinirole 1 mg by mouth at bedtime. Insomnia--lorazepam 1 mg by mouth at bedtime and zolpidem tartrate 2 tablets by mouth at bedtime Hyperlipidemia--continue atorvastatin 40 mg by mouth every morning. GI, DVT prophylaxis is covered Discussed with patient and about the care, answered all the questions Continued [facility] stay due to: multiple IV medications needed Discharge planning: home
[2017-05-19 22:32] LABS: PARTIAL THROMBOPLASTIN RATIO 2.2
[2017-05-19] MEDS: ZOLPIDEM TARTRATE 10 MG TAB PO PRN (23:36)
[2017-05-20] VITALS (8 sets, daily range): BP systolic 114–148; BP diastolic 63–80; PULSE 64–79; TEMP 36.4–37.1; O2SAT 91–96
[2017-05-20] MEDS: HEPARIN 25,000 UNIT/500ML D5W 500 ML IV PRN ×2 (04:54→09:10)
[2017-05-20] MEDS: NITROGLYCERIN OINT 2% 1GM PACKET EXT SCH ×4 (05:47→23:54)
[2017-05-20 07:21] LABS: BASO % 0.2 %; BASO ABS # 0.01 K/uL (0-0.2); COMPLETE YES; EOS % 3.6 %; HEMATOCRIT 37.1 % (42-52); IG% 0.2 %; LYMPH % 25.5 %; LYMPH ABS # 1.56 K/uL (1.2-3.4); MEAN CELL VOLUME 95.6 fL (80-100); MEAN CORPUSCULAR HEMOGLOBIN 31.7 pg (25-34); MEAN CORPUSCULAR HGB CONC 33.2 g/dl (32-36); MONO % 8.3 %; NEUT % 62.2 %; PLATELET COUNT 192 K/uL (130-400); RED BLOOD COUNT 3.88 M/uL (4.7-6.1); WHITE BLOOD COUNT 6.11 K/uL (4.8-10.8)
[2017-05-20 07:43] LABS: PARTIAL THROMBOPLASTIN RATIO 2.8
[2017-05-20] MEDS: CITALOPRAM 20 MG TAB PO SCH (07:45)
[2017-05-20] MEDS: CYCLOBENZAPRINE HCL 10 MG TAB PO SCH ×3 (07:46→20:03)
[2017-05-20] MEDS: ASPIRIN 325 MG ECTAB PO SCH (07:46)
[2017-05-20] MEDS: ISOSORBIDE MONONITRATE 30 MG TABCR PO SCH (07:46)
[2017-05-20] MEDS: LOSARTAN POTASSIUM 50 MG TAB PO SCH (07:46)
[2017-05-20] MEDS: CLOPIDOGREL BISULFATE 75 MG TAB PO SCH (07:47)
[2017-05-20] MEDS: SENNA 8.6 MG TAB PO SCH (07:47)
[2017-05-20] MEDS: ATORVASTATIN 40 MG TAB PO SCH (07:47)
[2017-05-20] MEDS: METOPROLOL SUCC 25MG EXT REL TAB PO SCH (07:47)
[2017-05-20] MEDS: POTASSIUM CHLORIDE 20 MEQ TABCR PO SCH ×2 (07:47→16:51)
[2017-05-20] MEDS: MAGNESIUM OXIDE 400 MG TAB PO SCH (07:47)
[2017-05-20] MEDS: INSULIN GLARGINE SOLOSTAR 100 UNITS/ML 3 ML PEN SC SCH ×2 (07:51→20:18)
[2017-05-20] MEDS: INSULIN ASPART 100 UNITS/ML 3 ML PEN SC SCH ×4 (07:52→20:13)
[2017-05-20] MEDS: FUROSEMIDE INJ 40 MG in SYRINGE 0 ML IV SCH ×2 (07:53→16:51)
[2017-05-20 08:02] LABS: BUN/CREATININE RATIO 19.1 (10-20); CALCIUM 8.9 mg/dl (8.5-10.1); MAGNESIUM 1.7 mg/dl (1.8-2.4); PHOSPHORUS 3.4 mg/dl (2.5-4.9); POTASSIUM 3.8 mmol/L (3.5-5.1)
--- NOTE | 2017-05-20 09:50 | Procedure Note ---
Procedure Note Date of Service May 20, 2017. Procedure Note Procedures: Right sided Thoracentesis Consent: obtained via the patient and placed into the chart Pre-Procedural Dx: Right-sided pleural effusion Post-Procedural Dx: Right-sided loculated pleural effusion Analgesia: 8cc of 1% Liquid Lidocaine Procedure: The patient was placed in an upright position and thoracic US was used to select a spot for the procedure. A spot along the posterior axillary line was marked in the 7th intercostal space. The patient was then draped and prepped in a sterile fashion. A modified Seldinger technique was then used for catheter placement. 1250 ml of yellow colored fluid was obtained. The patient was then cleaned and placed at a 60 degree angle in the bed were the US was used to evaluate for possible pneumothorax. The US showed good lung sliding and [place] signs. Post procedure chest x-ray was ordered. EBL: none Complications: none
--- NOTE | 2017-05-20 09:58 | DIAGNOSTIC IMAGING REPORT ---
CHEST ONE VIEW PORTABLE HISTORY: 71 years-old Male s/p thoracentesis COMPARISON: Portable chest radiograph 05/18/2017, CTA chest 05/19/2017 TECHNIQUE: Portable upright AP view of the chest. FINDINGS: Moderate to markedly enlarged cardiac silhouette is again seen. There is mildly decreased size of the previously noted right pleural effusion, now moderate in size. No evidence of postprocedural pneumothorax. Trace left pleural effusion is noted with right greater than left somewhat linear bibasilar opacities suggesting atelectasis. The bones are grossly intact. Patient obesity noted. IMPRESSION: 1. Slightly decreased size of the right pleural effusion, now moderate in size without postprocedural pneumothorax identified. 2. Cardiomegaly with trace pleural effusion and bibasilar opacities, right greater than left again suggesting atelectasis. The above report was generated using voice recognition software. It may contain grammatical, syntax or spelling errors. Electronically signed by: Dario Florian M.D. 05/20/2017 9:57 AM Dictated Date/Time: 05/20/2017 9:54 AM
[2017-05-20 10:59] LABS: PLEURAL FLUID TOTAL PROTEIN 2.5 g/dl
--- NOTE | 2017-05-20 11:12 | Pharmacy Progress Note ---
Glycemic: Assessment & Plan Date of Service May 20, 2017. Assessment & Plan The patient is currently receiving ~30 units of insulin per day. BSGs ranging 106 - 153 mg/dl over the past 24hrs. * Basal insulin: Lantus 9 units every 12 hours * Correctional Insulin: Novolog Correction per scale ACHS Goal Range: Low 100 mg/dL - High 150 mg/dL Correction Factor: 30 mg/dL/unit * Prandial insulin: Per carb ratio of 1 unit per 10 grams CHO consumed BSGs continue to improve, no changes needed to inpatient regimen at this time. Pharmacy will continue to monitor patient daily and write orders per [facility] inpatient glycemic control protocol. Thanks. * Please note that the plan above was derived based on current level of insulin resistance and hospital stress. These recommendations are appropriate for inpatient admission only. Plan of care upon discharge will need to be reassessed to avoid potential outpatient hypo/hyperglycemia.
--- NOTE | 2017-05-20 11:33 | Pulmonary Consultation ---
History General Date of Service: May 20, 2017. Stated Complaint: Nstemi, Initial Episode Of Care, Systolic Heart HPI The patient is a 71 year old male who presents to [facility] with complaints of Nstemi, Initial Episode Of Care, Systolic Heart. The patient' s primary care provider is Ellis Mullen M.D.. Mr. Bobby is 71 year old male with history of CHF who presented with progressive dyspnea on exertion several days prior to admission associated with worsening of edema of bilateral lower extremities in the right leg greater than the left. Patient also had chest pain that he described as something "stuck in his chest." He admits to not taking his lasix as he should. He states that he usually has unlimited tolerance up until this admission. He has occasional dry cough, but denies any fever, chills or shortness of breath at rest. He usually sleeps with one pill at night and denies awakening from sleep with dyspnea. He has history of SOFIA in the past, but patient states he has lost about 80 lbs in the last year and feels this may have improved.On review of patient's history he has had persistent right sided pleural effusion. He states that it has never been examined in the past. In the ER, his VS Tm 36.6, P81, RR16, BP 159/81, SaO2 98% on 3L. His Labs were significant for Co2, 31, BUN 16, Cr 0.95, troponin 0.192, 0.223 , BNP 3413, ESR 39, Albumin 2.9 He was admitted for acute CHF, NSTEMI and pleural effusion. CT chest was done to rule out PE which was negative, but showed large right pleural effusion. Bilateral LE Doppler was also negative. Today, on examination patient states that he is feeling much better. He denies any respiratory symptoms at the current time. Historian: patient Onset: last week Severity: moderate Complaint Status: improved Review of Systems Constitutional: reports: malaise, weakness ENT: reports: as stated in HPI Cardiovascular: reports: as stated in HPI Respiratory: reports: as stated in HPI Gastrointestinal: reports: as stated in HPI Genitourinary - Male: reports: as stated in HPI Musculoskeletal: reports: as stated in HPI Integumentary: reports: as stated in HPI Neurologic: reports: as stated in HPI Endocrine: as stated in HPI Hematologic / Lymphatic: as stated in HPI Allergic / Immunologic: as stated in HPI All Other Symptoms All Other Systems: Reviewed and Negative Past Medical History Past Medical History: Acute coronary syndrome November 2011 resulting in stenting of the distal LAD. Repeat catheterization 2012 demonstrated subtotal occlusion of a codominant left circumflex. Seventy ascend proximal LAD and distal PDA stenosis. Nuclear stress test performed in 06/2016 revealed completed inferior infarction without wen-infarct ischemia. Non ST-elevation myocardial infarction 09/2016. Ischemic cardiomyopathy with last ejection fraction estimated at 40-45 percent Left bundle branch block Diabetes mellitus Hyperlipidemia Perirectal abscess and fistula Hypertension Past Surgical History: I and D of perirectal abscess Tonsillectomy Upper repair of leg fracture Right arm surgery cholecystectomy Family History FH: HTN (hypertension) FH: cancer FH: diabetes mellitus FH: gallbladder disease FH: heart disease FH: kidney disease HTN (hypertension),cancer, diabetes mellitus, gallbladder disease, heart disease , kidney disease Social History Smoked as a teenager. Quit over 50 years ago. Denies alcohol or illicit drug use. Use to work in [employer]. Currently and lives with . Hx Tobacco Use In Past Year?: No Smoking Status: Former Smoker Marital status: Housing status: lives with family Occupational Status: retired Immunizations History of Influenza Vaccine: No History of Tetanus Vaccine?: unknown History of Pneumococcal: No History of Hepatitis B Vaccine: No History of MDRO History of MDRO: No Allergies Coded Allergies: Morphine (Unverified Adverse Reaction, Intermediate, "DOESN'T WORK & MAKES ME FEEL BLAH", 05/18/17) Current Medications Reported Home Medications Medications Dose Route/Sig Max Daily Dose Days Date Category Dose Instructions Levalbuterol Tartrate Hfa (Levalbuterol Tartrate) 45 Mcg/Act Aer 2 Puff INH Q6H PRN 05/18/17 Reported Ultram (Tramadol HCl) 50 Mg Tab 50 Mg PO Q6H PRN 05/18/17 Reported Demadex (Torsemide) 20 Mg Tab 20 Mg PO DAILY PRN 05/18/17 Reported Senokot (Senna) 8.6 Mg Tab 1 Tab PO DIRECTED 05/18/17 Reported Novolog Mix 70/30 (Insulin Aspart Protamine & Asp) 1 Inj Inj 30-35 Units SC QPM 05/18/17 Reported Toprol Xl (Metoprolol Succinate) 50 Mg Tabcr 75 Mg PO DAILY 05/18/17 Reported Mag-Ox (Magnesium Oxide) 400 Mg Tab 400 Mg PO DAILY 05/18/17 Reported Cozaar (Losartan Potassium) 50 Mg Tab 50 Mg PO DAILY 05/18/17 Reported Imdur Ext Rel (Isosorbide Mononitrate) 30 Mg Ertab 30 Mg PO QAM 05/18/17 Reported Flexeril (Cyclobenzaprine Hcl) 10 Mg Tab 10 Mg PO TID 05/18/17 Reported Citalopram Hydrobromide 20 Mg Tab 20 Mg PO DAILY 90 05/18/17 Reported Lipitor (Atorvastatin Calcium) 80 Mg Tab 80 Mg PO DAILY 05/18/17 Reported Aspirin Ec (Aspirin) 325 Mg Tab 325 Mg PO DAILY 05/18/17 Reported Clopidogrel (Clopidogrel Bisulfate) 75 Mg Tab 75 Mg PO QAM 30 03/15/17 Rx [place] 5MG/325MG (Acetaminophen/Hydrocodone Bitart) Tab 1-2 Tablet PO Q6H PRN 03/13/17 Reported PRN PAIN Micro-K Ext Rel (Potassium Chloride) 10 Meq Capcr 10 Meq PO DAILY 03/13/17 Reported MAY TAKE UP TO TWICE DAILY Requip (Ropinirole HCl) 1 Mg Tab 1 Mg PO HS 03/13/17 Reported Ambien (Zolpidem Tartrate) 10 Mg Tab 2 Tab PO HS 10/20/16 Reported Ativan (Lorazepam) 1 Mg Tab 1 Mg PO BID 06/13/16 Reported Novolog Mix 70/30 (Insulin Aspart Prota 70%/Aspart 30%) Susp 20 Units SC QAM 06/13/13 Reported Physical Physical Exam Vital Signs: Date Time Temp Pulse Resp B/P (MAP) Pulse Ox O2 Delivery O2 Flow Rate FiO2 05/20/17 08:00 95 Room Air 05/20/17 07:52 36.7 76 18 134/78 (96) 91 05/20/17 04:08 36.8 64 20 118/64 (82) 93 Room Air 05/20/17 04:00 Room Air 05/20/17 00:00 Room Air 05/19/17 23:53 37.0 63 18 129/77 (94) 93 Room Air 05/19/17 19:30 Room Air 05/19/17 19:12 36.3 77 18 103/60 (74) 94 Room Air 05/19/17 16:00 Room Air 05/19/17 15:18 37.1 69 18 110/67 (81) 92 Room Air 05/19/17 14:34 125 16 127/89 (102) 90 05/19/17 14:21 90 16 127/89 (102) 94 05/19/17 14:04 127 20 132/83 (99) 96 05/19/17 13:49 124 16 148/91 (110) 96 05/19/17 13:31 86 16 92 05/19/17 13:21 82 16 132/82 (99) 96 05/19/17 12:00 Room Air 05/19/17 11:50 36.8 86 18 132/69 (90) 97 General Appearance: WELL-APPEARING, WD/WN, NO APPARENT DISTRESS, obese Head: NORMOCEPHALIC, ATRAUMATIC Eyes: PERRLA, NO DISCHARGE, EOMI, SCLERAE NORMAL, other (right eye surgical repair) ENT: NORMAL MOUTH EXAM, other (Mallampati II) Neck: NORMAL RANGE OF MOTION, NO TENDERNESS, TRACHEA MIDLINE, NO STRIDOR, SUPPLE Respiratory: BREATH SOUNDS NORMAL, CLEAR TO AUSCULTATION, other (Decreased breath sounds at the bases) Cardiovasular: REGULAR RATE/RHYTHM, NORMAL S1S2, NORMAL PERIPHERAL PULSES Abdomen: NON TENDER, NORMAL BOWEL SOUNDS Back: NORMAL INSPECTION, NO MIDLINE TENDERNESS, NO CVA TENDERNESS Edema: RLE, Bilateral LE (2+) Neuro: ALERT, ORIENTED x 3, NORMAL MOTOR EXAM, NORMAL SENSATION, NORMAL CEREBELLAR EXAM, NORMAL SPEECH, NORMAL GAIT, NORMAL MEMORY Psychiatric: NORMAL AFFECT, NO SUICIDAL IDEATION, CONTRACTS FOR SAFETY Diagnostics Labs Results Past 24 Hours Test 05/19/17 11:14 05/19/17 14:34 05/19/17 16:06 05/19/17 20:06 Range/Units Bedside Glucose 129 153 138 70-99 mg/dl Erythrocyte Sedimentation Rate 39 0-14 mm/hr Prothrombin Time 11.6 9.0-12.0 SECONDS Prothromb Time International Ratio 1.1 0.9-1.1 Activated Partial Thromboplast Time 28.7 21.0-31.0 SECONDS Partial Thromboplastin Ratio 1.1 D-Dimer 2080 0-500 ug/L FEU Uric Acid 6.7 2.6-7.2 mg/dl Phosphorus Level 3.7 2.5-4.9 mg/dl C-Reactive Protein 5.95 0-0.29 mg/dl Test 05/19/17 21:51 05/20/17 06:36 05/20/17 06:44 05/20/17 07:37 Range/Units Activated Partial Thromboplast Time 57.3 72.5 21.0-31.0 SECONDS Partial Thromboplastin Ratio 2.2 2.8 Bedside Glucose 106 70-99 mg/dl White Blood Count 6.11 4.8-10.8 K/uL Red Blood Count 3.88 4.7-6.1 M/uL Hemoglobin 12.3 14.0-18.0 g/dL Hematocrit 37.1 42-52 % Mean Corpuscular Volume 95.6 80-100 fL Mean Corpuscular Hemoglobin 31.7 25-34 pg Mean Corpuscular Hemoglobin Concent 33.2 32-36 g/dl Platelet Count 192 130-400 K/uL Mean Platelet Volume 10.0 7.4-10.4 fL Neutrophils (%) (Auto) 62.2 % Lymphocytes (%) (Auto) 25.5 % Monocytes (%) (Auto) 8.3 % Eosinophils (%) (Auto) 3.6 % Basophils (%) (Auto) 0.2 % Neutrophils # (Auto) 3.80 1.4-6.5 K/uL Lymphocytes # (Auto) 1.56 1.2-3.4 K/uL Monocytes # (Auto) 0.51 0.11-0.59 K/uL Eosinophils # (Auto) 0.22 0-0.5 K/uL Basophils # (Auto) 0.01 0-0.2 K/uL RDW Standard Deviation 46.5 36.4-46.3 fL RDW Coefficient of Variation 13.3 11.5-14.5 % Immature Granulocyte % (Auto) 0.2 % Immature Granulocyte # (Auto) 0.01 0.00-0.02 K/uL Sodium Level 138 136-145 mmol/L Potassium Level 3.8 3.5-5.1 mmol/L Chloride Level 100 98-107 mmol/L Carbon Dioxide Level 30 21-32 mmol/L Anion Gap 8.0 3-11 mmol/L Blood Urea Nitrogen 19 7-18 mg/dl Creatinine 1.00 0.60-1.40 mg/dl Est Creatinine Clear Calc Drug Dose 92.4 ml/min Estimated GFR () 86.8 Estimated GFR (Non- 74.9 BUN/Creatinine Ratio 19.1 10-20 Random Glucose 97 70-99 mg/dl Calcium Level 8.9 8.5-10.1 mg/dl Phosphorus Level 3.4 2.5-4.9 mg/dl Magnesium Level 1.7 1.8-2.4 mg/dl Creatine Kinase MB 0.6 0.5-3.6 ng/ml Creatine Kinase MB Ratio 0-3.0 Troponin I 0.137 0-0.045 ng/ml Test 05/20/17 09:44 Range/Units Microbiology Results 05/20/17 Gram Stain, Godwin Batch Pending 05/20/17 Bacterial Culture, Godwin Batch Pending Diagnostic Radiology CXR 05/20/2017 IMPRESSION: 1. Slightly decreased size of the right pleural effusion, now moderate in size without postprocedural pneumothorax identified. 2. Cardiomegaly with trace pleural effusion and bibasilar opacities, right greater than left again suggesting atelectasis. Chest CT with contrast 05/18/2017 1. Moderate to large right pleural effusion and small left pleural effusion 2. Right lung airspace opacities likely atelectatic 3. Diminished enhancement within the right lower lobe pulmonary artery centrally. This likely represents flow artifact. CXR: 05/18/2017 IMPRESSION: Persistent cardiomegaly and radiographic evidence of congestive failure with bilateral pleural effusions right greater than left. There are associated bibasal airspace opacities LE bilateral Doppler 05/18/2017 IMPRESSION: No sonographic evidence of deep venous thrombosis within the right lower extremity. Impression Assessment and Plan Bilateral pleural effusion Acute on chronic heart failure Elevated Troponin Patient has bilateral pleural effusions most likely secondary to underlying heart failure. Right pleural effusion is fairly large with bedside thoracic done and thoracentesis done. 1250 ml of yellow fluid was drained and patient tolerated the procedure well. This should greatly help with his dyspnea. Follow up CXR done and shows interval decrease in fluid on the right. Pleural fluid studies are pending. Elevated BNP and troponin are most likely due to underlying heart disease. CTA of chest is done and results indeterminate, lower extremity dopplers are negative. Echo did not show right heart strain or elevated RVSP to suggest a large PE. Currently being treated for NSTEMI and CHF per primary team. I appreciate the consult and will follow with you.
[2017-05-20 12:57] LABS: PLEURAL FLUID APPEARANCE CLEAR; PLEURAL FLUID COLOR YELLOW; PLEURAL FLUID MONONUC RELAT 97.6 %; PLEURAL FLUID POLYNUC 2.4 %; PLEURAL FLUID SOURCE RIGHT LUNG; PLEURAL FLUID WBC (A) 673 /uL
--- NOTE | 2017-05-20 13:09 | Cardiology Follow-Up ---
Subjective Date of Service: May 20, 2017. Pt evaluation today including: conversation w/ patient, physical exam, chart review, lab review, review of studies History of Present Illness At the time of the interview this morning the patient claims to be feeling well. He states that his dyspnea is slightly improved. He was lying flat in bed 9 any symptoms of orthopnea. He has no symptoms of chest discomfort. Appetite appears to be good. He continues to have some pain in the right lower extremity around the foot and heel. Social History Smoking Status: Former Smoker History of Alcohol Use: No Review of Systems Respiratory: No cough, No sputum, No wheezing, No shortness of breath, No dyspnea on exertion, No dyspnea at rest, No hemoptysis Cardiac: No chest pain, No orthopnea, No PND, No edema, No claudication, No palpitations He states that he has reduced his overall food intake. He has affected a significant weight loss over the past year. Objective Vital Signs Past 12 Hours Date Time Temp Pulse Resp B/P (MAP) Pulse Ox O2 Delivery O2 Flow Rate FiO2 05/20/17 12:00 94 Room Air 05/20/17 11:29 36.8 79 18 148/63 (91) 96 05/20/17 08:00 95 Room Air 05/20/17 07:52 36.7 76 18 134/78 (96) 91 05/20/17 04:08 36.8 64 20 118/64 (82) 93 Room Air 05/20/17 04:00 Room Air Last Recorded Weight-Kilograms: 131.700 Physical Exam The patient is alert and oriented. Mood and affect appeared normal. He answered all questions appropriately. HEENT: Pupils are equal and reactive to light and accommodation. Extraocular movements are intact. The sclerae are anicteric. Neuro: Cranial nerves intact Neck: Patient's neck is supple. He has palpable carotid pulses bilaterally without bruits on auscultation. There is no evidence of jugular venous distention. The thyroid is not enlarged. Lungs: Bibasilar rales. Reduced breath sounds in the bases bilaterally. He has good air movement without use of accessory muscles. No wheezes or rhonchi. Cardiac: Heart demonstrates a regular rate and rhythm. Normal S1 and S2. No murmurs on examination. Pulses: The patient has palpable radial pulses bilaterally that are equal in intensity Extremities: There was no evidence of hypoperfusion. There is no cyanosis or clubbing. There is mild peripheral edema on the left lower extremity with moderate peripheral edema noted on the right lower extremity. There is also a brawny erythematous rash noted on the right lower extremity.. Skin: I did not appreciate any other rashes on examination today. Data Laboratory Results: Last 24 Hours Test 05/19/17 14:34 05/19/17 16:06 05/19/17 20:06 05/19/17 21:51 Erythrocyte Sedimentation Rate 39 mm/hr Prothrombin Time 11.6 SECONDS Prothromb Time International Ratio 1.1 Activated Partial Thromboplast Time 28.7 SECONDS 57.3 SECONDS Partial Thromboplastin Ratio 1.1 2.2 D-Dimer 2080 ug/L FEU Uric Acid 6.7 mg/dl Phosphorus Level 3.7 mg/dl C-Reactive Protein 5.95 mg/dl Bedside Glucose 153 mg/dl 138 mg/dl Test 05/20/17 06:36 05/20/17 06:44 05/20/17 07:37 05/20/17 09:56 Bedside Glucose 106 mg/dl White Blood Count 6.11 K/uL Red Blood Count 3.88 M/uL Hemoglobin 12.3 g/dL Hematocrit 37.1 % Mean Corpuscular Volume 95.6 fL Mean Corpuscular Hemoglobin 31.7 pg Mean Corpuscular Hemoglobin Concent 33.2 g/dl Platelet Count 192 K/uL Mean Platelet Volume 10.0 fL Neutrophils (%) (Auto) 62.2 % Lymphocytes (%) (Auto) 25.5 % Monocytes (%) (Auto) 8.3 % Eosinophils (%) (Auto) 3.6 % Basophils (%) (Auto) 0.2 % Neutrophils # (Auto) 3.80 K/uL Lymphocytes # (Auto) 1.56 K/uL Monocytes # (Auto) 0.51 K/uL Eosinophils # (Auto) 0.22 K/uL Basophils # (Auto) 0.01 K/uL RDW Standard Deviation 46.5 fL RDW Coefficient of Variation 13.3 % Immature Granulocyte % (Auto) 0.2 % Immature Granulocyte # (Auto) 0.01 K/uL Activated Partial Thromboplast Time 72.5 SECONDS Partial Thromboplastin Ratio 2.8 Sodium Level 138 mmol/L Potassium Level 3.8 mmol/L Chloride Level 100 mmol/L Carbon Dioxide Level 30 mmol/L Anion Gap 8.0 mmol/L Blood Urea Nitrogen 19 mg/dl Creatinine 1.00 mg/dl Est Creatinine Clear Calc Drug Dose 92.4 ml/min Estimated GFR () 86.8 Estimated GFR (Non- 74.9 BUN/Creatinine Ratio 19.1 Random Glucose 97 mg/dl Calcium Level 8.9 mg/dl Phosphorus Level 3.4 mg/dl Magnesium Level 1.7 mg/dl Total Bilirubin 0.8 mg/dl Creatine Kinase MB 0.6 ng/ml Creatine Kinase MB Ratio Troponin I 0.137 ng/ml Total Protein 6.3 gm/dl Albumin 2.6 gm/dl Pleural Fluid Source RIGHT LUNG Pleural Fluid Color YELLOW Pleural Fluid Appearance CLEAR Pleural Fluid WBC 673 /uL Pleural Fluid RBC < 3000 /uL Pleural Fluid pH 7.44 Pleural Fluid Polynuclear WBCs % 2.4 % Pleural Fluid Mononuclear WBCs % 97.6 % Pleural Fluid Total Protein 2.5 g/dl Pleural Fluid LDH 82 IU Pleural Fluid Glucose 118 mg/dl Pleural Fluid Amylase 20 U/L Test 05/20/17 11:28 Imaging: EKG: Telemetry reviewed: Assessment and Plan 1. Chest pain: Improved. Likely related to his pulmonary vascular congestion rather than acute coronary syndrome. 2. Acute decompensated systolic heart failure: This is likely due to medication noncompliance. Patient did undergo thoracentesis today which had improved some symptoms. I would continue his diuresis with the b.i.d. Lasix monitoring his renal function electrolytes closely. 3. Coronary artery disease: I do not believe his symptoms are related to an acute coronary syndrome. While he does have slightly elevated cardiac biomarkers, these are chronic in nature. I would discontinue systemic heparinization at this time. 4. Ischemic cardiomyopathy: Patient does have reduced LV systolic function appears to be stable based on echocardiogram obtained today. It is possible that with successful revascularization he would have improvement in his LV function and reduce risk of recurrent heart failure. However, adequate revascularization may be difficult to percutaneously and at this point repeat evaluation has been deferred. He will be continued on his current beta-arlene and AVINASH-inhibitor. The degree of LV dysfunction is not severe enough to warrant prophylactic ICD. 5. Left bundle-branch block: Chronic.
--- NOTE | 2017-05-20 13:34 | Medical Student: [facility] ---
Med Student Progress Note Date of Service May 20, 2017. Subjective Pt evaluation today including: conversation w/ patient, physical exam, chart review, lab review, review of studies, conversation w/ groundwater consultant Mr. Jeremias Bobby is a 71-year-old male with PMH is significant for CHF, DM Type II, HTN, HLD, persistent right sided pleural effusion, and restless leg syndrome who was admitted on 05/18/2017 with precordial chest pain, progressive dyspnea on exertion, bilateral lower extremity edema, elevated troponin, and pleural effusion. He is Hospital Day #2 for acute CHF exacerbation, NSTEMI, and right pleural effusion s/p paracentesis. He reports 80 pound weight loss in the past year. Significant labs on admission included troponin 0.192, 0.223, BNP 3413, ESR 39, Albumin 2.9. He was admitted for acute CHF exacerbation, NSTEMI, and right pleural effusion. Today he is lying in bed on his right side approximately 1 hour s/p paracentesis. He reports feeling tired and has some mild chest discomfort on his right side. He does not describe this as sharp pain, but rather as dull discomfort. He denies chest pain, shortness of breath, or cough. He reports some bilateral edema to the feet and ankles and pain in bilateral feet. Review of Systems Constitutional: No fever, No chills Eyes: No eye pain, No redness ENT: No nasal symptoms, No sore throat Respiratory: No wheezing, No shortness of breath Cardiac: + chest pain (mild chest discomfort on right side s/p paracentesis ), No orthopnea, No palpitations Abdomen: No pain, No nausea, No vomiting, No diarrhea, No constipation Musculoskeletal: No muscle pain, No calf pain Male : No dysuria, No urinary frequency Neurologic: + problem reported (bilateral lower extremity pain to level of ankle ), No weakness, No numbness/tingling Psychiatric: No depression symptoms, No anxiety Heme: No abnormal bleeding/bruising, No clotting problems Endo: No excessive thirst, No excessive urination Skin: No rash, No itch Diagnostic Radiology CXR 05/20/17 IMPRESSION: 1. Slightly decreased size of the right pleural effusion, now moderate in size without postprocedural pneumothorax identified. 2. Cardiomegaly with trace pleural effusion and bibasilar opacities, right greater than left again suggesting atelectasis. CXR 05/18/17 IMPRESSION: Persistent cardiomegaly and radiographic evidence of congestive failure with bilateral pleural effusions right greater than left. There are associated bibasal airspace opacities Chest CTA 05/19/17 IMPRESSION: 1. Moderate to large right pleural effusion and small left pleural effusion 2. Right lung airspace opacities likely atelectatic 3. Diminished enhancement within the right lower lobe pulmonary artery centrally. This likely represents flow artifact. Correlation with serial leg ultrasonography could be obtained in follow-up. Lower Extremity US 05/18/17 IMPRESSION: No sonographic evidence of deep venous thrombosis within the right lower extremity. Microbiology Results 05/20/17 Gram Stain, Godwin Batch Pending 05/20/17 Bacterial Culture, Godwin Batch Pending ECHO 05/19/17 * EF 40-45% * Moderate left ventricular systolic dysfunction. * Severe left ventricular dilatation. * Type II left ventricular diastolic dysfunction. * Moderate left atrial dilatation. * Moderate mitral regurgitation. * Trace tricuspid regurgitation. * Estimated right ventricular systolic pressure is normal. * Compared to an echo of 03/14/17, there is no significant change in the LV function. The TR velocity has decreased. * -- Conclusions -- * Aortic valve sclerosis mild, without significant aortic valvular stenosis. EKG EKG 05/20/17 Sinus rhythm with 1st degree A-V block with Premature atrial complexes Left axis deviation Left bundle branch block Abnormal ECG When compared with ECG of 19-MAY-2017 13:26, No significant change Objective Vital Signs Date Time Temp Pulse Resp B/P (MAP) Pulse Ox O2 Delivery O2 Flow Rate FiO2 05/20/17 07:52 36.7 76 18 134/78 (96) 91 05/20/17 04:08 36.8 64 20 118/64 (82) 93 Room Air 05/20/17 04:00 Room Air 05/20/17 00:00 Room Air 05/19/17 23:53 37.0 63 18 129/77 (94) 93 Room Air 05/19/17 19:30 Room Air 05/19/17 19:12 36.3 77 18 103/60 (74) 94 Room Air 05/19/17 16:00 Room Air 05/19/17 15:18 37.1 69 18 110/67 (81) 92 Room Air 05/19/17 14:34 125 16 127/89 (102) 90 05/19/17 14:21 90 16 127/89 (102) 94 05/19/17 14:04 127 20 132/83 (99) 96 05/19/17 13:49 124 16 148/91 (110) 96 05/19/17 13:31 86 16 92 05/19/17 13:21 82 16 132/82 (99) 96 05/19/17 12:00 Room Air 05/19/17 11:50 36.8 86 18 132/69 (90) 97 Physical Exam General Appearance: WD/WN, no apparent distress Eyes: bilateral eyes normal inspection, bilateral eyes PERRL, bilateral eyes EOMI ENT: normal ENT inspection, hearing grossly normal Neck: supple, no adenopathy, thyroid normal, trachea midline Respiratory/Chest: chest non-tender, no respiratory distress, no accessory muscle use, + decreased breath sounds (bilaterally at bases ) Cardiovascular: regular rate, rhythm, no edema, no gallop, no JVD, no murmur Abdomen: normal bowel sounds, non tender, soft, no organomegaly Extremities: non-tender, normal inspection, no calf tenderness, + pedal edema ( nonpitting, bilateral, R>L ) Neurologic/Psychiatric: rubber washer II-XII nml as tested, no motor/sensory deficits, alert, normal mood/affect, oriented x 3 Skin: normal color, warm/dry, no rash Lymphatic: no adenopathy Laboratory Results Last 24 Hours Test 05/19/17 11:14 05/19/17 14:34 05/19/17 16:06 05/19/17 20:06 Bedside Glucose 129 mg/dl 153 mg/dl 138 mg/dl Erythrocyte Sedimentation Rate 39 mm/hr Prothrombin Time 11.6 SECONDS Prothromb Time International Ratio 1.1 Activated Partial Thromboplast Time 28.7 SECONDS Partial Thromboplastin Ratio 1.1 D-Dimer 2080 ug/L FEU Uric Acid 6.7 mg/dl Phosphorus Level 3.7 mg/dl C-Reactive Protein 5.95 mg/dl Test 05/19/17 21:51 05/20/17 06:36 05/20/17 06:44 05/20/17 07:37 Activated Partial Thromboplast Time 57.3 SECONDS 72.5 SECONDS Partial Thromboplastin Ratio 2.2 2.8 Bedside Glucose 106 mg/dl White Blood Count 6.11 K/uL Red Blood Count 3.88 M/uL Hemoglobin 12.3 g/dL Hematocrit 37.1 % Mean Corpuscular Volume 95.6 fL Mean Corpuscular Hemoglobin 31.7 pg Mean Corpuscular Hemoglobin Concent 33.2 g/dl Platelet Count 192 K/uL Mean Platelet Volume 10.0 fL Neutrophils (%) (Auto) 62.2 % Lymphocytes (%) (Auto) 25.5 % Monocytes (%) (Auto) 8.3 % Eosinophils (%) (Auto) 3.6 % Basophils (%) (Auto) 0.2 % Neutrophils # (Auto) 3.80 K/uL Lymphocytes # (Auto) 1.56 K/uL Monocytes # (Auto) 0.51 K/uL Eosinophils # (Auto) 0.22 K/uL Basophils # (Auto) 0.01 K/uL RDW Standard Deviation 46.5 fL RDW Coefficient of Variation 13.3 % Immature Granulocyte % (Auto) 0.2 % Immature Granulocyte # (Auto) 0.01 K/uL Sodium Level 138 mmol/L Potassium Level 3.8 mmol/L Chloride Level 100 mmol/L Carbon Dioxide Level 30 mmol/L Anion Gap 8.0 mmol/L Blood Urea Nitrogen 19 mg/dl Creatinine 1.00 mg/dl Est Creatinine Clear Calc Drug Dose 92.4 ml/min Estimated GFR () 86.8 Estimated GFR (Non- 74.9 BUN/Creatinine Ratio 19.1 Random Glucose 97 mg/dl Calcium Level 8.9 mg/dl Phosphorus Level 3.4 mg/dl Magnesium Level 1.7 mg/dl Creatine Kinase MB 0.6 ng/ml Creatine Kinase MB Ratio Troponin I 0.137 ng/ml Medications Current Inpatient Medications Medications (Trade) Dose Ordered Sig/Aditi Route Start Time Stop Time Status Last Admin Dose Admin Acetaminophen (Tylenol Tab) 650 mg Q4H PRN PO 05/18/17 16:15 06/17/17 16:14 Nitroglycerin (Nitrostat Tab) 0.4 mg UD PRN SL 05/18/17 16:15 06/17/17 16:14 Aspirin (Ecotrin Tab) 325 mg DAILY PO 05/19/17 09:00 06/18/17 08:59 05/20/17 07:46 325 MG Atorvastatin Calcium (Lipitor Tab) 80 mg DAILY PO 05/19/17 09:00 06/18/17 08:59 05/20/17 07:47 80 MG Citalopram Hydrobromide (celeXA TAB) 20 mg DAILY PO 05/19/17 09:00 06/18/17 08:59 05/20/17 07:45 20 MG Clopidogrel Bisulfate (plAVix TAB) 75 mg QAM PO 05/19/17 09:00 06/18/17 08:59 05/20/17 07:47 75 MG Cyclobenzaprine HCl (Flexeril Tab) 10 mg TID PO 05/18/17 21:00 06/17/17 20:59 05/20/17 07:46 10 MG Acetaminophen/ Hydrocodone Bitart (Jasper 5/325 Tab) 1 tab Q6H PRN PO 05/18/17 16:15 06/01/17 16:14 05/19/17 10:39 1 TAB Isosorbide Mononitrate (Imdur Ext Rel Tab) 30 mg QAM PO 05/19/17 09:00 06/18/17 08:59 05/20/17 07:46 30 MG Levalbuterol (Xopenex Hfa Inhaler) 2 puffs Q6H PRN INH 05/18/17 16:15 06/17/17 16:14 Losartan Potassium (coZAAR TAB) 50 mg DAILY PO 05/19/17 09:00 06/18/17 08:59 05/20/17 07:46 50 MG Magnesium Oxide (Mag-Ox Tab) 400 mg DAILY PO 05/19/17 09:00 06/18/17 08:59 05/20/17 07:47 400 MG Metoprolol Succinate (Toprol Xl Tab) 75 mg DAILY PO 05/19/17 09:00 06/18/17 08:59 05/20/17 07:47 75 MG Ropinirole HCl (Requip Tab) 1 mg HS PO 05/18/17 21:00 06/17/17 20:59 05/19/17 20:33 1 MG Senna (Senokot Tab) 8.6 mg DAILY PO 05/19/17 09:00 06/18/17 08:59 05/20/17 07:47 8.6 MG Tramadol HCl (Ultram Tab) 50 mg Q6H PRN PO 05/18/17 16:15 06/17/17 16:14 05/18/17 22:24 50 MG Zolpidem Tartrate (Ambien Tab) 10 mg HS PRN PO 05/18/17 21:00 06/17/17 20:59 05/19/17 23:36 10 MG Ondansetron HCl (Zofran Inj) 4 mg Q6H PRN IV 05/18/17 16:15 06/17/17 16:14 Insulin Aspart (novoLOG ASPART) SLIDING SCALE If C... ACHS SC 05/18/17 21:30 06/17/17 21:29 05/20/17 11:54 6 UNITS Glucose (Glucose 40% Gel) UD PRN PO 05/18/17 16:15 06/17/17 16:14 Glucose (Glucose Chew Tab) 1 tabs UD PRN PO 05/18/17 16:15 06/17/17 16:14 Dextrose (Dextrose 50% 50ML Syringe) 50 ml UD PRN IV 05/18/17 16:15 06/17/17 16:14 Glucagon (Glucagon Inj) 1 mg UD PRN SQ 05/18/17 16:15 06/17/17 16:14 Nitroglycerin (Nitroglycerin 2% Oint) 1 inch Q6 EXT 05/18/17 22:00 06/17/17 21:59 05/20/17 11:56 1 INCH Furosemide 40 mg/ Syringe 4 ml @ 4 mls/min BID17 IV 05/18/17 21:00 06/17/17 20:59 05/20/17 07:53 4 MLS/MIN Potassium Chloride (Klor-Con Tab) 40 meq BID17 PO 05/18/17 21:30 06/17/17 21:29 05/20/17 07:47 40 MEQ Lorazepam (Ativan Tab) 1 mg PM PO 05/19/17 21:00 06/18/17 20:59 05/19/17 23:36 1 MG Miscellaneous Information (Consult Glycemic Management Pharmacy) 1 ea UD PRN N/A 05/19/17 09:45 06/18/17 09:44 Insulin Glargine (Lantus Solostar Pen) 9 units BID SC 05/19/17 11:00 06/18/17 10:59 05/20/17 07:51 9 UNITS Heparin Sodium/ Dextrose 500 ml @ 33 mls/hr [id number] PRN IV 05/19/17 14:00 06/18/17 13:59 05/20/17 09:10 33 MLS/HR Ioversol (Optiray 320) 111 ml UD PRN IV 05/19/17 16:15 05/23/17 16:14 Assessment and Plan Assessment and Plan: ASSESSMENT: Mr. Jeremias Bobby is a 71-year-old male with PMH is significant for CHF, DM Type II, HTN, HLD, persistent right sided pleural effusion, and restless leg syndrome who was admitted on 05/18/2017 with precordial chest pain, progressive dyspnea on exertion, bilateral lower extremity edema, elevated troponin, and pleural effusion. He is Hospital Day #2 for acute CHF exacerbation, NSTEMI, and right pleural effusion s/p paracentesis. At admission, D-Dimer was >2000. Differential diagnosis includes acute PE, which was ruled out with chest CT and right lower extremity ultrasound showing no obvious DVT or PE. PLAN: Acute CHF exacerbation with significant past Coronary Artery Disease Acute coronary syndrome November 2011 resulting in stenting of the distal LAD. Repeat catheterization 2012 demonstrated subtotal occlusion of a codominant left circumflex. Seventy percent proximal LAD and distal PDA stenosis. Nuclear stress test performed in 06/2016 revealed completed inferior infarction without wen-infarct ischemia. Non ST-elevation myocardial infarction 09/2016. Left bundle branch block Ischemic cardiomyopathy with last ejection fraction estimated at 40-45 percent Elevated troponin and BNP Appreciate cardiology consultation Continue heparin drip Continue telemetry monitoring Continue potassium chloride 40 mEq by mouth BID Continue clopidogrel 75 mg by mouth every morning Continue isosorbide mononitrate ER daily Continue lisinopril 5 mg by mouth every morning Continue metoprolol succinate 100 mg by mouth daily. Bilateral pleural effusion, likely 2/2 underlying CHF Right pleural effusion is fairly large with bedside thoracic done and thoracentesis done. 1250 ml of yellow fluid was drained and patient tolerated the procedure well. This should greatly help with his dyspnea. Follow up CXR done and shows interval decrease in fluid on the right. Pleural fluid studies are pending. Pulmonology consultation appreciated Diabetes mellitus continue NovoLog Mix 70/30, 20 units subcutaneous every morning and 30 minutes subcutaneous every evening. Place on Accu-Cheks before meals and at bedtime with NovoLog coverage per scale Right ankle pain and swollen, mild, Lower extremity ultrasound showing no obvious DVT Uric acid was normal making gout less likely Continue Tylenol PRN for pain Restless leg syndrome continue ropinirole 1 mg by mouth at bedtime. Insomnia lorazepam 1 mg by mouth at bedtime zolpidem tartrate 2 tablets by mouth at bedtime Hyperlipidemia continue atorvastatin 40 mg by mouth every morning. Continued [facility] stay due to: multiple IV medications needed Discharge planning: home
[2017-05-20] MEDS ORDERED: MAGNESIUM SULFATE 1GM / D5W 1 GM in PREMIXED IN D5W 100 ML IV ONE (14:15)
[2017-05-20 14:30] LABS: PARTIAL THROMBOPLASTIN RATIO 2.4
--- NOTE | 2017-05-20 15:03 | Hospitalist Progress Note ---
Hospitalist Progress Note Date of Service May 20, 2017. Subjective Pt evaluation today including: conversation w/ patient, physical exam, chart review, lab review, review of inpatient medication list Pain: Pleuritic chest pain PO Intake: Tolerating PO diet Voiding: no voiding problems Patient reports feeling weak and fatigued, stating he just does not feel well. He does state that his shortness of breath is improved, however, and he currently denies any SOB at all. He does complain of SIMPSON. He reports a productive cough. He also complains of a 8/10 pleuritic chest pain on the right chest with deep breaths and coughing. The patient denies fevers, chills, sweats, palpitations, claudication, wheezing, shortness of breath, nausea, vomiting, abdominal pain, dysuria, hematuria, urinary retention, paralysis, motor weakness, numbness and tingling. Additional Comments: See HPI for pertinent positives and negatives. All other systems reviewed and negative. Objective Vital Signs Date Time Temp Pulse Resp B/P (MAP) Pulse Ox O2 Delivery O2 Flow Rate FiO2 05/20/17 12:00 94 Room Air 05/20/17 11:29 36.8 79 18 148/63 (91) 96 05/20/17 08:00 95 Room Air 05/20/17 07:52 36.7 76 18 134/78 (96) 91 05/20/17 04:08 36.8 64 20 118/64 (82) 93 Room Air 05/20/17 04:00 Room Air 05/20/17 00:00 Room Air 05/19/17 23:53 37.0 63 18 129/77 (94) 93 Room Air 05/19/17 19:30 Room Air 05/19/17 19:12 36.3 77 18 103/60 (74) 94 Room Air 05/19/17 16:00 Room Air 05/19/17 15:18 37.1 69 18 110/67 (81) 92 Room Air Physical Exam Notes: General appearance: +Morbidly obese. Well-developed, well-nourished, no apparent distress Head: Normocephalic, atraumatic Eyes: Normal inspection, PERRL, EOMI ENT: Normal ENT inspection, hearing grossly normal, pharynx normal Neck: Supple, no JVD, trachea midline Respiratory/Chest: +Diminished breath sounds throughout, most marked in bases R >L. Lungs clear to auscultation, no respiratory distress Cardiovascular: Regular rate & rhythm, no gallop, no murmur Abdomen/GI: +RUQ TTP. Pt states this is chronic for last year. Normal bowel sounds, soft Extremities/Musculoskeletal: +2+ pitting edema RLE. 1+ pitting LLE. Chronic venous stasis changes bilaterally. No calf tenderness Neurological/Psych: Alert, normal mood/affect, oriented x 3 Skin: Normal color, warm/dry, no rash Laboratory Results Last 24 Hours Test 05/19/17 16:06 05/19/17 20:06 05/19/17 21:51 05/20/17 06:36 Bedside Glucose 153 mg/dl 138 mg/dl 106 mg/dl Activated Partial Thromboplast Time 57.3 SECONDS Partial Thromboplastin Ratio 2.2 Test 05/20/17 06:44 05/20/17 07:37 05/20/17 09:56 05/20/17 14:05 White Blood Count 6.11 K/uL Red Blood Count 3.88 M/uL Hemoglobin 12.3 g/dL Hematocrit 37.1 % Mean Corpuscular Volume 95.6 fL Mean Corpuscular Hemoglobin 31.7 pg Mean Corpuscular Hemoglobin Concent 33.2 g/dl Platelet Count 192 K/uL Mean Platelet Volume 10.0 fL Neutrophils (%) (Auto) 62.2 % Lymphocytes (%) (Auto) 25.5 % Monocytes (%) (Auto) 8.3 % Eosinophils (%) (Auto) 3.6 % Basophils (%) (Auto) 0.2 % Neutrophils # (Auto) 3.80 K/uL Lymphocytes # (Auto) 1.56 K/uL Monocytes # (Auto) 0.51 K/uL Eosinophils # (Auto) 0.22 K/uL Basophils # (Auto) 0.01 K/uL RDW Standard Deviation 46.5 fL RDW Coefficient of Variation 13.3 % Immature Granulocyte % (Auto) 0.2 % Immature Granulocyte # (Auto) 0.01 K/uL Activated Partial Thromboplast Time 72.5 SECONDS 62.1 SECONDS Partial Thromboplastin Ratio 2.8 2.4 Sodium Level 138 mmol/L Potassium Level 3.8 mmol/L Chloride Level 100 mmol/L Carbon Dioxide Level 30 mmol/L Anion Gap 8.0 mmol/L Blood Urea Nitrogen 19 mg/dl Creatinine 1.00 mg/dl Est Creatinine Clear Calc Drug Dose 92.4 ml/min Estimated GFR () 86.8 Estimated GFR (Non- 74.9 BUN/Creatinine Ratio 19.1 Random Glucose 97 mg/dl Calcium Level 8.9 mg/dl Phosphorus Level 3.4 mg/dl Magnesium Level 1.7 mg/dl Total Bilirubin 0.8 mg/dl Creatine Kinase MB 0.6 ng/ml Creatine Kinase MB Ratio Troponin I 0.137 ng/ml Total Protein 6.3 gm/dl Albumin 2.6 gm/dl Pleural Fluid Source RIGHT LUNG Pleural Fluid Color YELLOW Pleural Fluid Appearance CLEAR Pleural Fluid WBC 673 /uL Pleural Fluid RBC < 3000 /uL Pleural Fluid pH 7.44 Pleural Fluid Polynuclear WBCs % 2.4 % Pleural Fluid Mononuclear WBCs % 97.6 % Pleural Fluid Total Protein 2.5 g/dl Pleural Fluid Albumin 1.4 g/dl Pleural Fluid LDH 82 IU Pleural Fluid Glucose 118 mg/dl Pleural Fluid Amylase 20 U/L Test 05/20/17 14:22 Bedside Glucose 131 mg/dl Diagnostic Results Reviewed the following studies and agree with interpretation as follows: Patient Name: NUVIA YAP Unit Number: [id number] Dictated: 05/20/17953 Transcribed: 05/20/1754 JR Printed Date/Time: [~ rep prt dt]/[~ rep prt tm] [~ rep ct labl] - [~ rep ct ivnm] [facility] [place] [address] Dictated: 05/20/17953 Transcribed: 05/20/17953 JR Printed Date/Time: [~ rep prt dt]/[~ rep prt tm] [~ rep ct labl] - [~ rep ct ivnm] Patient: NUVIA YAP Address1: [address] [place] [address] Rec: [id number] Address2: Acct ID: [id number] [facility] Zip: [place] [address] Date: 1945 Sex: M Room/Bed: [facility] Ref Phy: Ellis Mullen M.D. SC: Mahesh Att Phy: Nicolas Holman MD, PhD Report #: [id number] Sylvie Phy: Ellis Mullen M.D. Test: CXR1P Admit Phy: Kvng Heredia M.D. Retail Selling Specialist: KEVIN Interpreting Phy: Esau Florian D.O. Diagnosis: NSTEMI, INITIAL EPISODE OF CARE, SYSTOLIC HEART Ordering Phy: Julienne Wei M.D. Service Date: 05/20/17 Admit Date: 05/18/1708/28/17 MNE: [id number] CONF: DICTATED BY: Esau Florian D.O.]] CC: Julienne Wei M.D. Hester, Christopher E., M.D. Lin, Daniel Y., MD, PhD Endcc: [~ rep ct add3]] CHEST ONE VIEW PORTABLE HISTORY: 71 years-old Male s/p thoracentesis COMPARISON: Portable chest radiograph 05/18/2017, CTA chest 05/19/2017 TECHNIQUE: Portable upright AP view of the chest. FINDINGS: Moderate to markedly enlarged cardiac silhouette is again seen. There is mildly decreased size of the previously noted right pleural effusion, now moderate in size. No evidence of postprocedural pneumothorax. Trace left pleural effusion is noted with right greater than left somewhat linear bibasilar opacities suggesting atelectasis. The bones are grossly intact. Patient obesity noted. IMPRESSION: 1. Slightly decreased size of the right pleural effusion, now moderate in size without postprocedural pneumothorax identified. 2. Cardiomegaly with trace pleural effusion and bibasilar opacities, right greater than left again suggesting atelectasis. The above report was generated using voice recognition software. It may contain grammatical, syntax or spelling errors. Electronically signed by: Dario Florian M.D. 05/20/2017 9:57 AM Dictated Date/Time: 05/20/2017 9:54 AM The status of this report is Signed. Draft = Not yet reviewed or approved by Radiologist. Signed = Reviewed and approved by Radiologist. <AttendingPhy>Nicolas Holman MD, PhD</AttendingPhy> <FamilyPhy>Ellis Mullen M.D.</FamilyPhy> <PrimaryPhy>Ellis Mullen M.D.</ PrimaryPhy> <UnitNumber>[id number]</UnitNumber> <VisitNumber>[id number]</ VisitNumber> <PatientName>NUVIA YAP</PatientName> <DateOfBirth>1945 </DateOfBirth> <Location>C.2T</Location> <ServiceDate>05/18/17</ServiceDate> < MNE>ESINDI</MNE> <OrderingPhy>Julienne Wei M.D.</OrderingPhy> <OrderingPhyMNE >f rep ord dr cloud</OrderingPhyMNE> <DictatingPhyMNE>f rep dict dr cloud</ DictatingPhyMNE> <CCListMNE>f rep ct shaqe</CCListMNE> <AdmittingPhyMNE>f pt admit dr cloud</AdmittingPhyMNE> <AttendingPhyMNE>f pt attend dr cloud</ AttendingPhyMNE> <ConsultingPhyMNE>f pt consult dr cloud</ConsultingPhyMNE> <FamilyPhyMNE>f pt fam dr cloud</FamilyPhyMNE> <OtherPhyMNE>f pt other dr cloud</OtherPhyMNE> < PrimaryPhyMNE>f pt prim care dr cloud</PrimaryPhyMNE> <ReferringPhyMNE>f pt referring dr cloud</ReferringPhyMNE> Assessment and Plan 71 y/o male with a history of chronic systolic CHF, HTN, HLD, CAD, DM II, anxiety/depression, and restless leg syndrome who presented to the ED on 05/18 with worsening chest pain and shortness of breath. Acute on chronic systolic CHF, bilateral pleural effusions R>L--improving -Admit to telemetry. No acute events overnight. Pt in sinus rhythm with HR 60s -80s -Continue Lasix 40 mg IV BID -Continue potassium supplementation -UO 3700 cc, net balance -2237 cc 05/19 -Pulmonology consulted, appreciate recs: right sided thoracentesis today, drained 1250 cc yellow fluid. Pleura fluid studies pending. -CXR 05/20 shows decrease in right pleural effusion and no evidence postprocedural pneumothorax. Persistent left pleural effusion -CTA no acute PE -Venous dopplers negative for DVT -Echo shows LVEF of 40-45%, no significant change from previous study. Type 2 diastolic dysfunction Elevated troponin, chest pain--improving -Troponin peaked at 0.228, trending down -Cardiology consulted, appreciate recs: Do not think chest pain secondary to ACS. D/C heparin drip. Continue BID Lasix for CHF exacerbation which is likely secondary to non-compliance -Heparin drip d/c'd -EKG 05/20 shows 74 bpm, SR with 1st degree AV block, PACs, LBBB (chronic), no significant change from previous Hypomagnesemia--improving -Magnesium 1.7 on 05/20 -Magnesium sulfate 1 gm IV x 1, continue to monitor CAD, HTN, HLD--stable -Continue ASA 325 mg PO qd, Plavix 75 mg PO qd, Imdur 30 mg PO qd, losartan 50 mg PO qd, metoprolol succinate 75 mg PO qd and atorvastatin 80 mg PO qd DM II--last HgbA1c checked 03/13/17 was 6.8 -Lantus 9 units SC BID -Insulin sliding scale -Check BSGs q ac and qhs Anxiety/depression -Continue citalopram 20 mg PO qd and lorazepam 1 mg PO BID RLS -Continue Requip 1 mg PO qhs DVT prophylaxis -Enoxaparin 40 mg SC q24h, heparin drip d/c'd Code Status -Level I, FULL RESUSCITATION STATUS
[2017-05-20] MEDS ORDERED: OXYCODONE/ACETAMINOPHEN 5-325 TAB PO PRN (17:45)
[2017-05-20] MEDS ORDERED: OXYCODONE/ACETAMINOPHEN 10/325MG TAB PO PRN (17:45)
--- NOTE | 2017-05-20 17:47 | Progress Note ---
Subjective Date of Service: May 20, 2017. Subjective Pt evaluation today including: conversation w/ patient, conversation w/ family , physical exam, chart review, lab review, review of studies, conversation w/ rn lactation consultant, review of inpatient medication list Had a thoracentesis this morning, difficulty breathing is much better, patient feel "right ankle area still have pain local mild red and mild more erythema Problem List Medical Problems: (1) Abscess, gluteal, left Status: Chronic (2) Acute coronary syndrome Status: Acute (3) CHF (congestive heart failure) Status: Acute (4) CHF (congestive heart failure) Status: Acute (5) Elevated troponin Status: Acute (6) Elevated troponin Status: Acute (7) Fall Status: Acute (8) Fever Status: Acute (9) Hypertensive urgency Status: Acute (10) Multiple rib fractures Status: Chronic (11) Perianal abscess Status: Acute (12) Pleural effusion Status: Acute (13) Pleural effusion Status: Acute (14) Pleural effusion, right Status: Acute (15) Pneumonia Status: Chronic (16) Precordial chest pain Status: Acute (17) Precordial chest pain Status: Acute (18) Pulmonary edema Status: Acute (19) Shortness of breath Status: Acute Review of Systems Constitutional: + weakness, + fatigue, No fever, No chills, No sweats, No weight loss, No problem reported Eyes: No worsening of vision, No eye pain, No redness, No discharge, No diplopia ENT: No hearing loss, No unusual epistaxis, No nasal symptoms, No sore throat, No tinnitus, No dental problems, No trouble swallowing Respiratory: + dyspnea on exertion, No cough, No sputum, No wheezing, No shortness of breath, No dyspnea at rest, No hemoptysis Cardiac: No chest pain, No orthopnea, No PND, No edema, No claudication, No palpitations Abdomen: No pain, No nausea, No vomiting, No diarrhea, No constipation Musculoskeletal: + joint pain, No muscle pain, No swelling, No calf pain Male : No dysuria, No urinary frequency, No incontinence, No nocturia more than once/night, No slowing stream, No hematuria Neurologic: No memory loss, No paralysis, No weakness, No numbness/tingling, No vertigo, No balance problems Psychiatric: No depression symptoms, No anhedonism, No anxiety, No insomnia, No substance abuse Heme: No abnormal bleeding/bruising, No clotting problems, No swollen lymph nodes, No night sweats Endo: No fatigue, No excessive thirst, No excessive urination Skin: + problem reported ( ankle 1+ edema, right more than left, right side is tender), No rash, No itch, No new/changing skin lesions, No color change , No bleeding Objective Vital Signs Date Time Temp Pulse Resp B/P (MAP) Pulse Ox O2 Delivery O2 Flow Rate FiO2 05/20/17 16:00 Room Air 05/20/17 15:48 36.4 68 18 115/73 (87) 93 Room Air 05/20/17 12:00 94 Room Air 05/20/17 11:29 36.8 79 18 148/63 (91) 96 05/20/17 08:00 95 Room Air 05/20/17 07:52 36.7 76 18 134/78 (96) 91 05/20/17 04:08 36.8 64 20 118/64 (82) 93 Room Air 05/20/17 04:00 Room Air 05/20/17 00:00 Room Air 05/19/17 23:53 37.0 63 18 129/77 (94) 93 Room Air 05/19/17 19:30 Room Air 05/19/17 19:12 36.3 77 18 103/60 (74) 94 Room Air Physical Exam General Appearance: WD/WN, no apparent distress, + obese Eyes: normal inspection, PERRL, EOMI, sclerae normal ENT: normal ENT inspection, hearing grossly normal, pharynx normal Neck: supple, no adenopathy, thyroid normal, no JVD, no carotid bruits, trachea midline Respiratory/Chest: chest non-tender, lungs clear, normal breath sounds, no respiratory distress, no accessory muscle use Cardiovascular: regular rate, rhythm, no edema, no gallop, no JVD, no murmur Abdomen: normal bowel sounds, non tender, soft, no organomegaly, no pulsatile mass Extremities: normal range of motion, normal inspection, no pedal edema, no calf tenderness, normal capillary refill, pelvis stable, + swelling, + pertinent finding (right ankle mild tender and swelling) Neurologic/Psychiatric: cherry dipper II-XII nml as tested, no motor/sensory deficits, alert, normal mood/affect, oriented x 3 Skin: normal color, warm/dry, no rash Lymphatic: no adenopathy Laboratory Results Last 24 Hours Test 05/19/17 20:06 05/19/17 21:51 05/20/17 06:36 05/20/17 06:44 Bedside Glucose 138 mg/dl 106 mg/dl Activated Partial Thromboplast Time 57.3 SECONDS 72.5 SECONDS Partial Thromboplastin Ratio 2.2 2.8 White Blood Count 6.11 K/uL Red Blood Count 3.88 M/uL Hemoglobin 12.3 g/dL Hematocrit 37.1 % Mean Corpuscular Volume 95.6 fL Mean Corpuscular Hemoglobin 31.7 pg Mean Corpuscular Hemoglobin Concent 33.2 g/dl Platelet Count 192 K/uL Mean Platelet Volume 10.0 fL Neutrophils (%) (Auto) 62.2 % Lymphocytes (%) (Auto) 25.5 % Monocytes (%) (Auto) 8.3 % Eosinophils (%) (Auto) 3.6 % Basophils (%) (Auto) 0.2 % Neutrophils # (Auto) 3.80 K/uL Lymphocytes # (Auto) 1.56 K/uL Monocytes # (Auto) 0.51 K/uL Eosinophils # (Auto) 0.22 K/uL Basophils # (Auto) 0.01 K/uL RDW Standard Deviation 46.5 fL RDW Coefficient of Variation 13.3 % Immature Granulocyte % (Auto) 0.2 % Immature Granulocyte # (Auto) 0.01 K/uL Sodium Level 138 mmol/L Potassium Level 3.8 mmol/L Chloride Level 100 mmol/L Carbon Dioxide Level 30 mmol/L Anion Gap 8.0 mmol/L Blood Urea Nitrogen 19 mg/dl Creatinine 1.00 mg/dl Est Creatinine Clear Calc Drug Dose 92.4 ml/min Estimated GFR () 86.8 Estimated GFR (Non- 74.9 BUN/Creatinine Ratio 19.1 Random Glucose 97 mg/dl Calcium Level 8.9 mg/dl Phosphorus Level 3.4 mg/dl Magnesium Level 1.7 mg/dl Total Bilirubin 0.8 mg/dl Creatine Kinase MB 0.6 ng/ml Creatine Kinase MB Ratio Troponin I 0.137 ng/ml Total Protein 6.3 gm/dl Albumin 2.6 gm/dl Test 05/20/17 07:37 05/20/17 09:56 05/20/17 11:11 05/20/17 14:05 Creatine Kinase MB Ratio Pleural Fluid Source RIGHT LUNG Pleural Fluid Color YELLOW Pleural Fluid Appearance CLEAR Pleural Fluid WBC 673 /uL Pleural Fluid RBC < 3000 /uL Pleural Fluid pH 7.44 Pleural Fluid Polynuclear WBCs % 2.4 % Pleural Fluid Mononuclear WBCs % 97.6 % Pleural Fluid Total Protein 2.5 g/dl Pleural Fluid Albumin 1.4 g/dl Pleural Fluid LDH 82 IU Pleural Fluid Glucose 118 mg/dl Pleural Fluid Amylase 20 U/L Bedside Glucose 154 mg/dl Activated Partial Thromboplast Time 62.1 SECONDS Partial Thromboplastin Ratio 2.4 Lactate Dehydrogenase 146 U/L Test 05/20/17 14:22 05/20/17 16:24 Bedside Glucose 131 mg/dl 115 mg/dl Assessment and Plan 71 y/o male with a history of chronic systolic CHF, HTN, HLD, CAD, DM II, anxiety/depression, and restless leg syndrome who presented to the ED on 05/18 2017 with worsening chest pain and shortness of breath. Acute on chronic systolic CHF, bilateral pleural effusions R>L, status post thoracentesis, --improving - Continue telemetry. No acute events overnight. Pt in sinus rhythm with HR 60s-80s -Continue Lasix 40 mg IV BID -Continue potassium supplementation -UO 3700 cc, net balance -2237 cc 05/19 2017 -Pulmonology consulted, appreciate recs: right sided thoracentesis today, drained 1250 cc yellow fluid. Pleura fluid studies pending. -CXR 05/20 shows decrease in right pleural effusion and no evidence postprocedural pneumothorax. Persistent left pleural effusion -Elevated d-dimer more than 2000, CTA no acute PE -Venous dopplers negative for DVT -Echo shows LVEF of 40-45%, no significant change from previous study. Type 2 diastolic dysfunction Elevated troponin, chest pain--improving -Troponin peaked at 0.228, trending down -Cardiology consulted, appreciate recs: Do not think chest pain secondary to ACS, likely from mismatch of demanding ischemia D/C heparin drip. Continue BID Lasix for CHF exacerbation which is likely secondary to non-compliance -Heparin drip d/c'd -EKG 05/20 shows 74 bpm, SR with 1st degree AV block, PACs, LBBB (chronic), no significant change from previous Hypomagnesemia--improving -Magnesium 1.7 on 05/20 -Magnesium sulfate 1 gm IV x 1, continue to monitor CAD, HTN, HLD--stable -Continue ASA 325 mg PO qd, Plavix 75 mg PO qd, Imdur 30 mg PO qd, losartan 50 mg PO qd, metoprolol succinate 75 mg PO qd and atorvastatin 80 mg PO qd DM II--last HgbA1c checked 03/13/17 was 6.8 -Lantus 9 units SC BID -Insulin sliding scale -Check BSGs q ac and qhs Anxiety/depression -Continue citalopram 20 mg PO qd and lorazepam 1 mg PO BID Right ankle pain, uric acid is negative, will stop Percocet for pain control, will check ankle x-ray because patient reported more pain when amputation, no history of injury RLS -Continue Requip 1 mg PO qhs DVT prophylaxis -Enoxaparin 40 mg SC q24h, heparin drip d/c'd Code Status -Level I, FULL RESUSCITATION STATUS Discussed with patient about care plan, answered all the questions Continued [facility] stay due to: multiple IV medications needed Discharge planning: home
--- NOTE | 2017-05-20 18:31 | DIAGNOSTIC IMAGING REPORT ---
RIGHT ANKLE MIN 3 VIEWS ROUTINE CLINICAL HISTORY: Right ankle pain and swelling COMPARISON: None. DISCUSSION: There are vascular calcifications present. There are no acute fractures. There is Achilles insertional spur and plantar calcaneal spur. There is a corticated ossicle adjacent the fibular tip. This is felt to be old. There is mild chronic irregularity the medial malleolar tip. There is mild soft tissue swelling. IMPRESSION: Chronic changes involving the ankle. No acute fractures. Calcaneal spurring. Electronically signed by: Chad Moulton M.D. 05/20/2017 6:29 PM Dictated Date/Time: 05/20/2017 6:28 PM
[2017-05-20] MEDS: ENOXAPARIN 40 MG/0.4 ML SYR SQ SCH (20:03)
[2017-05-20] MEDS: ROPINIROLE HCL 1 MG TAB PO SCH (23:37)
[2017-05-20] MEDS: LORAZEPAM 1 MG TAB PO SCH (23:37)
[2017-05-20] MEDS: ZOLPIDEM TARTRATE 10 MG TAB PO PRN (23:37)
[2017-05-21 04:00] VITALS: BP 106/61; PULSE 65; TEMP 36.9; O2SAT 94
[2017-05-21] MEDS: NITROGLYCERIN OINT 2% 1GM PACKET EXT SCH ×4 (05:39→17:22)
[2017-05-21 06:38] LABS: BASO % 0.2 %; BASO ABS # 0.01 K/uL (0-0.2); COMPLETE YES; EOS % 2.6 %; HEMATOCRIT 36.6 % (42-52); IG% 0.2 %; LYMPH ABS # 0.99 K/uL (1.2-3.4); MEAN CELL VOLUME 95.3 fL (80-100); MEAN CORPUSCULAR HEMOGLOBIN 31.5 pg (25-34); MEAN CORPUSCULAR HGB CONC 33.1 g/dl (32-36); MONO % 9.2 %; NEUT % 71.8 %; PLATELET COUNT 212 K/uL (130-400); RED BLOOD COUNT 3.84 M/uL (4.7-6.1); WHITE BLOOD COUNT 6.19 K/uL (4.8-10.8)
[2017-05-21 06:52] LABS: PARTIAL THROMBOPLASTIN RATIO 1.1
[2017-05-21 07:12] LABS: CREATININE 1.2 mg/dl (0.60-1.40)
[2017-05-21 07:13] LABS: BUN/CREATININE RATIO 16.6 (10-20); CALCIUM 9.4 mg/dl (8.5-10.1); MAGNESIUM 2.1 mg/dl (1.8-2.4); POTASSIUM 4.3 mmol/L (3.5-5.1)
[2017-05-21 07:58] VITALS: BP_SYST 120; BP_SYST 144; BP_DIAS 64; BP_DIAS 76; PULSE 64; PULSE 69; TEMP 36.5; TEMP 36.8; O2SAT 96; O2SAT 99
[2017-05-21] MEDS: ATORVASTATIN 40 MG TAB PO SCH (08:01)
[2017-05-21] MEDS: MAGNESIUM OXIDE 400 MG TAB PO SCH (08:01)
[2017-05-21] MEDS: POTASSIUM CHLORIDE 20 MEQ TABCR PO SCH ×2 (08:01→17:15)
[2017-05-21] MEDS: ISOSORBIDE MONONITRATE 30 MG TABCR PO SCH (08:01)
[2017-05-21] MEDS: ASPIRIN 325 MG ECTAB PO SCH (08:01)
[2017-05-21] MEDS: METOPROLOL SUCC 25MG EXT REL TAB PO SCH (08:02)
[2017-05-21] MEDS: CYCLOBENZAPRINE HCL 10 MG TAB PO SCH ×3 (08:02→21:19)
[2017-05-21] MEDS: CLOPIDOGREL BISULFATE 75 MG TAB PO SCH (08:02)
[2017-05-21] MEDS: CITALOPRAM 20 MG TAB PO SCH (08:02)
[2017-05-21] MEDS: LOSARTAN POTASSIUM 50 MG TAB PO SCH (08:02)
[2017-05-21] MEDS: SENNA 8.6 MG TAB PO SCH (08:02)
[2017-05-21] MEDS: FUROSEMIDE INJ 40 MG in SYRINGE 0 ML IV SCH (08:03)
[2017-05-21] MEDS: INSULIN ASPART 100 UNITS/ML 3 ML PEN SC SCH ×4 (08:04→21:00)
[2017-05-21] MEDS: INSULIN GLARGINE SOLOSTAR 100 UNITS/ML 3 ML PEN SC SCH ×2 (08:05→21:22)
--- NOTE | 2017-05-21 09:13 | Cardiology Follow-Up ---
Subjective Date of Service: May 21, 2017. Pt evaluation today including: conversation w/ patient, physical exam, chart review, lab review, review of studies History of Present Illness The patient's main concern currently includes persistent discomfort involving the right foot. This is worse with ambulation or pressure on the floor. He did undergo an x-ray yesterday which did not demonstrate any evidence of fracture. Within the any claims to be feeling well. His appetite has been good. Denies significant breathing trouble. He has not noticed any dizziness or palpitations. No symptoms of chest discomfort currently. Social History Smoking Status: Former Smoker History of Alcohol Use: No Review of Systems Respiratory: + dyspnea on exertion, No cough, No sputum, No wheezing, No shortness of breath, No dyspnea at rest, No hemoptysis Cardiac: No chest pain, No orthopnea, No PND, No edema, No claudication, No palpitations He states that he has reduced his overall food intake. He has affected a significant weight loss over the past year. Objective Vital Signs Past 12 Hours Date Time Temp Pulse Resp B/P (MAP) Pulse Ox O2 Delivery O2 Flow Rate FiO2 05/21/17 08:00 Room Air 05/21/17 07:58 36.8 64 16 120/76 (91) 99 05/21/17 04:00 36.9 65 18 106/61 (76) 94 Room Air 05/21/17 04:00 Room Air 05/21/17 00:00 Room Air 05/20/17 23:45 37.0 64 20 120/80 (93) 95 Last Recorded Weight-Kilograms: 122.500 Physical Exam The patient is alert and oriented. Mood and affect appeared normal. He answered all questions appropriately. HEENT: Pupils are equal and reactive to light and accommodation. Extraocular movements are intact. The sclerae are anicteric. Neuro: Cranial nerves intact Neck: Patient's neck is supple. He has palpable carotid pulses bilaterally without bruits on auscultation. There is no evidence of jugular venous distention. The thyroid is not enlarged. Lungs: Bibasilar rales. Reduced breath sounds in the bases bilaterally. He has good air movement without use of accessory muscles. No wheezes or rhonchi. Cardiac: Heart demonstrates a regular rate and rhythm. Normal S1 and S2. No murmurs on examination. Pulses: The patient has palpable radial pulses bilaterally that are equal in intensity Extremities: There was no evidence of hypoperfusion. There is no cyanosis or clubbing. There is mild peripheral edema on the left lower extremity with moderate peripheral edema noted on the right lower extremity. There is also a brawny erythematous rash noted on the right lower extremity, which is unchanged from yesterday. This is not the same differs significantly from the left foot. Skin: I did not appreciate any other rashes on examination today. Data Laboratory Results: Last 24 Hours Test 05/20/17 09:56 05/20/17 11:11 05/20/17 14:05 05/20/17 14:22 Pleural Fluid Source RIGHT LUNG Pleural Fluid Color YELLOW Pleural Fluid Appearance CLEAR Pleural Fluid WBC 673 /uL Pleural Fluid RBC < 3000 /uL Pleural Fluid pH 7.44 Pleural Fluid Polynuclear WBCs % 2.4 % Pleural Fluid Mononuclear WBCs % 97.6 % Pleural Fluid Total Protein 2.5 g/dl Pleural Fluid Albumin 1.4 g/dl Pleural Fluid LDH 82 IU Pleural Fluid Glucose 118 mg/dl Pleural Fluid Amylase 20 U/L Bedside Glucose 154 mg/dl 131 mg/dl Activated Partial Thromboplast Time 62.1 SECONDS Partial Thromboplastin Ratio 2.4 Lactate Dehydrogenase 146 U/L Test 05/20/17 16:24 05/20/17 20:12 05/21/17 06:10 05/21/17 06:48 Bedside Glucose 115 mg/dl 174 mg/dl 88 mg/dl White Blood Count 6.19 K/uL Red Blood Count 3.84 M/uL Hemoglobin 12.1 g/dL Hematocrit 36.6 % Mean Corpuscular Volume 95.3 fL Mean Corpuscular Hemoglobin 31.5 pg Mean Corpuscular Hemoglobin Concent 33.1 g/dl Platelet Count 212 K/uL Mean Platelet Volume 10.0 fL Neutrophils (%) (Auto) 71.8 % Lymphocytes (%) (Auto) 16.0 % Monocytes (%) (Auto) 9.2 % Eosinophils (%) (Auto) 2.6 % Basophils (%) (Auto) 0.2 % Neutrophils # (Auto) 4.45 K/uL Lymphocytes # (Auto) 0.99 K/uL Monocytes # (Auto) 0.57 K/uL Eosinophils # (Auto) 0.16 K/uL Basophils # (Auto) 0.01 K/uL RDW Standard Deviation 46.1 fL RDW Coefficient of Variation 13.3 % Immature Granulocyte % (Auto) 0.2 % Immature Granulocyte # (Auto) 0.01 K/uL Activated Partial Thromboplast Time 29.4 SECONDS Partial Thromboplastin Ratio 1.1 Sodium Level 139 mmol/L Potassium Level 4.3 mmol/L Chloride Level 101 mmol/L Carbon Dioxide Level 32 mmol/L Anion Gap 6.0 mmol/L Blood Urea Nitrogen 20 mg/dl Creatinine 1.20 mg/dl Est Creatinine Clear Calc Drug Dose 74.1 ml/min Estimated GFR () 69.6 Estimated GFR (Non- 60.1 BUN/Creatinine Ratio 16.6 Random Glucose 85 mg/dl Calcium Level 9.4 mg/dl Magnesium Level 2.1 mg/dl Imaging: Foot x-ray obtained yesterday did not demonstrate any evidence of fracture Assessment and Plan 1. Chest pain: Resolved. Likely related to his pulmonary vascular congestion rather than acute coronary syndrome. 2. Acute decompensated systolic heart failure: Clinically improved. His exam is unchanged from yesterday. I will continue with diuresis although yesterday he did not have a significant net loss. This may require either higher doses of Lasix, a change in the dosing schedule to a large dose once daily or switch to a different loop diuretic. 3. Coronary artery disease: Stable cardiac biomarkers. No indication for ischemic evaluation at this point. Heparin has been stopped.. 4. Ischemic cardiomyopathy: Currently decompensated. Improving. On appropriate medical therapy. 5. Left bundle-branch block: Chronic.
[2017-05-21 11:40] VITALS: BP 96/60; PULSE 60; TEMP 37; O2SAT 95
--- NOTE | 2017-05-21 12:56 | Hospitalist Progress Note ---
Hospitalist Progress Note Date of Service May 21, 2017. Subjective Pt evaluation today including: conversation w/ patient, physical exam, chart review, lab review, review of studies, review of inpatient medication list Pain: 10/10 aching right ankle pain PO Intake: Tolerating PO diet Voiding: no voiding problems Patient states that his shortness of breath is resolved, although he does think he would become dyspneic on exertion. He has a productive cough but denies wheezing. His pleuritic chest pain has improved and now less frequent and less severe. He does complain of a 10/10 aching pain in his RLE, most marked in the ankle and foot. He states he has pain from about his knee down and that it is worse with palpation and weight bearing. He states that the Percocet 5/325 did not help. He has not received the 10 mg yet. The patient denies fevers, chills , sweats, palpitations, claudication, wheezing, shortness of breath at rest, nausea, vomiting, abdominal pain, dysuria, hematuria, urinary retention, paralysis, weakness, numbness and tingling. Additional Comments: See HPI for pertinent positives and negatives. All other systems reviewed and negative. Objective Vital Signs Date Time Temp Pulse Resp B/P (MAP) Pulse Ox O2 Delivery O2 Flow Rate FiO2 05/21/17 12:00 Room Air 05/21/17 11:40 37.0 60 18 96/60 (72) 95 05/21/17 08:00 Room Air 05/21/17 07:58 36.8 64 16 120/76 (91) 99 05/21/17 04:00 36.9 65 18 106/61 (76) 94 Room Air 05/21/17 04:00 Room Air 05/21/17 00:00 Room Air 05/20/17 23:45 37.0 64 20 120/80 (93) 95 05/20/17 20:42 37.1 64 18 114/73 (87) 96 Room Air 05/20/17 20:00 Room Air 05/20/17 16:00 Room Air 05/20/17 15:48 36.4 68 18 115/73 (87) 93 Room Air Physical Exam Notes: General appearance: +Morbidly obese. Well-developed, well-nourished, no apparent distress Head: Normocephalic, atraumatic Eyes: Normal inspection, PERRL, EOMI ENT: Normal ENT inspection, hearing grossly normal, pharynx normal Neck: Supple, no JVD, trachea midline Respiratory/Chest: +Diminished breath sounds right base. Lungs clear to auscultation, no respiratory distress Cardiovascular: Regular rate & rhythm, no gallop, no murmur Abdomen/GI: +RUQ mildly TTP, chronic. Normal bowel sounds, soft Extremities/Musculoskeletal: +2+ pitting edema RLE. 1+ pitting LLE. Chronic venous stasis changes bilaterally. Right ankle/foot warm to the touch, very TTP. No calf tenderness Neurological/Psych: Alert, normal mood/affect, oriented x 3 Skin: Normal color, warm/dry, no rash Laboratory Results Last 24 Hours Test 05/20/17 14:05 05/20/17 14:22 05/20/17 16:24 05/20/17 20:12 Activated Partial Thromboplast Time 62.1 SECONDS Partial Thromboplastin Ratio 2.4 Lactate Dehydrogenase 146 U/L Bedside Glucose 131 mg/dl 115 mg/dl 174 mg/dl Test 05/21/17 06:10 05/21/17 06:48 05/21/17 11:20 White Blood Count 6.19 K/uL Red Blood Count 3.84 M/uL Hemoglobin 12.1 g/dL Hematocrit 36.6 % Mean Corpuscular Volume 95.3 fL Mean Corpuscular Hemoglobin 31.5 pg Mean Corpuscular Hemoglobin Concent 33.1 g/dl Platelet Count 212 K/uL Mean Platelet Volume 10.0 fL Neutrophils (%) (Auto) 71.8 % Lymphocytes (%) (Auto) 16.0 % Monocytes (%) (Auto) 9.2 % Eosinophils (%) (Auto) 2.6 % Basophils (%) (Auto) 0.2 % Neutrophils # (Auto) 4.45 K/uL Lymphocytes # (Auto) 0.99 K/uL Monocytes # (Auto) 0.57 K/uL Eosinophils # (Auto) 0.16 K/uL Basophils # (Auto) 0.01 K/uL RDW Standard Deviation 46.1 fL RDW Coefficient of Variation 13.3 % Immature Granulocyte % (Auto) 0.2 % Immature Granulocyte # (Auto) 0.01 K/uL Activated Partial Thromboplast Time 29.4 SECONDS Partial Thromboplastin Ratio 1.1 Sodium Level 139 mmol/L Potassium Level 4.3 mmol/L Chloride Level 101 mmol/L Carbon Dioxide Level 32 mmol/L Anion Gap 6.0 mmol/L Blood Urea Nitrogen 20 mg/dl Creatinine 1.20 mg/dl Est Creatinine Clear Calc Drug Dose 74.1 ml/min Estimated GFR () 69.6 Estimated GFR (Non- 60.1 BUN/Creatinine Ratio 16.6 Random Glucose 85 mg/dl Calcium Level 9.4 mg/dl Magnesium Level 2.1 mg/dl Bedside Glucose 88 mg/dl 136 mg/dl Diagnostic Results Reviewed the following studies and agree with interpretation as follows: Patient Name: NUVIA YAP Unit Number: [id number] Dictated: 05/20/171827 Transcribed: 05/20/171827 ARG Printed Date/Time: [~ rep prt dt]/[~ rep prt tm] [~ rep ct labl] - [~ rep ct ivnm] [facility] [place] [address] Dictated: 05/20/171827 Transcribed: 05/20/171827 ARG Printed Date/Time: [~ rep prt dt]/[~ rep prt tm] [~ rep ct labl] - [~ rep ct ivnm] Patient: NUVIA YAP Address1: [address] [place] [address] Rec: [id number] Address2: Acct ID: [id number] [facility] Zip: [place] [address] Date: 1945 Sex: M Room/Bed: [facility] Ref Phy: Ellis Mullen M.D. SC: C.2T Att Phy: Nicolas Holman MD, PhD Report #: [id number] Sylvie Phy: Ellis Mullen M.D. Test: ANK Admit Phy: Kvng Heredia M.D. Lockstitch Front Maker: SAUD Interpreting Phy: Chad Moulton M.D. Diagnosis: NSTEMI, INITIAL EPISODE OF CARE, SYSTOLIC HEART Ordering Phy: Nicolas Holman MD, PhD Service Date: 05/20/17 Admit Date: 05/18/1708/28/17 MNE: [id number] CONF: DICTATED BY: Chad Moulton M.D.]] CC: Ellis Mullen M.D. Lin, Daniel Y., MD, PhD Endcc: [~ rep ct add3]] RIGHT ANKLE MIN 3 VIEWS ROUTINE CLINICAL HISTORY: Right ankle pain and swelling COMPARISON: None. DISCUSSION: There are vascular calcifications present. There are no acute fractures. There is Achilles insertional spur and plantar calcaneal spur. There is a corticated ossicle adjacent the fibular tip. This is felt to be old. There is mild chronic irregularity the medial malleolar tip. There is mild soft tissue swelling. IMPRESSION: Chronic changes involving the ankle. No acute fractures. Calcaneal spurring. Electronically signed by: Chad Moulton M.D. 05/20/2017 6:29 PM Dictated Date/Time: 05/20/2017 6:28 PM The status of this report is Signed. Draft = Not yet reviewed or approved by Radiologist. Signed = Reviewed and approved by Radiologist. <AttendingPhy>Nicolas Holman MD, PhD</AttendingPhy> <FamilyPhy>Ellis Mullen M.D.</FamilyPhy> <PrimaryPhy>Ellis Mullen M.D.</ PrimaryPhy> <UnitNumber>[id number]</UnitNumber> <VisitNumber>[id number]</ VisitNumber> <PatientName>NUVIA YAP</PatientName> <DateOfBirth>1945 </DateOfBirth> <Location>C.2T</Location> <ServiceDate>05/18/17</ServiceDate> < MNE>ESINDI</MNE> <OrderingPhy>Nicolas Holman MD, PhD</OrderingPhy> < OrderingPhyMNE>f rep ord dr cloud</OrderingPhyMNE> <DictatingPhyMNE>f rep dict dr cloud</DictatingPhyMNE> <CCListMNE>f rep ct mne</CCListMNE> <AdmittingPhyMNE>f pt admit dr cloud</AdmittingPhyMNE> <AttendingPhyMNE>f pt attend dr cloud</ AttendingPhyMNE> <ConsultingPhyMNE>f pt consult dr cloud</ConsultingPhyMNE> <FamilyPhyMNE>f pt fam dr cloud</FamilyPhyMNE> <OtherPhyMNE>f pt other dr cloud</OtherPhyMNE> < PrimaryPhyMNE>f pt prim care dr cloud</PrimaryPhyMNE> <ReferringPhyMNE>f pt referring dr cloud</ReferringPhyMNE> Assessment and Plan 71 y/o male with a history of chronic systolic CHF, HTN, HLD, CAD, DM II, anxiety/depression, and restless leg syndrome who presented to the ED on 05/18 with worsening chest pain and shortness of breath. Acute on chronic systolic CHF, bilateral pleural effusions R>L--improving -Admit to telemetry. No acute events overnight. Pt in sinus rhythm with HR 60s -70s -Continue Lasix 40 mg IV BID -Continue potassium supplementation -UO 2275 cc, net balance -204 cc 05/20 -Pulmonology consulted, appreciate recs: right sided thoracentesis today, drained 1250 cc yellow fluid. Pleura fluid studies pending. -Pleural studies grossly unremarkable, cultures pending. No growth to date -CXR 05/20 shows decrease in right pleural effusion and no evidence postprocedural pneumothorax. Persistent left pleural effusion -CTA no acute PE -Venous dopplers negative for DVT -Echo shows LVEF of 40-45%, no significant change from previous study. Type 2 diastolic dysfunction Elevated troponin, chest pain--resolved -Troponin peaked at 0.228, trending down -Cardiology consulted, appreciate recs: Continue diuresis. Consider increasing dose of Lasix, changing dosing schedule, or changing loop diuretic. -Heparin drip d/c'd -EKG 05/20 shows 74 bpm, SR with 1st degree AV block, PACs, LBBB (chronic), no significant change from previous Hypomagnesemia--resolved -Magnesium 2.1 on 05/21 Right ankle pain, redness, swelling--ongoing -Percocet 5/325 PO q4h prn pain rating 5 or less, Percocet 10/325 PO q4h prn pain rating over 5 -Ankle x-ray shows chronic changes and calcaneal spurring. Negative for fracture -Pt complains of foot arch pain today, will add naproxen 250 mg PO BID prn pain. Hold off on dedicated foot x-ray for now -Uric acid WNL CAD, HTN, HLD--stable -Continue ASA 325 mg PO qd, Plavix 75 mg PO qd, Imdur 30 mg PO qd, losartan 50 mg PO qd, metoprolol succinate 75 mg PO qd and atorvastatin 80 mg PO qd DM II--last HgbA1c checked 03/13/17 was 6.8 -Lantus 8 units SC BID -Insulin sliding scale -Check BSGs q ac and qhs Anxiety/depression -Continue citalopram 20 mg PO qd and lorazepam 1 mg PO BID RLS -Continue Requip 1 mg PO qhs DVT prophylaxis -Enoxaparin 40 mg SC q24h Code Status -Level I, FULL RESUSCITATION STATUS
--- NOTE | 2017-05-21 13:11 | Medical Student: [facility] ---
Med Student Progress Note Date of Service May 21, 2017. Subjective Pt evaluation today including: conversation w/ patient, physical exam, chart review, lab review, review of studies Pain: Right Foot PO Intake: Regular diet Mr. Jeremias Bobby is a 71-year-old male with PMH is significant for CHF, DM Type II, HTN, HLD, persistent right sided pleural effusion, and restless leg syndrome who was admitted on 05/18/2017 with precordial chest pain, progressive dyspnea on exertion, bilateral lower extremity edema, elevated troponin, and pleural effusion. Significant labs on admission included troponin 0.192, 0.223 , BNP 3413, ESR 39, Albumin 2.9. He was admitted for acute CHF exacerbation, NSTEMI, and right pleural effusion. Hospital Day #3, today he is feeling much improved 24 hours s/p thoracentesis. He denies any chest pain, discomfort, shortness of breath. He has edema of bilateral lower extremities. He reports significant pain of right foot, at the arch and heel, that is worse with any walking. He denies any trauma or falls. He denies any past injuries to the right ankle or foot. He had a similar episode in the past, but the pain is more significant this time. Uric acid was WNL. Foot pain did not improve with addition of Percocet PRN yesterday. Review of Systems Constitutional: No fever Eyes: No worsening of vision, No redness ENT: No sore throat Respiratory: No cough, No wheezing, No shortness of breath, No dyspnea on exertion Cardiac: + edema, No chest pain, No orthopnea, No PND, No palpitations Abdomen: No pain, No nausea, No vomiting, No diarrhea, No constipation Musculoskeletal: + problem reported (right foot pain ), No muscle pain, No swelling Male : No dysuria, No urinary frequency Neurologic: No weakness, No numbness/tingling Psychiatric: No depression symptoms, No anxiety Heme: No abnormal bleeding/bruising, No clotting problems Endo: No excessive thirst, No excessive urination Skin: No rash, No itch Objective Vital Signs Date Time Temp Pulse Resp B/P (MAP) Pulse Ox O2 Delivery O2 Flow Rate FiO2 05/21/17 07:58 36.8 64 16 120/76 (91) 99 05/21/17 04:00 36.9 65 18 106/61 (76) 94 Room Air 05/21/17 04:00 Room Air 05/21/17 00:00 Room Air 05/20/17 23:45 37.0 64 20 120/80 (93) 95 05/20/17 20:42 37.1 64 18 114/73 (87) 96 Room Air 05/20/17 20:00 Room Air 05/20/17 16:00 Room Air 05/20/17 15:48 36.4 68 18 115/73 (87) 93 Room Air 05/20/17 12:00 94 Room Air 05/20/17 11:29 36.8 79 18 148/63 (91) 96 Physical Exam General Appearance: WD/WN, no apparent distress ENT: normal ENT inspection, hearing grossly normal, TMs normal Neck: supple, no adenopathy, thyroid normal, trachea midline Respiratory/Chest: chest non-tender, lungs clear, normal breath sounds, no respiratory distress, no accessory muscle use Cardiovascular: regular rate, rhythm, no edema, no gallop, no murmur Abdomen: normal bowel sounds, non tender, soft, no organomegaly Extremities: no calf tenderness, + pedal edema (2+ bilateral LE edema ), + pertinent finding (no open wounds. no signs of active infection. significant pain along lower aspect of right medial malleolus and plantar aspect of right foot. 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, no motor/sensory deficits, alert, normal mood/affect, oriented x 3 Skin: normal color, warm/dry, no rash Lymphatic: no adenopathy Laboratory Results Last 24 Hours Test 05/20/17 09:56 05/20/17 11:11 05/20/17 14:05 05/20/17 14:22 Pleural Fluid Source RIGHT LUNG Pleural Fluid Color YELLOW Pleural Fluid Appearance CLEAR Pleural Fluid WBC 673 /uL Pleural Fluid RBC < 3000 /uL Pleural Fluid pH 7.44 Pleural Fluid Polynuclear WBCs % 2.4 % Pleural Fluid Mononuclear WBCs % 97.6 % Pleural Fluid Total Protein 2.5 g/dl Pleural Fluid Albumin 1.4 g/dl Pleural Fluid LDH 82 IU Pleural Fluid Glucose 118 mg/dl Pleural Fluid Amylase 20 U/L Bedside Glucose 154 mg/dl 131 mg/dl Activated Partial Thromboplast Time 62.1 SECONDS Partial Thromboplastin Ratio 2.4 Lactate Dehydrogenase 146 U/L Test 05/20/17 16:24 05/20/17 20:12 05/21/17 06:10 05/21/17 06:48 Bedside Glucose 115 mg/dl 174 mg/dl 88 mg/dl White Blood Count 6.19 K/uL Red Blood Count 3.84 M/uL Hemoglobin 12.1 g/dL Hematocrit 36.6 % Mean Corpuscular Volume 95.3 fL Mean Corpuscular Hemoglobin 31.5 pg Mean Corpuscular Hemoglobin Concent 33.1 g/dl Platelet Count 212 K/uL Mean Platelet Volume 10.0 fL Neutrophils (%) (Auto) 71.8 % Lymphocytes (%) (Auto) 16.0 % Monocytes (%) (Auto) 9.2 % Eosinophils (%) (Auto) 2.6 % Basophils (%) (Auto) 0.2 % Neutrophils # (Auto) 4.45 K/uL Lymphocytes # (Auto) 0.99 K/uL Monocytes # (Auto) 0.57 K/uL Eosinophils # (Auto) 0.16 K/uL Basophils # (Auto) 0.01 K/uL RDW Standard Deviation 46.1 fL RDW Coefficient of Variation 13.3 % Immature Granulocyte % (Auto) 0.2 % Immature Granulocyte # (Auto) 0.01 K/uL Activated Partial Thromboplast Time 29.4 SECONDS Partial Thromboplastin Ratio 1.1 Sodium Level 139 mmol/L Potassium Level 4.3 mmol/L Chloride Level 101 mmol/L Carbon Dioxide Level 32 mmol/L Anion Gap 6.0 mmol/L Blood Urea Nitrogen 20 mg/dl Creatinine 1.20 mg/dl Est Creatinine Clear Calc Drug Dose 74.1 ml/min Estimated GFR () 69.6 Estimated GFR (Non- 60.1 BUN/Creatinine Ratio 16.6 Random Glucose 85 mg/dl Calcium Level 9.4 mg/dl Magnesium Level 2.1 mg/dl Medications Current Inpatient Medications Medications (Trade) Dose Ordered Sig/Aditi Route Start Time Stop Time Status Last Admin Dose Admin Acetaminophen (Tylenol Tab) 650 mg Q4H PRN PO 05/18/17 16:15 06/17/17 16:14 Nitroglycerin (Nitrostat Tab) 0.4 mg UD PRN SL 05/18/17 16:15 06/17/17 16:14 Aspirin (Ecotrin Tab) 325 mg DAILY PO 05/19/17 09:00 06/18/17 08:59 05/21/17 08:01 325 MG Atorvastatin Calcium (Lipitor Tab) 80 mg DAILY PO 05/19/17 09:00 06/18/17 08:59 05/21/17 08:01 80 MG Citalopram Hydrobromide (celeXA TAB) 20 mg DAILY PO 05/19/17 09:00 06/18/17 08:59 05/21/17 08:02 20 MG Clopidogrel Bisulfate (plAVix TAB) 75 mg QAM PO 05/19/17 09:00 06/18/17 08:59 05/21/17 08:02 75 MG Cyclobenzaprine HCl (Flexeril Tab) 10 mg TID PO 05/18/17 21:00 06/17/17 20:59 05/21/17 08:02 10 MG Acetaminophen/ Hydrocodone Bitart ([place] 5/325 Tab) 1 tab Q6H PRN PO 05/18/17 16:15 06/01/17 16:14 05/19/17 10:39 1 TAB Isosorbide Mononitrate (Imdur Ext Rel Tab) 30 mg QAM PO 05/19/17 09:00 06/18/17 08:59 05/21/17 08:01 30 MG Levalbuterol (Xopenex Hfa Inhaler) 2 puffs Q6H PRN INH 05/18/17 16:15 06/17/17 16:14 Losartan Potassium (coZAAR TAB) 50 mg DAILY PO 05/19/17 09:00 06/18/17 08:59 05/21/17 08:02 50 MG Magnesium Oxide (Mag-Ox Tab) 400 mg DAILY PO 05/19/17 09:00 06/18/17 08:59 05/21/17 08:01 400 MG Metoprolol Succinate (Toprol Xl Tab) 75 mg DAILY PO 05/19/17 09:00 06/18/17 08:59 05/21/17 08:02 75 MG Ropinirole HCl (Requip Tab) 1 mg HS PO 05/18/17 21:00 06/17/17 20:59 05/20/17 23:37 1 MG Senna (Senokot Tab) 8.6 mg DAILY PO 05/19/17 09:00 06/18/17 08:59 05/21/17 08:02 8.6 MG Zolpidem Tartrate (Ambien Tab) 10 mg HS PRN PO 05/18/17 21:00 06/17/17 20:59 05/20/17 23:37 10 MG Ondansetron HCl (Zofran Inj) 4 mg Q6H PRN IV 05/18/17 16:15 06/17/17 16:14 Insulin Aspart (novoLOG ASPART) SLIDING SCALE If C... ACHS SC 05/18/17 21:30 06/17/17 21:29 05/21/17 08:04 5 UNITS Glucose (Glucose 40% Gel) UD PRN PO 05/18/17 16:15 06/17/17 16:14 Glucose (Glucose Chew Tab) 1 tabs UD PRN PO 05/18/17 16:15 06/17/17 16:14 Dextrose (Dextrose 50% 50ML Syringe) 50 ml UD PRN IV 05/18/17 16:15 06/17/17 16:14 Glucagon (Glucagon Inj) 1 mg UD PRN SQ 05/18/17 16:15 06/17/17 16:14 Nitroglycerin (Nitroglycerin 2% Oint) 1 inch Q6 EXT 05/18/17 22:00 06/17/17 21:59 05/21/17 05:39 1 INCH Furosemide 40 mg/ Syringe 4 ml @ 4 mls/min BID17 IV 05/18/17 21:00 06/17/17 20:59 05/21/17 08:03 4 MLS/MIN Potassium Chloride (Klor-Con Tab) 40 meq BID17 PO 05/18/17 21:30 06/17/17 21:29 05/21/17 08:01 40 MEQ Lorazepam (Ativan Tab) 1 mg PM PO 05/19/17 21:00 06/18/17 20:59 05/20/17 23:37 1 MG Miscellaneous Information (Consult Glycemic Management Pharmacy) 1 ea UD PRN N/A 05/19/17 09:45 06/18/17 09:44 Ioversol (Optiray 320) 111 ml UD PRN IV 05/19/17 16:15 05/23/17 16:14 Enoxaparin Sodium (Lovenox Inj) 40 mg Q24H SQ 05/20/17 21:00 06/19/17 20:59 05/20/17 20:03 40 MG Oxycodone/ Acetaminophen (Percocet 5-325mg Tab) 1 tab Q4H PRN PO 05/20/17 17:45 06/03/17 17:44 05/21/17 08:00 1 TAB Oxycodone/ Acetaminophen (Percocet 10-325MG Tab) 1 tab Q4H PRN PO 05/20/17 17:45 06/03/17 17:44 Insulin Glargine (Lantus Solostar Pen) 8 units BID SC 05/21/17 21:00 06/20/17 20:59 Diagnostic Radiology RIGHT ANKLE MIN 3 VIEWS ROUTINE 05/20/17 CLINICAL HISTORY: Right ankle pain and swelling COMPARISON: None. DISCUSSION: There are vascular calcifications present. There are no acute fractures. There is Achilles insertional spur and plantar calcaneal spur. There is a corticated ossicle adjacent the fibular tip. This is felt to be old. There is mild chronic irregularity the medial malleolar tip. There is mild soft tissue swelling. IMPRESSION: Chronic changes involving the ankle. No acute fractures. Calcaneal spurring. CXR 05/20/17 IMPRESSION: 1. Slightly decreased size of the right pleural effusion, now moderate in size without postprocedural pneumothorax identified. 2. Cardiomegaly with trace pleural effusion and bibasilar opacities, right greater than left again suggesting atelectasis. CXR 05/18/17 IMPRESSION: Persistent cardiomegaly and radiographic evidence of congestive failure with bilateral pleural effusions right greater than left. There are associated bibasal airspace opacities Chest CTA 05/19/17 IMPRESSION: 1. Moderate to large right pleural effusion and small left pleural effusion 2. Right lung airspace opacities likely atelectatic 3. Diminished enhancement within the right lower lobe pulmonary artery centrally. This likely represents flow artifact. Correlation with serial leg ultrasonography could be obtained in follow-up. Lower Extremity US 05/18/17 IMPRESSION: No sonographic evidence of deep venous thrombosis within the right lower extremity. Microbiology Results 05/20/17 Gram Stain, Godwin Batch Pending 05/20/17 Bacterial Culture, Godwin Batch Pending ECHO 05/19/17 EF 40-45% Moderate left ventricular systolic dysfunction. Severe left ventricular dilatation. Type II left ventricular diastolic dysfunction. Moderate left atrial dilatation. Moderate mitral regurgitation. Trace tricuspid regurgitation. Estimated right ventricular systolic pressure is normal. Compared to an echo of 03/14/17, there is no significant change in the LV function. The TR velocity has decreased. -- Conclusions -- Aortic valve sclerosis mild, without significant aortic valvular stenosis EKG 05/20/17 Sinus rhythm with 1st degree A-V block with Premature atrial complexes Left axis deviation Left bundle branch block Abnormal ECG When compared with ECG of 19-MAY-2017 13:26, No significant change Assessment and Plan Assessment and Plan: ASSESSMENT: Mr. Jeremias Bobby is a 71-year-old male with PMH is significant for CHF, DM Type II, HTN, HLD, persistent right sided pleural effusion, and restless leg syndrome who was admitted on 05/18/2017 with precordial chest pain, progressive dyspnea on exertion, bilateral lower extremity edema, elevated troponin, and pleural effusion. He is Hospital Day #2 for acute CHF exacerbation, NSTEMI, and right pleural effusion s/p paracentesis. At admission, D-Dimer was >2000. Differential diagnosis includes acute PE, which was ruled out with chest CT and right lower extremity ultrasound showing no obvious DVT or PE. PLAN: Acute CHF exacerbation with significant past Coronary Artery Disease Acute coronary syndrome November 2011 resulting in stenting of the distal LAD. Repeat catheterization 2012 demonstrated subtotal occlusion of a codominant left circumflex. Seventy percent proximal LAD and distal PDA stenosis. Nuclear stress test performed in 06/2016 revealed completed inferior infarction without wen-infarct ischemia. Non ST-elevation myocardial infarction 09/2016. Left bundle branch block Ischemic cardiomyopathy with last ejection fraction estimated at 40-45 percent Elevated troponin and BNP Appreciate cardiology consultation Stop heparin drip Continue telemetry monitoring Continue potassium chloride 40 mEq by mouth BID Continue clopidogrel 75 mg by mouth every morning Continue isosorbide mononitrate ER daily Continue lisinopril 5 mg by mouth every morning Continue metoprolol succinate 100 mg by mouth daily. Bilateral pleural effusion, likely 2/2 underlying CHF Right pleural effusion s/p bedside thoracentesis 1250 ml of yellow fluid was drained and patient tolerated the procedure well. This should greatly help with his dyspnea. Follow up CXR done and shows interval decrease in fluid on the right. Pleural fluid studies show transudative fluid, likely due to CHF. Negative for Light's criteria for exudative effusion Pulmonology consultation appreciated Diabetes mellitus continue NovoLog Mix 70/30, 20 units subcutaneous every morning and 30 minutes subcutaneous every evening. Place on Accu-Cheks before meals and at bedtime with NovoLog coverage per scale Right ankle and foot pain and swollen, mild, Lower extremity ultrasound showing no obvious DVT Uric acid was normal making gout less likely Ankle radiograph: Chronic changes involving the ankle. No acute fractures. Calcaneal spurring. Differential diagnosis should include: gout, plantar fascitis, nerve entrapment or compression syndrome, neuropathic pain, S1 radiculopathy, calcaneal stress fracture, bone contusion, osteomyelitis, or Achilles tendinopathy. Continue Percocet PRN for pain Restless leg syndrome continue ropinirole 1 mg by mouth at bedtime. Insomnia lorazepam 1 mg by mouth at bedtime zolpidem tartrate 2 tablets by mouth at bedtime Hyperlipidemia continue atorvastatin 40 mg by mouth every morning. Discharge planning: home Continued [facility] stay due to: multiple IV medications needed Discharge planning: home
--- NOTE | 2017-05-21 13:51 | Pulmonology Progress Note ---
Pulmonary Progress Note Date of Service May 21, 2017. Attending Dr. Wei Subjective Patient seen and examined he hasn't been to the current time. He denies any fever, chills, chest pain, shortness of breath. Objective Vital signs: MAXIMUM TEMPERATURE 37, blood pressure 96/68 to 120/76, pulse 60-65 , respiratory rate 16-18, 94-99% on room air. He is currently 3800 mL negative balance. General Appearance: WELL-APPEARING, WD/WN, NO APPARENT DISTRESS, obese Head: NORMOCEPHALIC, ATRAUMATIC Eyes: PERRLA, NO DISCHARGE, EOMI, SCLERAE NORMAL, other (right eye surgical repair) ENT: NORMAL MOUTH EXAM, other (Mallampati II) Neck: NORMAL RANGE OF MOTION, NO TENDERNESS, TRACHEA MIDLINE, NO STRIDOR, SUPPLE Respiratory: BREATH SOUNDS NORMAL, CLEAR TO AUSCULTATION, other (Decreased breath sounds at the bases) Cardiovascular: REGULAR RATE/RHYTHM, NORMAL S1S2, NORMAL PERIPHERAL PULSES Abdomen: NON TENDER, NORMAL BOWEL SOUNDS Back: NORMAL INSPECTION, NO MIDLINE TENDERNESS, NO CVA TENDERNESS Edema: RLE, Bilateral LE (2+) Neuro: ALERT, ORIENTED x 3, NORMAL MOTOR EXAM, NORMAL SENSATION, Pleural fluid PH 7.44, white blood cells 673, poly-nuclear 2.4, mononuclear 97.6% percent Total protein 2.5, pleural albumin 1.4, pleural LDH 82, pleural glucose 118, pleural amylase 20, pleural cholesterol pending Serum LDH 146, serum albumin 2.6, total protein 6.3 Serum albumin-pleural albumin = 1.2 Pleural LDH/serum LDH= 0.56 Assessment & Plan Bilateral pleural effusion Acute on chronic heart failure Elevated Troponin Patient has bilateral pleural effusions most likely secondary to underlying heart failure s/p right thoracentesis on 05/20/2017 that is transudative in nature. This is most likely secondary to patient underlying cardiac disease. Cytolology results are pending. CTA of chest is done and results indeterminate, lower extremity dopplers are negative. Echo did not show right heart strain or elevated RVSP to suggest a large PE. Currently being treated for NSTEMI and CHF per primary team. I will sign of case today. Please call if you have any questions or concerns. Data Medications: Current Inpatient Medications Medications (Trade) Dose Ordered Sig/Aditi Route Start Time Stop Time Status Last Admin Dose Admin Acetaminophen (Tylenol Tab) 650 mg Q4H PRN PO 05/18/17 16:15 06/17/17 16:14 Nitroglycerin (Nitrostat Tab) 0.4 mg UD PRN SL 05/18/17 16:15 06/17/17 16:14 Aspirin (Ecotrin Tab) 325 mg DAILY PO 05/19/17 09:00 06/18/17 08:59 05/21/17 08:01 325 MG Atorvastatin Calcium (Lipitor Tab) 80 mg DAILY PO 05/19/17 09:00 06/18/17 08:59 05/21/17 08:01 80 MG Citalopram Hydrobromide (celeXA TAB) 20 mg DAILY PO 05/19/17 09:00 06/18/17 08:59 05/21/17 08:02 20 MG Clopidogrel Bisulfate (plAVix TAB) 75 mg QAM PO 05/19/17 09:00 06/18/17 08:59 05/21/17 08:02 75 MG Cyclobenzaprine HCl (Flexeril Tab) 10 mg TID PO 05/18/17 21:00 06/17/17 20:59 05/21/17 13:00 10 MG Acetaminophen/ Hydrocodone Bitart ([place] 5/325 Tab) 1 tab Q6H PRN PO 05/18/17 16:15 06/01/17 16:14 05/19/17 10:39 1 TAB Isosorbide Mononitrate (Imdur Ext Rel Tab) 30 mg QAM PO 05/19/17 09:00 06/18/17 08:59 05/21/17 08:01 30 MG Levalbuterol (Xopenex Hfa Inhaler) 2 puffs Q6H PRN INH 05/18/17 16:15 06/17/17 16:14 Losartan Potassium (coZAAR TAB) 50 mg DAILY PO 05/19/17 09:00 06/18/17 08:59 05/21/17 08:02 50 MG Magnesium Oxide (Mag-Ox Tab) 400 mg DAILY PO 05/19/17 09:00 06/18/17 08:59 05/21/17 08:01 400 MG Metoprolol Succinate (Toprol Xl Tab) 75 mg DAILY PO 05/19/17 09:00 06/18/17 08:59 05/21/17 08:02 75 MG Ropinirole HCl (Requip Tab) 1 mg HS PO 05/18/17 21:00 06/17/17 20:59 05/20/17 23:37 1 MG Senna (Senokot Tab) 8.6 mg DAILY PO 05/19/17 09:00 06/18/17 08:59 05/21/17 08:02 8.6 MG Zolpidem Tartrate (Ambien Tab) 10 mg HS PRN PO 05/18/17 21:00 06/17/17 20:59 05/20/17 23:37 10 MG Ondansetron HCl (Zofran Inj) 4 mg Q6H PRN IV 05/18/17 16:15 06/17/17 16:14 Insulin Aspart (novoLOG ASPART) SLIDING SCALE If C... ACHS SC 05/18/17 21:30 06/17/17 21:29 05/21/17 13:00 7 UNITS Glucose (Glucose 40% Gel) UD PRN PO 05/18/17 16:15 06/17/17 16:14 Glucose (Glucose Chew Tab) 1 tabs UD PRN PO 05/18/17 16:15 06/17/17 16:14 Dextrose (Dextrose 50% 50ML Syringe) 50 ml UD PRN IV 05/18/17 16:15 06/17/17 16:14 Glucagon (Glucagon Inj) 1 mg UD PRN SQ 05/18/17 16:15 06/17/17 16:14 Nitroglycerin (Nitroglycerin 2% Oint) 1 inch Q6 EXT 05/18/17 22:00 06/17/17 21:59 05/21/17 13:00 1 INCH Furosemide 40 mg/ Syringe 4 ml @ 4 mls/min BID17 IV 05/18/17 21:00 06/17/17 20:59 05/21/17 08:03 4 MLS/MIN Potassium Chloride (Klor-Con Tab) 40 meq BID17 PO 05/18/17 21:30 06/17/17 21:29 05/21/17 08:01 40 MEQ Lorazepam (Ativan Tab) 1 mg PM PO 05/19/17 21:00 06/18/17 20:59 05/20/17 23:37 1 MG Miscellaneous Information (Consult Glycemic Management Pharmacy) 1 ea UD PRN N/A 05/19/17 09:45 06/18/17 09:44 Ioversol (Optiray 320) 111 ml UD PRN IV 05/19/17 16:15 05/23/17 16:14 Enoxaparin Sodium (Lovenox Inj) 40 mg Q24H SQ 05/20/17 21:00 06/19/17 20:59 05/20/17 20:03 40 MG Oxycodone/ Acetaminophen (Percocet 5-325mg Tab) 1 tab Q4H PRN PO 05/20/17 17:45 06/03/17 17:44 05/21/17 08:00 1 TAB Oxycodone/ Acetaminophen (Percocet 10-325MG Tab) 1 tab Q4H PRN PO 05/20/17 17:45 06/03/17 17:44 Insulin Glargine (Lantus Solostar Pen) 8 units BID SC 05/21/17 21:00 06/20/17 20:59 Vital Signs: Date Time Temp Pulse Resp B/P (MAP) Pulse Ox O2 Delivery O2 Flow Rate FiO2 05/21/17 12:00 Room Air 05/21/17 11:40 37.0 60 18 96/60 (72) 95 05/21/17 08:00 Room Air 05/21/17 07:58 36.8 64 16 120/76 (91) 99 05/21/17 04:00 36.9 65 18 106/61 (76) 94 Room Air 05/21/17 04:00 Room Air 05/21/17 00:00 Room Air 05/20/17 23:45 37.0 64 20 120/80 (93) 95 05/20/17 20:42 37.1 64 18 114/73 (87) 96 Room Air 05/20/17 20:00 Room Air 05/20/17 16:00 Room Air 05/20/17 15:48 36.4 68 18 115/73 (87) 93 Room Air Laboratory Results: Last 24 Hours Test 05/20/17 14:05 05/20/17 14:22 05/20/17 16:24 05/20/17 20:12 Activated Partial Thromboplast Time 62.1 SECONDS Partial Thromboplastin Ratio 2.4 Lactate Dehydrogenase 146 U/L Bedside Glucose 131 mg/dl 115 mg/dl 174 mg/dl Test 05/21/17 06:10 05/21/17 06:48 05/21/17 11:20 White Blood Count 6.19 K/uL Red Blood Count 3.84 M/uL Hemoglobin 12.1 g/dL Hematocrit 36.6 % Mean Corpuscular Volume 95.3 fL Mean Corpuscular Hemoglobin 31.5 pg Mean Corpuscular Hemoglobin Concent 33.1 g/dl Platelet Count 212 K/uL Mean Platelet Volume 10.0 fL Neutrophils (%) (Auto) 71.8 % Lymphocytes (%) (Auto) 16.0 % Monocytes (%) (Auto) 9.2 % Eosinophils (%) (Auto) 2.6 % Basophils (%) (Auto) 0.2 % Neutrophils # (Auto) 4.45 K/uL Lymphocytes # (Auto) 0.99 K/uL Monocytes # (Auto) 0.57 K/uL Eosinophils # (Auto) 0.16 K/uL Basophils # (Auto) 0.01 K/uL RDW Standard Deviation 46.1 fL RDW Coefficient of Variation 13.3 % Immature Granulocyte % (Auto) 0.2 % Immature Granulocyte # (Auto) 0.01 K/uL Activated Partial Thromboplast Time 29.4 SECONDS Partial Thromboplastin Ratio 1.1 Sodium Level 139 mmol/L Potassium Level 4.3 mmol/L Chloride Level 101 mmol/L Carbon Dioxide Level 32 mmol/L Anion Gap 6.0 mmol/L Blood Urea Nitrogen 20 mg/dl Creatinine 1.20 mg/dl Est Creatinine Clear Calc Drug Dose 74.1 ml/min Estimated GFR () 69.6 Estimated GFR (Non- 60.1 BUN/Creatinine Ratio 16.6 Random Glucose 85 mg/dl Calcium Level 9.4 mg/dl Magnesium Level 2.1 mg/dl Bedside Glucose 88 mg/dl 136 mg/dl
[2017-05-21 15:36] VITALS: BP 104/66; PULSE 60; TEMP 36.5; O2SAT 95
[2017-05-21] MEDS ORDERED: FUROSEMIDE 40 MG TAB PO SCH (17:00)
[2017-05-21] MEDS: NAPROXEN 250 MG TAB PO PRN (17:16)
[2017-05-21 19:20] VITALS: BP 117/66; PULSE 60; TEMP 36.5; O2SAT 94
[2017-05-21] MEDS: ENOXAPARIN 40 MG/0.4 ML SYR SQ SCH (21:24)
[2017-05-21 23:05] VITALS: BP 113/58; PULSE 66; TEMP 36.9; O2SAT 94
[2017-05-22] MEDS: ZOLPIDEM TARTRATE 10 MG TAB PO PRN ×2 (00:18→23:55)
[2017-05-22] MEDS: NITROGLYCERIN OINT 2% 1GM PACKET EXT SCH ×3 (00:18→11:53)
[2017-05-22] MEDS: LORAZEPAM 1 MG TAB PO SCH ×2 (00:18→23:55)
[2017-05-22] MEDS: ROPINIROLE HCL 1 MG TAB PO SCH ×2 (00:18→23:55)
[2017-05-22 03:06] VITALS: BP 116/68; PULSE 76; TEMP 37.1; O2SAT 92
[2017-05-22 05:57] LABS: HEMATOCRIT 37.4 % (42-52); MEAN CELL VOLUME 96.1 fL (80-100); MEAN CORPUSCULAR HEMOGLOBIN 31.9 pg (25-34); MEAN CORPUSCULAR HGB CONC 33.2 g/dl (32-36); MEAN PLATELET VOLUME 9.9 fL (7.4-10.4); PLATELET COUNT 213 K/uL (130-400); RED BLOOD COUNT 3.89 M/uL (4.7-6.1); WHITE BLOOD COUNT 6.15 K/uL (4.8-10.8)
[2017-05-22 06:19] LABS: PARTIAL THROMBOPLASTIN RATIO 1.1
[2017-05-22 06:31] LABS: BUN/CREATININE RATIO 18.2 (10-20); CALCIUM 9.4 mg/dl (8.5-10.1); CREATININE 1.3 mg/dl (0.60-1.40); MAGNESIUM 2.2 mg/dl (1.8-2.4); POTASSIUM 5.2 mmol/L (3.5-5.1)
[2017-05-22] MEDS: POTASSIUM CHLORIDE 20 MEQ TABCR PO SCH (07:34)
[2017-05-22 07:38] VITALS: BP 111/71; PULSE 62; TEMP 36.8; O2SAT 94
[2017-05-22] MEDS: ATORVASTATIN 40 MG TAB PO SCH (07:50)
[2017-05-22] MEDS: CITALOPRAM 20 MG TAB PO SCH (07:50)
[2017-05-22] MEDS: CLOPIDOGREL BISULFATE 75 MG TAB PO SCH (07:50)
[2017-05-22] MEDS: ASPIRIN 325 MG ECTAB PO SCH (07:50)
[2017-05-22] MEDS: ISOSORBIDE MONONITRATE 30 MG TABCR PO SCH (07:51)
[2017-05-22] MEDS: SENNA 8.6 MG TAB PO SCH (07:52)
[2017-05-22] MEDS: MAGNESIUM OXIDE 400 MG TAB PO SCH (07:52)
[2017-05-22] MEDS: CYCLOBENZAPRINE HCL 10 MG TAB PO SCH ×3 (07:52→20:00)
[2017-05-22] MEDS: METOPROLOL SUCC 25MG EXT REL TAB PO SCH ×2 (07:52→08:05)
[2017-05-22] MEDS: LOSARTAN POTASSIUM 50 MG TAB PO SCH (07:52)
[2017-05-22] MEDS: NAPROXEN 250 MG TAB PO PRN (07:53)
[2017-05-22] MEDS: INSULIN ASPART 100 UNITS/ML 3 ML PEN SC SCH ×4 (07:59→20:10)
[2017-05-22] MEDS: INSULIN GLARGINE SOLOSTAR 100 UNITS/ML 3 ML PEN SC SCH ×2 (08:00→20:10)
[2017-05-22] MEDS ORDERED: FUROSEMIDE 40 MG TAB PO SCH (09:00)
--- NOTE | 2017-05-22 09:57 | Hospitalist Progress Note ---
Hospitalist Progress Note Date of Service May 22, 2017. Subjective Pt evaluation today including: conversation w/ patient, physical exam, chart review, lab review, review of inpatient medication list Pain: 4/10 aching right ankle/foot pain PO Intake: Tolerating PO diet Voiding: no voiding problems Patient reports feeling better. He states that his right ankle/foot pain is improved from yesterday. He currently complains of a 4/10 aching pain that is worse with dorsiflexion, palpating and weight bearing. He states that his pain is a 7/10 at its worst today. He denies any shortness of breath but feels that he would have SIMPSON if he was up and around. He states his productive cough is improving. He did have some wheezing this morning but this has resolved after having some productive coughs. His pleuritic pain continues to improve. The patient denies fevers, chills, sweats, chest pain, palpitations, claudication, shortness of breath, nausea, vomiting, abdominal pain, dysuria, hematuria, urinary retention, paralysis, weakness, numbness and tingling. Additional Comments: See HPI for pertinent positives and negatives. All other systems reviewed and negative. Objective Vital Signs Date Time Temp Pulse Resp B/P (MAP) Pulse Ox O2 Delivery O2 Flow Rate FiO2 05/22/17 08:00 Room Air 05/22/17 07:38 36.8 62 18 111/71 (84) 94 05/22/17 04:00 Room Air 05/22/17 03:06 37.1 76 20 116/68 (84) 92 Room Air 05/22/17 00:00 Room Air 05/21/17 23:05 36.9 66 18 113/58 (76) 94 Room Air 05/21/17 20:00 Room Air 05/21/17 19:20 36.5 60 20 117/66 (83) 94 Room Air 05/21/17 16:00 Room Air 05/21/17 15:36 36.5 60 20 104/66 (79) 95 Room Air 05/21/17 12:00 Room Air 05/21/17 11:40 37.0 60 18 96/60 (72) 95 Physical Exam Notes: General appearance: +Obese. Well-developed, well-nourished, no apparent distress Head: Normocephalic, atraumatic Eyes: Normal inspection, PERRL, EOMI ENT: Normal ENT inspection, hearing grossly normal, pharynx normal Neck: Supple, no JVD, trachea midline Respiratory/Chest: +Diminished breath sounds right base. Lungs clear to auscultation, no respiratory distress Cardiovascular: Regular rate & rhythm, no gallop, no murmur Abdomen/GI: +RUQ mildly TTP, chronic. Normal bowel sounds, soft Extremities/Musculoskeletal: +1+ pitting edema bilaterally. Chronic venous stasis changes bilaterally. Right ankle/foot TTP. No calf tenderness Neurological/Psych: Alert, normal mood/affect, oriented x 3 Skin: Normal color, warm/dry, no rash Laboratory Results Last 24 Hours Test 05/21/17 11:20 05/21/17 15:53 05/21/17 20:13 05/22/17 05:27 Bedside Glucose 136 mg/dl 79 mg/dl 136 mg/dl White Blood Count 6.15 K/uL Red Blood Count 3.89 M/uL Hemoglobin 12.4 g/dL Hematocrit 37.4 % Mean Corpuscular Volume 96.1 fL Mean Corpuscular Hemoglobin 31.9 pg Mean Corpuscular Hemoglobin Concent 33.2 g/dl RDW Standard Deviation 46.2 fL RDW Coefficient of Variation 13.3 % Platelet Count 213 K/uL Mean Platelet Volume 9.9 fL Activated Partial Thromboplast Time 29.5 SECONDS Partial Thromboplastin Ratio 1.1 Sodium Level 138 mmol/L Potassium Level 5.2 mmol/L Chloride Level 102 mmol/L Carbon Dioxide Level 32 mmol/L Anion Gap 4.0 mmol/L Blood Urea Nitrogen 24 mg/dl Creatinine 1.30 mg/dl Est Creatinine Clear Calc Drug Dose 68.4 ml/min Estimated GFR () 63.2 Estimated GFR (Non- 54.5 BUN/Creatinine Ratio 18.2 Random Glucose 108 mg/dl Calcium Level 9.4 mg/dl Magnesium Level 2.2 mg/dl Test 05/22/17 07:01 Bedside Glucose 95 mg/dl Assessment and Plan 71 y/o male with a history of chronic systolic CHF, HTN, HLD, CAD, DM II, anxiety/depression, and restless leg syndrome who presented to the ED on 05/18 with worsening chest pain and shortness of breath. Acute on chronic systolic CHF, bilateral pleural effusions R>L--improving -Admit to telemetry. No acute events overnight. Pt in sinus rhythm/sinus bradycardia with HR in 50s-60s -D/C IV Lasix -Lasix 40 mg PO qd -Hold potassium supplementation, potassium 5.2 on 05/22 -UO 1875 cc, net balance -415 cc 05/21 -Fluid restriction 1800 mL -Pulmonology consulted, appreciate recs: bilateral transudative pleural effusions most likely secondary to underlying heart failure. Sign off -Pleural studies grossly unremarkable, cultures NGTD. AFB stain negative. Cytology negative for malignancy -CXR 05/20 shows decrease in right pleural effusion and no evidence postprocedural pneumothorax. Persistent left pleural effusion -CTA no acute PE -Venous dopplers negative for DVT -Echo shows LVEF of 40-45%, no significant change from previous study. Type 2 diastolic dysfunction Hyperkalemia -Potassium 5.2 on 05/22 -Hold supplemental potassium today, continue to monitor Elevated troponin, chest pain--resolved -Troponin peaked at 0.228, trending down -Cardiology consulted, appreciate recs: Continue diuresis. Consider increasing dose of Lasix, changing dosing schedule, or changing loop diuretic. -Heparin drip d/c'd -EKG 05/20 shows 74 bpm, SR with 1st degree AV block, PACs, LBBB (chronic), no significant change from previous Hypomagnesemia--resolved -Magnesium 2.2 on 05/22 Right ankle pain, redness, swelling--improving -Percocet 5/325 PO q4h prn pain rating 5 or less, Percocet 10/325 PO q4h prn pain rating over 5 -Ankle x-ray shows chronic changes and calcaneal spurring. Negative for fracture -Continue naproxen 250 mg PO BID prn pain. Hold off on dedicated foot x-ray for now as pain is improving -Uric acid WNL CAD, HTN, HLD--stable -Continue ASA 325 mg PO qd, Plavix 75 mg PO qd, Imdur 30 mg PO qd, losartan 50 mg PO qd, metoprolol succinate 75 mg PO qd and atorvastatin 80 mg PO qd DM II--last HgbA1c checked 03/13/17 was 6.8 -Lantus 8 units SC BID -Insulin sliding scale -Check BSGs q ac and qhs Anxiety/depression -Continue citalopram 20 mg PO qd and lorazepam 1 mg PO BID RLS -Continue Requip 1 mg PO qhs DVT prophylaxis -Enoxaparin 40 mg SC q24h Code Status -Level I, FULL RESUSCITATION STATUS
[2017-05-22 11:53] VITALS: BP 111/71; PULSE 62; TEMP 36.8; O2SAT 94
[2017-05-22 12:36] VITALS: BP 101/60; PULSE 62; TEMP 36.8; O2SAT 94
--- NOTE | 2017-05-22 13:18 | Medical Student: [facility] ---
Med Student Progress Note Date of Service May 22, 2017. Subjective Pt evaluation today including: conversation w/ patient, physical exam, chart review, lab review, review of studies Voiding: no voiding problems Mr. Jeremias Bobby is a 71-year-old male with PMH is significant for CHF, DM Type II, HTN, HLD, persistent right sided pleural effusion, and restless leg syndrome who was admitted on 05/18/2017 with precordial chest pain, progressive dyspnea on exertion, bilateral lower extremity edema, elevated troponin, and pleural effusion. He is Hospital Day #4 for acute CHF exacerbation and right pleural effusion s/p paracentesis. At admission, D-Dimer was >2000. Differential diagnosis includes acute PE, which was ruled out with chest CT and right lower extremity ultrasound showing no obvious DVT or PE. Hospital Day #4, today he is feeling much improved 48 hours s/p thoracentesis. He denies any chest pain, discomfort, shortness of breath. He has edema of bilateral lower extremities. He reports significant pain of right foot, at the arch and heel, that is worse with any walking. He denies any trauma or falls. He denies any past injuries to the right ankle or foot. He had a similar episode in the past, but the pain is more significant this time. Uric acid was WNL. Foot pain did not improve with addition of Percocet PRN yesterday. He did have moderate improvement with with Naproxen yesterday, rates his pain 5/10. His foot remains itchy and he request hydrocortisone cream. Review of Systems Constitutional: + fatigue (slept poorly last evening ), No fever, No chills, No sweats, No weight loss, No weakness Eyes: No worsening of vision, No eye pain, No redness ENT: No hearing loss, No unusual epistaxis, No nasal symptoms, No sore throat Respiratory: No cough, No sputum, No wheezing, No shortness of breath, No dyspnea on exertion, No dyspnea at rest Cardiac: No chest pain, No orthopnea, No PND, No edema, No palpitations, No problem reported Abdomen: No pain, No nausea, No vomiting, No diarrhea, No constipation, No GI bleeding, No problem reported Musculoskeletal: No joint pain, No muscle pain, No calf pain Male : No dysuria, No urinary frequency Neurologic: No see HPI, No memory loss, No paralysis, No weakness, No numbness/ tingling, No balance problems, No problem reported Psychiatric: + substance abuse, No see HPI, No depression symptoms, No anhedonism, No anxiety Heme: No see HPI, No abnormal bleeding/bruising, No clotting problems Endo: No see HPI, No fatigue, No excessive thirst, No excessive urination Skin: No see HPI, No rash, No itch, No color change, No bleeding Objective Vital Signs Date Time Temp Pulse Resp B/P (MAP) Pulse Ox O2 Delivery O2 Flow Rate FiO2 05/22/17 08:00 Room Air 05/22/17 07:38 36.8 62 18 111/71 (84) 94 05/22/17 04:00 Room Air 05/22/17 03:06 37.1 76 20 116/68 (84) 92 Room Air 05/22/17 00:00 Room Air 05/21/17 23:05 36.9 66 18 113/58 (76) 94 Room Air 05/21/17 20:00 Room Air 05/21/17 19:20 36.5 60 20 117/66 (83) 94 Room Air 05/21/17 16:00 Room Air 05/21/17 15:36 36.5 60 20 104/66 (79) 95 Room Air 05/21/17 12:00 Room Air 05/21/17 11:40 37.0 60 18 96/60 (72) 95 Physical Exam General Appearance: WD/WN, no apparent distress, + obese, + pertinent finding ( [place] mucus membranes ) ENT: normal ENT inspection, hearing grossly normal, pharynx normal Neck: supple, no adenopathy, thyroid normal, trachea midline Respiratory/Chest: chest non-tender, lungs clear, normal breath sounds, no respiratory distress, no accessory muscle use Cardiovascular: regular rate, rhythm, no edema, no gallop, no JVD, no murmur Abdomen: normal bowel sounds, non tender, soft, no organomegaly Extremities: normal inspection, no pedal edema, no calf tenderness, + pedal edema (2+ pitting edema bilaterally to level of ankles ), + pertinent finding ( tender to palpation at dorsum and plantar aspect of right foot and inferior aspect of medial malleolus ) Neurologic/Psychiatric: no motor/sensory deficits, alert, normal mood/affect, oriented x 3 Skin: normal color, warm/dry, no rash, + pertinent finding (normal skin turgor ) Lymphatic: no adenopathy Laboratory Results Last 24 Hours Test 05/21/17 11:20 05/21/17 15:53 05/21/17 20:13 05/22/17 05:27 Bedside Glucose 136 mg/dl 79 mg/dl 136 mg/dl White Blood Count 6.15 K/uL Red Blood Count 3.89 M/uL Hemoglobin 12.4 g/dL Hematocrit 37.4 % Mean Corpuscular Volume 96.1 fL Mean Corpuscular Hemoglobin 31.9 pg Mean Corpuscular Hemoglobin Concent 33.2 g/dl RDW Standard Deviation 46.2 fL RDW Coefficient of Variation 13.3 % Platelet Count 213 K/uL Mean Platelet Volume 9.9 fL Activated Partial Thromboplast Time 29.5 SECONDS Partial Thromboplastin Ratio 1.1 Sodium Level 138 mmol/L Potassium Level 5.2 mmol/L Chloride Level 102 mmol/L Carbon Dioxide Level 32 mmol/L Anion Gap 4.0 mmol/L Blood Urea Nitrogen 24 mg/dl Creatinine 1.30 mg/dl Est Creatinine Clear Calc Drug Dose 68.4 ml/min Estimated GFR () 63.2 Estimated GFR (Non- 54.5 BUN/Creatinine Ratio 18.2 Random Glucose 108 mg/dl Calcium Level 9.4 mg/dl Magnesium Level 2.2 mg/dl Test 05/22/17 07:01 Bedside Glucose 95 mg/dl Medications Current Inpatient Medications Medications (Trade) Dose Ordered Sig/Aditi Route Start Time Stop Time Status Last Admin Dose Admin Acetaminophen (Tylenol Tab) 650 mg Q4H PRN PO 05/18/17 16:15 06/17/17 16:14 Nitroglycerin (Nitrostat Tab) 0.4 mg UD PRN SL 05/18/17 16:15 06/17/17 16:14 Aspirin (Ecotrin Tab) 325 mg DAILY PO 05/19/17 09:00 06/18/17 08:59 05/22/17 07:50 325 MG Atorvastatin Calcium (Lipitor Tab) 80 mg DAILY PO 05/19/17 09:00 06/18/17 08:59 05/22/17 07:50 80 MG Citalopram Hydrobromide (celeXA TAB) 20 mg DAILY PO 05/19/17 09:00 06/18/17 08:59 05/22/17 07:50 20 MG Clopidogrel Bisulfate (plAVix TAB) 75 mg QAM PO 05/19/17 09:00 06/18/17 08:59 05/22/17 07:50 75 MG Cyclobenzaprine HCl (Flexeril Tab) 10 mg TID PO 05/18/17 21:00 06/17/17 20:59 05/21/17 21:19 10 MG Acetaminophen/ Hydrocodone Bitart ([place] 5/325 Tab) 1 tab Q6H PRN PO 05/18/17 16:15 06/01/17 16:14 05/19/17 10:39 1 TAB Isosorbide Mononitrate (Imdur Ext Rel Tab) 30 mg QAM PO 05/19/17 09:00 06/18/17 08:59 05/22/17 07:51 30 MG Levalbuterol (Xopenex Hfa Inhaler) 2 puffs Q6H PRN INH 05/18/17 16:15 06/17/17 16:14 Losartan Potassium (coZAAR TAB) 50 mg DAILY PO 05/19/17 09:00 06/18/17 08:59 05/22/17 07:52 50 MG Magnesium Oxide (Mag-Ox Tab) 400 mg DAILY PO 05/19/17 09:00 06/18/17 08:59 05/22/17 07:52 400 MG Metoprolol Succinate (Toprol Xl Tab) 75 mg DAILY PO 05/19/17 09:00 06/18/17 08:59 05/22/17 08:05 75 MG Ropinirole HCl (Requip Tab) 1 mg HS PO 05/18/17 21:00 06/17/17 20:59 05/22/17 00:18 1 MG Senna (Senokot Tab) 8.6 mg DAILY PO 05/19/17 09:00 06/18/17 08:59 05/22/17 07:52 8.6 MG Zolpidem Tartrate (Ambien Tab) 10 mg HS PRN PO 05/18/17 21:00 06/17/17 20:59 05/22/17 00:18 10 MG Ondansetron HCl (Zofran Inj) 4 mg Q6H PRN IV 05/18/17 16:15 06/17/17 16:14 Insulin Aspart (novoLOG ASPART) SLIDING SCALE If C... ACHS SC 05/18/17 21:30 06/17/17 21:29 05/22/17 12:05 4 UNITS Glucose (Glucose 40% Gel) UD PRN PO 05/18/17 16:15 06/17/17 16:14 Glucose (Glucose Chew Tab) 1 tabs UD PRN PO 05/18/17 16:15 06/17/17 16:14 Dextrose (Dextrose 50% 50ML Syringe) 50 ml UD PRN IV 05/18/17 16:15 06/17/17 16:14 Glucagon (Glucagon Inj) 1 mg UD PRN SQ 05/18/17 16:15 06/17/17 16:14 Nitroglycerin (Nitroglycerin 2% Oint) 1 inch Q6 EXT 05/18/17 22:00 06/17/17 21:59 05/22/17 05:57 1 INCH Lorazepam (Ativan Tab) 1 mg PM PO 05/19/17 21:00 06/18/17 20:59 05/22/17 00:18 1 MG Miscellaneous Information (Consult Glycemic Management Pharmacy) 1 ea UD PRN N/A 05/19/17 09:45 06/18/17 09:44 Ioversol (Optiray 320) 111 ml UD PRN IV 05/19/17 16:15 05/23/17 16:14 Enoxaparin Sodium (Lovenox Inj) 40 mg Q24H SQ 05/20/17 21:00 06/19/17 20:59 05/21/17 21:24 40 MG Oxycodone/ Acetaminophen (Percocet 5-325mg Tab) 1 tab Q4H PRN PO 05/20/17 17:45 06/03/17 17:44 05/21/17 08:00 1 TAB Oxycodone/ Acetaminophen (Percocet 10-325MG Tab) 1 tab Q4H PRN PO 05/20/17 17:45 06/03/17 17:44 Insulin Glargine (Lantus Solostar Pen) 8 units BID SC 05/21/17 21:00 06/20/17 20:59 05/22/17 08:00 8 UNITS Naproxen (Naprosyn Tab) 250 mg BID PRN PO 05/21/17 16:00 06/20/17 15:59 05/22/17 07:53 250 MG Furosemide (Lasix Tab) 40 mg DAILY PO 05/22/17 09:00 06/20/17 16:59 05/22/17 09:08 40 MG Diagnostic Radiology RIGHT ANKLE MIN 3 VIEWS ROUTINE 05/20/17 CLINICAL HISTORY: Right ankle pain and swelling COMPARISON: None. DISCUSSION: There are vascular calcifications present. There are no acute fractures. There is Achilles insertional spur and plantar calcaneal spur. There is a corticated ossicle adjacent the fibular tip. This is felt to be old. There is mild chronic irregularity the medial malleolar tip. There is mild soft tissue swelling. IMPRESSION: Chronic changes involving the ankle. No acute fractures. Calcaneal spurring. CXR 05/20/17 IMPRESSION: 1. Slightly decreased size of the right pleural effusion, now moderate in size without postprocedural pneumothorax identified. 2. Cardiomegaly with trace pleural effusion and bibasilar opacities, right greater than left again suggesting atelectasis. CXR 05/18/17 IMPRESSION: Persistent cardiomegaly and radiographic evidence of congestive failure with bilateral pleural effusions right greater than left. There are associated bibasal airspace opacities Chest CTA 05/19/17 IMPRESSION: 1. Moderate to large right pleural effusion and small left pleural effusion 2. Right lung airspace opacities likely atelectatic 3. Diminished enhancement within the right lower lobe pulmonary artery centrally. This likely represents flow artifact. Correlation with serial leg ultrasonography could be obtained in follow-up. Lower Extremity US 05/18/17 IMPRESSION: No sonographic evidence of deep venous thrombosis within the right lower extremity. Microbiology Results 05/20/17 Gram Stain, Godwin Batch Pending 05/20/17 Bacterial Culture, Godwin Batch Pending ECHO 05/19/17 EF 40-45% Moderate left ventricular systolic dysfunction. Severe left ventricular dilatation. Type II left ventricular diastolic dysfunction. Moderate left atrial dilatation. Moderate mitral regurgitation. Trace tricuspid regurgitation. Estimated right ventricular systolic pressure is normal. Compared to an echo of 03/14/17, there is no significant change in the LV function. The TR velocity has decreased. -- Conclusions -- Aortic valve sclerosis mild, without significant aortic valvular stenosis EKG EKG 02/17/17 Sinus rhythm with 1st degree A-V block with Premature atrial complexes Left axis deviation Left bundle branch block Abnormal ECG When compared with ECG of 19-MAY-2017 13:26, No significant change Confirmed by TAHIRA STAFFORD ([id number]) on 05/20/2017 12:19:59 PM Assessment and Plan Assessment and Plan: ASSESSMENT: Mr. Jeremias Bobby is a 71-year-old male with PMH is significant for CHF, DM Type II, HTN, HLD, persistent right sided pleural effusion, and restless leg syndrome who was admitted on 05/18/2017 with precordial chest pain, progressive dyspnea on exertion, bilateral lower extremity edema, elevated troponin, and pleural effusion. He is Hospital Day #4 for acute CHF exacerbation and right pleural effusion s/p thorocentesis. At admission, D-Dimer was >2000. Differential diagnosis includes acute PE, which was ruled out with chest CT and right lower extremity ultrasound showing no obvious DVT or PE. Most likely diagnosis is acute CHF exacerbation in the setting of underlying CAD. PLAN: Acute CHF exacerbation with significant past Coronary Artery Disease Acute coronary syndrome November 2011 resulting in stenting of the distal LAD. Repeat catheterization 2012 demonstrated subtotal occlusion of a codominant left circumflex. Seventy percent proximal LAD and distal PDA stenosis. Nuclear stress test performed in 06/2016 revealed completed inferior infarction without wen-infarct ischemia. Non ST-elevation myocardial infarction 09/2016. Left bundle branch block Ischemic cardiomyopathy with last ejection fraction estimated at 40-45 percent Elevated troponin and BNP Appreciate cardiology consultation Stop heparin drip Continue telemetry monitoring HOLD potassium chloride 40 mEq by mouth BID given K 5.2 HOLD lasix 40mg po daily Consider home diuretic, was on home torsemide 20mg po daily PRN for swelling Continue clopidogrel 75 mg by mouth every morning Continue isosorbide mononitrate ER daily Continue lisinopril 5 mg by mouth every morning Continue metoprolol succinate 100 mg by mouth daily. Pre-renal azotemia BUN elevated from 20 --> 24 Creatinine elevated from 0.95 --> 1.3, most likely 2/2 volume contraction and decreased renal perfusion Weight down from 134 on admission to 126 kg HOLD lasix 40mg po daily Monitor BMP Bilateral pleural effusion, likely 2/2 underlying CHF Right pleural effusion s/p bedside thoracentesis 1250 ml of yellow fluid was drained and patient tolerated the procedure well. This should greatly help with his dyspnea. Follow up CXR done and shows interval decrease in fluid on the right. Pleural fluid studies show transudative fluid, likely due to CHF Negative for Light's criteria for exudative effusion Pulmonology consultation appreciated Diabetes mellitus type II continue NovoLog Mix 70/30, 20 units subcutaneous every morning and 30 minutes subcutaneous every evening. Place on Accu-Cheks before meals and at bedtime with NovoLog coverage per scale Right ankle and foot pain and swollen, mild Differential diagnosis should include: gout, plantar fascitis, nerve entrapment or compression syndrome, neuropathic pain, S1 radiculopathy, calcaneal stress fracture, bone contusion, osteomyelitis, or Achilles tendinopathy. Lower extremity ultrasound showing no obvious DVT Uric acid was normal making gout less likely Ankle radiograph: Chronic changes involving the ankle. No acute fractures. Calcaneal spurring. Continue Naproxen PRN for pain Restless leg syndrome continue ropinirole 1 mg by mouth at bedtime. Insomnia lorazepam 1 mg by mouth at bedtime zolpidem tartrate 2 tablets by mouth at bedtime Hyperlipidemia continue atorvastatin 40 mg by mouth every morning. DISPO: Discharge today or tomorrow PT/ OT evaluation today Continued [facility] stay due to: multiple IV medications needed Discharge planning: home
--- NOTE | 2017-05-22 13:25 | Pharmacy Progress Note ---
Glycemic: Assessment & Plan Date of Service May 22, 2017. Assessment & Plan The patient is currently receiving ~30 units of insulin per day. BSGs ranging 79 - 136 mg/dl over the past 24hrs. * Basal insulin: Lantus 8 units every 12 hours * Correctional Insulin: Novolog Correction per scale ACHS Goal Range: Low 100 mg/dL - High 150 mg/dL Correction Factor: 30 mg/dL/unit * Prandial insulin: Per carb ratio of 1 unit per 10 grams CHO consumed PLAN: -Continue Lantus 8 units SQ q12 -Continue Novolog ACHS with goal range 100 - 150 mg/dL * Continue CF 30 mg/dL/unit * Loosen CR from 10 to 12 due to BSG of 79 mg/dL yesterday at dinnertime. RECOMMENDATIONS FOR DISCHARGE: * Good outpatient glycemic control evidenced by A1c of 6.8% * Resume home regimen of Novolog 70/30 on discharge * Please note that the plan above was derived based on current level of insulin resistance and hospital stress. These recommendations are appropriate for inpatient admission only. Plan of care upon discharge will need to be reassessed to avoid potential outpatient hypo/hyperglycemia.
[2017-05-22] MEDS ORDERED: POLYETHYLENE (MIRALAX) 17 GM PACK PO STA (14:40)
[2017-05-22] MEDS ORDERED: POLYETHYLENE (MIRALAX) 17 GM PACK PO PRN (14:45)
--- NOTE | 2017-05-22 14:52 | Cardiology Follow-Up ---
Subjective Date of Service: May 22, 2017. History of Present Illness The patient claims to be feeling fairly well this morning. His right foot pain appears to be improved on nonsteroidal therapy. He denies significant difficulty with breathing. He has not described orthopnea. Social History Smoking Status: Former Smoker History of Alcohol Use: No Review of Systems Respiratory: No cough, No sputum, No wheezing, No shortness of breath, No dyspnea on exertion, No dyspnea at rest Cardiac: No chest pain, No orthopnea, No PND, No edema, No palpitations, No problem reported He states that he has reduced his overall food intake. He has affected a significant weight loss over the past year. Objective Vital Signs Past 12 Hours Date Time Temp Pulse Resp B/P (MAP) Pulse Ox O2 Delivery O2 Flow Rate FiO2 05/22/17 12:36 36.8 62 18 101/60 (74) 94 Room Air 05/22/17 11:53 36.8 62 18 94 3.0 05/22/17 08:00 Room Air 05/22/17 07:38 36.8 62 18 111/71 (84) 94 05/22/17 04:00 Room Air 05/22/17 03:06 37.1 76 20 116/68 (84) 92 Room Air Last Recorded Weight-Kilograms: 126.200 Physical Exam The patient is alert and oriented. Mood and affect appeared normal. He answered all questions appropriately. HEENT: Pupils are equal and reactive to light and accommodation. Extraocular movements are intact. The sclerae are anicteric. Neuro: Cranial nerves intact Neck: Patient's neck is supple. He has palpable carotid pulses bilaterally without bruits on auscultation. There is no evidence of jugular venous distention. The thyroid is not enlarged. Lungs: Bibasilar rales. Reduced breath sounds in the bases bilaterally. He has good air movement without use of accessory muscles. No wheezes or rhonchi. Cardiac: Heart demonstrates a regular rate and rhythm. Normal S1 and S2. No murmurs on examination. Pulses: The patient has palpable radial pulses bilaterally that are equal in intensity Extremities: There was no evidence of hypoperfusion. There is no cyanosis or clubbing. There is mild peripheral edema on the left lower extremity with moderate peripheral edema noted on the right lower extremity. There is also a brawny erythematous rash noted on the right lower extremity, which is unchanged from yesterday. This is not the same differs significantly from the left foot. Skin: I did not appreciate any other rashes on examination today. Data Laboratory Results: Last 24 Hours Test 05/21/17 15:53 05/21/17 20:13 05/22/17 05:27 05/22/17 07:01 Bedside Glucose 79 mg/dl 136 mg/dl 95 mg/dl White Blood Count 6.15 K/uL Red Blood Count 3.89 M/uL Hemoglobin 12.4 g/dL Hematocrit 37.4 % Mean Corpuscular Volume 96.1 fL Mean Corpuscular Hemoglobin 31.9 pg Mean Corpuscular Hemoglobin Concent 33.2 g/dl RDW Standard Deviation 46.2 fL RDW Coefficient of Variation 13.3 % Platelet Count 213 K/uL Mean Platelet Volume 9.9 fL Activated Partial Thromboplast Time 29.5 SECONDS Partial Thromboplastin Ratio 1.1 Sodium Level 138 mmol/L Potassium Level 5.2 mmol/L Chloride Level 102 mmol/L Carbon Dioxide Level 32 mmol/L Anion Gap 4.0 mmol/L Blood Urea Nitrogen 24 mg/dl Creatinine 1.30 mg/dl Est Creatinine Clear Calc Drug Dose 68.4 ml/min Estimated GFR () 63.2 Estimated GFR (Non- 54.5 BUN/Creatinine Ratio 18.2 Random Glucose 108 mg/dl Calcium Level 9.4 mg/dl Magnesium Level 2.2 mg/dl Test 05/22/17 11:24 Bedside Glucose 182 mg/dl Assessment and Plan 1. Chest pain: Resolved. Likely related to his pulmonary vascular congestion rather than acute coronary syndrome. 2. Acute decompensated systolic heart failure: Clinically improved. His lungs sound clear. He has affected a mild diuresis on a daily basis. At this point would seem reasonable return him to his outpatient regimen to include torsemide 20 milligrams daily. 3. Coronary artery disease: Stable cardiac biomarkers. No indication for ischemic evaluation at this point. Heparin has been stopped.. 4. Ischemic cardiomyopathy: Currently decompensated. Improving. On appropriate medical therapy. 5. Left bundle-branch block: Chronic. I think from a cardiovascular standpoint he is doing well. He appears nearly euvolemic. I think we will reinstitution of his outpatient diuretic therapy he will gradually returned to his baseline. He has no symptoms of dyspnea at this point is limited only by his right foot discomfort. I will be away for the next 3 days but questions regarding his cardiac issues can be referred to the workday director industrial economist (Dr. Holloway) during that time.
[2017-05-22] MEDS ORDERED: NURSING VERBAL MED ORDER ONE (15:15)
[2017-05-22 16:13] VITALS: BP 104/67; PULSE 66; TEMP 36.7; O2SAT 96
[2017-05-22 16:55] LABS: BUN/CREATININE RATIO 22.8 (10-20); CALCIUM 9.4 mg/dl (8.5-10.1); CREATININE 1.2 mg/dl (0.60-1.40); POTASSIUM 5.1 mmol/L (3.5-5.1)
[2017-05-22] MEDS ORDERED: NYSTATIN EXT SCH (20:00)
[2017-05-22] MEDS ORDERED: TRIAMCINOLONE EXT SCH (20:00)
[2017-05-22] MEDS: NYSTATIN/TRIAMCINOLONE CR 15 GM TUBE EXT SCH (20:06)
[2017-05-22] MEDS: ENOXAPARIN 40 MG/0.4 ML SYR SQ SCH (20:12)
[2017-05-22 23:32] VITALS: BP 126/74; PULSE 58; TEMP 36.8; O2SAT 96
[2017-05-23 07:57] LABS: PARTIAL THROMBOPLASTIN RATIO 1.2
[2017-05-23] MEDS ORDERED: TORSEMIDE 20 MG TAB PO SCH (08:00)
[2017-05-23] MEDS: NYSTATIN/TRIAMCINOLONE CR 15 GM TUBE EXT SCH (08:00)
[2017-05-23] MEDS: CYCLOBENZAPRINE HCL 10 MG TAB PO SCH ×2 (08:00→12:19)
[2017-05-23 08:05] LABS: BUN/CREATININE RATIO 24.8 (10-20); CALCIUM 9.4 mg/dl (8.5-10.1); CREATININE 1.2 mg/dl (0.60-1.40); MAGNESIUM 2.1 mg/dl (1.8-2.4); POTASSIUM 4.8 mmol/L (3.5-5.1)
[2017-05-23 08:41] VITALS: BP 114/63; PULSE 64; TEMP 36.2; O2SAT 96
[2017-05-23] MEDS: INSULIN ASPART 100 UNITS/ML 3 ML PEN SC SCH ×2 (09:04→12:22)
[2017-05-23] MEDS: INSULIN GLARGINE SOLOSTAR 100 UNITS/ML 3 ML PEN SC SCH (09:06)
[2017-05-23] MEDS: METOPROLOL SUCC 25MG EXT REL TAB PO SCH (09:08)
[2017-05-23] MEDS: ISOSORBIDE MONONITRATE 30 MG TABCR PO SCH (09:08)
[2017-05-23] MEDS: CLOPIDOGREL BISULFATE 75 MG TAB PO SCH (09:09)
[2017-05-23] MEDS: ATORVASTATIN 40 MG TAB PO SCH (09:09)
[2017-05-23] MEDS: CITALOPRAM 20 MG TAB PO SCH (09:09)
[2017-05-23] MEDS: MAGNESIUM OXIDE 400 MG TAB PO SCH (09:09)
[2017-05-23] MEDS: ASPIRIN 325 MG ECTAB PO SCH (09:09)
[2017-05-23] MEDS: SENNA 8.6 MG TAB PO SCH (09:10)
[2017-05-23] MEDS: LOSARTAN POTASSIUM 50 MG TAB PO SCH (09:10)
[2017-05-23 11:10] VITALS: BP 114/69; PULSE 67; O2SAT 93
[2017-05-23 11:33] VITALS: BP 114/63; PULSE 64; TEMP 36.2; O2SAT 96
[2017-05-23] MEDS ORDERED: NPR250 PO (11:34)
[2017-05-23] MEDS ORDERED: NYSTCRE11 EXT (11:34)
--- NOTE | 2017-05-23 11:34 | Discharge Instructions ---
Discharge Instructions Date of Service May 23, 2017. Admission Reason for Admission: Nstemi, Initial Episode Of Care, Systolic Heart Discharge Discharge Diagnosis / Problem: Acute on chronic systolic CHF, bilateral pleural effusions R>L Discharge Goals Goal(s): Decrease discomfort, Improve function, Increase independence, Improve disease control, Improve nutritional status, Learn about illness, Diagnostic testing, Therapeutic intervention, Prevent Disease Progression, Specific goals Activity Recommendations Activity Limitations: resume your previous activity (fall precaution) . Instructions / Follow-Up Instructions / Follow-Up you have Acute on chronic systolic CHF, bilateral pleural effusions R>L- You need to continue Fluid restriction 1800 mL, and watch your weight Resuming your home dose of by mouth Torsemide, you need to take this medicine regularly, follow-up kidney function with your PCP while on this medication you was having Hyperkalemia, you need to check potassium level with your family doctor in 1 week in the follow-up visit You have Right ankle pain, redness, swelling, you can continue naproxen 250 mg PO BID prn pain. your Uric acid WNL - you need to follow up with your primary care physician in 1 week, - take medication as instructed, never overdose or any misuse, or take with alcohol, because misuse of medicine may cause organ damage or , call your primary care physician if have questions of medicaitons. - call your primary care physician OR go to local emergency room if has any fever/chill, chest pain, shortness of breathing, nausea/vomiting/abdominal pain , facial droop/slurry speech/local weakness, or if has any questions. - fall precaution - diet as instructed - you need to follow up with your subspecialist - you should understand that it is important to follow up the above instruction , and "not following the above instruction" may cause delayed or missed care of your medical conditions which may cause permanent organ damage and even . Call your Primary Care doctor if any of the following symptoms or problems start or get worse: * Shortness of breath or difficulty breathing * Wake up at night short of breath * Chest pain * Cough * Swelling of your hands, feet, or legs * More fatigued or tired with your normal activity * Palpitations - sudden fast heart beats WEIGHT * Weigh yourself every morning after using the bathroom. * Use the same scale. * Wear the same amount of clothing. * Write your weight down on a chart. * Call your Primary Care doctor if you gain more than 2-3 pounds in 1-2 days. MEDICATIONS * Use this discharge instruction sheet for medication instructions. * Take your medications at the time your doctor ordered. * Do not skip a dose of your medicines. * If you miss a dose of medicine, take it as soon as possible, but DO NOT DOUBLE A DOSE. * Read your medicine information when you get home. * Know all of the side effects of your medicine. If in doubt, ask your pharmacist * Call your Primary Care doctor's office if you have any side effects. * Be sure all of your doctors know what medicine and herbs you take (including cold, flu, and herbal medicine). Take the following with you to your follow-up doctor appointments: * Weight Chart * Medication List * List of questions Do not drink excessive alcohol, beer or wine. Current Hospital Diet Patient's current hospital diet: AHA Diet (Heart Healthy), Diabetes Type 2 Diet Discharge Diet Recommended Diet: Diabetes Type 2 Diet Pending Studies Studies pending at discharge: no Laboratory Results Hemoglobin A1c Test 03/13/17 20:15 Range/Units Estimated Average Glucose 148 mg/dl Hemoglobin A1c 6.8 H 4.5-5.6 % Medical Emergencies . Who to Call and When: Call 911 or go to the Emergency Room if: * If at any time you feel your situation is an emergency * You have tightness or pain in your chest that does not go away with rest or Nitroglycerin * You are very short of breath even with rest . Non-Emergent Contact Non-Emergency issues call your: Primary Care Provider, Studio Potter . . "Provider Documentation" section prepared by Nicolas Holman. . VTE Core Measure Inpt VTE Proph given/why not?: SCD's
--- NOTE | 2017-05-23 11:50 | Discharge Summary ---
Discharge Summary Date of Service May 23, 2017. Discharge Summary Admission Date: May 18, 2017 at 16:07 Discharge Date: May 23, 2017 Discharge Disposition: Home Principal Diagnosis: Acute on chronic systolic CHF, bilateral pleural effusions R>L Problems/Secondary Diagnoses: Hyperkalemia, Right ankle pain, redness, swelling, possible from osteoarthritis, don't believe is Gout y (1) Abscess, gluteal, left Status: Chronic (2) Multiple rib fractures Status: Chronic (3) Pneumonia Status: Chronic Immunizations: Have You Had Influenza Vaccine: No History of Tetanus Vaccine?: unknown History of Pneumococcal: No History of Hepatitis B Vaccine: No Procedures: Right side thoracentesis for pleural effusion, 1.2 L fluid was removed, which is transudate, Consultations: Larry Operator Medication Reconciliation New Medications: Naproxen (Naproxen) 250 Mg Tab 250 MG PO BID PRN for pain for 5 Days, #10 TAB Patient can buy this medicine from [id number] Nystatin/Triamcinolone (Mycogen || ) Cr 1 APPLN EXT BID for 10 Days, #1 Continued Medications: Aspirin (Aspirin Ec) 325 Mg Tab 325 MG PO DAILY Atorvastatin (Lipitor) 80 Mg Tab 80 MG PO DAILY, TAB Citalopram Hydrobromide (Citalopram Hydrobromide) 20 Mg Tab 20 MG PO DAILY for 90 Days, #90 TAB 3 Refills Clopidogrel Bisulfate (Clopidogrel) 75 Mg Tab 75 MG PO QAM for 30 Days, #30 TAB Cyclobenzaprine Hcl (Flexeril) 10 Mg Tab 10 MG PO TID, #21 TAB Hydrocodone/Acetaminophen 5MG/325MG ([place] 5MG/325MG) Tab 1-2 TABLET PO Q6H PRN for Pain, TAB PRN PAIN Insulin Aspart 70/30 (Novolog Mix 70/30) Susp 20 UNITS SC QAM Insulin Aspart Protamine & Asp (Novolog Mix 70/30) 1 Inj Inj 30-35 UNITS SC QPM, BTL Isosorbide Mononitrate Ext Rel (Imdur Ext Rel) 30 Mg Ertab 30 MG PO QAM, TAB Levalbuterol Tartrate (Levalbuterol Tartrate Hfa) 45 Mcg/Act Aer 2 PUFF INH Q6H PRN for Shortness of Breath Lorazepam (Ativan) 1 Mg Tab 1 MG PO BID Losartan Potassium (Cozaar) 50 Mg Tab 50 MG PO DAILY, TAB Magnesium Oxide (Mag-Ox) 400 Mg Tab 400 MG PO DAILY, TAB Metoprolol Succinate (Toprol Xl) 50 Mg Tabcr 75 MG PO DAILY, #30 TAB Potassium Chloride (Micro-K Ext Rel) 10 Meq Capcr 10 MEQ PO DAILY, CAP MAY TAKE UP TO TWICE DAILY Ropinirole (Requip) 1 Mg Tab 1 MG PO HS, TAB Senna (Senokot) 8.6 Mg Tab 1 TAB PO DIRECTED, TAB Torsemide (Demadex) 20 Mg Tab 20 MG PO DAILY PRN for FLUID, TAB Tramadol (Ultram) 50 Mg Tab 50 MG PO Q6H PRN for Pain, TAB Zolpidem Tartrate (Ambien) 10 Mg Tab 2 TAB PO HS for Sleep, TAB Discharge Exam Doing okay, feeling better, up and walk with PT OT, no complaining, right lower foot and ankle pain is better, Review of Systems: Constitutional: No fever, No chills, No sweats, No weight loss, No weakness , No fatigue, No problem reported Eyes: No worsening of vision, No eye pain, No redness, No discharge, No diplopia, No problem reported ENT: No hearing loss, No unusual epistaxis, No nasal symptoms, No sore throat, No tinnitus, No dental problems, No trouble swallowing, No problem reported Respiratory: No cough, No sputum, No wheezing, No shortness of breath, No dyspnea on exertion, No dyspnea at rest, No hemoptysis, No problem reported Cardiovascular: + edema (mild), No chest pain, No orthopnea, No PND, No claudication, No palpitations, No problem reported Abdomen: No pain, No nausea, No vomiting, No diarrhea, No constipation, No GI bleeding, No problem reported Genitourinary - Male: No hematuria, No dysuria, No urinary frequency, No urinary urgency, No urinary hesitancy, No urinary retention, No urinary incontinence, No penile discharge, No lesions, No impotence, No problem reported Neurologic: No memory loss, No paralysis, No weakness, No numbness/tingling , No vertigo, No balance problems, No problem reported Psychiatric: No depression symptoms, No anhedonism, No anxiety, No insomnia , No substance abuse, No problem reported Endocrine: No fatigue, No excessive thirst, No excessive urination, No problem reported Hematologic / Lymphatic: No abnormal bleeding/bruising, No clotting problems , No swollen lymph nodes, No night sweats, No problem reported Integumentary: No rash, No itch, No new/changing skin lesions, No color change, No bleeding, No problem reported Physical Exam: General Appearance: WD/WN, no apparent distress, + obese Eyes: normal inspection, EOMI ENT: normal ENT inspection, hearing grossly normal, TMs normal Neck: supple, no adenopathy Respiratory/Chest: no respiratory distress, no accessory muscle use, + decreased breath sounds Cardiovascular: regular rate, rhythm, no edema Abdomen / GI: normal bowel sounds, non tender, soft, no organomegaly, no pulsatile mass Extremities: normal inspection, no calf tenderness, + pertinent finding ( right ankle swelling and red almost resolved, minimal tender in palpation, no limited range of motion) 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 Acute on chronic systolic CHF, bilateral pleural effusions R>L, status post thoracentesis, --improving -Has been on telemetry. No acute events overnight. Pt in sinus rhythm with HR 60s-80s Has been on Lasix 40 mg IV BID, to home dose of oral torsemide yesterday per recommendation from industrial nurse, patient's acute exacerbation of CHF possible from missing dose of torsemide, has counseled about medicine compliance -Pulmonology consulted, appreciate recs: right sided thoracentesis today, drained 1250 cc yellow fluid was transudate -CXR 05/20 shows decrease in right pleural effusion and no evidence postprocedural pneumothorax. Persistent left pleural effusion -Elevated d-dimer more than 2000, CTA no acute PE -Venous dopplers negative for DVT -Echo shows LVEF of 40-45%, no significant change from previous study. Type 2 diastolic dysfunction Elevated troponin upon admission, chest pain--improving -Troponin peaked at 0.228, trending down -Cardiology consulted, appreciate recs: Do not think chest pain secondary to ACS, likely from mismatch of demanding ischemia D/C'ed heparin drip. -EKG 05/20 shows 74 bpm, SR with 1st degree AV block, PACs, LBBB (chronic), no significant change from previous Hypomagnesemia--improving -Magnesium 1.7 on 05/20 -Magnesium sulfate 1 gm IV x 1, continue to monitor CAD, HTN, HLD--stable -Continue ASA 325 mg PO qd, Plavix 75 mg PO qd, Imdur 30 mg PO qd, losartan 50 mg PO qd, metoprolol succinate 75 mg PO qd and atorvastatin 80 mg PO qd DM II--last HgbA1c checked 03/13/17 was 6.8 -Lantus 9 units SC BID -Insulin sliding scale -Check BSGs q ac and qhs Anxiety/depression -Continue citalopram 20 mg PO qd and lorazepam 1 mg PO BID Right ankle pain, uric acid is within normal range, has been on Percocet for pain control, w Ankle x-ray was not remarkable, Chest pain help with naproxen, otherwise okay to continue as needed, by using over the counter Aleve RLS -Continue Requip 1 mg PO qhs Obesity DVT prophylaxis -Enoxaparin 40 mg SC q24h, heparin drip d/c'd Code Status -Level I, FULL RESUSCITATION STATUS Discharge instruction you have Acute on chronic systolic CHF, bilateral pleural effusions R>L- You need to continue Fluid restriction 1800 mL, and watch your weight Resuming your home dose of by mouth Torsemide, you need to take this medicine regularly, follow-up kidney function with your PCP while on this medication you was having Hyperkalemia, you need to check potassium level with your family doctor in 1 week in the follow-up visit You have Right ankle pain, redness, swelling, you can continue naproxen 250 mg PO BID prn pain. your Uric acid WNL - you need to follow up with your primary care physician in 1 week, - take medication as instructed, never overdose or any misuse, or take with alcohol, because misuse of medicine may cause organ damage or , call your primary care physician if have questions of medicaitons. - call your primary care physician OR go to local emergency room if has any fever/chill, chest pain, shortness of breathing, nausea/vomiting/abdominal pain , facial droop/slurry speech/local weakness, or if has any questions. - fall precaution - diet as instructed - you need to follow up with your subspecialist - you should understand that it is important to follow up the above instruction , and "not following the above instruction" may cause delayed or missed care of your medical conditions which may cause permanent organ damage and even . Total Time Spent: Greater than 30 minutes This includes examination of the patient, discharge planning, medication reconciliation, and communication with other providers. Discharge Instructions Please refer to the electronic Patient Visit Report (Discharge Instructions) for additional information. Additional Copies To Ellis Mullen M.D.; Ellis Lopez MD
== END 2017-05-23 13:43 | disposition home or self-care (01) | DRG 292 ==
LOC: C.EDB 14:03 → C.2T 16:07 → ENRESERV 16:17 → C.4E 05-22 10:29 → ENRESERV 05-22 10:51
PROVIDERS: ADMIT Hospitalist; ATTEND Hospitalist
PROC: 0W993ZZ Drainage of Right Pleural Cavity, Percutaneous Approach (ICD-10-PCS; principal; 2017-05-20)
DX: I11.0 Hypertensive heart disease with heart failure (principal); Z68.41 Body mass index [BMI] 40.0-44.9, adult; I50.23 Acute on chronic systolic (congestive) heart failure; Z91.128 Patient's intentional underdosing of medication regimen for other reason; I25.10 Atherosclerotic heart disease of native coronary artery without angina pectoris; I25.5 Ischemic cardiomyopathy; I44.7 Left bundle-branch block, unspecified; I34.0 Nonrheumatic mitral (valve) insufficiency; E11.9 Type 2 diabetes mellitus without complications; E78.5 Hyperlipidemia, unspecified; M19.071 Primary osteoarthritis, right ankle and foot; E83.42 Hypomagnesemia; E87.5 Hyperkalemia; E66.01 Morbid (severe) obesity due to excess calories; F41.9 Anxiety disorder, unspecified; F32.9 Major depressive disorder, single episode, unspecified; G25.81 Restless legs syndrome; G47.00 Insomnia, unspecified; I25.2 Old myocardial infarction; Z98.61 Coronary angioplasty status; Z87.891 Personal history of nicotine dependence; Z82.49 Family history of ischemic heart disease and other diseases of the circulatory system; Z83.3 Family history of diabetes mellitus; Z83.79 Family history of other diseases of the digestive system; Z84.1 Family history of disorders of kidney and ureter; Z79.82 Long term (current) use of aspirin; Z79.02 Long term (current) use of antithrombotics/antiplatelets; Z79.4 Long term (current) use of insulin

== ENCOUNTER → 2017-11-30 | Outpatient (CLI) | payer OTHER ==
[~2017-11-30] MED LIST changes: +ASPI325T39 PO; +ATOR-26 PO; +CITA20TA4 PO; +CYCL10TA6 PO; -IMDSR60 PO; +ISOS30TA3 PO; +LEVA45AE INH; +LOSA50TA6 PO; -LPT40 PO; -LSN5 PO; -LSX40 PO; +MAGN400T6 PO; +METO-217 PO; -METO1TAB69 PO; +NPR250 PO; +NYSTCRE11 EXT; +SENN-61 PO; +TORS20TA2 PO; +TRAM-10 PO; -VNTHFA/IN INH
[2017-11-30 17:38] LABS: BASO % 0.3 %; BASO ABS # 0.02 K/uL (0-0.2); EOS % 2.2 %; EOS ABS # 0.15 K/uL (0-0.5); HEMATOCRIT 47.9 % (42-52); HEMOGLOBIN 15.6 g/dL (14.0-18.0); IG# 0.01 K/uL (0.00-0.02); LYMPH % 22.2 %; LYMPH ABS # 1.49 K/uL (1.2-3.4); MEAN CELL VOLUME 95.2 fL (80-100); MEAN CORPUSCULAR HGB CONC 32.6 g/dl (32-36); MEAN PLATELET VOLUME 10.6 fL (7.4-10.4); MONO % 6.7 %; MONO ABS # 0.45 K/uL (0.11-0.59); NEUT % 68.5 %; NEUT ABS # 4.58 K/uL (1.4-6.5); PLATELET COUNT 218 K/uL (130-400); RED CELL DISTRIBUTION WIDTH CV 13.7 % (11.5-14.5); RED CELL DISTRIBUTION WIDTH SD 47.8 fL (36.4-46.3)
[2017-11-30 17:49] LABS: ALBUMIN 3.5 gm/dl (3.4-5.0); ALT/SGPT 14 U/L (12-78); AST/SGOT 11 U/L (15-37); BLOOD UREA NITROGEN 20 mg/dl (7-18); CALCIUM 9.5 mg/dl (8.5-10.1); CARBON DIOXIDE 30 mmol/L (21-32); CREATININE 1.27 mg/dl (0.60-1.40); GLUCOSE 150 mg/dl (70-99); POTASSIUM 3.9 mmol/L (3.5-5.1); SODIUM 138 mmol/L (136-145)
[2017-11-30 17:53] LABS: ALKALINE PHOSPHATASE 106 U/L (45-117); CHOLESTEROL 170 mg/dl (0-200); LDL CHOLESTEROL CALCULATED 99 mg/dl; TOTAL PROTEIN 7.9 gm/dl (6.4-8.2)
[2017-11-30 18:42] LABS: CREATININE RANDOM URINE 34.7 mg/dl
[2017-12-01 06:11] LABS: HEMOGLOBIN A1C 6.7 % (4.5-5.6)
== END | disposition home or self-care (01) ==
LOC: C.LABBFT 15:16
PROVIDERS: ATTEND Physician Assistant Medical
DX: E78.5 Hyperlipidemia, unspecified (principal); Z12.5 Encounter for screening for malignant neoplasm of prostate